=== PATIENT | male | born 1935 | race Hispanic/Latino ===

== ENCOUNTER 2017-11-05 01:53 | Inpatient (IN) | payer MEDICARE, OTHER ==
--- NOTE | 2017-11-05 02:25 | C.PDOC ---
History Of Present Illness 82 y/o male presents to the ED with complaints of not feeling well for the past 2-3 days. States he has had intermittent chest pain and palpitations as well, which come and go. Tonight symptoms returned and patient decided to come in for evaluation. On arrival to the ED, patient found to be in SVT in the 170s. Given 6mg and then 12 mg of adenosine, with no conversion from SVT. Patient then given 20 mg IV cardizem, with conversion to sinus rhythm, HR in the 90s. Patient reports he feels better. Time Seen by Provider: 11/05/17 02:24 Chief Complaint (Nursing): Chest Pain History Per: Patient History/Exam Limitations: no limitations Onset/Duration Of Symptoms: Days Current Symptoms Are (Timing): Still Present Severity: Moderate Pain Scale Rating Of: 6 Quality: "Pain" Alleviating Factors: None Recent travel outside of the [place]: No Additional History Per: Family Past Medical History Reviewed: Historical Data, Nursing Documentation, Vital Signs Vital Signs: Last Vital Signs Temp 98.5 F 11/05/17 02:55 Pulse 93 H 11/05/17 04:25 Resp 24 11/05/17 04:25 BP 114/69 11/05/17 04:25 Pulse Ox 97 11/05/17 04:25 - Medical History PMH: CAD, HTN Surgical History: Appendectomy, CABG Family History: States: No Known Family Hx - Social History Hx Tobacco Use: No Hx Alcohol Use: No Hx Substance Use: No - Immunization History Hx Tetanus Toxoid Vaccination: No Hx Influenza Vaccination: No Hx Pneumococcal Vaccination: No Review Of Systems Constitutional: Negative for: Fever Eyes: Negative for: Vision Change Cardiovascular: Positive for: Chest Pain, Palpitations Respiratory: Negative for: Shortness of Breath Gastrointestinal: Negative for: Nausea, Vomiting Neurological: Negative for: Weakness, Headache, Dizziness Physical Exam - Physical Exam Appears: Non-toxic, No Acute Distress Skin: Warm, Dry Head: Normacephalic Eye(s): bilateral: Normal Inspection Oral Mucosa: Moist Neck: Normal ROM Chest: Symmetrical, Other (CABG scar noted) Cardiovascular: Rhythm Regular (after medications given) Respiratory: No Rales, No Rhonchi, No Wheezing Gastrointestinal/Abdominal: Soft, No Tenderness, No Distention Extremity: Bilateral: Atraumatic, No Pedal Edema, Normal Color And Temperature, Normal ROM Pulses: Left Dorsalis Pedis: Normal, Right Dorsalis Pedis: Normal Neurological/Psych: Oriented x3, Normal Speech, Normal Cranial Nerves Gait: Steady ED Course And Treatment - Laboratory Results Result Diagrams: 11/05/17 02:53 11/05/17 02:53 ECG: Interpreted By Me, Viewed By Me ECG Rhythm: Sinus Tachycardia (170), Nonspecific Changes (svt vs afib) O2 Sat by Pulse Oximetry: 96 Pulse Ox Interpretation: Normal - Radiology CXR: Interpreted by Me, Viewed By Me CXR Interpretation: Yes: Cardiomegaly, Other (cabg). No: Infiltrates, Fracture Progress Note: after cardizem afib 92 bpm, nsstt changes. pt again in afib 140' s -= anothe r 15 mg iv cardizem given, then drip at [address] spoke with dr acuña(icu) will come and see the pt in the ed Critical Care Time - Critical Care Note Total Time (in mins): 30 Documented critical care: time excludes all time spent performing seperately billable procedures. Disposition Discussed With DrSenait: Latoya Orosco Comment: accetped the pt on his service and took over the care at Doctor Will See Patient In The: ED Counseled Patient/Family Regarding: Studies Performed, Diagnosis - Disposition Disposition: HOSPITALIZED Disposition Time: 02:25 Condition: GUARDED Forms: [facility] (Citizen [place]) - POA Present On Arrival: Poor Glycemic Control - Clinical Impression Clinical Impression: Chest pain, Congestive heart failure, Uncontrolled atrial fibrillation, NSTEMI (non-ST elevated myocardial infarction) - Scribe Statement The provider has reviewed the documentation as recorded by the Scribe (Brittany Mallory) Provider Attestation: All medical record entries made by the Scribe were at my direction and personally dictated by me. I have reviewed the chart and agree that the record accurately reflects my personal performance of the history, physical exam, medical decision making, and the department course for this patient. I have also personally directed, reviewed, and agree with the discharge instructions and disposition. Decision To Admit - Pt Status Changed To: Hospital Disposition Of: Inpatient - Admit Certification Admit to Inpatient:: After my assessment, the patient will require hospitalization for at least two midnights. This is because of the severity of symptoms shown, intensity of services needed, and/or the medical risk in this patient being treated as an outpatient. - InPatient: Physician Admission Certification: I certify that this patient requires 2 or more midnights of care for the following reason:: After my assessment, the patient will require hospitalization for at least two midnights. This is because of the severity of symptoms shown, intensity of services needed, and/or the medical risk in this patient being treated as an outpatient. - . Bed Request Type: ICU Admitting Physician: Latoya Orosco Patient Diagnosis: Chest pain, Congestive heart failure, Uncontrolled atrial fibrillation, NSTEMI (non-ST elevated myocardial infarction)
[2017-11-05] MEDS ORDERED: Aspirin 325 mg EC Tablets PO STA (02:31)
[2017-11-05] MEDS ORDERED: Aspirin 325 mg EC Tablets PO ONE (02:44)
[2017-11-05 03:00] LABS: INR 1.1; PROTHROMBIN TIME 11.6 SECONDS (9.7-12.2)
[2017-11-05 03:03] LABS: ALB/GLOB RATIO 1.3 (1.0-2.1); ALBUMIN 3.7 g/dL (3.5-5.0); ALT/SGPT 33 U/L (21-72); AST/SGOT 50 U/L (17-59); BLOOD UREA NITROGEN 30 mg/dL (9-20); CALCIUM 8.7 mg/dl (8.6-10.4); GFR AFRICAN-AMERICAN > 60; GFR NON-AFRICAN AMERICAN > 60; LIPASE 142 U/L (23-300)
[2017-11-05 03:05] LABS: BASO # 0.1 K/uL (0.0-0.2); BASO % 0.8 % (0.0-2.0); EOS # 0.2 K/uL (0.0-0.7); EOS % 2.2 % (0.0-4.0); HEMOGLOBIN 13.6 g/dL (12.0-18.0); LYMPH # 1.6 K/uL (1.0-4.3); LYMPH % 16.9 % (20.0-40.0); MEAN CORPUSCULAR HEMOGLOBIN 29.5 pg (27.0-31.0); MEAN CORPUSCULAR HGB CONC 33.5 g/dL (33.0-37.0); MEAN PLATELET VOLUME 10.6 fL (7.2-11.7); MONO # 0.9 K/uL (0.0-0.8); MONO % 8.9 % (0.0-10.0); NEUT # 6.8 K/uL (1.8-7.0); NEUT % 71.2 % (50.0-75.0); RBC 4.63 Mil/uL (4.40-5.90); RED CELL DISTRIBUTION WIDTH 13.9 % (11.5-14.5); WHITE BLOOD COUNT 9.6 K/uL (4.8-10.8)
[2017-11-05 03:37] LABS: B-TYPE NATRIURETIC PEPTIDE 4370 pg/mL (0-900)
[2017-11-05] MEDS ORDERED: Enoxaparin 80 mg Syringe SC STA (03:46)
[2017-11-05] MEDS ORDERED: Enoxaparin 80 mg Syringe ONE (03:56)
--- NOTE | 2017-11-05 05:16 | CP.PCM.CON ---
History of Present Illness - History of Present Illness History of Present Illness: 82 y/o male with h/o CAD/CABG 4 yrs ago,HTN,Hyperlipidemia presents to the ED with complaints of not feeling well for the past 2-3 days, intermittent chest pain . Tonight about 11:00pmcould not fall asleep.In ED, patient found to be in SVT in the 170s. Given 6mg and then 12 mg of adenosine, with no conversion from SVT. Patient then given 20 mg IV cardizem, with conversion to sinus rhythm , HR in the 90s. 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 absent: Claudication, Dyspnea, Palpitations, Radiating Pain - Respiratory Respiratory: absent: Cough, Dyspnea, Chest Congestion - Gastrointestinal Gastrointestinal: absent: Abdominal Pain, Heartburn, Nausea, Vomiting - Genitourinary Genitourinary: absent: Dysuria, Urinary Frequency - Musculoskeletal Musculoskeletal: absent: Joint Swelling, Stiffness - Integumentary Integumentary: absent: Rash - Neurological Neurological: absent: Dizziness, Weakness - Endocrine Endocrine: absent: Heat Intolorance, Palpitations - Hematologic/Lymphatic Hematologic: absent: Easy Bleeding Past Patient History - Past Medical History & Family History Past Medical History?: Yes - Past Social History Smoking Status: Never Smoked Chewing Tobacco Use: No Cigar Use: No Alcohol: Occasional Drugs: Denies Home Situation {Lives}: Alone - CARDIAC Hx Hypertension: Yes - PSYCHIATRIC Hx Substance Use: No - SURGICAL HISTORY Hx Appendectomy: Yes Hx Coronary Artery Bypass Graft: Yes - ANESTHESIA Hx Anesthesia: Yes Hx Anesthesia Reactions: No Meds Allergies/Adverse Reactions: Allergies Allergy/AdvReac Type Severity Reaction Status Date / Time No Known Allergies Allergy Verified 11/05/17 02:15 - Medications Medications: Current Medications Diltiazem HCl 125 mg/ Sodium (Chloride) 125 mls @ 5 mls/hr IV .Q24H MAY; 5 MG/ HR PRN Reason: Protocol Last Admin: 11/05/17 04:43 Dose: 5 mls/hr Physical Exam - Constitutional Appears: No Acute Distress - Head Exam Head Exam: ATRAUMATIC, NORMAL INSPECTION, NORMOCEPHALIC - Eye Exam Eye Exam: EOMI, PERRL Pupil Exam: NORMAL ACCOMODATION - ENT Exam ENT Exam: Mucous Membranes Moist, Normal Exam - Neck Exam Neck exam: Positive for: Normal Inspection - Respiratory Exam Respiratory Exam: Clear to Auscultation Bilateral. absent: Rhonchi, Wheezes - Cardiovascular Exam Cardiovascular Exam: Tachycardia, Irregular Rhythm. absent: JVD - GI/Abdominal Exam GI & Abdominal Exam: Normal Bowel Sounds, Soft. absent: Tenderness - Extremities Exam Extremities exam: Positive for: pedal edema, pedal pulses present. Negative for : calf tenderness, tenderness - Back Exam Back exam: NORMAL INSPECTION - Neurological Exam Neurological exam: Alert, Oriented x3 - Psychiatric Exam Psychiatric exam: Normal Affect - Skin Skin Exam: Intact, Normal Color, Warm Results - Vital Signs Recent Vital Signs: Last Vital Signs Temp 98.5 F 11/05/17 02:55 Pulse 110 H 11/05/17 05:02 Resp 18 11/05/17 05:02 BP 113/64 11/05/17 05:02 Pulse Ox 95 11/05/17 05:02 - Labs Result Diagrams: 11/05/17 02:53 11/05/17 02:53 Labs: Laboratory Results - last 24 hr 11/05/17 11/05/17 11/05/17 02:53 02:53 02:53 WBC 9.6 RBC 4.63 Hgb 13.6 Hct 40.7 MCV 88.0 MCH 29.5 MCHC 33.5 RDW 13.9 Plt Count 158 MPV 10.6 Neut % (Auto) 71.2 Lymph % (Auto) 16.9 L [place] % (Auto) 8.9 Eos % (Auto) 2.2 Baso % (Auto) 0.8 Neut # (Auto) 6.8 Lymph # (Auto) 1.6 [place] # (Auto) 0.9 H Eos # (Auto) 0.2 Baso # (Auto) 0.1 PT 11.6 INR 1.1 APTT 33 Sodium 142 Potassium 3.8 Chloride 106 Carbon Dioxide 23 Anion Gap 17 BUN 30 H Creatinine 1.1 Est GFR ( Amer) > 60 Est GFR (Non-Af Amer) > 60 Random Glucose 136 H Calcium 8.7 Total Bilirubin 0.9 AST 50 ALT 33 Alkaline Phosphatase 77 Troponin I 3.3800 H* NT-Pro-B Natriuret Pep 4370 H Total Protein 6.6 Albumin 3.7 Globulin 2.9 Albumin/Globulin Ratio 1.3 Lipase 142 TSH 3rd Generation 3.13 - EKG Data EKG Interpreted by: Myself - Imaging and Cardiology Chest x-ray Status: Image reviewed by me Assessment & Plan - Assessment and Plan (Free Text) Assessment: 1.NSTEMI/ Atrial fibrillation with Rapid Ventricular rate CHF On Cardizem drip Serial EKG and Troponin Aspirin,plavix 2.HTN -continue meds 3.Hyperlipidemia- fasting lipids crestor
[2017-11-05 06:19] LABS: HDL CHOLESTEROL 27 mg/dL (30-70)
[2017-11-05 06:30] LABS: LDL CHOLESTEROL 102 mg/dL (0-129)
--- NOTE | 2017-11-05 08:49 | RAD ---
Date of service: 11/05/2017 PROCEDURE: CHEST RADIOGRAPH, 1 VIEW HISTORY: Chest pain COMPARISON: None available. FINDINGS: LUNGS: The lungs are well inflated. There is mild pulmonary venous congestion. PLEURA: No pneumothorax or pleural fluid seen. CARDIOVASCULAR: There is severe cardiomegaly. Status post CABG. There is unfolding of the aorta. OSSEOUS STRUCTURES: No significant abnormalities. VISUALIZED UPPER ABDOMEN: Normal. OTHER FINDINGS: None. IMPRESSION: No active pulmonary disease. Severe cardiomegaly
[2017-11-05] MEDS: Enoxaparin 80 mg Syringe SC SCH ×2 (09:29→18:37)
--- NOTE | 2017-11-05 14:12 | CP.CCUPN ---
<Bibiana Polanco - Last Filed: 11/05/17 18:44> CCU Subjective - Physician Review Events Since Last Encounter (Free Text): 11/05/17 14:06 82 yo M w/ PMHx of CAD requiring CABG, HTN, HLD, presented to ED w/ complaints of chest pain. Admitted to ICU after pt found to be in A. Fib, rate controlled w/ cardizem. 11/05/17 18:44 s/p cardiac cath showing significant new disease; PCI needed CCU Objective - Vital Signs / Intake & Output Vital Signs (Last 4 hours): Vital Signs Pulse Resp BP Pulse Ox 11/05/17 13:10 85 24 98 11/05/17 13:00 93 H 20 99 11/05/17 12:58 97 H 15 105/67 99 11/05/17 12:50 85 22 91 L 11/05/17 12:40 82 31 H 99 11/05/17 12:30 95 H 23 92 L 11/05/17 12:28 86 19 110/75 99 11/05/17 12:20 81 25 H 98 11/05/17 12:10 87 31 H 98 11/05/17 12:00 86 26 H 98 11/05/17 11:58 75 27 H 111/69 97 11/05/17 11:50 98 H 34 H 98 11/05/17 11:40 87 31 H 98 11/05/17 11:30 98 H 19 99 11/05/17 11:28 103 H 17 112/73 98 11/05/17 11:20 94 H 15 99 11/05/17 11:10 92 H 29 H 87 L 11/05/17 11:00 131 H 20 96 11/05/17 10:58 115 H 25 H 120/76 99 11/05/17 10:50 89 25 H 97 11/05/17 10:40 100 H 21 97 11/05/17 10:30 91 H 24 98 11/05/17 10:28 119 H 23 116/52 L 98 11/05/17 10:20 99 H 31 H 98 11/05/17 10:10 115 H 15 98 Intake and Output (Last 8hrs): Intake & Output 11/04/17 11/05/17 11/05/17 22:59 06:59 14:59 Intake Total 7.5 790 Balance 7.5 790 Weight 180 lb Intake: Intake, IV Amount 7.5 70 Right Hand 7.5 70 Oral 720 - Physical Exam Head: Positive for: Atraumatic, Normocephalic Extroacular Muscles: Positive for: EOMI Mouth: Positive for: Moist Mucous Membranes Respiratory/Chest: Positive for: Clear to Auscultation, Good Air Exchange Cardiovascular: Positive for: Murmurs, Tachycardic Abdomen: Positive for: Normal Bowel Sounds. Negative for: Tenderness, Distention Neurological: Positive for: GCS=15 - Medications Active Medications: Active Medications Generic Name Dose Route Start Last Admin Trade Name Freq PRN Reason Stop Dose Admin Aspirin 81 mg 11/05/17 10:00 11/05/17 09:29 Ecotrin PO 81 mg DAILY [facility] Administration Carvedilol 3.125 mg 11/05/17 10:00 11/05/17 09:29 Coreg PO 3.125 mg BID MAY Administration Clopidogrel Bisulfate 75 mg 11/05/17 10:00 11/05/17 09:29 Plavix PO 75 mg DAILY MAY Administration Enoxaparin Sodium 80 mg 11/05/17 10:00 11/05/17 09:29 Lovenox SC 80 mg BID MAY Administration Famotidine 40 mg 11/05/17 10:00 11/05/17 09:29 Pepcid PO 40 mg DAILY MAY Administration Diltiazem HCl 125 mg/ Sodium 125 mls @ 5 mls/hr 11/05/17 04:26 11/05/17 06:33 Chloride IV 10 mg/hr .Q24H MAY 10 mls/hr Protocol Titration 5 MG/HR Lisinopril 2.5 mg 11/05/17 10:00 11/05/17 09:29 Zestril PO 2.5 mg DAILY MAY Administration Pneumococcal Polyvalent Vaccine 0.5 ml 11/07/17 10:00 Pneumovax 23 Vaccine IM 11/07/17 10:01 .ONCE ONE Rosuvastatin Calcium 5 mg 11/05/17 22:00 Crestor PO HS [facility] - Patient Studies Lab Studies: Lab Studies 11/05/17 11/05/17 11/05/17 Range/Units 11:18 06:11 02:53 WBC (4.8-10.8) K/uL RBC (4.40-5.90) Mil/uL Hgb (12.0-18.0) g/dL Hct (35.0-51.0) % MCV (80.0-94.0) fL MCH (27.0-31.0) pg MCHC (33.0-37.0) g/dL RDW (11.5-14.5) % Plt Count (130-400) K/uL MPV (7.2-11.7) fL Neut % (Auto) (50.0-75.0) % Lymph % (Auto) (20.0-40.0) % Cecil % (Auto) (0.0-10.0) % Eos % (Auto) (0.0-4.0) % Baso % (Auto) (0.0-2.0) % Neut # (Auto) (1.8-7.0) K/uL Lymph # (Auto) (1.0-4.3) K/uL Cecil # (Auto) (0.0-0.8) K/uL Eos # (Auto) (0.0-0.7) K/uL Baso # (Auto) (0.0-0.2) K/uL PT 11.6 (9.7-12.2) SECONDS INR 1.1 APTT 33 (21-34) SECONDS Sodium (132-148) mmol/L Potassium (3.6-5.2) mmol/L Chloride (98-107) mmol/L Carbon Dioxide (22-30) mmol/L Anion Gap (10-20) BUN (9-20) mg/dL Creatinine (0.8-1.5) mg/dL Est GFR ( Amer) Est GFR (Non-Af Amer) Random Glucose (75-110) mg/dL Calcium (8.6-10.4) mg/dl Total Bilirubin (0.2-1.3) mg/dL AST (17-59) U/L ALT (21-72) U/L Alkaline Phosphatase (38-126) U/L Troponin I 27.0000 H* (0.00-0.120) ng/mL NT-Pro-B Natriuret Pep (0-900) pg/mL Total Protein (6.3-8.3) g/dL Albumin (3.5-5.0) g/dL Globulin (2.2-3.9) gm/dL Albumin/Globulin Ratio (1.0-2.1) Triglycerides 123 (0-149) mg/dL Cholesterol 146 (0-199) mg/dL LDL Cholesterol Direct 102 (0-129) mg/dL HDL Cholesterol 27 L (30-70) mg/dL Lipase (23-300) U/L TSH 3rd Generation (0.46-4.68) mIU/L 11/05/17 11/05/17 Range/Units 02:53 02:53 WBC 9.6 (4.8-10.8) K/uL RBC 4.63 (4.40-5.90) Mil/uL Hgb 13.6 (12.0-18.0) g/dL Hct 40.7 (35.0-51.0) % MCV 88.0 (80.0-94.0) fL MCH 29.5 (27.0-31.0) pg MCHC 33.5 (33.0-37.0) g/dL RDW 13.9 (11.5-14.5) % Plt Count 158 (130-400) K/uL MPV 10.6 (7.2-11.7) fL Neut % (Auto) 71.2 (50.0-75.0) % Lymph % (Auto) 16.9 L (20.0-40.0) % Cecil % (Auto) 8.9 (0.0-10.0) % Eos % (Auto) 2.2 (0.0-4.0) % Baso % (Auto) 0.8 (0.0-2.0) % Neut # (Auto) 6.8 (1.8-7.0) K/uL Lymph # (Auto) 1.6 (1.0-4.3) K/uL Cecil # (Auto) 0.9 H (0.0-0.8) K/uL Eos # (Auto) 0.2 (0.0-0.7) K/uL Baso # (Auto) 0.1 (0.0-0.2) K/uL PT (9.7-12.2) SECONDS INR APTT (21-34) SECONDS Sodium 142 (132-148) mmol/L Potassium 3.8 (3.6-5.2) mmol/L Chloride 106 (98-107) mmol/L Carbon Dioxide 23 (22-30) mmol/L Anion Gap 17 (10-20) BUN 30 H (9-20) mg/dL Creatinine 1.1 (0.8-1.5) mg/dL Est GFR ( Amer) > 60 Est GFR (Non-Af Amer) > 60 Random Glucose 136 H (75-110) mg/dL Calcium 8.7 (8.6-10.4) mg/dl Total Bilirubin 0.9 (0.2-1.3) mg/dL AST 50 (17-59) U/L ALT 33 (21-72) U/L Alkaline Phosphatase 77 (38-126) U/L Troponin I 3.3800 H* (0.00-0.120) ng/mL NT-Pro-B Natriuret Pep 4370 H (0-900) pg/mL Total Protein 6.6 (6.3-8.3) g/dL Albumin 3.7 (3.5-5.0) g/dL Globulin 2.9 (2.2-3.9) gm/dL Albumin/Globulin Ratio 1.3 (1.0-2.1) Triglycerides (0-149) mg/dL Cholesterol (0-199) mg/dL LDL Cholesterol Direct (0-129) mg/dL HDL Cholesterol (30-70) mg/dL Lipase 142 (23-300) U/L TSH 3rd Generation 3.13 (0.46-4.68) mIU/L Laboratory Results - last 24 hr 11/05/17 11/05/17 11/05/17 02:53 02:53 02:53 WBC 9.6 RBC 4.63 Hgb 13.6 Hct 40.7 MCV 88.0 MCH 29.5 MCHC 33.5 RDW 13.9 Plt Count 158 MPV 10.6 Neut % (Auto) 71.2 Lymph % (Auto) 16.9 L Cecil % (Auto) 8.9 Eos % (Auto) 2.2 Baso % (Auto) 0.8 Neut # (Auto) 6.8 Lymph # (Auto) 1.6 Cecil # (Auto) 0.9 H Eos # (Auto) 0.2 Baso # (Auto) 0.1 PT 11.6 INR 1.1 APTT 33 Sodium 142 Potassium 3.8 Chloride 106 Carbon Dioxide 23 Anion Gap 17 BUN 30 H Creatinine 1.1 Est GFR ( Amer) > 60 Est GFR (Non-Af Amer) > 60 Random Glucose 136 H Calcium 8.7 Total Bilirubin 0.9 AST 50 ALT 33 Alkaline Phosphatase 77 Troponin I 3.3800 H* NT-Pro-B Natriuret Pep 4370 H Total Protein 6.6 Albumin 3.7 Globulin 2.9 Albumin/Globulin Ratio 1.3 Triglycerides Cholesterol LDL Cholesterol Direct HDL Cholesterol Lipase 142 TSH 3rd Generation 3.13 11/05/17 11/05/17 06:11 11:18 WBC RBC Hgb Hct MCV MCH MCHC RDW Plt Count MPV Neut % (Auto) Lymph % (Auto) Cecil % (Auto) Eos % (Auto) Baso % (Auto) Neut # (Auto) Lymph # (Auto) Cecil # (Auto) Eos # (Auto) Baso # (Auto) PT INR APTT Sodium Potassium Chloride Carbon Dioxide Anion Gap BUN Creatinine Est GFR ( Amer) Est GFR (Non-Af Amer) Random Glucose Calcium Total Bilirubin AST ALT Alkaline Phosphatase Troponin I 27.0000 H* NT-Pro-B Natriuret Pep Total Protein Albumin Globulin Albumin/Globulin Ratio Triglycerides 123 Cholesterol 146 LDL Cholesterol Direct 102 HDL Cholesterol 27 L Lipase TSH 3rd Generation EKG/Cardiology Studies: Cardiology / EKG Studies 11/05/17 02:11 EKG [ELECTROCARDIOGRAM] Stat Comment: Mode Of Transportation: BED Reason For Exam: 11/05/17 02:13 EKG [ELECTROCARDIOGRAM] Stat Comment: Mode Of Transportation: BED Reason For Exam: 11/05/17 02:14 EKG [ELECTROCARDIOGRAM] Stat Comment: Mode Of Transportation: BED Reason For Exam: 11/05/17 02:15 EKG [ELECTROCARDIOGRAM] Stat Comment: Mode Of Transportation: BED Reason For Exam: 11/05/17 02:20 EKG [ELECTROCARDIOGRAM] Stat Comment: Mode Of Transportation: BED Reason For Exam: 11/05/17 02:26 ELECTROCARDIOGRAM Stat Comment: Mode Of Transportation: BED Reason For Exam: chest pain 11/05/17 11:00 ELECTROCARDIOGRAM Routine Comment: Mode Of Transportation: PORTABLE Reason For Exam: NSTEMI,a fib Review of Systems - Constitutional Constitutional: absent: Chills, Sweats - Cardiovascular Cardiovascular: absent: Chest Pain, Diaphoresis, Edema, Palpitations - Respiratory Respiratory: absent: Cough, Dyspnea - Gastrointestinal Gastrointestinal: absent: Abdominal Pain, Nausea Critical Care Progress Note - Nutrition Nutrition: Nutrition Category Date Time Status NPO Diet [DIET] Diets 11/05/17 Lunch Active Assessment/Plan - Assessment and Plan (Free Text) Assessment: 82 yo M s/p NSTEMI, hx of A. Fib NSTEMI trops + x2 -cardiac cath w/ Dr. Esposito -aspirin 81mg -plavix A. Fib -cardizem drip HTN -lisinopril CHF -coreg HLD -crestor CAD s/p CABG -lovenox Ppx -pepcid -lovenox Case discussed w/ Dr. Seferino Polanco PGY1 <Clemente Gentile S - Last Filed: 11/05/17 18:48> CCU Objective - Vital Signs / Intake & Output Vital Signs (Last 4 hours): Vital Signs Pulse Resp BP Pulse Ox 11/05/17 17:30 117 H 35 H 11/05/17 17:25 128 H 27 H 121/91 H 11/05/17 17:21 106 H 11/05/17 15:30 99 H 28 H 99 11/05/17 15:28 100 H 32 H 116/65 98 11/05/17 15:20 102 H 17 87 L 11/05/17 15:10 110 H 20 94 L 11/05/17 15:00 94 H 30 H 94 L 11/05/17 14:58 96 H 19 112/79 94 L 11/05/17 14:50 90 22 99 Intake and Output (Last 8hrs): Intake & Output 11/05/17 11/05/17 11/05/17 06:59 14:59 22:59 Intake Total 7.5 800 115 Balance 7.5 800 115 Weight 180 lb Intake: IV 85 Intake, IV Amount 7.5 80 30 Right Hand 7.5 80 30 Oral 720 Other: # Voids Urine, Voided 1 - Medications Active Medications: Active Medications Generic Name Dose Route Start Last Admin Trade Name Freq PRN Reason Stop Dose Admin Aspirin 81 mg 11/05/17 10:00 11/05/17 09:29 Ecotrin PO 81 mg DAILY MAY Administration Carvedilol 3.125 mg 11/05/17 10:00 11/05/17 18:37 Coreg PO 3.125 mg BID MAY Administration Clopidogrel Bisulfate 75 mg 11/05/17 10:00 11/05/17 09:29 Plavix PO 75 mg DAILY MAY Administration Enoxaparin Sodium 80 mg 11/05/17 10:00 11/05/17 18:37 Lovenox SC 80 mg BID MAY Administration Famotidine 40 mg 11/05/17 10:00 11/05/17 09:29 Pepcid PO 40 mg DAILY MAY Administration Diltiazem HCl 125 mg/ Sodium 125 mls @ 5 mls/hr 11/05/17 04:26 11/05/17 18:20 Chloride IV 15 mg/hr .Q24H MAY 15 mls/hr Protocol Titration 5 MG/HR Sodium Chloride 1,000 mls @ 50 mls/hr 11/05/17 18:00 11/05/17 15:20 Sodium Chloride 0.45% IV 11/06/17 13:59 50 mls/hr .Q20H MAY Administration Lisinopril 2.5 mg 11/05/17 10:00 11/05/17 09:29 Zestril PO 2.5 mg DAILY MAY Administration Pneumococcal Polyvalent Vaccine 0.5 ml 11/07/17 10:00 Pneumovax 23 Vaccine IM 11/07/17 10:01 .ONCE ONE Rosuvastatin Calcium 40 mg 11/05/17 22:00 Crestor PO HS [facility] - Patient Studies Lab Studies: Lab Studies 11/05/17 11/05/17 11/05/17 Range/Units 11:18 06:11 02:53 WBC (4.8-10.8) K/uL RBC (4.40-5.90) Mil/uL Hgb (12.0-18.0) g/dL Hct (35.0-51.0) % MCV (80.0-94.0) fL MCH (27.0-31.0) pg MCHC (33.0-37.0) g/dL RDW (11.5-14.5) % Plt Count (130-400) K/uL MPV (7.2-11.7) fL Neut % (Auto) (50.0-75.0) % Lymph % (Auto) (20.0-40.0) % Cecil % (Auto) (0.0-10.0) % Eos % (Auto) (0.0-4.0) % Baso % (Auto) (0.0-2.0) % Neut # (Auto) (1.8-7.0) K/uL Lymph # (Auto) (1.0-4.3) K/uL Cecil # (Auto) (0.0-0.8) K/uL Eos # (Auto) (0.0-0.7) K/uL Baso # (Auto) (0.0-0.2) K/uL PT 11.6 (9.7-12.2) SECONDS INR 1.1 APTT 33 (21-34) SECONDS Sodium (132-148) mmol/L Potassium (3.6-5.2) mmol/L Chloride (98-107) mmol/L Carbon Dioxide (22-30) mmol/L Anion Gap (10-20) BUN (9-20) mg/dL Creatinine (0.8-1.5) mg/dL Est GFR ( Amer) Est GFR (Non-Af Amer) Random Glucose (75-110) mg/dL Calcium (8.6-10.4) mg/dl Total Bilirubin (0.2-1.3) mg/dL AST (17-59) U/L ALT (21-72) U/L Alkaline Phosphatase (38-126) U/L Troponin I 27.0000 H* (0.00-0.120) ng/mL NT-Pro-B Natriuret Pep (0-900) pg/mL Total Protein (6.3-8.3) g/dL Albumin (3.5-5.0) g/dL Globulin (2.2-3.9) gm/dL Albumin/Globulin Ratio (1.0-2.1) Triglycerides 123 (0-149) mg/dL Cholesterol 146 (0-199) mg/dL LDL Cholesterol Direct 102 (0-129) mg/dL HDL Cholesterol 27 L (30-70) mg/dL Lipase (23-300) U/L TSH 3rd Generation (0.46-4.68) mIU/L 11/05/17 11/05/17 Range/Units 02:53 02:53 WBC 9.6 (4.8-10.8) K/uL RBC 4.63 (4.40-5.90) Mil/uL Hgb 13.6 (12.0-18.0) g/dL Hct 40.7 (35.0-51.0) % MCV 88.0 (80.0-94.0) fL MCH 29.5 (27.0-31.0) pg MCHC 33.5 (33.0-37.0) g/dL RDW 13.9 (11.5-14.5) % Plt Count 158 (130-400) K/uL MPV 10.6 (7.2-11.7) fL Neut % (Auto) 71.2 (50.0-75.0) % Lymph % (Auto) 16.9 L (20.0-40.0) % Cecil % (Auto) 8.9 (0.0-10.0) % Eos % (Auto) 2.2 (0.0-4.0) % Baso % (Auto) 0.8 (0.0-2.0) % Neut # (Auto) 6.8 (1.8-7.0) K/uL Lymph # (Auto) 1.6 (1.0-4.3) K/uL Cecil # (Auto) 0.9 H (0.0-0.8) K/uL Eos # (Auto) 0.2 (0.0-0.7) K/uL Baso # (Auto) 0.1 (0.0-0.2) K/uL PT (9.7-12.2) SECONDS INR APTT (21-34) SECONDS Sodium 142 (132-148) mmol/L Potassium 3.8 (3.6-5.2) mmol/L Chloride 106 (98-107) mmol/L Carbon Dioxide 23 (22-30) mmol/L Anion Gap 17 (10-20) BUN 30 H (9-20) mg/dL Creatinine 1.1 (0.8-1.5) mg/dL Est GFR ( Amer) > 60 Est GFR (Non-Af Amer) > 60 Random Glucose 136 H (75-110) mg/dL Calcium 8.7 (8.6-10.4) mg/dl Total Bilirubin 0.9 (0.2-1.3) mg/dL AST 50 (17-59) U/L ALT 33 (21-72) U/L Alkaline Phosphatase 77 (38-126) U/L Troponin I 3.3800 H* (0.00-0.120) ng/mL NT-Pro-B Natriuret Pep 4370 H (0-900) pg/mL Total Protein 6.6 (6.3-8.3) g/dL Albumin 3.7 (3.5-5.0) g/dL Globulin 2.9 (2.2-3.9) gm/dL Albumin/Globulin Ratio 1.3 (1.0-2.1) Triglycerides (0-149) mg/dL Cholesterol (0-199) mg/dL LDL Cholesterol Direct (0-129) mg/dL HDL Cholesterol (30-70) mg/dL Lipase 142 (23-300) U/L TSH 3rd Generation 3.13 (0.46-4.68) mIU/L Laboratory Results - last 24 hr 11/05/17 11/05/17 11/05/17 02:53 02:53 02:53 WBC 9.6 RBC 4.63 Hgb 13.6 Hct 40.7 MCV 88.0 MCH 29.5 MCHC 33.5 RDW 13.9 Plt Count 158 MPV 10.6 Neut % (Auto) 71.2 Lymph % (Auto) 16.9 L Cecil % (Auto) 8.9 Eos % (Auto) 2.2 Baso % (Auto) 0.8 Neut # (Auto) 6.8 Lymph # (Auto) 1.6 Cecil # (Auto) 0.9 H Eos # (Auto) 0.2 Baso # (Auto) 0.1 PT 11.6 INR 1.1 APTT 33 Sodium 142 Potassium 3.8 Chloride 106 Carbon Dioxide 23 Anion Gap 17 BUN 30 H Creatinine 1.1 Est GFR ( Amer) > 60 Est GFR (Non-Af Amer) > 60 Random Glucose 136 H Calcium 8.7 Total Bilirubin 0.9 AST 50 ALT 33 Alkaline Phosphatase 77 Troponin I 3.3800 H* NT-Pro-B Natriuret Pep 4370 H Total Protein 6.6 Albumin 3.7 Globulin 2.9 Albumin/Globulin Ratio 1.3 Triglycerides Cholesterol LDL Cholesterol Direct HDL Cholesterol Lipase 142 TSH 3rd Generation 3.13 11/05/17 11/05/17 06:11 11:18 WBC RBC Hgb Hct MCV MCH MCHC RDW Plt Count MPV Neut % (Auto) Lymph % (Auto) Cecil % (Auto) Eos % (Auto) Baso % (Auto) Neut # (Auto) Lymph # (Auto) Cecil # (Auto) Eos # (Auto) Baso # (Auto) PT INR APTT Sodium Potassium Chloride Carbon Dioxide Anion Gap BUN Creatinine Est GFR ( Amer) Est GFR (Non-Af Amer) Random Glucose Calcium Total Bilirubin AST ALT Alkaline Phosphatase Troponin I 27.0000 H* NT-Pro-B Natriuret Pep Total Protein Albumin Globulin Albumin/Globulin Ratio Triglycerides 123 Cholesterol 146 LDL Cholesterol Direct 102 HDL Cholesterol 27 L Lipase TSH 3rd Generation EKG/Cardiology Studies: Cardiology / EKG Studies 11/05/17 02:11 EKG [ELECTROCARDIOGRAM] Stat Comment: Mode Of Transportation: BED Reason For Exam: 11/05/17 02:13 EKG [ELECTROCARDIOGRAM] Stat Comment: Mode Of Transportation: BED Reason For Exam: 11/05/17 02:14 EKG [ELECTROCARDIOGRAM] Stat Comment: Mode Of Transportation: BED Reason For Exam: 11/05/17 02:15 EKG [ELECTROCARDIOGRAM] Stat Comment: Mode Of Transportation: BED Reason For Exam: 11/05/17 02:20 EKG [ELECTROCARDIOGRAM] Stat Comment: Mode Of Transportation: BED Reason For Exam: 11/05/17 02:26 ELECTROCARDIOGRAM Stat Comment: Mode Of Transportation: BED Reason For Exam: chest pain 11/05/17 11:00 ELECTROCARDIOGRAM Routine Comment: Mode Of Transportation: PORTABLE Reason For Exam: NSTEMI,a fib Critical Care Progress Note - Nutrition Nutrition: Nutrition Category Date Time Status Heart Healthy Diet [DIET] Diets 11/05/17 Dinner Active Attending/Attestation - Attestation I have personally seen and examined this patient.: Yes I have fully participated in the care of the patient.: Yes I have reviewed all pertinent clinical information: Yes Notes (Text): 11/05/17 18:48 PATIENT SEEN AND EXAMINED
[2017-11-05] MEDS ORDERED: Midazolam 2 MG/2 ML VIAL ONE (16:15)
[2017-11-05] MEDS ORDERED: Iodixanol 320 MG/ML 100 ML BOTTLE IV ONE ×2 (16:15→16:43)
[2017-11-05] MEDS ORDERED: Lidocaine Hydrochloride 10 ML INJ ONE (16:15)
--- NOTE | 2017-11-05 16:39 | CARD ---
APPROVED REPORT Date of service: 11/05/2017 EXAM: Two-dimensional and M-mode echocardiogram with Doppler and color Doppler. Other Information Quality : AverageRhythm : NSR INDICATION Atrial Fibrillation Chest Pain Congestive Heart Failure 2D DIMENSIONS LVOT Diameter1.6 (1.8-2.4cm) M-Mode DIMENSIONS RVDd2.65 (2.1-3.2cm)IVSd1.48 (0.7-1.1cm) LVDd4.77 (4.0-5.6cm)PWd1.48 (0.7-1.1cm) FS (%) 23 %LVDs3.69 (2.0-3.8cm) LVEF (%)46 (>50%) Aortic Valve AoV Peak Wtjsxosc287.9cm/sAoV VTI45.8cmAO Peak GR.21mmHg LVOT Peak Gnnowfoq36.6cm/Mona Mean GR.11mmHg Mitral Valve MV E Lbzkbvrs544.6cm/sMV A Zjukungo41.8cm/sE/A ratio1.4 TDI E/Lateral E'0.0E/Medial E'0.0 Tricuspid Valve TR Peak [id number]/sTR Peak Gr.[id number] LEFT VENTRICLE The Left Ventricle is moderately dilated. There is mild to moderate concentric left ventricular hypertrophy. Left ventricle systolic function is moderately impaired. The Ejection Fraction is - 40 - 45% There is moderate hypokinesis in the inferior wall. Transmitral Doppler flow pattern is Grade III RIGHT VENTRICLE The right ventricle is moderately dilated. Systolic function is mildly reduced. ATRIA The left atrium is moderately dilated. The right atrium is moderately dilated. AORTIC VALVE The aortic valve is calcified and displays decreased opening. A bioprosthetic device cannot be excluded. There is trace aortic regurgitation. MITRAL VALVE The mitral valve is normal in structure. Mitral regurgitation is mild. TRICUSPID VALVE The tricuspid valve is normal in structure. There is trace to Right ventricular systolic pressure is estimated at less than 30 mmHg. mild tricuspid regurgitation. PULMONIC VALVE The pulmonic valve is not well visualized. GREAT VESSELS The aortic root displays mild to moderate sclerocalcific changes. The IVC is normal in size and collapses >50% with inspiration. PERICARDIAL EFFUSION There is no pericardial effusion. <Conclusion> The left ventricle is moderately dilated. There is mild to moderate concentric left ventricular hypertrophy. There is moderate hypokinesis in the inferior wall compatible with coronary heart disease. Left ventricle systolic function is moderately impaired. The Ejection Fraction is - 40 - 45% Severe diastolic dysfunction. Transmitral Doppler flow pattern is Grade III The right ventricle is moderately dilated. Systolic function is mildly to moderately reduced. Moderate bi-atrial enlargement. The aortic valve is calcified and displays decreased opening. Due to poor acoustic windows, a bioprosthetic device cannot be excluded. There is trace aortic regurgitation. Mild mitral regurgitation. There is no pericardial effusion.
[2017-11-05] MEDS ORDERED: Sodium Chloride 0.45% 1,000 ML IV SCH (18:00)
--- NOTE | 2017-11-05 20:09 | CP.PCM.HP ---
History of Present Illness - History of Present Illness History of Present Illness: Chief complaint: Sudden onset of chest discomfort, and palpitation. History of present illness: 82-year-old male with history of CAD, CABG 4 years ago hypertension hyperlipidemia came to the emergency room with a sudden onset of chest palpitations started yesterday. He was having intermittent pain for quite some time. Yesterday he went to [place], he had a big steak at the time, and he went to home after that. That night while he was sleeping suddenly he started having some sudden onset of chest discomfort, and palpitation and associated with the chest pain. He was not able to bleed, he was also feeling like choking sensation, he was immediately taken to the emergency room by the ambulance. In the emergency room patient was noted to have a SVT, given adenosine without any improvement, and given Cardizem, and needed hospitalization. At that time patient also had a positive cardiac enzymes so he was admitted to the intensive care unit at the time. Patient today he underwent angiogram, evidence of CAD with the blockages noted. Patient will be possibly needing more treatment Patient is currently in the intensive care unit. He denies any chest pain. He is able to eat. No nausea vomiting, no palpitation currently Past medical history as noted above Allergy no known drug allergy Personal history used to be a heavy smoker in the past, 5 pack per day in the past to be Quit many years ago. Surgical history included coronary artery bypass grafting. Family history significant for hypertension and heart disease Review of system: Currently patient is feeling okay, he denies any chest pain. He was having some palpitation, shortness of breath at that time. Leg swelling negative. Able to eat well. He was able to ambulate On examination: Tachycardia noted. Chest bilateral good entry Regular heart sound noted. But episodes of irregular, and also tachycardia noted. Mild shortness of breath noted. abdomen obese. Bilateral pedal edema negative DEHYDRATOR alert awake oriented 3 no functional neurological deficit Labs reviewed Elevated troponin III 0.3 noted. ProBNP also noted to be elevated. CMP CBC otherwise normal Patient underwent coronary angiogram. ANGEL is patent. Patient has a marginal obstruction noted. Assessment and recommendation: 82-year-old male with history of hypertension, atrial fibrillation, admitted with decompensated heart failure associated with acute IN. Elevated cardiac enzymes, possible non-ST elevation IN. Overall prognosis is poor. Patient is currently having atrial fibrillation with the flutter. Patient will be closely monitored in the intensive care unit, prognosis is poor. 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 DVT GI prophylaxis will follow the patient Present on Admission - Present on Admission Any Indicators Present on Admission: No History of DVT/PE: No History of Uncontrolled Diabetes: No Urinary Catheter: No Decubitus Ulcer Present: No Past Patient History - Past Medical History & Family History Past Medical History?: Yes - Past Social History Smoking Status: Never Smoked - CARDIAC Hx Cardiac Disorders: Yes Hx Hypertension: Yes - PULMONARY Hx Respiratory Disorders: No - NEUROLOGICAL Hx Neurological Disorder: No - HEENT Hx HEENT Problems: No - RENAL Hx Chronic Kidney Disease: No - ENDOCRINE/METABOLIC Hx Endocrine Disorders: No - HEMATOLOGICAL/ONCOLOGICAL Hx Blood Disorders: No - INTEGUMENTARY Hx Dermatological Problems: No - MUSCULOSKELETAL/RHEUMATOLOGICAL Hx Musculoskeletal Disorders: No Hx Falls: No - GASTROINTESTINAL Hx Gastrointestinal Disorders: No - GENITOURINARY/GYNECOLOGICAL Hx Genitourinary Disorders: No - PSYCHIATRIC Hx Substance Use: No - SURGICAL HISTORY Hx Surgeries: Yes Hx Appendectomy: Yes Hx Coronary Artery Bypass Graft: Yes - ANESTHESIA Hx Anesthesia: Yes Hx Anesthesia Reactions: No Hx Malignant Hyperthermia: No Has any member of the family had a problem w/ anesthesia?: No Meds Allergies/Adverse Reactions: Allergies Allergy/AdvReac Type Severity Reaction Status Date / Time No Known Allergies Allergy Verified 11/05/17 02:15 Results - Vital Signs Recent Vital Signs: Last Vital Signs Temp 97.8 F 11/05/17 17:25 Pulse 99 H 11/05/17 19:29 Resp 27 H 11/05/17 19:29 BP 134/77 11/05/17 19:29 Pulse Ox 99 11/05/17 15:30 - Labs Result Diagrams: 11/05/17 02:53 11/05/17 02:53 Labs: Laboratory Results - last 24 hr 11/05/17 11/05/17 11/05/17 02:53 02:53 02:53 WBC 9.6 RBC 4.63 Hgb 13.6 Hct 40.7 MCV 88.0 MCH 29.5 MCHC 33.5 RDW 13.9 Plt Count 158 MPV 10.6 Neut % (Auto) 71.2 Lymph % (Auto) 16.9 L Drew % (Auto) 8.9 Eos % (Auto) 2.2 Baso % (Auto) 0.8 Neut # (Auto) 6.8 Lymph # (Auto) 1.6 Drew # (Auto) 0.9 H Eos # (Auto) 0.2 Baso # (Auto) 0.1 PT 11.6 INR 1.1 APTT 33 Sodium 142 Potassium 3.8 Chloride 106 Carbon Dioxide 23 Anion Gap 17 BUN 30 H Creatinine 1.1 Est GFR ( Amer) > 60 Est GFR (Non-Af Amer) > 60 Random Glucose 136 H Calcium 8.7 Total Bilirubin 0.9 AST 50 ALT 33 Alkaline Phosphatase 77 Troponin I 3.3800 H* NT-Pro-B Natriuret Pep 4370 H Total Protein 6.6 Albumin 3.7 Globulin 2.9 Albumin/Globulin Ratio 1.3 Triglycerides Cholesterol LDL Cholesterol Direct HDL Cholesterol Lipase 142 TSH 3rd Generation 3.13 11/05/17 11/05/17 06:11 11:18 WBC RBC Hgb Hct MCV MCH MCHC RDW Plt Count MPV Neut % (Auto) Lymph % (Auto) Drew % (Auto) Eos % (Auto) Baso % (Auto) Neut # (Auto) Lymph # (Auto) Drew # (Auto) Eos # (Auto) Baso # (Auto) PT INR APTT Sodium Potassium Chloride Carbon Dioxide Anion Gap BUN Creatinine Est GFR ( Amer) Est GFR (Non-Af Amer) Random Glucose Calcium Total Bilirubin AST ALT Alkaline Phosphatase Troponin I 27.0000 H* NT-Pro-B Natriuret Pep Total Protein Albumin Globulin Albumin/Globulin Ratio Triglycerides 123 Cholesterol 146 LDL Cholesterol Direct 102 HDL Cholesterol 27 L Lipase TSH 3rd Generation
--- NOTE | 2017-11-05 20:39 | CARD ---
APPROVED REPORT Date of service: 11/05/2017 EKG Measurement Heart [id number] <Conclusion> Atrial fibrillation Left axis deviation Nonspecific intraventricular block Abnormal ECG
--- NOTE | 2017-11-05 20:40 | CARD ---
APPROVED REPORT Date of service: 11/05/2017 EKG Measurement Heart [id number] <Conclusion> Atrial fibrillation with rapid ventricular response Nonspecific intraventricular block Cannot rule out Septal infarct, age undetermined Possible Lateral infarct, age undetermined Abnormal ECG
--- NOTE | 2017-11-05 20:40 | CARD ---
APPROVED REPORT Date of service: 11/05/2017 EKG Measurement Heart [id number] <Conclusion> Atrial fibrillation with premature ventricular or aberrantly conducted complexes Left axis deviation Nonspecific intraventricular block Cannot rule out Septal infarct, age undetermined Abnormal ECG
--- NOTE | 2017-11-05 20:41 | CARD ---
APPROVED REPORT Date of service: 11/05/2017 EKG Measurement Heart [id number] <Conclusion> Undetermined rhythm Nonspecific intraventricular block Cannot rule out Septal infarct, age undetermined Possible Lateral infarct, age undetermined Abnormal ECG
--- NOTE | 2017-11-05 20:41 | CARD ---
APPROVED REPORT Date of service: 11/05/2017 EKG Measurement Heart [id number] <Conclusion> Atrial fibrilation Nonspecific intraventricular block Cannot rule out Septal infarct, age undetermined Possible Lateral infarct, age undetermined Abnormal ECG
--- NOTE | 2017-11-05 23:03 | CP.PCM.PN ---
Subjective - Date & Time of Evaluation Date of Evaluation: 11/05/17 Time of Evaluation: 17:25 - Subjective Subjective: Patient seen and evaluated S/P Cath Non STEMI VILLASENOR to LAD patent SVG to RCA patent SVG to Diag 80% stenosis SVG to OM 1 patent OM2 95% For PCI of OM2 and SVG to Diag in 1-2 days Continue anti ischemic therapy Objective - Vital Signs/Intake and Output Vital Signs (last 24 hours): Temp Pulse Resp BP Pulse Ox 98.9 F 107 H 18 118/77 97 11/05/17 20:00 11/05/17 20:00 11/05/17 20:00 11/05/17 20:00 11/05/17 20:00 Intake and Output: 11/05/17 11/06/17 18:59 06:59 Intake Total 920 215 Output Total 100 Balance 920 115 - Medications Medications: Current Medications Aspirin (Ecotrin) 81 mg PO DAILY [facility] Last Admin: 11/05/17 09:29 Dose: 81 mg Carvedilol (Coreg) 3.125 mg PO BID [facility] Last Admin: 11/05/17 18:37 Dose: 3.125 mg Clopidogrel Bisulfate (Plavix) 75 mg PO DAILY [facility] Last Admin: 11/05/17 09:29 Dose: 75 mg Enoxaparin Sodium (Lovenox) 80 mg SC BID [facility] Last Admin: 11/05/17 18:37 Dose: 80 mg Famotidine (Pepcid) 40 mg PO DAILY [facility] Last Admin: 11/05/17 09:29 Dose: 40 mg Sodium Chloride (Sodium Chloride 0.45%) 1,000 mls @ 50 mls/hr IV .Q20H [facility] Stop: 11/06/17 13:59 Last Admin: 11/05/17 15:20 Dose: 50 mls/hr Diltiazem HCl 125 mg/ Sodium (Chloride) 125 mls @ 5 mls/hr IV .Q24H PRN; 5 MG/ HR PRN Reason: Protocol Last Titration: 11/05/17 22:21 Dose: 10 mg/hr, 10 mls/hr Lisinopril (Zestril) 2.5 mg PO DAILY [facility] Last Admin: 11/05/17 09:29 Dose: 2.5 mg Pneumococcal Polyvalent Vaccine (Pneumovax 23 Vaccine) 0.5 ml IM .ONCE ONE Stop: 11/07/17 10:01 Rosuvastatin Calcium (Crestor) 40 mg PO HS [facility] Last Admin: 11/05/17 21:35 Dose: 40 mg - Labs Labs: 11/05/17 02:53 11/05/17 02:53 PT 11.6 SECONDS (9.7-12.2) 11/05/17 02:53 INR 1.1 11/05/17 02:53 APTT 33 SECONDS (21-34) 11/05/17 02:53
[2017-11-06 05:41] LABS: BASO # 0.1 K/uL (0.0-0.2); BASO % 0.7 % (0.0-2.0); EOS # 0.1 K/uL (0.0-0.7); EOS % 0.9 % (0.0-4.0); HEMOGLOBIN 13.2 g/dL (12.0-18.0); LYMPH # 0.8 K/uL (1.0-4.3); LYMPH % 6.3 % (20.0-40.0); MEAN CELL VOLUME 88.5 fL (80.0-94.0); MEAN CORPUSCULAR HGB CONC 33.9 g/dL (33.0-37.0); MEAN PLATELET VOLUME 10.4 fL (7.2-11.7); MONO # 0.9 K/uL (0.0-0.8); MONO % 7.5 % (0.0-10.0); NEUT # 10.5 K/uL (1.8-7.0); NEUT % 84.6 % (50.0-75.0); PLATELET COUNT 143 K/uL (130-400); RBC 4.39 Mil/uL (4.40-5.90); RED CELL DISTRIBUTION WIDTH 14.3 % (11.5-14.5); WHITE BLOOD COUNT 12.4 K/uL (4.8-10.8)
[2017-11-06 06:22] LABS: ALB/GLOB RATIO 1.2 (1.0-2.1); ALBUMIN 3.5 g/dL (3.5-5.0); ALT/SGPT 35 U/L (21-72); AST/SGOT 87 U/L (17-59); BLOOD UREA NITROGEN 20 mg/dL (9-20); CALCIUM 8.6 mg/dl (8.6-10.4); GFR AFRICAN-AMERICAN > 60; GFR NON-AFRICAN AMERICAN > 60
[2017-11-06 07:16] LABS: BANDS 1 % (0-2); LYMPHOCYTE 6 % (20-40); MONOCYTE 2 % (0-10); NEUTROPHIL 91 % (50-75); PLATELET ESTIMATE NORMAL (NORMAL); TOTAL CELLS COUNTED 100
[2017-11-06 07:33] LABS: CK-MB 31.3 ng/mL (0.0-3.38); TROPONIN I 14.6 ng/mL (0.00-0.120)
--- NOTE | 2017-11-06 10:53 | CP.CCUPN ---
<PolancoBibiana - Last Filed: 11/06/17 12:17> CCU Subjective - Physician Review Subjective (Free Text): 82 yo M w/ PMHx of CAD requiring CABG, HTN, HLD, admitted to ICU in A. Fib s/p NSTEMI, cardiac cath. Pt to go for PCI tomorrow. 11/06/17 11:24 CCU Objective - Vital Signs / Intake & Output Vital Signs (Last 4 hours): Vital Signs Temp Pulse Resp BP Pulse Ox 11/06/17 10:00 147 H 38 H 93 L 11/06/17 09:00 109 H 33 H 11/06/17 08:46 122 H 35 H 117/69 11/06/17 08:00 98.3 F 98 11/06/17 07:41 112 H 29 H 101/77 82 L Intake and Output (Last 8hrs): Intake & Output 11/05/17 11/06/17 11/06/17 22:59 06:59 14:59 Intake Total 465 520 540 Output Total 200 400 100 Balance 265 120 440 Weight 182 lb Intake: IV 175 40 Intake, IV Amount 290 480 240 Left Hand 100 Left Wrist 20 Right Hand 90 80 20 Rt Hand 200 400 100 Oral 300 Output: Urine 200 400 100 Urine, Voided 200 400 100 Emesis 0 Other: # Voids Urine, Voided 1 # Bowel Movements 0 0 - Physical Exam Head: Positive for: Atraumatic, Normocephalic Extroacular Muscles: Positive for: EOMI Mouth: Positive for: Moist Mucous Membranes Respiratory/Chest: Positive for: Clear to Auscultation, Good Air Exchange Cardiovascular: Positive for: Murmurs, Tachycardic Abdomen: Positive for: Normal Bowel Sounds. Negative for: Tenderness, Distention Neurological: Positive for: GCS=15 - Medications Active Medications: Active Medications Generic Name Dose Route Start Last Admin Trade Name Freq PRN Reason Stop Dose Admin Aspirin 81 mg 11/05/17 10:00 11/05/17 09:29 Ecotrin PO 81 mg DAILY MAY Administration Carvedilol 3.125 mg 11/05/17 10:00 11/05/17 18:37 Coreg PO 3.125 mg BID MAY Administration Clopidogrel Bisulfate 75 mg 11/05/17 10:00 11/05/17 09:29 Plavix PO 75 mg DAILY MAY Administration Enoxaparin Sodium 80 mg 11/05/17 10:00 11/05/17 18:37 Lovenox SC 80 mg BID MAY Administration Famotidine 40 mg 11/05/17 10:00 11/05/17 09:29 Pepcid PO 40 mg DAILY MAY Administration Sodium Chloride 1,000 mls @ 50 mls/hr 11/05/17 18:00 11/05/17 15:20 Sodium Chloride 0.45% IV 11/06/17 13:59 50 mls/hr .Q20H MAY Administration Diltiazem HCl 125 mg/ Sodium 125 mls @ 5 mls/hr 11/05/17 19:30 11/06/17 05:00 Chloride IV 10 mg/hr .Q24H PRN 10 mls/hr Protocol Administration 5 MG/HR Lisinopril 2.5 mg 11/05/17 10:00 11/05/17 09:29 Zestril PO 2.5 mg DAILY MAY Administration Pneumococcal Polyvalent Vaccine 0.5 ml 11/07/17 10:00 Pneumovax 23 Vaccine IM 11/07/17 10:01 .ONCE ONE Rosuvastatin Calcium 10 mg 11/06/17 22:00 Crestor PO HS MAY - Patient Studies Lab Studies: Lab Studies 11/06/17 11/06/17 11/06/17 Range/Units 08:00 06:47 05:37 WBC (4.8-10.8) K/uL RBC (4.40-5.90) Mil/uL Hgb (12.0-18.0) g/dL Hct (35.0-51.0) % MCV (80.0-94.0) fL MCH (27.0-31.0) pg MCHC (33.0-37.0) g/dL RDW (11.5-14.5) % Plt Count (130-400) K/uL MPV (7.2-11.7) fL Neut % (Auto) (50.0-75.0) % Lymph % (Auto) (20.0-40.0) % [place] % (Auto) (0.0-10.0) % Eos % (Auto) (0.0-4.0) % Baso % (Auto) (0.0-2.0) % Neut # (Auto) (1.8-7.0) K/uL Lymph # (Auto) (1.0-4.3) K/uL [place] # (Auto) (0.0-0.8) K/uL Eos # (Auto) (0.0-0.7) K/uL Baso # (Auto) (0.0-0.2) K/uL Neutrophils % (Manual) (50-75) % Band Neutrophils % (0-2) % Lymphocytes % (Manual) (20-40) % Monocytes % (Manual) (0-10) % Platelet Estimate (NORMAL) Sodium 141 (132-148) mmol/L Potassium 4.6 (3.6-5.2) mmol/L Chloride 108 H (98-107) mmol/L Carbon Dioxide 24 (22-30) mmol/L Anion Gap 14 (10-20) BUN 20 (9-20) mg/dL Creatinine 0.9 (0.8-1.5) mg/dL Est GFR ( Amer) > 60 Est GFR (Non-Af Amer) > 60 Random Glucose 126 H (75-110) mg/dL Hemoglobin A1c 6.0 (4.2-6.5) % Calcium 8.6 (8.6-10.4) mg/dl Phosphorus 3.1 (2.5-4.5) mg/dL Magnesium 2.0 (1.6-2.3) mg/dL Total Bilirubin 1.1 (0.2-1.3) mg/dL AST 87 H D (17-59) U/L ALT 35 (21-72) U/L Alkaline Phosphatase 67 (38-126) U/L Total Creatine Kinase 618 H (55-170) U/L CK-MB (Mass) 31.3 H (0.0-3.38) ng/mL Troponin I 14.6000 H* (0.00-0.120) ng/mL Total Protein 6.4 (6.3-8.3) g/dL Albumin 3.5 (3.5-5.0) g/dL Globulin 2.9 (2.2-3.9) gm/dL Albumin/Globulin Ratio 1.2 (1.0-2.1) 11/06/17 11/05/17 Range/Units 05:37 11:18 WBC 12.4 H (4.8-10.8) K/uL RBC 4.39 L (4.40-5.90) Mil/uL Hgb 13.2 (12.0-18.0) g/dL Hct 38.9 (35.0-51.0) % MCV 88.5 (80.0-94.0) fL MCH 30.0 (27.0-31.0) pg MCHC 33.9 (33.0-37.0) g/dL RDW 14.3 (11.5-14.5) % Plt Count 143 (130-400) K/uL MPV 10.4 (7.2-11.7) fL Neut % (Auto) 84.6 H (50.0-75.0) % Lymph % (Auto) 6.3 L (20.0-40.0) % [place] % (Auto) 7.5 (0.0-10.0) % Eos % (Auto) 0.9 (0.0-4.0) % Baso % (Auto) 0.7 (0.0-2.0) % Neut # (Auto) 10.5 H (1.8-7.0) K/uL Lymph # (Auto) 0.8 L (1.0-4.3) K/uL [place] # (Auto) 0.9 H (0.0-0.8) K/uL Eos # (Auto) 0.1 (0.0-0.7) K/uL Baso # (Auto) 0.1 (0.0-0.2) K/uL Neutrophils % (Manual) 91 H (50-75) % Band Neutrophils % 1 (0-2) % Lymphocytes % (Manual) 6 L (20-40) % Monocytes % (Manual) 2 (0-10) % Platelet Estimate Normal (NORMAL) Sodium (132-148) mmol/L Potassium (3.6-5.2) mmol/L Chloride (98-107) mmol/L Carbon Dioxide (22-30) mmol/L Anion Gap (10-20) BUN (9-20) mg/dL Creatinine (0.8-1.5) mg/dL Est GFR ( Amer) Est GFR (Non-Af Amer) Random Glucose (75-110) mg/dL Hemoglobin A1c (4.2-6.5) % Calcium (8.6-10.4) mg/dl Phosphorus (2.5-4.5) mg/dL Magnesium (1.6-2.3) mg/dL Total Bilirubin (0.2-1.3) mg/dL AST (17-59) U/L ALT (21-72) U/L Alkaline Phosphatase (38-126) U/L Total Creatine Kinase (55-170) U/L CK-MB (Mass) (0.0-3.38) ng/mL Troponin I 27.0000 H* (0.00-0.120) ng/mL Total Protein (6.3-8.3) g/dL Albumin (3.5-5.0) g/dL Globulin (2.2-3.9) gm/dL Albumin/Globulin Ratio (1.0-2.1) Laboratory Results - last 24 hr 11/05/17 11/06/17 11/06/17 11:18 05:37 05:37 WBC 12.4 H RBC 4.39 L Hgb 13.2 Hct 38.9 MCV 88.5 MCH 30.0 MCHC 33.9 RDW 14.3 Plt Count 143 MPV 10.4 Neut % (Auto) 84.6 H Lymph % (Auto) 6.3 L [place] % (Auto) 7.5 Eos % (Auto) 0.9 Baso % (Auto) 0.7 Neut # (Auto) 10.5 H Lymph # (Auto) 0.8 L [place] # (Auto) 0.9 H Eos # (Auto) 0.1 Baso # (Auto) 0.1 Neutrophils % (Manual) 91 H Band Neutrophils % 1 Lymphocytes % (Manual) 6 L Monocytes % (Manual) 2 Platelet Estimate Normal Sodium 141 Potassium 4.6 Chloride 108 H Carbon Dioxide 24 Anion Gap 14 BUN 20 Creatinine 0.9 Est GFR ( Amer) > 60 Est GFR (Non-Af Amer) > 60 Random Glucose 126 H Hemoglobin A1c Calcium 8.6 Phosphorus 3.1 Magnesium 2.0 Total Bilirubin 1.1 AST 87 H D ALT 35 Alkaline Phosphatase 67 Total Creatine Kinase CK-MB (Mass) Troponin I 27.0000 H* Total Protein 6.4 Albumin 3.5 Globulin 2.9 Albumin/Globulin Ratio 1.2 11/06/17 11/06/17 06:47 08:00 WBC RBC Hgb Hct MCV MCH MCHC RDW Plt Count MPV Neut % (Auto) Lymph % (Auto) [place] % (Auto) Eos % (Auto) Baso % (Auto) Neut # (Auto) Lymph # (Auto) [place] # (Auto) Eos # (Auto) Baso # (Auto) Neutrophils % (Manual) Band Neutrophils % Lymphocytes % (Manual) Monocytes % (Manual) Platelet Estimate Sodium Potassium Chloride Carbon Dioxide Anion Gap BUN Creatinine Est GFR ( Amer) Est GFR (Non-Af Amer) Random Glucose Hemoglobin A1c 6.0 Calcium Phosphorus Magnesium Total Bilirubin AST ALT Alkaline Phosphatase Total Creatine Kinase 618 H CK-MB (Mass) 31.3 H Troponin I 14.6000 H* Total Protein Albumin Globulin Albumin/Globulin Ratio EKG/Cardiology Studies: Cardiology / EKG Studies 11/05/17 11:00 ELECTROCARDIOGRAM Routine Comment: Mode Of Transportation: PORTABLE Reason For Exam: NSTEMI,a fib 11/06/17 07:30 ELECTROCARDIOGRAM DAILY Comment: Mode Of Transportation: PORTABLE Reason For Exam: A fib, Non STEMI 11/07/17 07:30 ELECTROCARDIOGRAM DAILY Comment: Mode Of Transportation: PORTABLE Reason For Exam: A fib, Non STEMI 11/08/17 07:30 ELECTROCARDIOGRAM DAILY Comment: Mode Of Transportation: PORTABLE Reason For Exam: A fib, Non STEMI Review of Systems - Constitutional Constitutional: absent: Weakness - Cardiovascular Cardiovascular: absent: Chest Pain, Diaphoresis, Dyspnea, Edema, Palpitations - Respiratory Respiratory: absent: Cough, Pain on Inspiration - Gastrointestinal Gastrointestinal: absent: Abdominal Pain, Nausea, Vomiting - Genitourinary Genitourinary: absent: Dysuria Critical Care Progress Note - Nutrition Nutrition: Nutrition Category Date Time Status Heart Healthy Diet [DIET] Diets 11/05/17 Dinner Active Assessment/Plan - Assessment and Plan (Free Text) Assessment: Neuro: AAOx3 CV: NSTEMI trops + x3 -cardiac cath showed dz -aspirin 81mg -plavix -PCI tmrw -cardio consult Dr. Vaibhav Foley Fib -cardizem drip HTN -lisinopril 2.5 CHF -coreg 3.125 HLD -crestor 10 CAD s/p CABG -lovenox GI: -HH diet Ppx -pepcid -lovenox Case discussed w/ Dr. Seferino Polanco PGY1 <Clemente Gentile S - Last Filed: 11/06/17 15:37> CCU Objective - Vital Signs / Intake & Output Vital Signs (Last 4 hours): Vital Signs Temp Pulse Resp BP Pulse Ox 11/06/17 15:00 86 26 H 99 11/06/17 14:46 103 H 29 H 105/63 99 11/06/17 14:00 102 H 32 H 97 11/06/17 13:00 96 H 39 H 99 11/06/17 12:00 97.9 F 98 H 26 H 98 11/06/17 11:41 100 H 32 H 112/72 99 Intake and Output (Last 8hrs): Intake & Output 11/06/17 11/06/17 11/06/17 06:59 14:59 22:59 Intake Total 520 660 Output Total 400 100 Balance 120 560 Weight 182 lb Intake: IV 40 Intake, IV Amount 480 360 Left Hand 200 Left Wrist 40 Right Hand 80 20 Rt Hand 400 100 Oral 300 Output: Urine 400 100 Urine, Voided 400 100 Emesis 0 Other: # Bowel Movements 0 0 - Medications Active Medications: Active Medications Generic Name Dose Route Start Last Admin Trade Name Freq PRN Reason Stop Dose Admin Aspirin 81 mg 11/05/17 10:00 11/06/17 11:16 Ecotrin PO 81 mg DAILY MAY Administration Carvedilol 3.125 mg 11/05/17 10:00 11/06/17 11:17 Coreg PO 3.125 mg BID MAY Administration Clopidogrel Bisulfate 75 mg 11/05/17 10:00 11/06/17 11:17 Plavix PO 75 mg DAILY MAY Administration Enoxaparin Sodium 80 mg 11/05/17 10:00 11/06/17 11:16 Lovenox SC 80 mg BID MAY Administration Famotidine 40 mg 11/05/17 10:00 11/06/17 11:16 Pepcid PO 40 mg DAILY MAY Administration Diltiazem HCl 125 mg/ Sodium 125 mls @ 5 mls/hr 11/05/17 19:30 11/06/17 05:00 Chloride IV 10 mg/hr .Q24H PRN 10 mls/hr Protocol Administration 5 MG/HR Lisinopril 2.5 mg 11/05/17 10:00 11/06/17 11:16 Zestril PO 2.5 mg DAILY MAY Administration Pneumococcal Polyvalent Vaccine 0.5 ml 07/26/18 10:00 Pneumovax 23 Vaccine IM 11/07/17 10:01 .ONCE ONE Rosuvastatin Calcium 10 mg 11/06/17 22:00 Crestor PO HS MAY - Patient Studies Lab Studies: Microbiology Studies 11/05/17 06:39 MRSA Culture (Admit) - Final Nose MRSA NOT DETECTED Lab Studies 11/06/17 11/06/17 11/06/17 Range/Units 13:08 08:00 06:47 WBC (4.8-10.8) K/uL RBC (4.40-5.90) Mil/uL Hgb (12.0-18.0) g/dL Hct (35.0-51.0) % MCV (80.0-94.0) fL MCH (27.0-31.0) pg MCHC (33.0-37.0) g/dL RDW (11.5-14.5) % Plt Count (130-400) K/uL MPV (7.2-11.7) fL Neut % (Auto) (50.0-75.0) % Lymph % (Auto) (20.0-40.0) % [place] % (Auto) (0.0-10.0) % Eos % (Auto) (0.0-4.0) % Baso % (Auto) (0.0-2.0) % Neut # (Auto) (1.8-7.0) K/uL Lymph # (Auto) (1.0-4.3) K/uL [place] # (Auto) (0.0-0.8) K/uL Eos # (Auto) (0.0-0.7) K/uL Baso # (Auto) (0.0-0.2) K/uL Neutrophils % (Manual) (50-75) % Band Neutrophils % (0-2) % Lymphocytes % (Manual) (20-40) % Monocytes % (Manual) (0-10) % Platelet Estimate (NORMAL) Sodium (132-148) mmol/L Potassium (3.6-5.2) mmol/L Chloride (98-107) mmol/L Carbon Dioxide (22-30) mmol/L Anion Gap (10-20) BUN (9-20) mg/dL Creatinine (0.8-1.5) mg/dL Est GFR ( Amer) Est GFR (Non-Af Amer) Random Glucose (75-110) mg/dL Hemoglobin A1c 6.0 (4.2-6.5) % Calcium (8.6-10.4) mg/dl Phosphorus (2.5-4.5) mg/dL Magnesium (1.6-2.3) mg/dL Total Bilirubin (0.2-1.3) mg/dL AST (17-59) U/L ALT (21-72) U/L Alkaline Phosphatase (38-126) U/L Total Creatine Kinase 618 H (55-170) U/L CK-MB (Mass) 31.3 H (0.0-3.38) ng/mL Troponin I 14.6000 H* (0.00-0.120) ng/mL Total Protein (6.3-8.3) g/dL Albumin (3.5-5.0) g/dL Globulin (2.2-3.9) gm/dL Albumin/Globulin Ratio (1.0-2.1) Urine Color Yellow (YELLOW) Urine Clarity Clear (Clear) Urine pH 5.0 (5.0-8.0) Ur Specific [place] 1.044 H (1.003-1.030) Urine Protein Negative (NEGATIVE) mg/dL Urine Glucose (UA) 1+ H (Normal) mg/dL Urine Ketones Negative (NEGATIVE) mg/dL Urine Blood 1+ H (NEGATIVE) Urine Nitrate Negative (NEGATIVE) Urine Bilirubin Negative (NEGATIVE) Urine Urobilinogen Normal (0.2-1.0) mg/dL Ur Leukocyte Esterase Neg (Negative) Marty/uL Urine WBC (Auto) 2 (0-5) /hpf Urine RBC (Auto) 15 H (0-3) /hpf 11/06/17 11/06/17 Range/Units 05:37 05:37 WBC 12.4 H (4.8-10.8) K/uL RBC 4.39 L (4.40-5.90) Mil/uL Hgb 13.2 (12.0-18.0) g/dL Hct 38.9 (35.0-51.0) % MCV 88.5 (80.0-94.0) fL MCH 30.0 (27.0-31.0) pg MCHC 33.9 (33.0-37.0) g/dL RDW 14.3 (11.5-14.5) % Plt Count 143 (130-400) K/uL MPV 10.4 (7.2-11.7) fL Neut % (Auto) 84.6 H (50.0-75.0) % Lymph % (Auto) 6.3 L (20.0-40.0) % [place] % (Auto) 7.5 (0.0-10.0) % Eos % (Auto) 0.9 (0.0-4.0) % Baso % (Auto) 0.7 (0.0-2.0) % Neut # (Auto) 10.5 H (1.8-7.0) K/uL Lymph # (Auto) 0.8 L (1.0-4.3) K/uL [place] # (Auto) 0.9 H (0.0-0.8) K/uL Eos # (Auto) 0.1 (0.0-0.7) K/uL Baso # (Auto) 0.1 (0.0-0.2) K/uL Neutrophils % (Manual) 91 H (50-75) % Band Neutrophils % 1 (0-2) % Lymphocytes % (Manual) 6 L (20-40) % Monocytes % (Manual) 2 (0-10) % Platelet Estimate Normal (NORMAL) Sodium 141 (132-148) mmol/L Potassium 4.6 (3.6-5.2) mmol/L Chloride 108 H (98-107) mmol/L Carbon Dioxide 24 (22-30) mmol/L Anion Gap 14 (10-20) BUN 20 (9-20) mg/dL Creatinine 0.9 (0.8-1.5) mg/dL Est GFR ( Amer) > 60 Est GFR (Non-Af Amer) > 60 Random Glucose 126 H (75-110) mg/dL Hemoglobin A1c (4.2-6.5) % Calcium 8.6 (8.6-10.4) mg/dl Phosphorus 3.1 (2.5-4.5) mg/dL Magnesium 2.0 (1.6-2.3) mg/dL Total Bilirubin 1.1 (0.2-1.3) mg/dL AST 87 H D (17-59) U/L ALT 35 (21-72) U/L Alkaline Phosphatase 67 (38-126) U/L Total Creatine Kinase (55-170) U/L CK-MB (Mass) (0.0-3.38) ng/mL Troponin I (0.00-0.120) ng/mL Total Protein 6.4 (6.3-8.3) g/dL Albumin 3.5 (3.5-5.0) g/dL Globulin 2.9 (2.2-3.9) gm/dL Albumin/Globulin Ratio 1.2 (1.0-2.1) Urine Color (YELLOW) Urine Clarity (Clear) Urine pH (5.0-8.0) Ur Specific [place] (1.003-1.030) Urine Protein (NEGATIVE) mg/dL Urine Glucose (UA) (Normal) mg/dL Urine Ketones (NEGATIVE) mg/dL Urine Blood (NEGATIVE) Urine Nitrate (NEGATIVE) Urine Bilirubin (NEGATIVE) Urine Urobilinogen (0.2-1.0) mg/dL Ur Leukocyte Esterase (Negative) Marty/uL Urine WBC (Auto) (0-5) /hpf Urine RBC (Auto) (0-3) /hpf Laboratory Results - last 24 hr 11/06/17 11/06/17 11/06/17 05:37 05:37 06:47 WBC 12.4 H RBC 4.39 L Hgb 13.2 Hct 38.9 MCV 88.5 MCH 30.0 MCHC 33.9 RDW 14.3 Plt Count 143 MPV 10.4 Neut % (Auto) 84.6 H Lymph % (Auto) 6.3 L [place] % (Auto) 7.5 Eos % (Auto) 0.9 Baso % (Auto) 0.7 Neut # (Auto) 10.5 H Lymph # (Auto) 0.8 L [place] # (Auto) 0.9 H Eos # (Auto) 0.1 Baso # (Auto) 0.1 Neutrophils % (Manual) 91 H Band Neutrophils % 1 Lymphocytes % (Manual) 6 L Monocytes % (Manual) 2 Platelet Estimate Normal Sodium 141 Potassium 4.6 Chloride 108 H Carbon Dioxide 24 Anion Gap 14 BUN 20 Creatinine 0.9 Est GFR ( Amer) > 60 Est GFR (Non-Af Amer) > 60 Random Glucose 126 H Hemoglobin A1c Calcium 8.6 Phosphorus 3.1 Magnesium 2.0 Total Bilirubin 1.1 AST 87 H D ALT 35 Alkaline Phosphatase 67 Total Creatine Kinase 618 H CK-MB (Mass) 31.3 H Troponin I 14.6000 H* Total Protein 6.4 Albumin 3.5 Globulin 2.9 Albumin/Globulin Ratio 1.2 Urine Color Urine Clarity Urine pH Ur Specific [place] Urine Protein Urine Glucose (UA) Urine Ketones Urine Blood Urine Nitrate Urine Bilirubin Urine Urobilinogen Ur Leukocyte Esterase Urine WBC (Auto) Urine RBC (Auto) 11/06/17 11/06/17 08:00 13:08 WBC RBC Hgb Hct MCV MCH MCHC RDW Plt Count MPV Neut % (Auto) Lymph % (Auto) [place] % (Auto) Eos % (Auto) Baso % (Auto) Neut # (Auto) Lymph # (Auto) [place] # (Auto) Eos # (Auto) Baso # (Auto) Neutrophils % (Manual) Band Neutrophils % Lymphocytes % (Manual) Monocytes % (Manual) Platelet Estimate Sodium Potassium Chloride Carbon Dioxide Anion Gap BUN Creatinine Est GFR ( Amer) Est GFR (Non-Af Amer) Random Glucose Hemoglobin A1c 6.0 Calcium Phosphorus Magnesium Total Bilirubin AST ALT Alkaline Phosphatase Total Creatine Kinase CK-MB (Mass) Troponin I Total Protein Albumin Globulin Albumin/Globulin Ratio Urine Color Yellow Urine Clarity Clear Urine pH 5.0 Ur Specific [place] 1.044 H Urine Protein Negative Urine Glucose (UA) 1+ H Urine Ketones Negative Urine Blood 1+ H Urine Nitrate Negative Urine Bilirubin Negative Urine Urobilinogen Normal Ur Leukocyte Esterase Neg Urine WBC (Auto) 2 Urine RBC (Auto) 15 H EKG/Cardiology Studies: Cardiology / EKG Studies 11/06/17 07:30 ELECTROCARDIOGRAM DAILY Comment: Mode Of Transportation: PORTABLE Reason For Exam: A fib, Non STEMI 11/07/17 07:30 ELECTROCARDIOGRAM DAILY Comment: Mode Of Transportation: PORTABLE Reason For Exam: A fib, Non STEMI 11/08/17 07:30 ELECTROCARDIOGRAM DAILY Comment: Mode Of Transportation: PORTABLE Reason For Exam: A fib, Non STEMI Critical Care Progress Note - Nutrition Nutrition: Nutrition Category Date Time Status Heart Healthy Diet [DIET] Diets 11/05/17 Dinner Active NPO Diet [DIET] Diets 11/07/17 Breakfast Active Attending/Attestation - Attestation I have personally seen and examined this patient.: Yes I have fully participated in the care of the patient.: Yes I have reviewed all pertinent clinical information: Yes Notes (Text): 11/06/17 15:35 Patient seen and examined in the intensive care unit. taper off Cardizem drip and start by mouth Cardizem Continue anticoagulation For transfer to [facility] tomorrow for PCI
[2017-11-06] MEDS: Enoxaparin 80 mg Syringe SC SCH ×2 (11:16→17:24)
--- NOTE | 2017-11-06 11:44 | CP.PCM.PN ---
Addendum entered and electronically signed by Mirlande Srinivasan 11/06/17 17:35 : patient will not be going for PCI tomorrow. Will need to get PCI as an outpatient. Original Note: <Mirlande Srinivasan - Last Filed: 11/06/17 13:10> Subjective - Date & Time of Evaluation Date of Evaluation: 11/06/17 Time of Evaluation: 11:00 - Subjective Subjective: PGY2- Progress Note for Dr. Esposito Patient seen and examined sitting up in chair and in no acute distress. Patient says he feels good and is eager to go home. Patient has no chest pain. Patient denies any shortness of breath and is breathing comfortably on nasal cannula. Patient denies abdominal pain, nausea, vomiting, constipation, or diarrhea. Patient to go for PCI at [facility] tomorrow. Objective - Vital Signs/Intake and Output Vital Signs (last 24 hours): Temp Pulse Resp BP Pulse Ox 98.3 F 147 H 38 H 117/69 93 L 11/06/17 08:00 11/06/17 10:00 11/06/17 10:00 11/06/17 08:46 11/06/17 10:00 Intake and Output: 11/06/17 11/06/17 06:59 18:59 Intake Total 865 540 Output Total 600 100 Balance 265 440 - Medications Medications: Current Medications Aspirin (Ecotrin) 81 mg PO DAILY [facility] Last Admin: 11/06/17 11:16 Dose: 81 mg Carvedilol (Coreg) 3.125 mg PO BID [facility] Last Admin: 11/06/17 11:17 Dose: 3.125 mg Clopidogrel Bisulfate (Plavix) 75 mg PO DAILY [facility] Last Admin: 11/06/17 11:17 Dose: 75 mg Enoxaparin Sodium (Lovenox) 80 mg SC BID [facility] Last Admin: 11/06/17 11:16 Dose: 80 mg Famotidine (Pepcid) 40 mg PO DAILY [facility] Last Admin: 11/06/17 11:16 Dose: 40 mg Sodium Chloride (Sodium Chloride 0.45%) 1,000 mls @ 50 mls/hr IV .Q20H [facility] Stop: 11/06/17 13:59 Last Admin: 11/05/17 15:20 Dose: 50 mls/hr Diltiazem HCl 125 mg/ Sodium (Chloride) 125 mls @ 5 mls/hr IV .Q24H PRN; 5 MG/ HR PRN Reason: Protocol Last Admin: 11/06/17 05:00 Dose: 10 mg/hr, 10 mls/hr Lisinopril (Zestril) 2.5 mg PO DAILY [facility] Last Admin: 11/06/17 11:16 Dose: 2.5 mg Pneumococcal Polyvalent Vaccine (Pneumovax 23 Vaccine) 0.5 ml IM .ONCE ONE Stop: 11/07/17 10:01 Rosuvastatin Calcium (Crestor) 10 mg PO HS [facility] - Labs Labs: 11/06/17 05:37 11/06/17 05:37 PT 11.6 SECONDS (9.7-12.2) 11/05/17 02:53 INR 1.1 11/05/17 02:53 APTT 33 SECONDS (21-34) 11/05/17 02:53 - Constitutional Appears: Non-toxic, No Acute Distress - Head Exam Head Exam: ATRAUMATIC, NORMAL INSPECTION, NORMOCEPHALIC - Eye Exam Eye Exam: EOMI, Normal appearance - ENT Exam ENT Exam: Mucous Membranes Moist - Respiratory Exam Respiratory Exam: Decreased Breath Sounds, Wheezes (right side expiratory wheezing) - Cardiovascular Exam Cardiovascular Exam: Irregular Rhythm, +S1, +S2 - GI/Abdominal Exam GI & Abdominal Exam: Soft, Normal Bowel Sounds. absent: Tenderness - Extremities Exam Extremities Exam: Normal Inspection. absent: Pedal Edema, Tenderness - Back Exam Back Exam: NORMAL INSPECTION - Neurological Exam Neurological Exam: Alert, Awake, Oriented x3 - Psychiatric Exam Psychiatric exam: Normal Affect, Normal Mood - Skin Skin Exam: Intact, Normal Color, Warm Assessment and Plan - Assessment and Plan (Free Text) Assessment: NSTEMI -trops + x 3: 3.38, 27, 14.6 -cardiac cath w/ Dr. Esposito showed: VILLASENOR to LAD patent, SVG to RCA patent, SVG to Diag 80% stenosis, SVG to OM 1 patent -Patient for PCI at [place] tomorrow -NPO after midnight -hold morning Lovenox OM2 95% -aspirin 81mg -plavix A. Fib -cardizem drip HTN -lisinopril CHF -coreg HLD -crestor CAD s/p CABG -lovenox <Darian Esposito - Last Filed: 11/06/17 23:49> Objective - Vital Signs/Intake and Output Vital Signs (last 24 hours): Temp Pulse Resp BP Pulse Ox 99.3 F 88 33 H 117/61 98 11/06/17 20:00 11/06/17 21:00 11/06/17 21:00 11/06/17 20:41 11/06/17 21:00 Intake and Output: 11/06/17 11/07/17 18:59 06:59 Intake Total 1285 230 Output Total 240 Balance 1045 230 - Medications Medications: Current Medications Aspirin (Ecotrin) 81 mg PO DAILY [facility] Last Admin: 11/06/17 11:16 Dose: 81 mg Carvedilol (Coreg) 3.125 mg PO BID [facility] Last Admin: 11/06/17 17:24 Dose: 3.125 mg Clopidogrel Bisulfate (Plavix) 75 mg PO DAILY [facility] Last Admin: 11/06/17 11:17 Dose: 75 mg Enoxaparin Sodium (Lovenox) 80 mg SC BID [facility] Last Admin: 11/06/17 17:24 Dose: 80 mg Famotidine (Pepcid) 40 mg PO DAILY [facility] Last Admin: 11/06/17 11:16 Dose: 40 mg Diltiazem HCl 125 mg/ Sodium (Chloride) 125 mls @ 5 mls/hr IV .Q24H PRN; 5 MG/ HR PRN Reason: Protocol Last Admin: 11/06/17 19:17 Dose: 10 mg/hr, 10 mls/hr Lisinopril (Zestril) 2.5 mg PO DAILY [facility] Last Admin: 11/06/17 11:16 Dose: 2.5 mg Pneumococcal Polyvalent Vaccine (Pneumovax 23 Vaccine) 0.5 ml IM .ONCE ONE Stop: 11/07/17 10:01 Rosuvastatin Calcium (Crestor) 10 mg PO [facility] Last Admin: 11/06/17 21:40 Dose: 10 mg - Labs Labs: 11/06/17 05:37 11/06/17 05:37 PT 11.6 SECONDS (9.7-12.2) 11/05/17 02:53 INR 1.1 11/05/17 02:53 APTT 33 SECONDS (21-34) 11/05/17 02:53 Assessment and Plan - Assessment and Plan (Free Text) Assessment: Patient seen and evaluated personally by me Plan of care d/w the resident and as documented
[2017-11-06 13:21] LABS: URINE BILIRUBIN NEGATIVE (NEGATIVE); URINE BLOOD 1+ (NEGATIVE); URINE CLARITY Clear (Clear); URINE COLOR Yellow (YELLOW); URINE GLUCOSE (UA) 1+ mg/dL (Normal); URINE LEUKOCYTE ESTERASE NEG Leu/uL (Negative); URINE PROTEIN NEGATIVE (NEGATIVE); URINE UROBILINOGEN NORMAL mg/dL (0.2-1.0)
--- NOTE | 2017-11-06 20:33 | CP.PCM.PN ---
Subjective - Date & Time of Evaluation Date of Evaluation: 11/06/17 Time of Evaluation: 20:33 Objective - Vital Signs/Intake and Output Vital Signs (last 24 hours): Temp Pulse Resp BP Pulse Ox 98.5 F 90 32 H 117/88 98 11/06/17 16:00 11/06/17 19:00 11/06/17 19:00 11/06/17 18:42 11/06/17 19:00 Intake and Output: 11/06/17 11/07/17 18:59 06:59 Intake Total 1285 10 Output Total 240 Balance 1045 10 - Medications Medications: Current Medications Aspirin (Ecotrin) 81 mg PO DAILY [facility] Last Admin: 11/06/17 11:16 Dose: 81 mg Carvedilol (Coreg) 3.125 mg PO BID [facility] Last Admin: 11/06/17 17:24 Dose: 3.125 mg Clopidogrel Bisulfate (Plavix) 75 mg PO DAILY [facility] Last Admin: 11/06/17 11:17 Dose: 75 mg Enoxaparin Sodium (Lovenox) 80 mg SC BID [facility] Last Admin: 11/06/17 17:24 Dose: 80 mg Famotidine (Pepcid) 40 mg PO DAILY [facility] Last Admin: 11/06/17 11:16 Dose: 40 mg Diltiazem HCl 125 mg/ Sodium (Chloride) 125 mls @ 5 mls/hr IV .Q24H PRN; 5 MG/ HR PRN Reason: Protocol Last Admin: 11/06/17 19:17 Dose: 10 mg/hr, 10 mls/hr Lisinopril (Zestril) 2.5 mg PO DAILY [facility] Last Admin: 11/06/17 11:16 Dose: 2.5 mg Pneumococcal Polyvalent Vaccine (Pneumovax 23 Vaccine) 0.5 ml IM .ONCE ONE Stop: 11/07/17 10:01 Rosuvastatin Calcium (Crestor) 10 mg PO HS [facility] - Labs Labs: 11/06/17 05:37 11/06/17 05:37 PT 11.6 SECONDS (9.7-12.2) 11/05/17 02:53 INR 1.1 11/05/17 02:53 APTT 33 SECONDS (21-34) 11/05/17 02:53
[2017-11-07] MEDS ORDERED: Pneumococcal 23-Valent Vaccine IM ONE (10:00)
--- NOTE | 2017-11-07 11:34 | CARD ---
APPROVED REPORT Date of service: 11/06/2017 EKG Measurement Heart [id number] <Conclusion> Atrial fibrillation Left axis deviation Nonspecific intraventricular block Abnormal ECG
--- NOTE | 2017-11-07 11:49 | CP.PCM.PN ---
<Mirlande Srinivasan - Last Filed: 11/07/17 11:47> Subjective - Date & Time of Evaluation Date of Evaluation: 11/07/17 Time of Evaluation: 11:45 - Subjective Subjective: PGY2- Progress Note for Dr. Esposito Patient seen and examined sitting up in chair and in no acute distress. Patient says he feels good and is eager to go home. Patient has no chest pain. Patient denies any shortness of breath and is breathing comfortably on nasal cannula. Patient denies abdominal pain, nausea, vomiting, constipation, or diarrhea. Objective - Vital Signs/Intake and Output Vital Signs (last 24 hours): Temp Pulse Resp BP Pulse Ox 97.6 F 121 H 29 H 114/57 L 98 11/07/17 08:00 11/07/17 10:00 11/07/17 10:00 11/07/17 09:41 11/07/17 08:00 Intake and Output: 11/07/17 11/07/17 06:59 18:59 Intake Total 520 340 Output Total 200 200 Balance 320 140 - Medications Medications: Current Medications Aspirin (Ecotrin) 81 mg PO DAILY [facility] Last Admin: 11/07/17 09:30 Dose: 81 mg Clopidogrel Bisulfate (Plavix) 75 mg PO DAILY [facility] Last Admin: 11/07/17 09:30 Dose: 75 mg Enoxaparin Sodium (Lovenox) 80 mg SC BID [facility] Last Admin: 11/06/17 17:24 Dose: 80 mg Famotidine (Pepcid) 40 mg PO DAILY [facility] Last Admin: 11/07/17 09:31 Dose: 40 mg Diltiazem HCl 125 mg/ Sodium (Chloride) 125 mls @ 5 mls/hr IV .Q24H PRN; 5 MG/ HR PRN Reason: Protocol Last Admin: 11/06/17 19:17 Dose: 10 mg/hr, 10 mls/hr Lisinopril (Zestril) 2.5 mg PO DAILY [facility] Last Admin: 11/07/17 09:30 Dose: 2.5 mg Rosuvastatin Calcium (Crestor) 10 mg PO HS [facility] Last Admin: 11/06/17 21:40 Dose: 10 mg Verapamil HCl (Calan Sr Tab) 120 mg PO DAILY [facility] - Labs Labs: 11/06/17 05:37 11/06/17 05:37 PT 11.6 SECONDS (9.7-12.2) 11/05/17 02:53 INR 1.1 11/05/17 02:53 APTT 33 SECONDS (21-34) 11/05/17 02:53 - Additional Findings Additional findings: - Constitutional Appears: Non-toxic, No Acute Distress - Head Exam Head Exam: ATRAUMATIC, NORMAL INSPECTION, NORMOCEPHALIC - Eye Exam Eye Exam: EOMI, Normal appearance - ENT Exam ENT Exam: Mucous Membranes Moist - Respiratory Exam Respiratory Exam: Decreased Breath Sounds, Wheezes (expiratory wheezing) - Cardiovascular Exam Cardiovascular Exam: Irregular Rhythm, +S1, +S2 - GI/Abdominal Exam GI & Abdominal Exam: Soft, Normal Bowel Sounds. absent: Tenderness - Extremities Exam Extremities Exam: Normal Inspection. absent: Pedal Edema, Tenderness - Back Exam Back Exam: NORMAL INSPECTION - Neurological Exam Neurological Exam: Alert, Awake, Oriented x3 - Psychiatric Exam Psychiatric exam: Normal Affect, Normal Mood - Skin Skin Exam: Intact, Normal Color, Warm Assessment and Plan - Assessment and Plan (Free Text) Assessment: NSTEMI -trops + x 3: 3.38, 27, 14.6 -cardiac cath w/ Dr. Esposito showed: VILLASENOR to LAD patent, SVG to RCA patent, SVG to Diag 80% stenosis, SVG to OM 1 patent, OM2 95% -aspirin 81mg -plavix -patient will need PCI as an outpatient Shortness of breath 2/2 reactive airway disease Carvedilol stopped A. Fib -cardizem drip being titrated down -Verapamil 120mg po daily started on 11/07 HTN -lisinopril -Verapamil 120mg po daily started on 11/07 CHF -coreg HLD -crestor CAD s/p CABG -lovenox Discussed with Dr. Esposito, patient to be re-evaluated for discharge planning <Darian Esposito - Last Filed: 11/07/17 22:45> Objective - Vital Signs/Intake and Output Vital Signs (last 24 hours): Temp Pulse Resp BP Pulse Ox 97.7 F 57 L 31 H 91/40 L 98 11/07/17 16:00 11/07/17 19:00 11/07/17 19:00 11/07/17 18:39 11/07/17 19:00 Intake and Output: 11/07/17 11/08/17 18:59 06:59 Intake Total 750 220 Output Total 740 0 Balance 10 220 - Medications Medications: Current Medications Aspirin (Ecotrin) 81 mg PO DAILY [facility] Last Admin: 11/07/17 09:30 Dose: 81 mg Clopidogrel Bisulfate (Plavix) 75 mg PO DAILY [facility] Last Admin: 11/07/17 09:30 Dose: 75 mg Enoxaparin Sodium (Lovenox) 80 mg SC BID [facility] Last Admin: 11/07/17 18:19 Dose: 80 mg Famotidine (Pepcid) 40 mg PO DAILY [facility] Last Admin: 11/07/17 09:31 Dose: 40 mg Lisinopril (Zestril) 2.5 mg PO DAILY [facility] Last Admin: 11/07/17 09:30 Dose: 2.5 mg Rosuvastatin Calcium (Crestor) 10 mg PO HS [facility] Last Admin: 11/07/17 22:22 Dose: 10 mg Verapamil HCl (Calan Sr Tab) 120 mg PO DAILY [facility] Last Admin: 11/07/17 12:30 Dose: 120 mg - Labs Labs: 11/06/17 05:37 11/06/17 05:37 PT 11.6 SECONDS (9.7-12.2) 11/05/17 02:53 INR 1.1 11/05/17 02:53 APTT 33 SECONDS (21-34) 11/05/17 02:53 Assessment and Plan - Assessment and Plan (Free Text) Assessment: Patient seen and evaluated personally by me. Plan of care d/w the medical recruiter and as documented
[2017-11-07] MEDS: Verapamil 120 mg ER Tab PO SCH (12:30)
--- NOTE | 2017-11-07 12:32 | CP.CCUPN ---
<Bibiana Polanco - Last Filed: 11/07/17 12:40> CCU Subjective - Physician Review Subjective (Free Text): 82 yo M w/ PMHx of CAD requiring CABG, HTN, HLD, admitted to ICU in A. Fib s/p NSTEMI, cardiac cath. Pt to go for PCI outpatient 11/07/17 12:40 CCU Objective - Vital Signs / Intake & Output Vital Signs (Last 4 hours): Vital Signs Pulse Resp BP 11/07/17 12:07 132/82 11/07/17 12:06 121 H 29 H 11/07/17 12:00 102 H 32 H 11/07/17 11:42 119 H 35 H 109/59 L 11/07/17 11:00 110 H 26 H 11/07/17 10:41 104 H 30 H 113/63 11/07/17 10:00 121 H 29 H 11/07/17 09:41 108 H 18 114/57 L 11/07/17 09:05 118 H 27 H 101/57 L 11/07/17 09:00 149 H 19 11/07/17 08:41 92 H 24 93/55 L Intake and Output (Last 8hrs): Intake & Output 11/06/17 11/07/17 11/07/17 22:59 06:59 14:59 Intake Total 565 180 320 Output Total 0 200 340 Balance 565 -20 -20 Weight 182 lb Intake: IV 125 Intake, IV Amount 80 80 40 Left Wrist 80 80 40 Oral 360 100 280 Output: Urine 200 340 Urine, Voided 200 340 Emesis 0 0 Other: # Bowel Movements 0 1 0 - Physical Exam Head: Positive for: Atraumatic, Normocephalic Extroacular Muscles: Positive for: EOMI Mouth: Positive for: Moist Mucous Membranes Respiratory/Chest: Positive for: Clear to Auscultation, Good Air Exchange Cardiovascular: Positive for: Murmurs, Tachycardic Abdomen: Positive for: Normal Bowel Sounds. Negative for: Tenderness, Distention Neurological: Positive for: GCS=15 Psychiatric: Positive for: Agitated - Medications Active Medications: Active Medications Generic Name Dose Route Start Last Admin Trade Name Freq PRN Reason Stop Dose Admin Aspirin 81 mg 11/05/17 10:00 11/07/17 09:30 Ecotrin PO 81 mg DAILY [facility] Administration Clopidogrel Bisulfate 75 mg 11/05/17 10:00 11/07/17 09:30 Plavix PO 75 mg DAILY [facility] Administration Enoxaparin Sodium 80 mg 11/05/17 10:00 11/06/17 17:24 Lovenox SC 80 mg BID MAY Administration Famotidine 40 mg 11/05/17 10:00 11/07/17 09:31 Pepcid PO 40 mg DAILY MAY Administration Diltiazem HCl 125 mg/ Sodium 125 mls @ 5 mls/hr 11/05/17 19:30 11/06/17 19:17 Chloride IV 10 mg/hr .Q24H PRN 10 mls/hr Protocol Administration 5 MG/HR Lisinopril 2.5 mg 11/05/17 10:00 11/07/17 09:30 Zestril PO 2.5 mg DAILY MAY Administration Rosuvastatin Calcium 10 mg 11/06/17 22:00 11/06/17 21:40 Crestor PO 10 mg HS MAY Administration Verapamil HCl 120 mg 11/07/17 12:15 Calan Sr Tab PO DAILY MAY - Patient Studies Lab Studies: Microbiology Studies 11/05/17 06:39 MRSA Culture (Admit) - Final Nose MRSA NOT DETECTED Lab Studies 11/06/17 Range/Units 13:08 Urine Color Yellow (YELLOW) Urine Clarity Clear (Clear) Urine pH 5.0 (5.0-8.0) Ur Specific [place] 1.044 H (1.003-1.030) Urine Protein Negative (NEGATIVE) mg/dL Urine Glucose (UA) 1+ H (Normal) mg/dL Urine Ketones Negative (NEGATIVE) mg/dL Urine Blood 1+ H (NEGATIVE) Urine Nitrate Negative (NEGATIVE) Urine Bilirubin Negative (NEGATIVE) Urine Urobilinogen Normal (0.2-1.0) mg/dL Ur Leukocyte Esterase Neg (Negative) Marty/uL Urine WBC (Auto) 2 (0-5) /hpf Urine RBC (Auto) 15 H (0-3) /hpf Laboratory Results - last 24 hr 11/06/17 13:08 Urine Color Yellow Urine Clarity Clear Urine pH 5.0 Ur Specific [place] 1.044 H Urine Protein Negative Urine Glucose (UA) 1+ H Urine Ketones Negative Urine Blood 1+ H Urine Nitrate Negative Urine Bilirubin Negative Urine Urobilinogen Normal Ur Leukocyte Esterase Neg Urine WBC (Auto) 2 Urine RBC (Auto) 15 H EKG/Cardiology Studies: Cardiology / EKG Studies 11/07/17 07:30 ELECTROCARDIOGRAM DAILY Comment: Mode Of Transportation: PORTABLE Reason For Exam: A fib, Non STEMI 11/08/17 07:30 ELECTROCARDIOGRAM DAILY Comment: Mode Of Transportation: PORTABLE Reason For Exam: A fib, Non STEMI Review of Systems - Constitutional Constitutional: absent: Fever, Chills - Cardiovascular Cardiovascular: absent: Chest Pain, Dyspnea, Edema, Palpitations - Respiratory Respiratory: absent: Cough, Dyspnea - Gastrointestinal Gastrointestinal: absent: Abdominal Pain, Nausea, Vomiting Critical Care Progress Note - Nutrition Nutrition: Nutrition Category Date Time Status Heart Healthy Diet [DIET] Diets 11/05/17 Dinner Active Assessment/Plan - Assessment and Plan (Free Text) Assessment: 82 yo M w/ CAD s/p NSTEMI Neuro: AAOx3 CV: NSTEMI trops + x3 -cardiac cath showed dz -aspirin 81mg -plavix -PCI outpatient -cardio consult Dr. Vaibhav Foley Fib -d/c cardizem drip -verapamil 120 SR-rate better controlled HTN/CHF -lisinopril 2.5 Pulm: -d/c coreg, pt dev wheeze likely 2/2 non-south BB HLD -crestor 10 GI: -HH diet Ppx -pepcid -lovenox Case discussed w/ Dr. Art Polanco PGY1 - Date & Time Date: 11/07/17 Time: 12:41 <Campbell Cordova - Last Filed: 11/08/17 18:13> CCU Objective - Vital Signs / Intake & Output Vital Signs (Last 4 hours): Vital Signs Temp Pulse Resp BP Pulse Ox 11/08/17 17:00 136 H 27 H 11/08/17 16:01 103 H 27 H 110/71 87 L 11/08/17 16:00 98 H 21 92 L 11/08/17 15:51 97.6 F 11/08/17 15:00 94 H 22 97 Intake and Output (Last 8hrs): Intake & Output 11/08/17 11/08/17 11/08/17 06:59 14:59 22:59 Intake Total 240 360 Output Total 0 300 100 Balance 240 60 -100 Intake: Oral 240 360 Output: Urine 0 300 100 Urine, Voided 0 300 100 Other: # Bowel Movements 1 - Medications Active Medications: Active Medications Generic Name Dose Route Start Last Admin Trade Name Yun PRN Reason Stop Dose Admin Apixaban 2.5 mg 11/08/17 18:00 11/08/17 17:24 Eliquis PO 2.5 mg BID MAY Administration Clopidogrel Bisulfate 75 mg 11/05/17 10:00 11/08/17 09:17 Plavix PO 75 mg DAILY MAY Administration Famotidine 40 mg 11/05/17 10:00 11/08/17 09:17 Pepcid PO 40 mg DAILY MAY Administration Finasteride 5 mg 11/08/17 12:15 11/08/17 12:27 Proscar PO 5 mg DAILY MAY Administration Lisinopril 2.5 mg 11/05/17 10:00 11/08/17 09:14 Zestril PO Not Given DAILY MAY Montelukast Sodium 10 mg 11/08/17 22:00 Singulair PO HS MAY Rosuvastatin Calcium 10 mg 11/06/17 22:00 11/07/17 22:22 Crestor PO 10 mg HS MAY Administration Tamsulosin HCl 0.4 mg 11/08/17 12:15 11/08/17 12:27 Flomax PO 0.4 mg DAILY MAY Administration Verapamil HCl 180 mg 11/09/17 10:00 Calan Sr Tab PO DAILY MAY - Patient Studies EKG/Cardiology Studies: Cardiology / EKG Studies 11/08/17 07:30 ELECTROCARDIOGRAM DAILY Comment: Mode Of Transportation: PORTABLE Reason For Exam: A fib, Non STEMI Critical Care Progress Note - Nutrition Nutrition: Nutrition Category Date Time Status Heart Healthy Diet [DIET] Diets 11/05/17 Dinner Active Assessment/Plan - Assessment and Plan (Free Text) Assessment: Above patient seen and examined at bedside. Above resident documents my clinical findings and mangement -switch from IV cardizem to oral varapamil -continue all other treatment as per cardiology
[2017-11-07] MEDS: Enoxaparin 80 mg Syringe SC SCH (18:19)
[2017-11-08] MEDS: Verapamil 120 mg ER Tab PO SCH (09:17)
[2017-11-08] MEDS: Enoxaparin 80 mg Syringe SC SCH (09:17)
[2017-11-08] MEDS ORDERED: Verapamil 120 mg ER Tab PO SCH (10:00)
--- NOTE | 2017-11-08 10:16 | CP.PCM.PN ---
Subjective - Date & Time of Evaluation Date of Evaluation: 11/08/17 Time of Evaluation: 10:14 - Subjective Subjective: Patient s/p Non STEMI New onset a fib Reactive airway disease Plan: D/C coreg, ASA, Lovenox Continue Plavix, Eliquis 2.5 po bid, Verapamil and statins If stable can go home after 5pm today(That is the time his can pick him up) Objective - Vital Signs/Intake and Output Vital Signs (last 24 hours): Temp Pulse Resp BP Pulse Ox 98.4 F 113 H 19 91/56 L 98 11/08/17 08:00 11/08/17 10:00 11/08/17 10:00 11/08/17 09:55 11/08/17 10:00 Intake and Output: 11/08/17 11/08/17 06:59 18:59 Intake Total 580 0 Output Total 0 0 Balance 580 0 - Medications Medications: Current Medications Apixaban (Eliquis) 2.5 mg PO BID [facility] Clopidogrel Bisulfate (Plavix) 75 mg PO DAILY [facility] Last Admin: 11/08/17 09:17 Dose: 75 mg Famotidine (Pepcid) 40 mg PO DAILY [facility] Last Admin: 11/08/17 09:17 Dose: 40 mg Lisinopril (Zestril) 2.5 mg PO DAILY [facility] Last Admin: 11/08/17 09:14 Dose: Not Given Montelukast Sodium (Singulair) 10 mg PO HS [facility] Rosuvastatin Calcium (Crestor) 10 mg PO HS [facility] Last Admin: 11/07/17 22:22 Dose: 10 mg Verapamil HCl (Calan Sr Tab) 180 mg PO DAILY [facility] Verapamil HCl (Calan Tab) 40 mg PO ONCE ONE Stop: 11/08/17 11:01 - Labs Labs: 11/06/17 05:37 11/06/17 05:37 PT 11.6 SECONDS (9.7-12.2) 11/05/17 02:53 INR 1.1 11/05/17 02:53 APTT 33 SECONDS (21-34) 11/05/17 02:53
--- NOTE | 2017-11-08 12:07 | CARD ---
APPROVED REPORT Date of service: 11/08/2017 EKG Measurement Heart [id number] <Conclusion> Atrial fibrillation Nonspecific intraventricular block Abnormal ECG
--- NOTE | 2017-11-08 12:31 | CARD ---
APPROVED REPORT Date of service: 11/07/2017 EKG Measurement Heart [id number] <Conclusion> baseline artifacts. probably a,fib with junctional rhythm. Nonspecific intraventricular block Abnormal ECG please repeat.
--- NOTE | 2017-11-08 12:32 | CARD ---
APPROVED REPORT Date of service: 11/07/2017 EKG Measurement Heart [id number] <Conclusion> a,fib withy rvr Left axis deviation Nonspecific intraventricular block Abnormal ECG
[2017-11-08 15:51] VITALS: TEMP 97.6
[2017-11-08 16:06] VITALS: RESP 27; O2SAT 87
[2017-11-08 17:22] VITALS: PULSE 136
[2017-11-08 18:52] VITALS: BP 116/60
[2017-11-09] MEDS ORDERED: Verapamil 180 mg ER Tab PO SCH (10:00)
--- NOTE | 2017-11-10 21:40 | CARDCATH ---
PROCEDURE DATE: 11/05/2017 PROCEDURES: 1. Coronary angiogram. 2. Left internal mammary artery graft angiogram. 3. Saphenous vein graft angiogram. CLINICAL INDICATIONS: 1. Chest pain. 2. Non-ST elevation myocardial infarction. 3. History of coronary artery disease, status post CABG x4. 4. History of aortic stenosis, status post bioprosthetic aortic valve replacement. 5. Hypertension. 6. Hyperlipidemia. 7. Obesity. REFERRING PHYSICIAN: Latoya Orosco M.D. PERFORMING PHYSICIAN: Darian Esposito MD. DESCRIPTION OF PROCEDURE: After informed consent, the patient was prepped and draped in the usual sterile fashion. Lidocaine 2% was given in the right groin for local anesthesia. Using micropuncture technique, a 6-Algerian sheath was introduced into right common femoral artery. A JL4 6-Algerian diagnostic catheter engaged into left main coronary artery. Contrast was injected and left coronary angiogram was done. Then, JR4 6-Algerian diagnostic catheter engaged into right coronary artery. Contrast injected and right coronary angiogram was done. AR1 diagnostic catheter engaged into saphenous vein graft angiogram. Contrast injected. Saphenous vein graft to obtuse marginal and to diagonal arteries was performed. Then, multipurpose catheter engaged into saphenous vein graft right coronary artery. Contrast injected. Graft angiogram was done. Left internal mammary catheter radiating to left subclavian artery. Contrast injected and ANGEL angiogram was done. The patient tolerated the procedure well. Postprocedure, Mynx closure device deployed in the groin with excellent hemostasis. Radiological supervision and interpretation of the coronary imaging was done. FINDINGS: 1. Left main coronary artery is soft and patent. 2. Proximal LAD has 99% stenosis. Mid LAD has 100% stenosis. Large D1 artery has 100% stenosis. 3. Proximal left circumflex is patent. Obtuse marginal 1 artery has 100% occlusion. Obtuse marginal 2 artery has 99% stenosis. 4. Right coronary artery is occluded 100% proximally. 5. ANGEL graft angiogram to LAD is patent. 6. Saphenous vein graft to PDA is patent. 7. Saphenous vein graft to obtuse marginal 1 is patent. 8. Saphenous vein graft to diagonal artery has 70% to 80% distal stenosis. IMPRESSION: 1. Coronary artery disease as described above. 2. Selective intervention of the [place] obtuse marginal 2 and saphenous vein graft to diagonal artery intervention as an outpatient. Darian Esposito MD
== END 2017-11-08 18:30 | disposition home or self-care (01) | DRG 281 ==
LOC: C.ER 01:53 → C.9I 04:56
PROVIDERS: ADMIT Internal Medicine; ATTEND Internal Medicine
PROC: 4A023N7 Measurement of Cardiac Sampling and Pressure, Left Heart, Percutaneous Approach (ICD-10-PCS; principal; 2017-11-07)
PROC: B2151ZZ Fluoroscopy of Left Heart using Low Osmolar Contrast (ICD-10-PCS; 2017-11-07)
PROC: B2111ZZ Fluoroscopy of Multiple Coronary Arteries using Low Osmolar Contrast (ICD-10-PCS; 2017-11-07)
DX: I21.4 Non-ST elevation (NSTEMI) myocardial infarction (principal); I47.1 Supraventricular tachycardia; I50.40 Unspecified combined systolic (congestive) and diastolic (congestive) heart failure; I25.10 Atherosclerotic heart disease of native coronary artery without angina pectoris; I11.0 Hypertensive heart disease with heart failure; E78.5 Hyperlipidemia, unspecified; E66.9 Obesity, unspecified; I35.0 Nonrheumatic aortic (valve) stenosis; I48.91 Unspecified atrial fibrillation; J45.909 Unspecified asthma, uncomplicated; Z95.3 Presence of xenogenic heart valve; Z95.1 Presence of aortocoronary bypass graft; Z79.01 Long term (current) use of anticoagulants; I25.82 Chronic total occlusion of coronary artery

== ENCOUNTER 2018-01-05 05:23 | Inpatient (IN) | payer MEDICARE ==
[2018-01-05 05:35] VITALS: BMI 30.4
[2018-01-05 05:47] LABS: BASO % 0.3 % (0.0-2.0); EOS # 0.1 K/uL (0.0-0.7); EOS % 0.5 % (0.0-4.0); HEMOGLOBIN 13.2 g/dL (12.0-18.0); LYMPH % 7.6 % (20.0-40.0); MEAN CORPUSCULAR HEMOGLOBIN 29.2 pg (27.0-31.0); MEAN CORPUSCULAR HGB CONC 33.6 g/dL (33.0-37.0); MEAN PLATELET VOLUME 10.4 fL (7.2-11.7); MONO # 0.9 K/uL (0.0-0.8); MONO % 7.2 % (0.0-10.0); NEUT % 84.4 % (50.0-75.0); NRBC % 0.1 % (0.0-2.0); PLATELET COUNT 243 K/uL (130-400); RBC 4.53 Mil/uL (4.40-5.90); RED CELL DISTRIBUTION WIDTH 15.3 % (11.5-14.5)
[2018-01-05 06:03] LABS: VENOUS BLOOD GAS BASE EXCESS -2.2 mmol/L (0.0-2.0); VENOUS BLOOD GAS PCO2 37 mmHg (40-60); VENOUS BLOOD GAS PO2 44 mm/Hg (30-55); VENOUS BLOOD PH 7.39 (7.32-7.43)
[2018-01-05 06:12] LABS: LYMPHOCYTE 8 % (20-40); MONOCYTE 7 % (0-10); NEUTROPHIL 85 % (50-75); PLATELET ESTIMATE NORMAL (NORMAL); TOTAL CELLS COUNTED 100
[2018-01-05 06:29] LABS: INR 2.2; PROTHROMBIN TIME 24.4 SECONDS (9.7-12.2)
--- NOTE | 2018-01-05 06:38 | C.PDOC ---
History Of Present Illness 82 year old male patient presents to the ER c/o shortness of breath with abdominal pain. Patient came from retirement and has multiple admissions to hospital for A-fib. Patient denies nausea, vomiting, diarrhea and chest pain. Time Seen by Provider: 01/05/18 05:28 Chief Complaint (Nursing): Shortness Of Breath History Per: Patient History/Exam Limitations: no limitations Onset/Duration Of Symptoms: Hrs Current Symptoms Are (Timing): Still Present Past Medical History Reviewed: Historical Data, Nursing Documentation, Vital Signs Vital Signs: Last Vital Signs Temp 97.5 F L 01/05/18 06:33 Pulse 115 H 01/05/18 06:33 Resp 26 H 01/05/18 06:33 BP 94/61 L 01/05/18 06:33 Pulse Ox 99 01/05/18 06:45 - Medical History PMH: CAD, Cardia Arrhythmia (afib), CHF (w/ 33% EF), HTN, Hypercholesterolemia, Peripheral Edema (ble +2 edema) Surgical History: Appendectomy, CABG (09/20/10), Coronary Stent - [facility] Procedures DILATION OF 1 COR ART WITH DRUG-ELUT INTRA, PERC APPROACH (11/13/17) FLUOROSCOPY OF LEFT HEART USING LOW OSMOLAR CONTRAST (11/05/17) FLUOROSCOPY OF MULT COR ART USING L OSM CONTRAST (11/05/17) FLUOROSCOPY OF MULTIPLE CORONARY ARTERIES USING OTH CONTRAST (11/13/17) INTRODUCE OF OTH THERAP SUBST INTO RESP TRACT, VIA OPENING (11/13/17) MEASURE OF CARDIAC SAMPL & PRESSURE, L HEART, PERC APPROACH (11/05/17) Family History: States: Unknown Family Hx - Social History Hx Tobacco Use: No Hx Alcohol Use: No Hx Substance Use: No - Immunization History Hx Tetanus Toxoid Vaccination: No Hx Influenza Vaccination: No Hx Pneumococcal Vaccination: No Review Of Systems Except As Marked, All Systems Reviewed And Found Negative. Cardiovascular: Positive for: Other (a-fib). Negative for: Chest Pain Gastrointestinal: Positive for: Abdominal Pain. Negative for: Nausea, Vomiting , Diarrhea Physical Exam - Physical Exam Appears: Non-toxic, No Acute Distress, Other (obese elderly; geriatric ) Skin: Normal Color, Warm, Dry Head: Atraumatic, Normacephalic Eye(s): bilateral: Normal Inspection, EOMI Neck: Other (+JVD) Chest: Symmetrical, No Deformity Cardiovascular: Murmur (holosystolic ) Respiratory: Rales Gastrointestinal/Abdominal: Soft, No Tenderness, Distention, Other (obese) Extremity: Pedal Edema (4/4 b/l), No Deformity Pulses: Left Dorsalis Pedis: Normal, Right Dorsalis Pedis: Normal Neurological/Psych: Oriented x3, Normal Speech ED Course And Treatment - Laboratory Results Result Diagrams: 01/05/18 05:45 01/05/18 05:45 Lab Interpretation: Abnormal ECG: Interpreted By Me ECG Rhythm: Atrial Fibrillation Rate From EC O2 Sat by Pulse Oximetry: 99 (RA) Pulse Ox Interpretation: Normal - Radiology CXR: Interpreted by Me CXR Interpretation: Yes: Heart Size, Other (+CHF, + small R effusion) Progress Note: cardizem bolus and drip. INR theraputic Reevaluation Time: 06:49 Reassessment Condition: Improved - Physician Consult Information Outcome Of Conversation: 0630: paged for Dr. Orosco- pending call back Medical Decision Making Medical Decision Making: Impression: abdominal pain and a-fib Plans: -- VBG -- EKG -- blood work -- CXR -- cardizem -- IV fluids -- blood cx -- UA recurrent CHRISTINE 0700 : signed over to Daytime MD pending labs and PMD Call back Disposition Doctor Will See Patient In The: Hospital - Disposition Disposition: HOSPITALIZED Disposition Time: 06:50 Condition: FAIR Forms: [facility] (Yakut) - Clinical Impression Clinical Impression: Chronic congestive heart failure, Rapid atrial fibrillation - Scribe Statement The provider has reviewed the documentation as recorded by the Daveibcan Brooks Do Provider Attestation: All medical record entries made by the Scribe were at my direction and personally dictated by me. I have reviewed the chart and agree that the record accurately reflects my personal performance of the history, physical exam, medical decision making, and the department course for this patient. I have also personally directed, reviewed, and agree with the discharge instructions and disposition. Physician Patient Turnover Patient Signed Over To: Jong Aguayo Handoff Comments: pending labs (re-draw) and call back from Dr. Orosco
[2018-01-05 07:06] LABS: ALB/GLOB RATIO 1.3 (1.0-2.1); ALBUMIN 3.4 g/dL (3.5-5.0); CALCIUM 8.5 mg/dl (8.6-10.4)
[2018-01-05 07:14] LABS: TROPONIN I 0.103 ng/mL (0.00-0.120)
[2018-01-05 08:01] LABS: SQUAMOUS EPITHIAL 11 /hpf (0-5); URINE BACTERIA RARE (<OCC); URINE BILIRUBIN NEGATIVE (NEGATIVE); URINE BLOOD NEGATIVE (NEGATIVE); URINE CLARITY Hazy (Clear); URINE COLOR Amber (YELLOW); URINE GLUCOSE (UA) NORMAL (Normal); URINE HYALINE CAST >20 /lpf (0-2); URINE LEUKOCYTE ESTERASE 2+ Leu/uL (Negative); URINE PROTEIN 1+ mg/dL (NEGATIVE); WBC CLUMPS OCC /hpf
--- NOTE | 2018-01-05 08:38 | RAD ---
Date of service: 01/05/2018 PROCEDURE: CHEST RADIOGRAPH, 1 VIEW HISTORY: SOB COMPARISON: 12/27/2017. FINDINGS: LUNGS: The lungs are well inflated. There is mild pulmonary venous congestion. PLEURA: No pneumothorax. Small right pleural fluid seen. CARDIOVASCULAR: Persistent severe cardiomegaly. Status post CAB There is unfolding of the aorta. OSSEOUS STRUCTURES: No significant abnormalities. VISUALIZED UPPER ABDOMEN: Normal. OTHER FINDINGS: None. IMPRESSION: Mild congestive heart failure with small right pleural effusion.
--- NOTE | 2018-01-05 10:26 | CP.PCM.CON ---
<Bartolome Zimmerman - Last Filed: 01/05/18 11:57> History of Present Illness - History of Present Illness History of Present Illness: Critical care consult note: 82 year old male with history of CAD s/p CABG, HTN, HLD, A fib on eliquis, CHF who presented with chest pain, palpitation, and abd pain x 1 day. Pt was just recently here in the hospital and treated for afib, and had cardiac cath with stent placement. In the ED the patient was found to be hypotensive and short of breath. Heart rate in the 140's on cardizem ggt. ICU was consulted for cont management. 12 Point ROS performed and neg other than stated above. PMH: CAD, HTN, HLD, A fib, CHF PSH: CABG (doesnt recall date) Allergies: NKDA FH: denies Social history: former smoker, denies smoking or drugs Review of Systems - Review of Systems All systems: reviewed and no additional remarkable complaints except Past Patient History - Infectious Disease Hx of Infectious Diseases: None - Past Medical History & Family History Past Medical History?: Yes - Past Social History Smoking Status: Former Smoker - CARDIAC Hx Cardia Arrhythmia: Yes (afib) Hx Congestive Heart Failure: Yes (w/ 33% EF) Hx Hypercholesterolemia: Yes Hx Hypertension: Yes Hx Peripheral Edema: Yes (ble +2 edema) - PULMONARY Hx Respiratory Disorders: No - NEUROLOGICAL Hx Neurological Disorder: No - HEENT Hx HEENT Problems: No - RENAL Hx Chronic Kidney Disease: No - ENDOCRINE/METABOLIC Hx Endocrine Disorders: No - HEMATOLOGICAL/ONCOLOGICAL Hx Blood Disorders: No - INTEGUMENTARY Hx Dermatological Problems: Yes Other/Comment: multiple moles removed by dr kerr as pr pt, pt does not know if any were malignant, pt stated "I don't know she gave me madie to put on,", mid chest healed scar, red raised rash and redness all over chest abd ad lower abd upper thighs redness goes around to back, slight redness to buttocks, age spots to forehead, large eccymotic area to right groin and r lower abd dressing dry and and intact had angiogram done 11/05/17 intact, multiple age spots to b/l forehead and templees - MUSCULOSKELETAL/RHEUMATOLOGICAL Hx Musculoskeletal Disorders: Yes Hx Falls: Yes Hx Unsteady Gait: Yes - GASTROINTESTINAL Hx Gastrointestinal Disorders: Yes (obese) - GENITOURINARY/GYNECOLOGICAL Hx Genitourinary Disorders: Yes Hx Prostate Problems: ("I don't know I never had an exam" stated pt) Other/Comment: c/o urinary retention and is on flomax - PSYCHIATRIC Hx Substance Use: No - SURGICAL HISTORY Hx Appendectomy: Yes Hx Coronary Artery Bypass Graft: Yes (09/20/10) Hx Coronary Stent: Yes - ANESTHESIA Hx Anesthesia: Yes Hx Anesthesia Reactions: No Hx Malignant Hyperthermia: No Meds Allergies/Adverse Reactions: Allergies Allergy/AdvReac Type Severity Reaction Status Date / Time No Known Allergies Allergy Verified 01/05/18 05:51 - Medications Medications: Current Medications Diltiazem HCl 125 mg/ Sodium (Chloride) 125 mls @ 5 mls/hr IV .Q24H MAY PRN Reason: 5 MG/HR Last Admin: 01/05/18 06:51 Dose: 5 mls/hr Physical Exam - Constitutional Appears: No Acute Distress - Head Exam Head Exam: ATRAUMATIC, NORMOCEPHALIC - Eye Exam Eye Exam: EOMI, PERRL Pupil Exam: NORMAL ACCOMODATION - ENT Exam ENT Exam: Mucous Membranes Moist - Respiratory Exam Respiratory Exam: Clear to Auscultation Bilateral. absent: Rales, Wheezes - Cardiovascular Exam Cardiovascular Exam: Tachycardia, RRR, +S1, +S2 - GI/Abdominal Exam GI & Abdominal Exam: Normal Bowel Sounds, Soft. absent: Tenderness - Extremities Exam Extremities exam: Negative for: calf tenderness, pedal edema - Neurological Exam Neurological exam: Alert, CN II-XII Intact, Oriented x3 - Psychiatric Exam Psychiatric exam: Normal Mood - Skin Skin Exam: Dry, Intact Results - Vital Signs Recent Vital Signs: Last Vital Signs Temp 97.5 F L 01/05/18 08:00 Pulse 122 H 01/05/18 09:38 Resp 19 01/05/18 09:38 BP 100/62 01/05/18 09:38 Pulse Ox 100 01/05/18 09:38 - Labs Result Diagrams: 01/05/18 05:45 01/05/18 05:45 Labs: Laboratory Results - last 24 hr 01/05/18 01/05/18 01/05/18 05:45 05:45 06:00 WBC 13.0 H RBC 4.53 Hgb 13.2 Hct 39.4 MCV 87.0 MCH 29.2 MCHC 33.6 RDW 15.3 H Plt Count 243 MPV 10.4 Neut % (Auto) 84.4 H Lymph % (Auto) 7.6 L [place] % (Auto) 7.2 Eos % (Auto) 0.5 Baso % (Auto) 0.3 Neut # (Auto) 11.0 H Lymph # (Auto) 1.0 [place] # (Auto) 0.9 H Eos # (Auto) 0.1 Baso # (Auto) 0.0 Neutrophils % (Manual) 85 H Lymphocytes % (Manual) 8 L Monocytes % (Manual) 7 Platelet Estimate Normal PT INR pO2 44 VBG pH 7.39 VBG pCO2 37 L VBG HCO3 22.7 VBG Total CO2 23.5 VBG O2 Sat (Calc) 78.0 H VBG Base Excess -2.2 L VBG Potassium 4.2 Glucose 101 Lactate 2.4 H Sodium 139 140.0 Potassium 4.6 Chloride 99 106.0 Carbon Dioxide 24 Anion Gap 20 BUN 70 H Creatinine 2.5 H Est GFR ( Amer) 30 Est GFR (Non-Af Amer) 25 Random Glucose 103 Calcium 8.5 L Total Bilirubin 0.8 AST 254 H D ALT 435 H D Alkaline Phosphatase 96 Troponin I 0.1030 NT-Pro-B Natriuret Pep 85802 H Total Protein 6.0 L Albumin 3.4 L Globulin 2.5 Albumin/Globulin Ratio 1.3 Venous Blood Potassium 4.2 Urine Color Urine Clarity Urine pH Ur Specific [place] Urine Protein Urine Glucose (UA) Urine Ketones Urine Blood Urine Nitrate Urine Bilirubin Urine Urobilinogen Ur Leukocyte Esterase Urine WBC (Auto) Urine RBC (Auto) Urine WBC Clumps (Auto) Ur Squamous Epith Cells Urine Bacteria Hyaline Casts 01/05/18 01/05/18 06:22 07:45 WBC RBC Hgb Hct MCV MCH MCHC RDW Plt Count MPV Neut % (Auto) Lymph % (Auto) [place] % (Auto) Eos % (Auto) Baso % (Auto) Neut # (Auto) Lymph # (Auto) [place] # (Auto) Eos # (Auto) Baso # (Auto) Neutrophils % (Manual) Lymphocytes % (Manual) Monocytes % (Manual) Platelet Estimate PT 24.4 H INR 2.2 pO2 VBG pH VBG pCO2 VBG HCO3 VBG Total CO2 VBG O2 Sat (Calc) VBG Base Excess VBG Potassium Glucose Lactate Sodium Potassium Chloride Carbon Dioxide Anion Gap BUN Creatinine Est GFR ( Amer) Est GFR (Non-Af Amer) Random Glucose Calcium Total Bilirubin AST ALT Alkaline Phosphatase Troponin I NT-Pro-B Natriuret Pep Total Protein Albumin Globulin Albumin/Globulin Ratio Venous Blood Potassium Urine Color [place] Urine Clarity Hazy Urine pH 5.0 Ur Specific [place] 1.021 Urine Protein 1+ H Urine Glucose (UA) Normal Urine Ketones Negative Urine Blood Negative Urine Nitrate Negative Urine Bilirubin Negative Urine Urobilinogen 2.0 Ur Leukocyte Esterase 2+ H Urine WBC (Auto) 75 H Urine RBC (Auto) 2 Urine WBC Clumps (Auto) Occ H Ur Squamous Epith Cells 11 H Urine Bacteria Rare Hyaline Casts >20 H Assessment & Plan - Assessment and Plan (Free Text) Assessment: 82 year old male with history of CAD s/p CABG, HTN, HLD, A fib on eliquis, CHF who presented with chest pain, palpitation, and abd pain x 1 day. Found to have afib with rvr on cardizem ggt, hypotensive now resolved, lactate of 2.4, and a UTI Neuro: - AAOx 3 Pulm: - Maintain SPO2> 92 % - Nasal cannula as tolerated CV: - Cont Cardizem ggt - Cardizem 25mg IVP x 1 in the ED - S/p 2 L bolus of NS in the ED - Cont Eliquis and Plavix - lactate 2.4 - Maintain MAP> 65, no need for pressor support at this time - Echo in 11/30 showed EF of 33% - F/u cardiology recs - Recent stent placement - BNP 24174, No rales or jvd on exam, no lasix required at this time as patient was just hypotensive GI: - HHD - GI ppx - Monitor LFTs - F/u abd/pelvis CT scan ordered Renal: - MICHAEL Cr of 2.5 - Avoid nephrotoxic medications - Monitor I and O - Replete electrolytes as needed ID: - afebrile and wbc 13 +UA - Started on Rocephin Endo: - maintain euglycemia - F/u TSH Heme: - Monitor H/H GI/DVT ppx Case and plan was reviewed and discussed in detail with Dr Gentile. <Clemente Gentile - Last Filed: 01/05/18 12:08> Meds - Medications Medications: Current Medications Apixaban (Eliquis) 2.5 mg PO BID [facility] Clopidogrel Bisulfate (Plavix) 75 mg PO DAILY [facility] Famotidine (Pepcid) 20 mg PO DAILY [facility] Finasteride (Proscar) 5 mg PO DAILY [facility] Diltiazem HCl 125 mg/ Sodium (Chloride) 125 mls @ 5 mls/hr IV .Q24H MAY PRN Reason: 5 MG/HR Last Admin: 01/05/18 06:51 Dose: 5 mls/hr Ceftriaxone Sodium 1 gm/ (Sodium Chloride) 100 mls @ 100 mls/hr IVPB DAILY MAY PRN Reason: Protocol Montelukast Sodium (Singulair) 10 mg PO HS MAY Rosuvastatin Calcium (Crestor) 5 mg PO DAILY [facility] Tamsulosin HCl (Flomax) 0.4 mg PO DAILY [facility] Results - Vital Signs Recent Vital Signs: Last Vital Signs Temp 97.5 F L 01/05/18 08:00 Pulse 116 H 01/05/18 11:10 Resp 25 H 01/05/18 11:10 BP 96/67 L 01/05/18 11:07 Pulse Ox 99 01/05/18 11:10 - Labs Result Diagrams: 01/05/18 05:45 01/05/18 05:45 Labs: Laboratory Results - last 24 hr 01/05/18 01/05/18 01/05/18 05:45 05:45 06:00 WBC 13.0 H RBC 4.53 Hgb 13.2 Hct 39.4 MCV 87.0 MCH 29.2 MCHC 33.6 RDW 15.3 H Plt Count 243 MPV 10.4 Neut % (Auto) 84.4 H Lymph % (Auto) 7.6 L [place] % (Auto) 7.2 Eos % (Auto) 0.5 Baso % (Auto) 0.3 Neut # (Auto) 11.0 H Lymph # (Auto) 1.0 [place] # (Auto) 0.9 H Eos # (Auto) 0.1 Baso # (Auto) 0.0 Neutrophils % (Manual) 85 H Lymphocytes % (Manual) 8 L Monocytes % (Manual) 7 Platelet Estimate Normal PT INR pO2 44 VBG pH 7.39 VBG pCO2 37 L VBG HCO3 22.7 VBG Total CO2 23.5 VBG O2 Sat (Calc) 78.0 H VBG Base Excess -2.2 L VBG Potassium 4.2 Glucose 101 Lactate 2.4 H Sodium 139 140.0 Potassium 4.6 Chloride 99 106.0 Carbon Dioxide 24 Anion Gap 20 BUN 70 H Creatinine 2.5 H Est GFR ( Amer) 30 Est GFR (Non-Af Amer) 25 Random Glucose 103 Lactic Acid Calcium 8.5 L Total Bilirubin 0.8 AST 254 H D ALT 435 H D Alkaline Phosphatase 96 Troponin I 0.1030 NT-Pro-B Natriuret Pep 87700 H Total Protein 6.0 L Albumin 3.4 L Globulin 2.5 Albumin/Globulin Ratio 1.3 Venous Blood Potassium 4.2 Urine Color Urine Clarity Urine pH Ur Specific [place] Urine Protein Urine Glucose (UA) Urine Ketones Urine Blood Urine Nitrate Urine Bilirubin Urine Urobilinogen Ur Leukocyte Esterase Urine WBC (Auto) Urine RBC (Auto) Urine WBC Clumps (Auto) Ur Squamous Epith Cells Urine Bacteria Hyaline Casts 01/05/18 01/05/18 01/05/18 06:22 07:45 10:19 WBC RBC Hgb Hct MCV MCH MCHC RDW Plt Count MPV Neut % (Auto) Lymph % (Auto) [place] % (Auto) Eos % (Auto) Baso % (Auto) Neut # (Auto) Lymph # (Auto) [place] # (Auto) Eos # (Auto) Baso # (Auto) Neutrophils % (Manual) Lymphocytes % (Manual) Monocytes % (Manual) Platelet Estimate PT 24.4 H INR 2.2 pO2 VBG pH VBG pCO2 VBG HCO3 VBG Total CO2 VBG O2 Sat (Calc) VBG Base Excess VBG Potassium Glucose Lactate Sodium Potassium Chloride Carbon Dioxide Anion Gap BUN Creatinine Est GFR ( Amer) Est GFR (Non-Af Amer) Random Glucose Lactic Acid 1.4 Calcium Total Bilirubin AST ALT Alkaline Phosphatase Troponin I NT-Pro-B Natriuret Pep Total Protein Albumin Globulin Albumin/Globulin Ratio Venous Blood Potassium Urine Color [place] Urine Clarity Hazy Urine pH 5.0 Ur Specific [place] 1.021 Urine Protein 1+ H Urine Glucose (UA) Normal Urine Ketones Negative Urine Blood Negative Urine Nitrate Negative Urine Bilirubin Negative Urine Urobilinogen 2.0 Ur Leukocyte Esterase 2+ H Urine WBC (Auto) 75 H Urine RBC (Auto) 2 Urine WBC Clumps (Auto) Occ H Ur Squamous Epith Cells 11 H Urine Bacteria Rare Hyaline Casts >20 H Attending/Attestation - Attestation I have personally seen and examined this patient.: Yes I have fully participated in the care of the patient.: Yes I have reviewed all pertinent clinical information: Yes Notes (Text): 01/05/18 12:05 Patient seen and examined 82-year-old male with history of coronary artery disease status post CABG and stent placement, presented with palpitation. Patient found to be in atrial fibril with rapid ventricular response started on Cardizem drip ICU observation Continue eliquis Scan of the abdomen and pelvis Monitor renal function
--- NOTE | 2018-01-05 15:31 | CT ---
Date of service: 01/05/2018 PROCEDURE: CT Chest, Abdomen and Pelvis without intravenous contrast HISTORY: abd distension and sob COMPARISON: CT abdomen and pelvis from 09/21/2011. TECHNIQUE: Radiation dose: Total exam DLP = 1682.54 mGy-cm. This CT exam was performed using one or more of the following dose reduction techniques: Automated exposure control, adjustment of the mA and/or kV according to patient size, and/or use of iterative reconstruction technique. FINDINGS: CT CHEST WITHOUT CONTRAST: LUNGS: There is subsegmental atelectasis in the lingula and lower lobes. No focal consolidation. No endobronchial lesions. MEDIASTINUM: There is an aneurysm of the ascending aorta measuring 4.0 x 4.4 cm. There is mild cardiomegaly and atherosclerotic coronary artery calcifications. No pericardial effusion. The pulmonary trunk is normal in caliber. Status post CAB LYMPH NODES: Subcentimeter mediastinal lymph nodes are likely reactive in etiology. PLEURA: Moderate right and small left pleural effusions. No pneumothorax. BONES: Unremarkable. OTHER FINDINGS: None. CT ABDOMEN AND PELVIS: LIVER: Normal in size. No gross lesion or ductal dilatation. GALLBLADDER AND BILE DUCTS: No calcified gallstones. PANCREAS: Normal in size. No gross lesion or ductal dilatation. SPLEEN: Normal in size. ADRENALS: The adrenal glands are thick without discrete nodule. KIDNEYS AND URETERS: Normal in size. No hydronephrosis or nephrolithiasis. Nonspecific perinephric fat stranding. VASCULATURE: No aortic aneurysm. BOWEL: The small bowel loops are normal in caliber. The colon is unremarkable. No bowel dilatation or obstruction. APPENDIX: Surgically absent. PERITONEUM: Small abdominal ascites. No free air. LYMPH NODES: No enlarged lymph nodes. BLADDER: Unremarkable. REPRODUCTIVE: Unremarkable. BONES: No acute fracture. Multilevel degenerative disc disease, worse at L4-5 with grade 1 anterior listhesis of L4 on L5. OTHER FINDINGS: Status post ventral hernia repair, there is a infraumbilical midline ventral hernia containing nonobstructed bowel loops. There are moderate size bilateral fat containing inguinal hernias. IMPRESSION: 1. Moderate right and small left pleural effusions. 2. Aneurysm of the ascending aorta measuring 4.0 x 4.3 cm. 3. Infraumbilical midline ventral hernia containing nonobstructed bowel. 4. Small abdominal ascites.
--- NOTE | 2018-01-05 16:40 | CP.PCM.CON ---
History of Present Illness - History of Present Illness History of Present Illness: 82-year-old male with a history of CAD, status post CABG, hypertension, hypercholesteremia, atrial fibrillation on anticoagulation. Patient was recently hospitalized with acute rapid ventricular rate with the atrial fibrillation, treated and he went to the alf. From the alf patient went home. He came to the emergency room again this time with shortness of breath, and also palpitation. In the emergency room patient was started on Cardizem drip to control the tachycardia, and also was found to have hypotension. At the time of examination still have mild respiratory distress an dAtrial fibrillation with RVR. Past Patient History - Infectious Disease Hx of Infectious Diseases: None - Past Medical History & Family History Past Medical History?: Yes - Past Social History Smoking Status: Former Smoker - CARDIAC Hx Cardia Arrhythmia: Yes (afib) Hx Congestive Heart Failure: Yes (w/ 33% EF) Hx Hypercholesterolemia: Yes Hx Hypertension: Yes Hx Peripheral Edema: Yes (ble +2 edema) - PULMONARY Hx Respiratory Disorders: No - NEUROLOGICAL Hx Neurological Disorder: No - HEENT Hx HEENT Problems: No - RENAL Hx Chronic Kidney Disease: No - ENDOCRINE/METABOLIC Hx Endocrine Disorders: No - HEMATOLOGICAL/ONCOLOGICAL Hx Blood Disorders: No - INTEGUMENTARY Hx Dermatological Problems: Yes Other/Comment: multiple moles removed by dr kerr as pr pt, pt does not know if any were malignant, pt stated "I don't know she gave me madie to put on,", mid chest healed scar, red raised rash and redness all over chest abd ad lower abd upper thighs redness goes around to back, slight redness to buttocks, age spots to forehead, large eccymotic area to right groin and r lower abd dressing dry and and intact had angiogram done 11/05/17 intact, multiple age spots to b/l forehead and templees - MUSCULOSKELETAL/RHEUMATOLOGICAL Hx Falls: No - GASTROINTESTINAL Hx Gastrointestinal Disorders: Yes (obese) - GENITOURINARY/GYNECOLOGICAL Hx Genitourinary Disorders: Yes Hx Prostate Problems: ("I don't know I never had an exam" stated pt) Other/Comment: c/o urinary retention and is on flomax - PSYCHIATRIC Hx Substance Use: No - SURGICAL HISTORY Hx Appendectomy: Yes Hx Coronary Artery Bypass Graft: Yes (09/20/10) Hx Coronary Stent: Yes - ANESTHESIA Hx Anesthesia: Yes Hx Anesthesia Reactions: No Hx Malignant Hyperthermia: No Meds Allergies/Adverse Reactions: Allergies Allergy/AdvReac Type Severity Reaction Status Date / Time No Known Allergies Allergy Verified 01/05/18 05:51 - Medications Medications: Current Medications Apixaban (Eliquis) 2.5 mg PO BID [facility] Clopidogrel Bisulfate (Plavix) 75 mg PO DAILY [facility] Last Admin: 01/05/18 15:13 Dose: 75 mg Famotidine (Pepcid) 20 mg PO DAILY [facility] Last Admin: 01/05/18 15:13 Dose: 20 mg Finasteride (Proscar) 5 mg PO DAILY [facility] Last Admin: 01/05/18 15:13 Dose: 5 mg Ceftriaxone Sodium 1 gm/ (Sodium Chloride) 100 mls @ 100 mls/hr IVPB DAILY [facility] PRN Reason: Protocol Last Admin: 01/05/18 13:25 Dose: 100 mls/hr Diltiazem HCl 125 mg/ Sodium (Chloride) 125 mls @ 5 mls/hr IV .Q24H MAY; 5 MG/ HR PRN Reason: Protocol Montelukast Sodium (Singulair) 10 mg PO HS [facility] Rosuvastatin Calcium (Crestor) 5 mg PO DAILY [facility] Tamsulosin HCl (Flomax) 0.4 mg PO DAILY [facility] Last Admin: 01/05/18 15:13 Dose: 0.4 mg Physical Exam - Head Exam Head Exam: NORMOCEPHALIC - Neck Exam Neck exam: Positive for: Normal Inspection - Respiratory Exam Respiratory Exam: Decreased Breath Sounds - Cardiovascular Exam Cardiovascular Exam: Irregular Rhythm - Extremities Exam Extremities exam: Positive for: pedal edema - Neurological Exam Neurological exam: Alert, Oriented x3 Results - Vital Signs Recent Vital Signs: Last Vital Signs Temp 97.5 F L 01/05/18 08:00 Pulse 136 H 01/05/18 13:00 Resp 30 H 01/05/18 13:00 BP 111/71 01/05/18 12:38 Pulse Ox 97 01/05/18 13:00 - Labs Result Diagrams: 01/06/18 05:29 01/06/18 05:29 Labs: Laboratory Results - last 24 hr 01/05/18 01/05/18 01/05/18 05:45 05:45 06:00 WBC 13.0 H RBC 4.53 Hgb 13.2 Hct 39.4 MCV 87.0 MCH 29.2 MCHC 33.6 RDW 15.3 H Plt Count 243 MPV 10.4 Neut % (Auto) 84.4 H Lymph % (Auto) 7.6 L [place] % (Auto) 7.2 Eos % (Auto) 0.5 Baso % (Auto) 0.3 Neut # (Auto) 11.0 H Lymph # (Auto) 1.0 [place] # (Auto) 0.9 H Eos # (Auto) 0.1 Baso # (Auto) 0.0 Neutrophils % (Manual) 85 H Lymphocytes % (Manual) 8 L Monocytes % (Manual) 7 Platelet Estimate Normal PT INR pO2 44 VBG pH 7.39 VBG pCO2 37 L VBG HCO3 22.7 VBG Total CO2 23.5 VBG O2 Sat (Calc) 78.0 H VBG Base Excess -2.2 L VBG Potassium 4.2 Glucose 101 Lactate 2.4 H Sodium 139 140.0 Potassium 4.6 Chloride 99 106.0 Carbon Dioxide 24 Anion Gap 20 BUN 70 H Creatinine 2.5 H Est GFR ( Amer) 30 Est GFR (Non-Af Amer) 25 Random Glucose 103 Lactic Acid Calcium 8.5 L Total Bilirubin 0.8 AST 254 H D ALT 435 H D Alkaline Phosphatase 96 Troponin I 0.1030 NT-Pro-B Natriuret Pep 98713 H Total Protein 6.0 L Albumin 3.4 L Globulin 2.5 Albumin/Globulin Ratio 1.3 Venous Blood Potassium 4.2 Urine Color Urine Clarity Urine pH Ur Specific [place] Urine Protein Urine Glucose (UA) Urine Ketones Urine Blood Urine Nitrate Urine Bilirubin Urine Urobilinogen Ur Leukocyte Esterase Urine WBC (Auto) Urine RBC (Auto) Urine WBC Clumps (Auto) Ur Squamous Epith Cells Urine Bacteria Hyaline Casts 01/05/18 01/05/18 01/05/18 06:22 07:45 10:19 WBC RBC Hgb Hct MCV MCH MCHC RDW Plt Count MPV Neut % (Auto) Lymph % (Auto) [place] % (Auto) Eos % (Auto) Baso % (Auto) Neut # (Auto) Lymph # (Auto) [place] # (Auto) Eos # (Auto) Baso # (Auto) Neutrophils % (Manual) Lymphocytes % (Manual) Monocytes % (Manual) Platelet Estimate PT 24.4 H INR 2.2 pO2 VBG pH VBG pCO2 VBG HCO3 VBG Total CO2 VBG O2 Sat (Calc) VBG Base Excess VBG Potassium Glucose Lactate Sodium Potassium Chloride Carbon Dioxide Anion Gap BUN Creatinine Est GFR ( Amer) Est GFR (Non-Af Amer) Random Glucose Lactic Acid 1.4 Calcium Total Bilirubin AST ALT Alkaline Phosphatase Troponin I NT-Pro-B Natriuret Pep Total Protein Albumin Globulin Albumin/Globulin Ratio Venous Blood Potassium Urine Color [place] Urine Clarity Hazy Urine pH 5.0 Ur Specific [place] 1.021 Urine Protein 1+ H Urine Glucose (UA) Normal Urine Ketones Negative Urine Blood Negative Urine Nitrate Negative Urine Bilirubin Negative Urine Urobilinogen 2.0 Ur Leukocyte Esterase 2+ H Urine WBC (Auto) 75 H Urine RBC (Auto) 2 Urine WBC Clumps (Auto) Occ H Ur Squamous Epith Cells 11 H Urine Bacteria Rare Hyaline Casts >20 H Assessment & Plan (1) Chronic congestive heart failure Assessment and Plan: Diuresis with fluid restriction to 1.5 L/day. Status: Acute (2) Rapid atrial fibrillation Assessment and Plan: Rate control with therapeutic anticoagulation. Start P O cardizem. Status: Acute
[2018-01-05] MEDS ORDERED: Sodium Bicarbonate (8.4%) 50 Meq Syringe ONE (16:49)
--- NOTE | 2018-01-05 20:02 | CP.PCM.HP ---
History of Present Illness - History of Present Illness History of Present Illness: Chief complaint: Shortness of breath HPI: 82-year-old male with a history of CAD, status post CABG, hypertension, hypercholesteremia, atrial fibrillation on anticoagulation. Patient was recently hospitalized with acute rapid ventricular rate with the atrial fibrillation, treated and he went to the detention. From the detention patient went home. He came to the emergency room again this time with shortness of breath, and also palpitation. In the emergency room patient was started on Cardizem drip to control the tachycardia, and also was found to have hypotension. Patient is currently admitted to the intensive care unit. In the intensive care unit patient still has tachycardia, in spite of the medication. He still having some shortness of breath. Using oxygen at this time. He denies any chest pain. No leg swelling Past medical history: CAD, status post CABG, 4 years ago, hypertension, hyperlipidemia history of smoking and COPD Allergies no known drug allergy Personal history: Patient is to be a heavy smoker 5 pack per day in the past recently quit smoking. Surgical history include CABG Family history significant for hypertension, heart disease Review of system: Patient is feeling slightly better. Combining of chest pain. Chest tightness. Cough. Occasional wheezing and shortness of breath. Leg swelling also. On examination: Patient is currently tachycardic. Mild exertional dyspnea noted. Bilateral decreased air entry noted Irregular heart beats noted Abdomen obese Next immitis 1+ pedal edema is STAGE [employer] DES[employer] alert awake oriented 3 Patient's labs reviewed Elevated liver enzymes noted, also elevated creatinine level noted. Elevated WBC of unclear no WBC 13,000 noted Patient had a CAT scan of the abdomen and pelvis and chest. Showing no evidence of any acute pathology Congestion noted, pleural effusion present mild ascites Assessment: Patient is 82-year-old male with a history of CAD, hypertension, status post CABG, atrial fibrillation antibiotic regulation. Now admitted with the acute decompensation. Mild systolic heart failure. Decompensation Also atrial fibrillation with a rapid ventricular rate. Elevated liver in some, hepatitis, unclear, underlying biliary disease cannot be ruled out we will get a sonogram in the morning. Drug-induced also possibility. Acute renal failure noted, with elevated creatinine level likely secondary to ATN, will get further information, nephrology evaluation. We will closely monitor the patient. Atrial fibrillation, being controlled with the Cardizem drip. Cardiology follow-up and evaluation and will follow-up the patient. Present on Admission - Present on Admission Any Indicators Present on Admission: No History of DVT/PE: No History of Uncontrolled Diabetes: No Urinary Catheter: No Decubitus Ulcer Present: No Past Patient History - Infectious Disease Hx of Infectious Diseases: None - Past Medical History & Family History Past Medical History?: Yes - Past Social History Smoking Status: Former Smoker - CARDIAC Hx Cardia Arrhythmia: Yes (afib) Hx Congestive Heart Failure: Yes (w/ 33% EF) Hx Hypercholesterolemia: Yes Hx Hypertension: Yes Hx Peripheral Edema: Yes (ble +2 edema) - PULMONARY Hx Respiratory Disorders: No - NEUROLOGICAL Hx Neurological Disorder: No - HEENT Hx HEENT Problems: No - RENAL Hx Chronic Kidney Disease: No - ENDOCRINE/METABOLIC Hx Endocrine Disorders: No - HEMATOLOGICAL/ONCOLOGICAL Hx Blood Disorders: No - INTEGUMENTARY Hx Dermatological Problems: Yes Other/Comment: multiple moles removed by dr kerr as pr pt, pt does not know if any were malignant, pt stated "I don't know she gave me madie to put on,", mid chest healed scar, red raised rash and redness all over chest abd ad lower abd upper thighs redness goes around to back, slight redness to buttocks, age spots to forehead, large eccymotic area to right groin and r lower abd dressing dry and and intact had angiogram done 11/05/17 intact, multiple age spots to b/l forehead and templees - MUSCULOSKELETAL/RHEUMATOLOGICAL Hx Falls: No - GASTROINTESTINAL Hx Gastrointestinal Disorders: Yes (obese) - GENITOURINARY/GYNECOLOGICAL Hx Genitourinary Disorders: Yes Hx Prostate Problems: ("I don't know I never had an exam" stated pt) Other/Comment: c/o urinary retention and is on flomax - PSYCHIATRIC Hx Substance Use: No - SURGICAL HISTORY Hx Appendectomy: Yes Hx Coronary Artery Bypass Graft: Yes (09/20/10) Hx Coronary Stent: Yes - ANESTHESIA Hx Anesthesia: Yes Hx Anesthesia Reactions: No Hx Malignant Hyperthermia: No Meds Allergies/Adverse Reactions: Allergies Allergy/AdvReac Type Severity Reaction Status Date / Time No Known Allergies Allergy Verified 01/05/18 05:51 Results - Vital Signs Recent Vital Signs: Last Vital Signs Temp 98.6 F 01/05/18 12:00 Pulse 124 H 01/05/18 19:37 Resp 20 01/05/18 19:37 BP 103/68 01/05/18 19:37 Pulse Ox 98 01/05/18 19:37 - Labs Result Diagrams: 01/05/18 05:45 01/05/18 05:45 Labs: Laboratory Results - last 24 hr 01/05/18 01/05/18 01/05/18 05:45 05:45 06:00 WBC 13.0 H RBC 4.53 Hgb 13.2 Hct 39.4 MCV 87.0 MCH 29.2 MCHC 33.6 RDW 15.3 H Plt Count 243 MPV 10.4 Neut % (Auto) 84.4 H Lymph % (Auto) 7.6 L Anderson % (Auto) 7.2 Eos % (Auto) 0.5 Baso % (Auto) 0.3 Neut # (Auto) 11.0 H Lymph # (Auto) 1.0 Anderson # (Auto) 0.9 H Eos # (Auto) 0.1 Baso # (Auto) 0.0 Neutrophils % (Manual) 85 H Lymphocytes % (Manual) 8 L Monocytes % (Manual) 7 Platelet Estimate Normal PT INR pO2 44 VBG pH 7.39 VBG pCO2 37 L VBG HCO3 22.7 VBG Total CO2 23.5 VBG O2 Sat (Calc) 78.0 H VBG Base Excess -2.2 L VBG Potassium 4.2 Glucose 101 Lactate 2.4 H Sodium 139 140.0 Potassium 4.6 Chloride 99 106.0 Carbon Dioxide 24 Anion Gap 20 BUN 70 H Creatinine 2.5 H Est GFR ( Amer) 30 Est GFR (Non-Af Amer) 25 Random Glucose 103 Lactic Acid Calcium 8.5 L Total Bilirubin 0.8 AST 254 H D ALT 435 H D Alkaline Phosphatase 96 Troponin I 0.1030 NT-Pro-B Natriuret Pep 25425 H Total Protein 6.0 L Albumin 3.4 L Globulin 2.5 Albumin/Globulin Ratio 1.3 Venous Blood Potassium 4.2 Urine Color Urine Clarity Urine pH Ur Specific [place] Urine Protein Urine Glucose (UA) Urine Ketones Urine Blood Urine Nitrate Urine Bilirubin Urine Urobilinogen Ur Leukocyte Esterase Urine WBC (Auto) Urine RBC (Auto) Urine WBC Clumps (Auto) Ur Squamous Epith Cells Urine Bacteria Hyaline Casts 01/05/18 01/05/18 01/05/18 06:22 07:45 10:19 WBC RBC Hgb Hct MCV MCH MCHC RDW Plt Count MPV Neut % (Auto) Lymph % (Auto) Anderson % (Auto) Eos % (Auto) Baso % (Auto) Neut # (Auto) Lymph # (Auto) Anderson # (Auto) Eos # (Auto) Baso # (Auto) Neutrophils % (Manual) Lymphocytes % (Manual) Monocytes % (Manual) Platelet Estimate PT 24.4 H INR 2.2 pO2 VBG pH VBG pCO2 VBG HCO3 VBG Total CO2 VBG O2 Sat (Calc) VBG Base Excess VBG Potassium Glucose Lactate Sodium Potassium Chloride Carbon Dioxide Anion Gap BUN Creatinine Est GFR ( Amer) Est GFR (Non-Af Amer) Random Glucose Lactic Acid 1.4 Calcium Total Bilirubin AST ALT Alkaline Phosphatase Troponin I NT-Pro-B Natriuret Pep Total Protein Albumin Globulin Albumin/Globulin Ratio Venous Blood Potassium Urine Color [place] Urine Clarity Hazy Urine pH 5.0 Ur Specific [place] 1.021 Urine Protein 1+ H Urine Glucose (UA) Normal Urine Ketones Negative Urine Blood Negative Urine Nitrate Negative Urine Bilirubin Negative Urine Urobilinogen 2.0 Ur Leukocyte Esterase 2+ H Urine WBC (Auto) 75 H Urine RBC (Auto) 2 Urine WBC Clumps (Auto) Occ H Ur Squamous Epith Cells 11 H Urine Bacteria Rare Hyaline Casts >20 H
[2018-01-06 05:35] LABS: BASO # 0.1 K/uL (0.0-0.2); BASO % 0.7 % (0.0-2.0); EOS # 0.1 K/uL (0.0-0.7); EOS % 1.4 % (0.0-4.0); HEMOGLOBIN 12.8 g/dL (12.0-18.0); LYMPH # 0.8 K/uL (1.0-4.3); LYMPH % 8.5 % (20.0-40.0); MEAN CELL VOLUME 86.8 fL (80.0-94.0); MEAN CORPUSCULAR HEMOGLOBIN 29.2 pg (27.0-31.0); MEAN CORPUSCULAR HGB CONC 33.6 g/dL (33.0-37.0); MEAN PLATELET VOLUME 10.1 fL (7.2-11.7); MONO # 1.1 K/uL (0.0-0.8); MONO % 10.7 % (0.0-10.0); NEUT # 7.8 K/uL (1.8-7.0); NEUT % 78.7 % (50.0-75.0); NRBC % 0.1 % (0.0-2.0); PLATELET COUNT 223 K/uL (130-400); RBC 4.37 Mil/uL (4.40-5.90); RED CELL DISTRIBUTION WIDTH 14.8 % (11.5-14.5)
[2018-01-06 05:56] LABS: ALB/GLOB RATIO 1.1 (1.0-2.1); ALBUMIN 3.5 g/dL (3.5-5.0); CALCIUM 8.7 mg/dl (8.6-10.4)
[2018-01-06 07:43] LABS: EOSINOPHIL 1 % (0-4); LYMPHOCYTE 11 % (20-40); MONOCYTE 9 % (0-10); NEUTROPHIL 79 % (50-75); PLATELET ESTIMATE NORMAL (NORMAL); TOTAL CELLS COUNTED 100
--- NOTE | 2018-01-06 11:40 | CP.PCM.CON ---
History of Present Illness - History of Present Illness History of Present Illness: 82 year old male with history of CAD s/p CABG, HTN, HLD, A fib on eliquis, CHF who presented with chest pain, palpitation, and abd pain x 1 day. Pt was just recently here in the hospital and treated for afib, and had cardiac cath with stent placement. In the ED the patient was found to be hypotensive and short of breath. Heart rate in the 140's on cardizem ggt. ICU was consulted for cont management. 12 Point ROS performed and neg other than stated above. PMH: CAD, HTN, HLD, A fib, CHF; denies h/o CKD PSH: CABG (doesnt recall date), cardiac stent last 1-2 mos, AP Allergies: NKDA FH: denies Social history: former smoker, denies ETOH or drugs Hospital course noted for initial hypotension, increased LFTs, Afib with RVR, MICHAEL- now improving Review of Systems - Constitutional Constitutional: Fatigue, Weight Gain - EENT Eyes: absent: As Per HPI, Blind Spots, Blurred Vision, Change in Vision, Decreased Night Vision, Diplopia, Discharge, Dry Eye, Exophthalmos, Floaters, Irritation, Itchy Eyes, Loss of Peripheral Vision, Pain, Photophobia, Requires Corrective Lenses, Sees Flashes, Spots in Vision, Tunnel Vision, Other Visual Disturbances, Loss of Vision, Other Ears: absent: As Per HPI, Decreased Hearing, Ear Discharge, Ear Pain, Tinnitus, Abnormal Hearing, Disequilibrium, Dizziness, Other Nose/Mouth/Throat: absent: As Per HPI, Epistaxis, Nasal Congestion, Nasal Discharge, Nasal Obstruction, Nasal Trauma, Nose Pain, Post Nasal Drip, Sinus Pain, Sinus Pressure, Bleeding Gums, Change in Voice, Dental Pain, Dry Mouth, Dysphagia, Halitosis, Hoarsness, Lip Swelling, Mouth Lesions, Mouth Pain, Odynophagia, Sore Throat, Throat Swelling, Tongue Swelling, Facial Pain, Neck Pain, Neck Mass, Other - Cardiovascular Cardiovascular: Dyspnea on Exertion, Leg Edema, Palpitations - Respiratory Respiratory: Cough, Dyspnea on Exertion, Wheezing - Gastrointestinal Gastrointestinal: Nausea - Genitourinary Genitourinary: absent: As Per HPI, Change in Urinary Stream, Difficulty Urinating, Dysuria, Flank Pain, Hematuria, Pyuria, Nocturia, Urinary Incontinence, Urinary Frequency, Urinary Hesitance, Urinary Urgency, Voiding Freq/Small Amts, Freq UTI, Hx Renal/Bladder Calculi, Hx /Renal Surgery, Bladder Distension, Other - Musculoskeletal Musculoskeletal: Muscle Cramps, Muscle Weakness, Myalgias - Neurological Neurological: Dizziness, Weakness Past Patient History - Infectious Disease Hx of Infectious Diseases: None - Past Medical History & Family History Past Medical History?: Yes Past Family History: Reviewed and not pertinent - Past Social History Smoking Status: Former Smoker Chewing Tobacco Use: No Cigar Use: No Alcohol: None Drugs: Denies Home Situation {Lives}: Halfway - CARDIAC Hx Cardia Arrhythmia: Yes (afib) Hx Congestive Heart Failure: Yes (w/ 33% EF) Hx Hypercholesterolemia: Yes Hx Hypertension: Yes Hx Peripheral Edema: Yes (ble +2 edema) - PULMONARY Hx Respiratory Disorders: No - NEUROLOGICAL Hx Neurological Disorder: No - HEENT Hx HEENT Problems: No - RENAL Hx Chronic Kidney Disease: No - ENDOCRINE/METABOLIC Hx Endocrine Disorders: No - HEMATOLOGICAL/ONCOLOGICAL Hx Blood Disorders: No - INTEGUMENTARY Hx Dermatological Problems: Yes Other/Comment: multiple moles removed by dr kerr as pr pt, pt does not know if any were malignant, pt stated "I don't know she gave me madie to put on,", mid chest healed scar, red raised rash and redness all over chest abd ad lower abd upper thighs redness goes around to back, slight redness to buttocks, age spots to forehead, large eccymotic area to right groin and r lower abd dressing dry and and intact had angiogram done 11/05/17 intact, multiple age spots to b/l forehead and templees - MUSCULOSKELETAL/RHEUMATOLOGICAL Hx Falls: No - GASTROINTESTINAL Hx Gastrointestinal Disorders: Yes (obese) - GENITOURINARY/GYNECOLOGICAL Hx Genitourinary Disorders: Yes Hx Prostate Problems: ("I don't know I never had an exam" stated pt) Other/Comment: c/o urinary retention and is on flomax - PSYCHIATRIC Hx Substance Use: No - SURGICAL HISTORY Hx Appendectomy: Yes Hx Coronary Artery Bypass Graft: Yes (09/20/10) Hx Coronary Stent: Yes - ANESTHESIA Hx Anesthesia: Yes Hx Anesthesia Reactions: No Hx Malignant Hyperthermia: No Meds Allergies/Adverse Reactions: Allergies Allergy/AdvReac Type Severity Reaction Status Date / Time No Known Allergies Allergy Verified 01/05/18 05:51 - Medications Medications: Current Medications Apixaban (Eliquis) 2.5 mg PO BID [facility] Last Admin: 01/05/18 17:52 Dose: 2.5 mg Carvedilol (Coreg) 3.125 mg PO BID [facility] Clopidogrel Bisulfate (Plavix) 75 mg PO DAILY [facility] Last Admin: 01/05/18 15:13 Dose: 75 mg Diltiazem HCl (Cardizem) 30 mg PO Q8 [facility] Famotidine (Pepcid) 20 mg PO DAILY [facility] Last Admin: 01/05/18 15:13 Dose: 20 mg Finasteride (Proscar) 5 mg PO DAILY [facility] Last Admin: 01/05/18 15:13 Dose: 5 mg Ceftriaxone Sodium 1 gm/ (Sodium Chloride) 100 mls @ 100 mls/hr IVPB DAILY [facility] PRN Reason: Protocol Last Admin: 01/05/18 13:25 Dose: 100 mls/hr Diltiazem HCl 125 mg/ Sodium (Chloride) 125 mls @ 5 mls/hr IV .Q24H MAY; 5 MG/ HR PRN Reason: Protocol Last Admin: 01/05/18 20:40 Dose: 10 mg/hr, 10 mls/hr Montelukast Sodium (Singulair) 10 mg PO HS [facility] Last Admin: 01/05/18 21:39 Dose: 10 mg Rosuvastatin Calcium (Crestor) 5 mg PO DAILY [facility] Tamsulosin HCl (Flomax) 0.4 mg PO DAILY [facility] Last Admin: 01/05/18 15:13 Dose: 0.4 mg Physical Exam - Constitutional Appears: Confused, Chronically Ill - Head Exam Head Exam: ATRAUMATIC, NORMAL INSPECTION - Eye Exam Eye Exam: EOMI, Normal appearance - Neck Exam Neck exam: Positive for: Normal Inspection. Negative for: Tenderness - Respiratory Exam Respiratory Exam: Rhonchi, Wheezes - Cardiovascular Exam Cardiovascular Exam: REGULAR RHYTHM, +S1 - GI/Abdominal Exam GI & Abdominal Exam: Soft. absent: Tenderness - Extremities Exam Extremities exam: Positive for: pedal edema. Negative for: tenderness - Neurological Exam Neurological exam: Altered, CN II-XII Intact - Skin Skin Exam: Dry, Warm Results - Vital Signs Recent Vital Signs: Last Vital Signs Temp 97.5 F L 01/06/18 08:51 Pulse 123 H 01/06/18 08:37 Resp 22 01/06/18 08:37 BP 109/66 01/06/18 08:37 Pulse Ox 100 01/06/18 08:51 - Labs Result Diagrams: 01/06/18 05:29 01/06/18 05:29 Labs: Laboratory Results - last 24 hr 01/06/18 01/06/18 05:29 05:29 WBC 10.0 RBC 4.37 L Hgb 12.8 Hct 37.9 MCV 86.8 MCH 29.2 MCHC 33.6 RDW 14.8 H Plt Count 223 MPV 10.1 Neut % (Auto) 78.7 H Lymph % (Auto) 8.5 L Stephens % (Auto) 10.7 H Eos % (Auto) 1.4 Baso % (Auto) 0.7 Neut # (Auto) 7.8 H Lymph # (Auto) 0.8 L Stephens # (Auto) 1.1 H Eos # (Auto) 0.1 Baso # (Auto) 0.1 Neutrophils % (Manual) 79 H Lymphocytes % (Manual) 11 L Monocytes % (Manual) 9 Eosinophils % (Manual) 1 Platelet Estimate Normal Sodium 142 Potassium 5.0 Chloride 101 Carbon Dioxide 26 Anion Gap 20 BUN 67 H Creatinine 2.0 H Est GFR ( Amer) 39 Est GFR (Non-Af Amer) 32 Random Glucose 100 Calcium 8.7 Total Bilirubin 0.9 AST 126 H D ALT 349 H Alkaline Phosphatase 90 Total Protein 6.7 Albumin 3.5 Globulin 3.1 Albumin/Globulin Ratio 1.1 Assessment & Plan (1) MICHAEL (acute kidney injury) Status: Acute (2) Atrial fibrillation with RVR Status: Acute (3) CAD (coronary artery disease) Status: Acute (4) CHF (congestive heart failure) Status: Acute - Assessment and Plan (Free Text) Plan: MICHAEL improving; will follow trend. Likely ATN from hypotension, LFTs decreasing. possibly transient shock liver Has proteinuria, will quantify excretion rate Might lasix if UO decreases
--- NOTE | 2018-01-06 12:42 | CP.CCUPN ---
CCU Subjective - Physician Review Subjective (Free Text): 01/06/18 12:40 Pt seen and examined at bedside. sitting comfortably. Pt denies any acute events overnight. Pt able to communicate and understands plan of care. Pt denies any symptoms of palpitations overnight. Pt denies CP, SOb, N/V F/C. 01/06/18 13:34 CCU Objective - Vital Signs / Intake & Output Vital Signs (Last 4 hours): Vital Signs Temp Pulse Ox 01/06/18 08:51 97.5 F L 100 Intake and Output (Last 8hrs): Intake & Output 01/05/18 01/06/18 01/06/18 22:59 06:59 14:59 Intake Total 209 300 20 Output Total 400 100 120 Balance -191 200 -100 Weight 198 lb 3.129 oz Intake: IV 125 Intake, IV Amount 84 80 20 Left External Jugular 7 Right External Jugular 77 80 20 Oral 220 Output: Urine 400 100 120 Urine, Voided 400 100 120 Stool 0 Emesis 0 Other: # Voids Urine, Voided 1 # Bowel Movements 0 - Physical Exam Head: Positive for: Atraumatic, Normocephalic Pupils: Positive for: PERRL Extroacular Muscles: Positive for: EOMI Conjunctiva: Positive for: Normal Mouth: Positive for: Moist Mucous Membranes Pharnyx: Positive for: Muffled/Hoarse Voice Neck: Positive for: JVD Respiratory/Chest: Positive for: Decreased Breath Sounds (lower avalos\) Cardiovascular: Positive for: Normal S1, S2, Tachycardic Abdomen: Positive for: Distention. Negative for: Tenderness Neurological: Positive for: CN II-XII Intact, Speech Normal Psychiatric: Positive for: Alert, Oriented x 3, Normal Insight, Normal Concentration - Medications Active Medications: Active Medications Generic Name Dose Route Start Last Admin Trade Name Freq PRN Reason Stop Dose Admin Apixaban 2.5 mg 01/05/18 18:00 01/06/18 12:05 Eliquis PO 2.5 mg BID MAY Administration Carvedilol 3.125 mg 01/06/18 11:00 01/06/18 12:05 Coreg PO 3.125 mg BID MAY Administration Clopidogrel Bisulfate 75 mg 01/05/18 11:45 01/06/18 12:05 Plavix PO 75 mg DAILY MAY Administration Diltiazem HCl 30 mg 01/06/18 14:00 Cardizem PO Q8 MAY Famotidine 20 mg 01/05/18 12:00 01/06/18 12:05 Pepcid PO 20 mg DAILY MAY Administration Finasteride 5 mg 01/05/18 11:45 01/06/18 12:05 Proscar PO 5 mg DAILY MAY Administration Ceftriaxone Sodium 1 gm/ 100 mls @ 100 mls/hr 01/05/18 12:00 01/06/18 11:00 Sodium Chloride IVPB 100 mls/hr DAILY MAY Administration Protocol Diltiazem HCl 125 mg/ Sodium 125 mls @ 5 mls/hr 01/05/18 16:00 01/05/18 20:40 Chloride IV 10 mg/hr .Q24H MAY 10 mls/hr Protocol Administration 5 MG/HR Montelukast Sodium 10 mg 01/05/18 22:00 01/05/18 21:39 Singulair PO 10 mg HS MAY Administration Rosuvastatin Calcium 5 mg 01/06/18 10:00 Crestor PO DAILY MAY Tamsulosin HCl 0.4 mg 01/05/18 11:45 01/06/18 12:05 Flomax PO 0.4 mg DAILY MAY Administration - Patient Studies Lab Studies: Microbiology Studies 01/05/18 06:00 Blood Culture - Preliminary Blood-Venous NO GROWTH AFTER 24 HOURS 01/05/18 06:50 Blood Culture - Preliminary Blood-Venous NO GROWTH AFTER 24 HOURS Lab Studies 01/06/18 01/06/18 Range/Units 05:29 05:29 WBC 10.0 (4.8-10.8) K/uL RBC 4.37 L (4.40-5.90) Mil/uL Hgb 12.8 (12.0-18.0) g/dL Hct 37.9 (35.0-51.0) % MCV 86.8 (80.0-94.0) fL MCH 29.2 (27.0-31.0) pg MCHC 33.6 (33.0-37.0) g/dL RDW 14.8 H (11.5-14.5) % Plt Count 223 (130-400) K/uL MPV 10.1 (7.2-11.7) fL Neut % (Auto) 78.7 H (50.0-75.0) % Lymph % (Auto) 8.5 L (20.0-40.0) % [place] % (Auto) 10.7 H (0.0-10.0) % Eos % (Auto) 1.4 (0.0-4.0) % Baso % (Auto) 0.7 (0.0-2.0) % Neut # (Auto) 7.8 H (1.8-7.0) K/uL Lymph # (Auto) 0.8 L (1.0-4.3) K/uL [place] # (Auto) 1.1 H (0.0-0.8) K/uL Eos # (Auto) 0.1 (0.0-0.7) K/uL Baso # (Auto) 0.1 (0.0-0.2) K/uL Neutrophils % (Manual) 79 H (50-75) % Lymphocytes % (Manual) 11 L (20-40) % Monocytes % (Manual) 9 (0-10) % Eosinophils % (Manual) 1 (0-4) % Platelet Estimate Normal (NORMAL) Sodium 142 (132-148) mmol/L Potassium 5.0 (3.6-5.2) mmol/L Chloride 101 (98-107) mmol/L Carbon Dioxide 26 (22-30) mmol/L Anion Gap 20 (10-20) BUN 67 H (9-20) mg/dL Creatinine 2.0 H (0.8-1.5) mg/dL Est GFR ( Amer) 39 Est GFR (Non-Af Amer) 32 Random Glucose 100 (75-110) mg/dL Calcium 8.7 (8.6-10.4) mg/dl Total Bilirubin 0.9 (0.2-1.3) mg/dL AST 126 H D (17-59) U/L ALT 349 H (21-72) U/L Alkaline Phosphatase 90 (38-126) U/L Total Protein 6.7 (6.3-8.3) g/dL Albumin 3.5 (3.5-5.0) g/dL Globulin 3.1 (2.2-3.9) gm/dL Albumin/Globulin Ratio 1.1 (1.0-2.1) Laboratory Results - last 24 hr 01/06/18 01/06/18 05:29 05:29 WBC 10.0 RBC 4.37 L Hgb 12.8 Hct 37.9 MCV 86.8 MCH 29.2 MCHC 33.6 RDW 14.8 H Plt Count 223 MPV 10.1 Neut % (Auto) 78.7 H Lymph % (Auto) 8.5 L [place] % (Auto) 10.7 H Eos % (Auto) 1.4 Baso % (Auto) 0.7 Neut # (Auto) 7.8 H Lymph # (Auto) 0.8 L [place] # (Auto) 1.1 H Eos # (Auto) 0.1 Baso # (Auto) 0.1 Neutrophils % (Manual) 79 H Lymphocytes % (Manual) 11 L Monocytes % (Manual) 9 Eosinophils % (Manual) 1 Platelet Estimate Normal Sodium 142 Potassium 5.0 Chloride 101 Carbon Dioxide 26 Anion Gap 20 BUN 67 H Creatinine 2.0 H Est GFR ( Amer) 39 Est GFR (Non-Af Amer) 32 Random Glucose 100 Calcium 8.7 Total Bilirubin 0.9 AST 126 H D ALT 349 H Alkaline Phosphatase 90 Total Protein 6.7 Albumin 3.5 Globulin 3.1 Albumin/Globulin Ratio 1.1 Review of Systems - Constitutional Constitutional: absent: Chills, Sweats, Weakness, Malaise - EENT Eyes: UNREMARKABLE Ears: UNREMARKABLE Nose/Mouth/Throat: UNREMARKABLE - Cardiovascular Cardiovascular: Pedal Edema, Rapid Heart Rate. absent: Chest Pain, Pain Radiating to Arm/Neck/Jaw - Respiratory Respiratory: UNREMARKABLE - Gastrointestinal Gastrointestinal: UNREMARKABLE - Musculoskeletal Musculoskeletal: UNREMARKABLE - Integumentary Integumentary: UNREMARKABLE - Neurological Neurological: UNREMARKABLE - Psychiatric Psychiatric: UNREMARKABLE - Endocrine Endocrine: UNREMARKABLE - Hematologic/Lymphatic Hematologic: UNREMARKABLE Critical Care Progress Note - Nutrition Nutrition: Nutrition Category Date Time Status Cardiac [Heart Healthy Diet] [DIET] Diets 01/05/18 Breakfast Active Assessment/Plan - Assessment and Plan (Free Text) Assessment: 82-year-old male with a history of CAD, hypertension, status post CABG, atrial fibrillation antibiotic regulation admitted with the acute decompensation. Plan: Neuro: - AAOx 3 Pulm: - Maintain SPO2> 92 % - Nasal cannula as tolerated - Monteleukast CV: - Coreg 3.125mg BID PO - Cardizem 30mg PO q8 - Cardizem 125mg IV Drip - S/p 2 L bolus of NS in the ED - Cont Eliquis and Plavix - lactate 2.4 - Maintain MAP> 65, no need for pressor support at this time - Echo in 11/30 showed EF of 33% - F/u cardiology recs - Recent stent placement - BNP [id number], No rales or jvd on exam, no lasix required at this time as patient was just hypotensive GI: - HHD - GI ppx - Monitor LFTs - F/u abd/pelvis CT scan ordered Renal: - MICHAEL Cr of 2.5 - Flomax - Avoid nephrotoxic medications - Monitor I and O - Replete electrolytes as needed -Dr Abad Nephro consulted recs: MICHAEL improving; will follow trend. Likely ATN from hypotension, LFTs decreasing. possibly transient shock liver Has proteinuria, will quantify excretion rate Might lasix if UO decreases ID: - afebrile and wbc 10 +UA - Started on Rocephin Endo: - maintain euglycemia - F/u TSH Heme: - Monitor H/H GI/DVT ppx
[2018-01-06] MEDS ORDERED: Digoxin 500 mcg/2ml (0.5 mg/2ml) Inj IVP ONE ×2 (15:45→18:00)
--- NOTE | 2018-01-06 15:50 | US ---
Date of service: 01/06/2018 HISTORY: hepatitis/MICHAEL COMPARISON: None. TECHNIQUE: Sonographic evaluation of the abdomen. FINDINGS: LIVER: Measures 20.96 in length. Hepatopedal blood flow. Fatty infiltration manifest ultrasonographically as increased echogenicity of the liver parenchyma. No mass. No intrahepatic bile duct dilatation. GALLBLADDER: Unremarkable. No gallstones. COMMON BILE DUCT: Measures 4.0 in transverse dimension. No stones. No dilatation. PANCREAS: Obscured by overlying bowel gas. Non diagnostic assessment of the pancreas RIGHT KIDNEY: Measures 4.7 x 10.9cm. Normal echogenicity. No calculus, mass, or hydronephrosis. LEFT KIDNEY: Measures 5.4 x 10.0cm. Normal echogenicity. No calculus, mass, or hydronephrosis. SPLEEN: Normal in size and contour. No mass. AORTA: No aneurysmal dilatation. IVC: Unremarkable. OTHER FINDINGS: None . IMPRESSION: Hepatomegaly, hepatic steatosis. No acute findings. Nondiagnostic assessment of pancreas.
--- NOTE | 2018-01-06 16:10 | CP.PCM.PN ---
Subjective - Date & Time of Evaluation Date of Evaluation: 01/06/18 Time of Evaluation: 16:07 - Subjective Subjective: Still have some SOB and complains of palpitations. Objective - Vital Signs/Intake and Output Vital Signs (last 24 hours): Temp Pulse Resp BP Pulse Ox 97.5 F L 124 H 26 H 130/77 97 01/06/18 08:51 01/06/18 15:37 01/06/18 15:37 01/06/18 15:37 01/06/18 15:37 Intake and Output: 01/06/18 01/06/18 06:59 18:59 Intake Total 440 70 Output Total 500 260 Balance -60 -190 - Medications Medications: Current Medications Apixaban (Eliquis) 2.5 mg PO BID [facility] Last Admin: 01/06/18 12:05 Dose: 2.5 mg Carvedilol (Coreg) 3.125 mg PO BID [facility] Last Admin: 01/06/18 12:05 Dose: 3.125 mg Clopidogrel Bisulfate (Plavix) 75 mg PO DAILY [facility] Last Admin: 01/06/18 12:05 Dose: 75 mg Diltiazem HCl (Cardizem) 30 mg PO Q8 [facility] Last Admin: 01/06/18 15:05 Dose: 30 mg Famotidine (Pepcid) 20 mg PO DAILY [facility] Last Admin: 01/06/18 12:05 Dose: 20 mg Finasteride (Proscar) 5 mg PO DAILY [facility] Last Admin: 01/06/18 12:05 Dose: 5 mg Ceftriaxone Sodium 1 gm/ (Sodium Chloride) 100 mls @ 100 mls/hr IVPB DAILY [facility] PRN Reason: Protocol Last Admin: 01/06/18 11:00 Dose: 100 mls/hr Diltiazem HCl 125 mg/ Sodium (Chloride) 125 mls @ 5 mls/hr IV .Q24H [facility]; 5 MG/ HR PRN Reason: Protocol Last Admin: 01/05/18 20:40 Dose: 10 mg/hr, 10 mls/hr Montelukast Sodium (Singulair) 10 mg PO HS [facility] Last Admin: 01/05/18 21:39 Dose: 10 mg Rosuvastatin Calcium (Crestor) 5 mg PO DAILY [facility] Tamsulosin HCl (Flomax) 0.4 mg PO DAILY [facility] Last Admin: 01/06/18 12:05 Dose: 0.4 mg - Labs Labs: 01/06/18 05:29 01/06/18 05:29 PT 24.4 SECONDS (9.7-12.2) H 01/05/18 06:22 INR 2.2 01/05/18 06:22 - Head Exam Head Exam: NORMOCEPHALIC - Neck Exam Neck Exam: Normal Inspection - Respiratory Exam Respiratory Exam: Decreased Breath Sounds - Cardiovascular Exam Cardiovascular Exam: Irregular Rhythm - Extremities Exam Extremities Exam: Pedal Edema - Neurological Exam Neurological Exam: Alert, Oriented x3 Assessment and Plan (1) Chronic congestive heart failure Assessment & Plan: Fluid restriction. Diuresis. Status: Acute (2) Rapid atrial fibrillation Assessment & Plan: Add and load digoxin according to renal dose. Status: Acute
[2018-01-06] MEDS ORDERED: Digoxin 500 mcg/2ml (0.5 mg/2ml) Inj ONE (18:36)
--- NOTE | 2018-01-06 19:22 | CARD ---
APPROVED REPORT Date of service: 01/05/2018 EKG Measurement Heart [id number] <Conclusion> Atrial fibrillation with rapid ventricular response Left axis deviation IVCD LBBB type Anterolateral infarct, age undetermined cannot be excluded Abnormal ECG
[2018-01-07 06:26] LABS: BASO % 0.5 % (0.0-2.0); EOS # 0.2 K/uL (0.0-0.7); EOS % 2.2 % (0.0-4.0); HEMOGLOBIN 11.8 g/dL (12.0-18.0); LYMPH # 0.7 K/uL (1.0-4.3); LYMPH % 8.4 % (20.0-40.0); MEAN CELL VOLUME 87.6 fL (80.0-94.0); MEAN CORPUSCULAR HEMOGLOBIN 28.6 pg (27.0-31.0); MEAN CORPUSCULAR HGB CONC 32.6 g/dL (33.0-37.0); MEAN PLATELET VOLUME 9.6 fL (7.2-11.7); MONO # 0.9 K/uL (0.0-0.8); MONO % 11.1 % (0.0-10.0); NEUT # 6.5 K/uL (1.8-7.0); NEUT % 77.8 % (50.0-75.0); PLATELET COUNT 208 K/uL (130-400); RBC 4.14 Mil/uL (4.40-5.90); RED CELL DISTRIBUTION WIDTH 15.2 % (11.5-14.5); WHITE BLOOD COUNT 8.4 K/uL (4.8-10.8)
[2018-01-07 06:44] LABS: ALB/GLOB RATIO 1.2 (1.0-2.1); ALBUMIN 3.1 g/dL (3.5-5.0); ALT/SGPT 251 U/L (21-72); AST/SGOT 50 U/L (17-59); BLOOD UREA NITROGEN 46 mg/dL (9-20); CALCIUM 8.6 mg/dl (8.6-10.4); GFR NON-AFRICAN AMERICAN 53
[2018-01-07 09:06] LABS: EOSINOPHIL 1 % (0-4); LYMPHOCYTE 9 % (20-40); MONOCYTE 2 % (0-10); NEUTROPHIL 88 % (50-75); TOTAL CELLS COUNTED 100
[2018-01-07 09:07] LABS: ANISOCYTOSIS SLIGHT; HYPOCHROMIC SLIGHT; PLATELET ESTIMATE NORMAL (NORMAL); POLYCHROMIC SLIGHT
--- NOTE | 2018-01-07 11:54 | CP.CCUPN ---
CCU Subjective - Physician Review Subjective (Free Text): 01/07/18 11:46 Pt seen and examined at bedside. Pt denies any complaints overnight. Pt reported a normal bm and tolerating food. Pt denies cp, sob, palpitations, n/v, f/c. CCU Objective - Vital Signs / Intake & Output Intake and Output (Last 8hrs): Intake & Output 01/06/18 01/07/18 01/07/18 22:59 06:59 14:59 Intake Total 450 30 0 Output Total 310 400 0 Balance 140 -370 0 Weight 197 lb 12.074 oz Intake: Intake, IV Amount 50 0 0 Right External Jugular 50 0 0 Oral 400 30 0 Output: Urine 310 400 0 Urine, Voided 310 400 0 Stool 0 0 Emesis 0 Other: # Voids Urine, Voided 1 # Bowel Movements 0 0 - Physical Exam Head: Positive for: Atraumatic, Normocephalic Pupils: Positive for: PERRL Extroacular Muscles: Positive for: EOMI Conjunctiva: Positive for: Normal Mouth: Positive for: Moist Mucous Membranes Pharnyx: Positive for: Muffled/Hoarse Voice Neck: Positive for: JVD Respiratory/Chest: Positive for: Decreased Breath Sounds (lower avalos\) Cardiovascular: Positive for: Normal S1, S2, Tachycardic Abdomen: Positive for: Distention. Negative for: Tenderness Neurological: Positive for: CN II-XII Intact, Speech Normal Psychiatric: Positive for: Alert, Oriented x 3, Normal Insight, Normal Concentration - Medications Active Medications: Active Medications Generic Name Dose Route Start Last Admin Trade Name Freq PRN Reason Stop Dose Admin Apixaban 2.5 mg 01/05/18 18:00 01/06/18 18:34 Eliquis PO 2.5 mg BID [facility] Administration Carvedilol 3.125 mg 01/06/18 11:00 01/06/18 18:34 Coreg PO 3.125 mg BID [facility] Administration Clopidogrel Bisulfate 75 mg 01/05/18 11:45 01/06/18 12:05 Plavix PO 75 mg DAILY [facility] Administration Famotidine 20 mg 01/05/18 12:00 01/06/18 12:05 Pepcid PO 20 mg DAILY [facility] Administration Finasteride 5 mg 01/05/18 11:45 01/06/18 12:05 Proscar PO 5 mg DAILY [facility] Administration Ceftriaxone Sodium 1 gm/ 100 mls @ 100 mls/hr 01/05/18 12:00 01/06/18 11:00 Sodium Chloride IVPB 100 mls/hr DAILY [facility] Administration Protocol Diltiazem HCl 125 mg/ Sodium 125 mls @ 5 mls/hr 01/05/18 16:00 01/06/18 18:49 Chloride IV 10 mg/hr .Q24H [facility] 10 mls/hr Administration Protocol 5 MG/HR Montelukast Sodium 10 mg 01/05/18 22:00 01/06/18 21:52 Singulair PO 10 mg HS [facility] Administration Rosuvastatin Calcium 5 mg 01/06/18 10:00 Crestor PO DAILY [facility] Tamsulosin HCl 0.4 mg 01/05/18 11:45 01/06/18 12:05 Flomax PO 0.4 mg DAILY [facility] Administration - Patient Studies Lab Studies: Microbiology Studies 01/05/18 06:00 Blood Culture - Preliminary Blood-Venous NO GROWTH AFTER 48 HOURS 01/05/18 06:50 Blood Culture - Preliminary Blood-Venous NO GROWTH AFTER 48 HOURS 01/05/18 13:16 MRSA Culture (Admit) - Final Naris MRSA NOT DETECTED Lab Studies 01/07/18 01/07/18 Range/Units 06:10 06:10 WBC 8.4 (4.8-10.8) K/uL RBC 4.14 L (4.40-5.90) Mil/uL Hgb 11.8 L (12.0-18.0) g/dL Hct 36.3 (35.0-51.0) % MCV 87.6 (80.0-94.0) fL MCH 28.6 (27.0-31.0) pg MCHC 32.6 L (33.0-37.0) g/dL RDW 15.2 H (11.5-14.5) % Plt Count 208 (130-400) K/uL MPV 9.6 (7.2-11.7) fL Neut % (Auto) 77.8 H (50.0-75.0) % Lymph % (Auto) 8.4 L (20.0-40.0) % Door % (Auto) 11.1 H (0.0-10.0) % Eos % (Auto) 2.2 (0.0-4.0) % Baso % (Auto) 0.5 (0.0-2.0) % Neut # (Auto) 6.5 (1.8-7.0) K/uL Lymph # (Auto) 0.7 L (1.0-4.3) K/uL Door # (Auto) 0.9 H (0.0-0.8) K/uL Eos # (Auto) 0.2 (0.0-0.7) K/uL Baso # (Auto) 0.0 (0.0-0.2) K/uL Neutrophils % (Manual) 88 H (50-75) % Lymphocytes % (Manual) 9 L (20-40) % Monocytes % (Manual) 2 (0-10) % Eosinophils % (Manual) 1 (0-4) % Platelet Estimate Normal (NORMAL) Polychromasia Slight Hypochromasia (manual) Slight Anisocytosis (manual) Slight Sodium 141 (132-148) mmol/L Potassium 3.9 (3.6-5.2) mmol/L Chloride 104 (98-107) mmol/L Carbon Dioxide 30 (22-30) mmol/L Anion Gap 11 (10-20) BUN 46 H (9-20) mg/dL Creatinine 1.3 (0.8-1.5) mg/dL Est GFR ( Amer) > 60 Est GFR (Non-Af Amer) 53 Random Glucose 98 (75-110) mg/dL Calcium 8.6 (8.6-10.4) mg/dl Phosphorus 3.4 (2.5-4.5) mg/dL Magnesium 2.5 H (1.6-2.3) mg/dL Total Bilirubin 0.5 (0.2-1.3) mg/dL AST 50 (17-59) U/L ALT 251 H D (21-72) U/L Alkaline Phosphatase 92 (38-126) U/L Total Protein 5.8 L (6.3-8.3) g/dL Albumin 3.1 L (3.5-5.0) g/dL Globulin 2.7 (2.2-3.9) gm/dL Albumin/Globulin Ratio 1.2 (1.0-2.1) Laboratory Results - last 24 hr 01/07/18 01/07/18 06:10 06:10 WBC 8.4 RBC 4.14 L Hgb 11.8 L Hct 36.3 MCV 87.6 MCH 28.6 MCHC 32.6 L RDW 15.2 H Plt Count 208 MPV 9.6 Neut % (Auto) 77.8 H Lymph % (Auto) 8.4 L Door % (Auto) 11.1 H Eos % (Auto) 2.2 Baso % (Auto) 0.5 Neut # (Auto) 6.5 Lymph # (Auto) 0.7 L Door # (Auto) 0.9 H Eos # (Auto) 0.2 Baso # (Auto) 0.0 Neutrophils % (Manual) 88 H Lymphocytes % (Manual) 9 L Monocytes % (Manual) 2 Eosinophils % (Manual) 1 Platelet Estimate Normal Polychromasia Slight Hypochromasia (manual) Slight Anisocytosis (manual) Slight Sodium 141 Potassium 3.9 Chloride 104 Carbon Dioxide 30 Anion Gap 11 BUN 46 H Creatinine 1.3 Est GFR ( Amer) > 60 Est GFR (Non-Af Amer) 53 Random Glucose 98 Calcium 8.6 Phosphorus 3.4 Magnesium 2.5 H Total Bilirubin 0.5 AST 50 ALT 251 H D Alkaline Phosphatase 92 Total Protein 5.8 L Albumin 3.1 L Globulin 2.7 Albumin/Globulin Ratio 1.2 Review of Systems - Hematologic/Lymphatic Additional comments: - Constitutional Constitutional: absent: Chills, Sweats, Weakness, Malaise - EENT Eyes: UNREMARKABLE Ears: UNREMARKABLE Nose/Mouth/Throat: UNREMARKABLE - Cardiovascular Cardiovascular: Pedal Edema, Rapid Heart Rate. absent: Chest Pain, Pain Radiating to Arm/Neck/Jaw - Respiratory Respiratory: UNREMARKABLE - Gastrointestinal Gastrointestinal: UNREMARKABLE - Musculoskeletal Musculoskeletal: UNREMARKABLE - Integumentary Integumentary: UNREMARKABLE - Neurological Neurological: UNREMARKABLE - Psychiatric Psychiatric: UNREMARKABLE - Endocrine Endocrine: UNREMARKABLE - Hematologic/Lymphatic Hematologic: UNREMARKABLE Critical Care Progress Note - Nutrition Nutrition: Nutrition Category Date Time Status Cardiac [Heart Healthy Diet] [DIET] Diets 01/05/18 Breakfast Active Assessment/Plan - Assessment and Plan (Free Text) Assessment: 82-year-old male with a history of CAD, hypertension, status post CABG, atrial fibrillation antibiotic regulation admitted with the acute decompensation. 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 Likely ATN from hypotension, LFTs decreasing. possibly transient shock liver Has proteinuria, will quantify excretion rate Might lasix if UO decreases - Hypophosphatemia: neutraphos 1 pk given w lunch ID: - afebrile and wbc 6.3 +UA - Started on Rocephin Endo: - maintain euglycemia - F/u TSH Heme: - Monitor H/H -f/u fibrinogen GI/DVT ppx
--- NOTE | 2018-01-07 13:50 | CP.PCM.PN ---
Subjective - Date & Time of Evaluation Date of Evaluation: 01/07/18 Time of Evaluation: 13:48 - Subjective Subjective: up in chair denies any n/v/d/f/c/sob/dizziness labs noted Objective - Vital Signs/Intake and Output Vital Signs (last 24 hours): Temp Pulse Resp BP Pulse Ox 97.4 F L 118 H 28 H 111/62 97 01/07/18 12:00 01/07/18 13:19 01/07/18 13:19 01/07/18 13:19 01/07/18 13:19 Intake and Output: 01/07/18 01/07/18 06:59 18:59 Intake Total 140 620 Output Total 500 250 Balance -360 370 - Medications Medications: Current Medications Apixaban (Eliquis) 2.5 mg PO BID [facility] Last Admin: 01/07/18 10:50 Dose: 2.5 mg Carvedilol (Coreg) 3.125 mg PO BID [facility] Last Admin: 01/07/18 10:50 Dose: 3.125 mg Clopidogrel Bisulfate (Plavix) 75 mg PO DAILY [facility] Last Admin: 01/07/18 10:50 Dose: 75 mg Diltiazem HCl (Cardizem) 60 mg PO Q8 [facility] Famotidine (Pepcid) 20 mg PO DAILY [facility] Last Admin: 01/07/18 10:50 Dose: 20 mg Finasteride (Proscar) 5 mg PO DAILY [facility] Last Admin: 01/07/18 10:50 Dose: 5 mg Ceftriaxone Sodium 1 gm/ (Sodium Chloride) 100 mls @ 100 mls/hr IVPB DAILY [facility]; Protocol Last Admin: 01/07/18 10:50 Dose: 100 mls/hr Montelukast Sodium (Singulair) 10 mg PO HS [facility] Last Admin: 01/06/18 21:52 Dose: 10 mg Rosuvastatin Calcium (Crestor) 5 mg PO HS [facility] Tamsulosin HCl (Flomax) 0.4 mg PO DAILY [facility] Last Admin: 01/07/18 10:50 Dose: 0.4 mg - Labs Labs: 01/07/18 06:10 01/07/18 06:10 PT 24.4 SECONDS (9.7-12.2) H 01/05/18 06:22 INR 2.2 01/05/18 06:22 - Constitutional Appears: No Acute Distress, Unkempt, Chronically Ill - Head Exam Head Exam: NORMAL INSPECTION, NORMOCEPHALIC - Eye Exam Eye Exam: Normal appearance Pupil Exam: PERRL - ENT Exam ENT Exam: Mucous Membranes Moist, Normal Exam - Neck Exam Neck Exam: Normal Inspection - Respiratory Exam Respiratory Exam: Clear to Ausculation Bilateral, NORMAL BREATHING PATTERN - Cardiovascular Exam Cardiovascular Exam: Irregular Rhythm - GI/Abdominal Exam GI & Abdominal Exam: Distended, Soft - Extremities Exam Extremities Exam: Full ROM, Normal Inspection - Neurological Exam Neurological Exam: Alert, Awake, Oriented x3 - Psychiatric Exam Psychiatric exam: Normal Affect - Skin Skin Exam: Dry, Intact Assessment and Plan (1) MICHAEL (acute kidney injury) Status: Acute (2) CAD (coronary artery disease) Status: Acute (3) Rapid atrial fibrillation Status: Acute (4) CHF (congestive heart failure) Status: Acute - Assessment and Plan (Free Text) Assessment: resolving michael monitor chems check urine culture
[2018-01-07 16:42] LABS: URINE 24 HOUR TOTAL PROTEIN 49.5 mg/24hr (42-225)
--- NOTE | 2018-01-07 16:57 | CP.PCM.PN ---
Subjective - Date & Time of Evaluation Date of Evaluation: 01/07/18 Time of Evaluation: 16:54 - Subjective Subjective: SOB have improved, sitting in chair. Objective - Vital Signs/Intake and Output Vital Signs (last 24 hours): Temp Pulse Resp BP Pulse Ox 97.4 F L 89 16 118/61 98 01/07/18 12:00 01/07/18 15:00 01/07/18 15:00 01/07/18 14:02 01/07/18 15:00 Intake and Output: 01/07/18 01/07/18 06:59 18:59 Intake Total 140 720 Output Total 500 250 Balance -360 470 - Medications Medications: Current Medications Apixaban (Eliquis) 2.5 mg PO BID [facility] Last Admin: 01/07/18 10:50 Dose: 2.5 mg Carvedilol (Coreg) 3.125 mg PO BID [facility] Last Admin: 01/07/18 10:50 Dose: 3.125 mg Clopidogrel Bisulfate (Plavix) 75 mg PO DAILY [facility] Last Admin: 01/07/18 10:50 Dose: 75 mg Diltiazem HCl (Cardizem) 60 mg PO Q8 [facility] Last Admin: 01/07/18 14:21 Dose: 60 mg Famotidine (Pepcid) 20 mg PO DAILY [facility] Last Admin: 01/07/18 10:50 Dose: 20 mg Finasteride (Proscar) 5 mg PO DAILY [facility] Last Admin: 01/07/18 10:50 Dose: 5 mg Ceftriaxone Sodium 1 gm/ (Sodium Chloride) 100 mls @ 100 mls/hr IVPB DAILY [facility]; Protocol Last Admin: 01/07/18 10:50 Dose: 100 mls/hr Montelukast Sodium (Singulair) 10 mg PO HS [facility] Last Admin: 01/06/18 21:52 Dose: 10 mg Rosuvastatin Calcium (Crestor) 5 mg PO HS [facility] Tamsulosin HCl (Flomax) 0.4 mg PO DAILY [facility] Last Admin: 01/07/18 10:50 Dose: 0.4 mg - Labs Labs: 01/07/18 06:10 01/07/18 06:10 PT 24.4 SECONDS (9.7-12.2) H 01/05/18 06:22 INR 2.2 01/05/18 06:22 - Head Exam Head Exam: NORMOCEPHALIC - Neck Exam Neck Exam: Normal Inspection - Cardiovascular Exam Cardiovascular Exam: Irregular Rhythm, REGULAR RHYTHM - Extremities Exam Extremities Exam: Pedal Edema - Neurological Exam Neurological Exam: Alert, Oriented x3 Assessment and Plan (1) Chronic congestive heart failure Assessment & Plan: Improving, Continue diuretics. Fluid restriction. Status: Acute (2) Rapid atrial fibrillation Assessment & Plan: Rate is better controlled. Continue Digoxin and adjust dose according to renal insufficiency. Status: Acute
--- NOTE | 2018-01-07 21:10 | CP.PCM.PN ---
Subjective - Date & Time of Evaluation Date of Evaluation: 01/07/18 Time of Evaluation: 21:10 - Subjective Subjective: Patient today is sitting up comfortably. The heart rate is better today. Patient seen by burr picker today. On examination: Vital signs stable. Chest good air entry, irregular heart sound noted. Abdomen soft, nontender. Sonogram of the abdomen done yesterday showing no evidence of any acute pathology, steatosis hepatoptosis. Assessment: 82-year-old male with a history of CAD, hypertension, status post CABG, atrial fibrillation, currently on anticoagulation. Patient admitted to the acute atrial flutter fibrillation with rapid ventricular rate. Mild congestive changes. Acute renal failure. Currently improving. Improving liver enzymes also. We'll continue to control the heart rate. Currently patient is taking anticoagulation as well as Plavix. He is currently on Cardizem, Coreg. He will need cardiology follow-up in about the anticoagulation and Plavix management. Patient will be followed up a hospitalist from tomorrow. Objective - Vital Signs/Intake and Output Vital Signs (last 24 hours): Temp Pulse Resp BP Pulse Ox 98.3 F 108 H 23 105/66 98 01/07/18 20:00 01/07/18 20:02 01/07/18 20:02 01/07/18 20:02 01/07/18 20:02 Intake and Output: 01/07/18 01/08/18 18:59 06:59 Intake Total 870 0 Output Total 350 50 Balance 520 -50 - Medications Medications: Current Medications Apixaban (Eliquis) 2.5 mg PO BID [facility] Last Admin: 01/07/18 17:30 Dose: 2.5 mg Carvedilol (Coreg) 3.125 mg PO BID [facility] Last Admin: 01/07/18 17:30 Dose: 3.125 mg Clopidogrel Bisulfate (Plavix) 75 mg PO DAILY [facility] Last Admin: 01/07/18 10:50 Dose: 75 mg Diltiazem HCl (Cardizem) 60 mg PO Q8 [facility] Last Admin: 01/07/18 21:05 Dose: 60 mg Famotidine (Pepcid) 20 mg PO DAILY [facility] Last Admin: 01/07/18 10:50 Dose: 20 mg Finasteride (Proscar) 5 mg PO DAILY [facility] Last Admin: 01/07/18 10:50 Dose: 5 mg Ceftriaxone Sodium 1 gm/ (Sodium Chloride) 100 mls @ 100 mls/hr IVPB DAILY [facility]; Protocol Last Admin: 01/07/18 10:50 Dose: 100 mls/hr Montelukast Sodium (Singulair) 10 mg PO HS [facility] Last Admin: 01/07/18 21:05 Dose: 10 mg Rosuvastatin Calcium (Crestor) 5 mg PO HS [facility] Last Admin: 01/07/18 21:05 Dose: 5 mg Tamsulosin HCl (Flomax) 0.4 mg PO DAILY [facility] Last Admin: 01/07/18 10:50 Dose: 0.4 mg - Labs Labs: 01/07/18 06:10 01/07/18 06:10 PT 24.4 SECONDS (9.7-12.2) H 01/05/18 06:22 INR 2.2 01/05/18 06:22
[2018-01-08 06:27] LABS: BASO % 0.5 % (0.0-2.0); EOS # 0.3 K/uL (0.0-0.7); HEMOGLOBIN 12.2 g/dL (12.0-18.0); LYMPH # 0.6 K/uL (1.0-4.3); LYMPH % 6.8 % (20.0-40.0); MEAN CELL VOLUME 88.8 fL (80.0-94.0); MEAN CORPUSCULAR HEMOGLOBIN 28.9 pg (27.0-31.0); MEAN CORPUSCULAR HGB CONC 32.6 g/dL (33.0-37.0); MEAN PLATELET VOLUME 9.8 fL (7.2-11.7); MONO # 0.9 K/uL (0.0-0.8); MONO % 9.4 % (0.0-10.0); NEUT # 7.5 K/uL (1.8-7.0); NEUT % 80.3 % (50.0-75.0); PLATELET COUNT 195 K/uL (130-400); RBC 4.23 Mil/uL (4.40-5.90); RED CELL DISTRIBUTION WIDTH 15.4 % (11.5-14.5); WHITE BLOOD COUNT 9.3 K/uL (4.8-10.8)
[2018-01-08 06:40] LABS: ALT/SGPT 189 U/L (21-72); AST/SGOT 40 U/L (17-59); BLOOD UREA NITROGEN 34 mg/dL (9-20); CALCIUM 8.5 mg/dl (8.6-10.4); GFR NON-AFRICAN AMERICAN > 60
[2018-01-08] MEDS ORDERED: Digoxin 500 mcg/2ml (0.5 mg/2ml) Inj IVP ONE (07:47)
[2018-01-08 08:20] LABS: EOSINOPHIL 3 % (0-4); LYMPHOCYTE 11 % (20-40); MONOCYTE 8 % (0-10); NEUTROPHIL 78 % (50-75); TOTAL CELLS COUNTED 100
[2018-01-08 08:21] LABS: ANISOCYTOSIS SLIGHT; PLATELET ESTIMATE NORMAL (NORMAL)
[2018-01-08 08:24] LABS: HYPOCHROMIC SLIGHT; POLYCHROMIC SLIGHT
[2018-01-08 08:29] VITALS: PULSE 100
--- NOTE | 2018-01-08 13:48 | CP.PCM.PN ---
Subjective - Date & Time of Evaluation Date of Evaluation: 01/08/18 Time of Evaluation: 13:45 - Subjective Subjective: Alert ; feels much better HP=[id number] Creat decreased to 1.0; MICHAEL resolved BP stable no n, v, f, chills, SOB, CPs Objective - Vital Signs/Intake and Output Vital Signs (last 24 hours): Temp Pulse Resp BP Pulse Ox 98.0 F 92 H 23 111/78 99 01/08/18 04:00 01/08/18 13:02 01/08/18 13:02 01/08/18 13:02 01/08/18 13:02 Intake and Output: 01/08/18 01/08/18 06:59 18:59 Intake Total 200 300 Output Total 550 Balance -350 300 - Medications Medications: Current Medications Apixaban (Eliquis) 2.5 mg PO BID [facility] Last Admin: 01/08/18 10:04 Dose: 2.5 mg Carvedilol (Coreg) 3.125 mg PO BID [facility] Last Admin: 01/08/18 10:04 Dose: 3.125 mg Clopidogrel Bisulfate (Plavix) 75 mg PO DAILY [facility] Last Admin: 01/08/18 10:04 Dose: 75 mg Diltiazem HCl (Cardizem) 60 mg PO Q8 [facility] Last Admin: 01/08/18 13:43 Dose: 60 mg Famotidine (Pepcid) 20 mg PO DAILY [facility] Last Admin: 01/08/18 10:04 Dose: 20 mg Finasteride (Proscar) 5 mg PO DAILY [facility] Last Admin: 01/08/18 10:04 Dose: 5 mg Ceftriaxone Sodium 1 gm/ (Sodium Chloride) 100 mls @ 100 mls/hr IVPB DAILY [facility]; Protocol Last Admin: 01/08/18 10:04 Dose: 100 mls/hr Montelukast Sodium (Singulair) 10 mg PO HS [facility] Last Admin: 01/07/18 21:05 Dose: 10 mg Rosuvastatin Calcium (Crestor) 5 mg PO HS [facility] Last Admin: 01/07/18 21:05 Dose: 5 mg Tamsulosin HCl (Flomax) 0.4 mg PO DAILY [facility] Last Admin: 01/08/18 10:04 Dose: 0.4 mg - Labs Labs: 01/08/18 06:21 01/08/18 06:14 PT 24.4 SECONDS (9.7-12.2) H 01/05/18 06:22 INR 2.2 01/05/18 06:22 - Constitutional Appears: No Acute Distress, Confused, Chronically Ill - Head Exam Head Exam: ATRAUMATIC, NORMAL INSPECTION - Eye Exam Eye Exam: EOMI, Normal appearance - Neck Exam Neck Exam: Normal Inspection. absent: Tenderness - Respiratory Exam Respiratory Exam: Clear to Ausculation Bilateral, NORMAL BREATHING PATTERN - Cardiovascular Exam Cardiovascular Exam: REGULAR RHYTHM, +S1 - GI/Abdominal Exam GI & Abdominal Exam: Tenderness. absent: Soft - Extremities Exam Extremities Exam: Normal Inspection. absent: Tenderness - Neurological Exam Neurological Exam: Awake, CN II-XII Intact - Skin Skin Exam: Warm. absent: Dry Assessment and Plan (1) MICHAEL (acute kidney injury) Status: Acute (2) Atrial fibrillation with RVR Status: Acute (3) CAD (coronary artery disease) Status: Acute (4) CHF (congestive heart failure) Status: Acute - Assessment and Plan (Free Text) Plan: Resolved MICHAEL Resolving shock liver HTN stable No significant proteinuria Afib continue same meds
--- NOTE | 2018-01-08 17:17 | CP.PCM.PN ---
Subjective - Date & Time of Evaluation Date of Evaluation: 01/08/18 Time of Evaluation: 11:00 - Subjective Subjective: Seen and examined this morning,patient was sitting on the chair,not feeling well ,tired and having mild sob Had Afib with RVR last night and this morning. Digoxin was given this morning.HR is improving His creatinine is better,his LFT is improving Objective - Vital Signs/Intake and Output Vital Signs (last 24 hours): Temp Pulse Resp BP Pulse Ox 98.0 F 90 27 H 136/79 97 01/08/18 04:00 01/08/18 17:02 01/08/18 17:02 01/08/18 17:02 01/08/18 17:02 Intake and Output: 01/08/18 01/08/18 06:59 18:59 Intake Total 200 300 Output Total 550 Balance -350 300 - Medications Medications: Current Medications Apixaban (Eliquis) 2.5 mg PO BID [facility] Last Admin: 01/08/18 10:04 Dose: 2.5 mg Carvedilol (Coreg) 3.125 mg PO BID [facility] Last Admin: 01/08/18 10:04 Dose: 3.125 mg Clopidogrel Bisulfate (Plavix) 75 mg PO DAILY [facility] Last Admin: 01/08/18 10:04 Dose: 75 mg Diltiazem HCl (Cardizem) 60 mg PO Q8 [facility] Last Admin: 01/08/18 13:43 Dose: 60 mg Famotidine (Pepcid) 20 mg PO DAILY [facility] Last Admin: 01/08/18 10:04 Dose: 20 mg Finasteride (Proscar) 5 mg PO DAILY [facility] Last Admin: 01/08/18 10:04 Dose: 5 mg Ceftriaxone Sodium 1 gm/ (Sodium Chloride) 100 mls @ 100 mls/hr IVPB DAILY [facility]; Protocol Last Admin: 01/08/18 10:04 Dose: 100 mls/hr Montelukast Sodium (Singulair) 10 mg PO HS [facility] Last Admin: 01/07/18 21:05 Dose: 10 mg Rosuvastatin Calcium (Crestor) 5 mg PO HS [facility] Last Admin: 01/07/18 21:05 Dose: 5 mg Tamsulosin HCl (Flomax) 0.4 mg PO DAILY [facility] Last Admin: 01/08/18 10:04 Dose: 0.4 mg - Labs Labs: 01/08/18 06:21 01/08/18 06:14 PT 24.4 SECONDS (9.7-12.2) H 01/05/18 06:22 INR 2.2 01/05/18 06:22 - Constitutional Appears: No Acute Distress, Chronically Ill - Eye Exam Eye Exam: Normal appearance Pupil Exam: NORMAL ACCOMODATION - ENT Exam ENT Exam: Mucous Membranes Moist - Neck Exam Neck Exam: Full ROM - Respiratory Exam Respiratory Exam: Clear to Ausculation Bilateral, NORMAL BREATHING PATTERN - Cardiovascular Exam Cardiovascular Exam: Irregular Rhythm - GI/Abdominal Exam GI & Abdominal Exam: Soft, Normal Bowel Sounds - Extremities Exam Extremities Exam: Full ROM, Normal Inspection - Back Exam Back Exam: NORMAL INSPECTION - Neurological Exam Neurological Exam: Awake, Oriented x3 - Psychiatric Exam Psychiatric exam: Normal Mood - Skin Skin Exam: Dry Assessment and Plan - Assessment and Plan (Free Text) Plan: 1. 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 GI pPx pepcid DVT ppx on Eliquis
--- NOTE | 2018-01-08 22:21 | CP.PCM.PN ---
Subjective - Date & Time of Evaluation Date of Evaluation: 01/08/18 Time of Evaluation: 16:15 - Subjective Subjective: Patient seen and evaluated denies chest pain and dyspnea Admitted for Rapid A Fib HR under control now Objective - Vital Signs/Intake and Output Vital Signs (last 24 hours): Temp Pulse Resp BP Pulse Ox 98.0 F 88 29 H 130/68 99 01/08/18 04:00 01/08/18 20:15 01/08/18 20:03 01/08/18 20:03 01/08/18 20:03 Intake and Output: 01/08/18 01/09/18 18:59 06:59 Intake Total 300 50 Output Total 100 Balance 200 50 - Medications Medications: Current Medications Apixaban (Eliquis) 2.5 mg PO BID [facility] Last Admin: 01/08/18 17:29 Dose: 2.5 mg Carvedilol (Coreg) 3.125 mg PO BID [facility] Last Admin: 01/08/18 17:29 Dose: 3.125 mg Clopidogrel Bisulfate (Plavix) 75 mg PO DAILY [facility] Last Admin: 01/08/18 10:04 Dose: 75 mg Diltiazem HCl (Cardizem) 60 mg PO Q8 [facility] Last Admin: 01/08/18 21:16 Dose: 60 mg Famotidine (Pepcid) 20 mg PO DAILY [facility] Last Admin: 01/08/18 10:04 Dose: 20 mg Finasteride (Proscar) 5 mg PO DAILY [facility] Last Admin: 01/08/18 10:04 Dose: 5 mg Ceftriaxone Sodium 1 gm/ (Sodium Chloride) 100 mls @ 100 mls/hr IVPB DAILY [facility]; Protocol Last Admin: 01/08/18 10:04 Dose: 100 mls/hr Montelukast Sodium (Singulair) 10 mg PO HS [facility] Last Admin: 01/08/18 21:16 Dose: 10 mg Rosuvastatin Calcium (Crestor) 5 mg PO HS [facility] Last Admin: 01/08/18 21:16 Dose: 5 mg Tamsulosin HCl (Flomax) 0.4 mg PO DAILY [facility] Last Admin: 01/08/18 10:04 Dose: 0.4 mg - Labs Labs: 01/08/18 06:21 01/08/18 06:14 PT 24.4 SECONDS (9.7-12.2) H 01/05/18 06:22 INR 2.2 01/05/18 06:22
[2018-01-09 06:01] LABS: BASO % 0.5 % (0.0-2.0); EOS # 0.3 K/uL (0.0-0.7); EOS % 4.1 % (0.0-4.0); HEMOGLOBIN 12.1 g/dL (12.0-18.0); LYMPH # 0.7 K/uL (1.0-4.3); LYMPH % 8.3 % (20.0-40.0); MEAN CELL VOLUME 87.4 fL (80.0-94.0); MEAN CORPUSCULAR HEMOGLOBIN 29.3 pg (27.0-31.0); MEAN CORPUSCULAR HGB CONC 33.5 g/dL (33.0-37.0); MEAN PLATELET VOLUME 9.4 fL (7.2-11.7); MONO # 0.9 K/uL (0.0-0.8); MONO % 10.4 % (0.0-10.0); NEUT # 6.6 K/uL (1.8-7.0); NEUT % 76.7 % (50.0-75.0); PLATELET COUNT 203 K/uL (130-400); RBC 4.13 Mil/uL (4.40-5.90); RED CELL DISTRIBUTION WIDTH 15.1 % (11.5-14.5); WHITE BLOOD COUNT 8.6 K/uL (4.8-10.8)
[2018-01-09 06:26] LABS: ALB/GLOB RATIO 1.1 (1.0-2.1); ALBUMIN 3.1 g/dL (3.5-5.0); ALT/SGPT 139 U/L (21-72); AST/SGOT 50 U/L (17-59); BLOOD UREA NITROGEN 26 mg/dL (9-20); CALCIUM 8.5 mg/dl (8.6-10.4); GFR NON-AFRICAN AMERICAN > 60
[2018-01-09 08:35] LABS: EOSINOPHIL 6 % (0-4); LYMPHOCYTE 8 % (20-40); MONOCYTE 8 % (0-10); NEUTROPHIL 78 % (50-75); PLATELET ESTIMATE NORMAL (NORMAL); TOTAL CELLS COUNTED 100
--- NOTE | 2018-01-09 09:21 | CP.PCM.PN ---
Subjective - Date & Time of Evaluation Date of Evaluation: 01/09/18 Time of Evaluation: 09:18 - Subjective Subjective: Alert NAD VR still elevated, on meds for rate control Renal function normalized K remains sl elevated no new complaint Objective - Vital Signs/Intake and Output Vital Signs (last 24 hours): Temp Pulse Resp BP Pulse Ox 98.0 F 110 H 24 120/86 99 01/09/18 04:00 01/09/18 08:00 01/09/18 04:25 01/09/18 04:25 01/09/18 04:25 Intake and Output: 01/09/18 01/09/18 06:59 18:59 Intake Total 150 Output Total 700 Balance -550 - Medications Medications: Current Medications Apixaban (Eliquis) 2.5 mg PO BID [facility] Last Admin: 01/08/18 17:29 Dose: 2.5 mg Carvedilol (Coreg) 3.125 mg PO BID [facility] Last Admin: 01/08/18 17:29 Dose: 3.125 mg Clopidogrel Bisulfate (Plavix) 75 mg PO DAILY [facility] Last Admin: 01/08/18 10:04 Dose: 75 mg Diltiazem HCl (Cardizem) 60 mg PO Q8 [facility] Last Admin: 01/09/18 05:36 Dose: 60 mg Famotidine (Pepcid) 20 mg PO DAILY [facility] Last Admin: 01/08/18 10:04 Dose: 20 mg Finasteride (Proscar) 5 mg PO DAILY [facility] Last Admin: 01/08/18 10:04 Dose: 5 mg Ceftriaxone Sodium 1 gm/ (Sodium Chloride) 100 mls @ 100 mls/hr IVPB DAILY [facility]; Protocol Last Admin: 01/08/18 10:04 Dose: 100 mls/hr Montelukast Sodium (Singulair) 10 mg PO HS [facility] Last Admin: 01/08/18 21:16 Dose: 10 mg Rosuvastatin Calcium (Crestor) 5 mg PO HS [facility] Last Admin: 01/08/18 21:16 Dose: 5 mg Tamsulosin HCl (Flomax) 0.4 mg PO DAILY [facility] Last Admin: 01/08/18 10:04 Dose: 0.4 mg - Labs Labs: 01/09/18 05:45 01/09/18 05:45 PT 24.4 SECONDS (9.7-12.2) H 01/05/18 06:22 INR 2.2 01/05/18 06:22 - Constitutional Appears: No Acute Distress, Chronically Ill - Head Exam Head Exam: ATRAUMATIC, NORMAL INSPECTION - Eye Exam Eye Exam: EOMI, Normal appearance - Neck Exam Neck Exam: Normal Inspection. absent: Tenderness - Cardiovascular Exam Cardiovascular Exam: Tachycardia, Irregular Rhythm, +S1 - GI/Abdominal Exam GI & Abdominal Exam: Soft. absent: Tenderness - Extremities Exam Extremities Exam: Normal Inspection. absent: Tenderness - Neurological Exam Neurological Exam: Alert, CN II-XII Intact - Skin Skin Exam: Dry, Warm Assessment and Plan (1) MICHAEL (acute kidney injury) Status: Acute (2) Atrial fibrillation with RVR Status: Acute (3) CAD (coronary artery disease) Status: Acute (4) CHF (congestive heart failure) Status: Acute - Assessment and Plan (Free Text) Plan: kayexalate follow up chemistries cardiac plans
[2018-01-09] MEDS ORDERED: Sod Polystyrene Sulf 15 gm/60 ml Susp PO ONE (09:30)
[2018-01-09] MEDS: diltiaZEM 180 mg/24 Hours CD Cap PO SCH (10:10)
--- NOTE | 2018-01-09 13:59 | CP.PCM.PN ---
<Bibiana Polanco - Last Filed: 01/09/18 15:24> Subjective - Date & Time of Evaluation Date of Evaluation: 01/09/18 Time of Evaluation: 07:10 - Subjective Subjective: Patient examined at chair in room. Patient reports he initially had some shortness of breath which has since improved. Nursing reports patient's heart rate has stabilized in the 90s, however still irregular. Patient denies chest pain, abdominal pain, n/v/d. Pt reports he is hungry and eager to eat. Objective - Vital Signs/Intake and Output Vital Signs (last 24 hours): Temp Pulse Resp BP Pulse Ox 98.0 F 98 H 25 H 104/70 97 01/09/18 04:00 01/09/18 10:10 01/09/18 10:10 01/09/18 10:10 01/09/18 10:10 Intake and Output: 01/09/18 01/09/18 06:59 18:59 Intake Total 150 400 Output Total 700 Balance -550 400 - Medications Medications: Current Medications Apixaban (Eliquis) 2.5 mg PO BID [facility] Last Admin: 01/09/18 10:12 Dose: 2.5 mg Carvedilol (Coreg) 3.125 mg PO BID [facility] Last Admin: 01/09/18 10:12 Dose: 3.125 mg Clopidogrel Bisulfate (Plavix) 75 mg PO DAILY [facility] Last Admin: 01/09/18 10:12 Dose: 75 mg Diltiazem HCl (Cardizem Cd) 180 mg PO DAILY [facility] Last Admin: 01/09/18 10:10 Dose: 180 mg Famotidine (Pepcid) 20 mg PO DAILY [facility] Last Admin: 01/09/18 10:12 Dose: 20 mg Finasteride (Proscar) 5 mg PO DAILY [facility] Last Admin: 01/09/18 10:11 Dose: 5 mg Ceftriaxone Sodium 1 gm/ (Sodium Chloride) 100 mls @ 100 mls/hr IVPB DAILY [facility]; Protocol Last Admin: 01/09/18 10:06 Dose: 100 mls/hr Montelukast Sodium (Singulair) 10 mg PO [facility] Last Admin: 01/08/18 21:16 Dose: 10 mg Rosuvastatin Calcium (Crestor) 5 mg PO HS [facility] Last Admin: 01/08/18 21:16 Dose: 5 mg Tamsulosin HCl (Flomax) 0.4 mg PO DAILY [facility] Last Admin: 01/09/18 10:12 Dose: 0.4 mg - Labs Labs: 01/09/18 05:45 01/09/18 05:45 PT 24.4 SECONDS (9.7-12.2) H 01/05/18 06:22 INR 2.2 01/05/18 06:22 - Constitutional Appears: No Acute Distress - Head Exam Head Exam: ATRAUMATIC, NORMAL INSPECTION, NORMOCEPHALIC - Eye Exam Eye Exam: EOMI, Normal appearance - ENT Exam ENT Exam: Mucous Membranes Moist, Normal Exam - Neck Exam Neck Exam: Normal Inspection - Respiratory Exam Respiratory Exam: Decreased Breath Sounds, NORMAL BREATHING PATTERN - Cardiovascular Exam Cardiovascular Exam: Irregular Rhythm. absent: Tachycardia - GI/Abdominal Exam GI & Abdominal Exam: Distended, Normal Bowel Sounds. absent: Tenderness - Extremities Exam Extremities Exam: Normal Inspection, Pedal Edema (2+ pitting edema b/l). absent: Calf Tenderness - Neurological Exam Neurological Exam: Alert, Awake - Psychiatric Exam Psychiatric exam: Normal Affect, Normal Mood - Skin Skin Exam: Dry, Intact, Normal Color, Warm Assessment and Plan - Assessment and Plan (Free Text) Assessment: 82 yo m w/ PMHx of CAD(s/p CABG), HTN, HLD, A Fib on AC A Fib w/ RVR -stable off cardizem drip -diltiazem CD 180mg po qd -Eliquis 2.5mg PO BID COPD -rocephin 1g IV qd -montelukast 10mg po hs CAD s/p CABG -plavix 75mg po qd -crestor 5mg po hs HTN -Coreg 3.125mg BPH -finasteride 5mg po qd -flomax .4mg po qd Ppx -pepcid 20mg po qd <Jatin Dean - Last Filed: 01/09/18 18:10> Objective - Vital Signs/Intake and Output Vital Signs (last 24 hours): Temp Pulse Resp BP Pulse Ox 98.0 F 114 H 27 H 137/81 97 01/09/18 04:00 01/09/18 17:18 01/09/18 17:18 01/09/18 17:18 01/09/18 17:18 Intake and Output: 01/09/18 01/09/18 06:59 18:59 Intake Total 150 400 Output Total 700 Balance -550 400 - Medications Medications: Current Medications Apixaban (Eliquis) 2.5 mg PO BID [facility] Last Admin: 01/09/18 17:17 Dose: 2.5 mg Carvedilol (Coreg) 3.125 mg PO BID [facility] Last Admin: 01/09/18 17:16 Dose: 3.125 mg Clopidogrel Bisulfate (Plavix) 75 mg PO DAILY [facility] Last Admin: 01/09/18 10:12 Dose: 75 mg Diltiazem HCl (Cardizem Cd) 180 mg PO DAILY [facility] Last Admin: 01/09/18 10:10 Dose: 180 mg Famotidine (Pepcid) 20 mg PO DAILY [facility] Last Admin: 01/09/18 10:12 Dose: 20 mg Finasteride (Proscar) 5 mg PO DAILY [facility] Last Admin: 01/09/18 10:11 Dose: 5 mg Ceftriaxone Sodium 1 gm/ (Sodium Chloride) 100 mls @ 100 mls/hr IVPB DAILY [facility]; Protocol Last Admin: 01/09/18 10:06 Dose: 100 mls/hr Losartan Potassium (Cozaar) 25 mg PO DAILY [facility] Montelukast Sodium (Singulair) 10 mg PO HS [facility] Last Admin: 01/08/18 21:16 Dose: 10 mg Rosuvastatin Calcium (Crestor) 5 mg PO HS [facility] Last Admin: 01/08/18 21:16 Dose: 5 mg Tamsulosin HCl (Flomax) 0.4 mg PO DAILY [facility] Last Admin: 01/09/18 10:12 Dose: 0.4 mg - Labs Labs: 01/09/18 05:45 01/09/18 05:45 PT 24.4 SECONDS (9.7-12.2) H 01/05/18 06:22 INR 2.2 01/05/18 06:22 Attending/Attestation - Attestation I have personally seen and examined this patient.: Yes I have fully participated in the care of the patient.: Yes I have reviewed all pertinent clinical information, including history, physical exam and plan: Yes Notes (Text): Covering Dr Rosario Seen and examined by me this afternoon. Patient is feeling better. His HR is in 90ies to low 100ts. His SBP is low 100. we will continue Cardizem CD 180mg po qd,Eliquis 2.5mg PO BID,plavix 75mg po qd,crestor 5mg po hs and coreg 3.125mg Patient was evaluated by PT.recommending Rehab. Patient refusing rehab we will monitor his HR. d/w Dr Esposito this morning spoke to patient's friend Chris Byrd who takes care of him wants him to go to rehab. Patient doesn' t have help at home We will encourage him to go to rehab Possible discharge tomorrow if his Hr stable I agree with the resident's documentation
--- NOTE | 2018-01-09 22:46 | CP.PCM.PN ---
Subjective - Date & Time of Evaluation Date of Evaluation: 01/09/18 Time of Evaluation: 14:05 - Subjective Subjective: Patient seen and evaluated Denies chest pain and dyspnea Chronic systolic CHF A Fib rate controlled CAD s/p CABG and stent s/p AVR Continue Eliquis 2.5 mg po bid and Plavix 75 daily Objective - Vital Signs/Intake and Output Vital Signs (last 24 hours): Temp Pulse Resp BP Pulse Ox 98.0 F 114 H 27 H 137/81 97 01/09/18 04:00 01/09/18 17:18 01/09/18 17:18 01/09/18 17:18 01/09/18 17:18 Intake and Output: 01/09/18 01/10/18 18:59 06:59 Intake Total 1100 Output Total 700 Balance 400 - Medications Medications: Current Medications Apixaban (Eliquis) 2.5 mg PO BID [facility] Last Admin: 01/09/18 17:17 Dose: 2.5 mg Carvedilol (Coreg) 3.125 mg PO BID [facility] Last Admin: 01/09/18 17:16 Dose: 3.125 mg Clopidogrel Bisulfate (Plavix) 75 mg PO DAILY [facility] Last Admin: 01/09/18 10:12 Dose: 75 mg Diltiazem HCl (Cardizem Cd) 180 mg PO DAILY [facility] Last Admin: 01/09/18 10:10 Dose: 180 mg Famotidine (Pepcid) 20 mg PO DAILY [facility] Last Admin: 01/09/18 10:12 Dose: 20 mg Finasteride (Proscar) 5 mg PO DAILY [facility] Last Admin: 01/09/18 10:11 Dose: 5 mg Ceftriaxone Sodium 1 gm/ (Sodium Chloride) 100 mls @ 100 mls/hr IVPB DAILY [facility]; Protocol Last Admin: 01/09/18 10:06 Dose: 100 mls/hr Losartan Potassium (Cozaar) 25 mg PO DAILY [facility] Montelukast Sodium (Singulair) 10 mg PO HS [facility] Last Admin: 01/09/18 21:27 Dose: 10 mg Rosuvastatin Calcium (Crestor) 5 mg PO HS [facility] Last Admin: 01/09/18 21:27 Dose: 5 mg Tamsulosin HCl (Flomax) 0.4 mg PO DAILY [facility] Last Admin: 01/09/18 10:12 Dose: 0.4 mg - Labs Labs: 01/09/18 05:45 01/09/18 05:45 PT 24.4 SECONDS (9.7-12.2) H 01/05/18 06:22 INR 2.2 01/05/18 06:22
[2018-01-09] MEDS ORDERED: Lidocaine 5% Patch TD ONE (23:30)
[2018-01-10 06:27] LABS: BASO % 0.4 % (0.0-2.0); EOS # 0.3 K/uL (0.0-0.7); EOS % 3.6 % (0.0-4.0); HEMOGLOBIN 12.5 g/dL (12.0-18.0); LYMPH # 0.7 K/uL (1.0-4.3); LYMPH % 6.8 % (20.0-40.0); MEAN CELL VOLUME 88.1 fL (80.0-94.0); MEAN CORPUSCULAR HEMOGLOBIN 29.1 pg (27.0-31.0); MEAN CORPUSCULAR HGB CONC 33.1 g/dL (33.0-37.0); MONO % 10.3 % (0.0-10.0); NEUT # 7.6 K/uL (1.8-7.0); NEUT % 78.9 % (50.0-75.0); PLATELET COUNT 163 K/uL (130-400); RED CELL DISTRIBUTION WIDTH 15.3 % (11.5-14.5); WHITE BLOOD COUNT 9.6 K/uL (4.8-10.8)
[2018-01-10 06:48] LABS: ALB/GLOB RATIO 1.1 (1.0-2.1); ALBUMIN 2.9 g/dL (3.5-5.0); ALT/SGPT 118 U/L (21-72); AST/SGOT 28 U/L (17-59); BLOOD UREA NITROGEN 19 mg/dL (9-20); CALCIUM 8.6 mg/dl (8.6-10.4); GFR NON-AFRICAN AMERICAN > 60
[2018-01-10 08:20] LABS: EOSINOPHIL 2 % (0-4); LYMPHOCYTE 7 % (20-40); MONOCYTE 11 % (0-10); NEUTROPHIL 80 % (50-75); PLATELET ESTIMATE NORMAL (NORMAL); TOTAL CELLS COUNTED 100
[2018-01-10 08:23] VITALS: TEMP 97.6
[2018-01-10] MEDS: diltiaZEM 180 mg/24 Hours CD Cap PO SCH (09:25)
[2018-01-10 12:13] VITALS: BP 106/71; PULSE 123; RESP 25; O2SAT 97
--- NOTE | 2018-01-10 12:44 | CP.PCM.DIS ---
Provider - Provider Date of Admission: 01/05/18 06:41 Attending physician: Jatin Dean MD Time Spent in preparation of Discharge (in minutes): 120 Diagnosis - Discharge Diagnosis (1) Atrial fibrillation with RVR Status: Acute (2) MICHAEL (acute kidney injury) Status: Acute Hospital Course - Lab Results Lab Results: Micro Results 01/05/18 06:00 Blood-Venous Blood Culture - Final NO GROWTH AFTER 5 DAYS 01/05/18 06:00 Blood-Venous Gram Stain - Final TEST NOT PERFORMED 01/05/18 06:50 Blood-Venous Blood Culture - Final NO GROWTH AFTER 5 DAYS 01/05/18 06:50 Blood-Venous Gram Stain - Final TEST NOT PERFORMED 01/08/18 04:35 Urine Urine Culture - Final No Growth (<1,000 CFU/ML) 01/05/18 13:16 Naris MRSA Culture (Admit) - Final MRSA NOT DETECTED Most Recent Lab Values WBC 9.6 K/uL (4.8-10.8) 01/10/18 06:20 RBC 4.30 Mil/uL (4.40-5.90) L 01/10/18 06:20 Hgb 12.5 g/dL (12.0-18.0) 01/10/18 06:20 Hct 37.9 % (35.0-51.0) 01/10/18 06:20 MCV 88.1 fL (80.0-94.0) 01/10/18 06:20 MCH 29.1 pg (27.0-31.0) 01/10/18 06:20 MCHC 33.1 g/dL (33.0-37.0) 01/10/18 06:20 RDW 15.3 % (11.5-14.5) H 01/10/18 06:20 Plt Count 163 K/uL (130-400) 01/10/18 06:20 MPV 9.0 fL (7.2-11.7) 01/10/18 06:20 Neut % (Auto) 78.9 % (50.0-75.0) H 01/10/18 06:20 Lymph % (Auto) 6.8 % (20.0-40.0) L 01/10/18 06:20 [place] % (Auto) 10.3 % (0.0-10.0) H 01/10/18 06:20 Eos % (Auto) 3.6 % (0.0-4.0) 01/10/18 06:20 Baso % (Auto) 0.4 % (0.0-2.0) 01/10/18 06:20 Neut # (Auto) 7.6 K/uL (1.8-7.0) H 01/10/18 06:20 Lymph # (Auto) 0.7 K/uL (1.0-4.3) L 01/10/18 06:20 [place] # (Auto) 1.0 K/uL (0.0-0.8) H 01/10/18 06:20 Eos # (Auto) 0.3 K/uL (0.0-0.7) 01/10/18 06:20 Baso # (Auto) 0.0 K/uL (0.0-0.2) 01/10/18 06:20 Neutrophils % (Manual) 80 % (50-75) H 01/10/18 06:20 Lymphocytes % (Manual) 7 % (20-40) L 01/10/18 06:20 Monocytes % (Manual) 11 % (0-10) H 01/10/18 06:20 Eosinophils % (Manual) 2 % (0-4) 01/10/18 06:20 Platelet Estimate Normal (NORMAL) 01/10/18 06:20 RBC Morphology Normal 01/09/18 05:45 Polychromasia Slight 01/08/18 06:21 Hypochromasia (manual) Slight 01/08/18 06:21 Anisocytosis (manual) Slight 01/08/18 06:21 PT 24.4 SECONDS (9.7-12.2) H 01/05/18 06:22 INR 2.2 01/05/18 06:22 pO2 44 mm/Hg (30-55) 01/05/18 06:00 VBG pH 7.39 (7.32-7.43) 01/05/18 06:00 VBG pCO2 37 mmHg (40-60) L 01/05/18 06:00 VBG HCO3 22.7 mmol/L 01/05/18 06:00 VBG Total CO2 23.5 mmol/L (22-28) 01/05/18 06:00 VBG O2 Sat (Calc) 78.0 % (40-65) H 01/05/18 06:00 VBG Base Excess -2.2 mmol/L (0.0-2.0) L 01/05/18 06:00 VBG Potassium 4.2 mmol/L (3.6-5.2) 01/05/18 06:00 Sodium 140.0 mmol/l (132-148) 01/05/18 06:00 Chloride 106.0 mmol/L (98-107) 01/05/18 06:00 Glucose 101 mg/dl (75-110) 01/05/18 06:00 Lactate 2.4 mmol/L (0.7-2.1) H 01/05/18 06:00 Sodium 142 mmol/L (132-148) 01/10/18 06:20 Potassium 4.2 mmol/L (3.6-5.2) 01/10/18 06:20 Chloride 103 mmol/L (98-107) 01/10/18 06:20 Carbon Dioxide 33 mmol/L (22-30) H 01/10/18 06:20 Anion Gap 10 (10-20) 01/10/18 06:20 BUN 19 mg/dL (9-20) 01/10/18 06:20 Creatinine 0.9 mg/dL (0.8-1.5) 01/10/18 06:20 Est GFR ( Amer) > 60 01/10/18 06:20 Est GFR (Non-Af Amer) > 60 01/10/18 06:20 Random Glucose 96 mg/dL (75-110) 01/10/18 06:20 Lactic Acid 1.4 mmol/L (0.7-2.1) 01/05/18 10:19 Calcium 8.6 mg/dl (8.6-10.4) 01/10/18 06:20 Phosphorus 3.0 mg/dL (2.5-4.5) 01/10/18 06:20 Magnesium 2.1 mg/dL (1.6-2.3) 01/10/18 06:20 Total Bilirubin 0.6 mg/dL (0.2-1.3) 01/10/18 06:20 AST 28 U/L (17-59) 01/10/18 06:20 ALT 118 U/L (21-72) H 01/10/18 06:20 Alkaline Phosphatase 90 U/L (38-126) 01/10/18 06:20 Troponin I 0.1030 ng/mL (0.00-0.120) 01/05/18 05:45 NT-Pro-B Natriuret Pep 77520 pg/mL (0-900) H 01/05/18 05:45 Total Protein 5.5 g/dL (6.3-8.3) L 01/10/18 06:20 Albumin 2.9 g/dL (3.5-5.0) L 01/10/18 06:20 Globulin 2.6 gm/dL (2.2-3.9) 01/10/18 06:20 Albumin/Globulin Ratio 1.1 (1.0-2.1) 01/10/18 06:20 PTH Intact Whole [place] 93 pg/mL (14-64) H 01/07/18 06:10 Venous Blood Potassium 4.2 mmol/L (3.6-5.2) 01/05/18 06:00 Urine Color [place] (YELLOW) 01/05/18 07:45 Urine Clarity Hazy (Clear) 01/05/18 07:45 Urine pH 5.0 (5.0-8.0) 01/05/18 07:45 Ur Specific [place] 1.021 (1.003-1.030) 01/05/18 07:45 Urine Protein 1+ mg/dL (NEGATIVE) H 01/05/18 07:45 Urine Glucose (UA) Normal mg/dL (Normal) 01/05/18 07:45 Urine Ketones Negative mg/dL (NEGATIVE) 01/05/18 07:45 Urine Blood Negative (NEGATIVE) 01/05/18 07:45 Urine Nitrate Negative (NEGATIVE) 01/05/18 07:45 Urine Bilirubin Negative (NEGATIVE) 01/05/18 07:45 Urine Urobilinogen 2.0 mg/dL (0.2-1.0) 01/05/18 07:45 Ur Leukocyte Esterase 2+ Marty/uL (Negative) H 01/05/18 07:45 Urine WBC (Auto) 75 /hpf (0-5) H 01/05/18 07:45 Urine RBC (Auto) 2 /hpf (0-3) 01/05/18 07:45 Urine WBC Clumps (Auto) Occ /hpf (NONE) H 01/05/18 07:45 Ur Squamous Epith Cells 11 /hpf (0-5) H 01/05/18 07:45 Urine Bacteria Rare (<OCC) 01/05/18 07:45 Hyaline Casts >20 /lpf (0-2) H 01/05/18 07:45 Urine Collection Time 24 HRS 01/07/18 16:27 Urine Total Volume 550 mL 01/07/18 16:27 Ur Protein 24 Hr Calc 49.5 mg/24hr (42-225) 01/07/18 16:27 - Hospital Course Hospital Course: 82-year-old male with a history of CAD, status post CABG, hypertension, hypercholesteremia, atrial fibrillation on anticoagulation. Patient was recently hospitalized with acute rapid ventricular rate with the atrial fibrillation, treated and he went to the senior care. From the senior care patient went home. He came to the emergency room again this time with shortness of breath, and also palpitation. In the emergency room patient was started on Cardizem drip to control the tachycardia, and also was found to have hypotension. Patient is currently admitted to the intensive care unit. In the intensive care unit patient still has tachycardia, in spite of the medication. He still having some shortness of breath. Using oxygen at this time. He denies any chest pain. No leg swelling Patient was admitted for acute decompensation of mild systolic heart failure, atrial fibrillation with a rapid ventricular rate. Echo in 11/30 showed EF of 33%. BNP was 10747. Patient was placed on cardizem drip. cardiology was consulted . Patient was taken off cardizem drip and continued coreg 3.125 mf BID, cardizem po , crestor, eliquis and plavix. Patient had positive UA, WBC 13 000, was given rocephin. Patient was found to have elavted liver enzymes. U/S was ordered which show hepatomegaly and hepatic statosis. LFTs trending down, possibly transient shock liver. Acute renal failure noted, with elevated creatinine level likely secondary to ATN. Nephrology consulted. MICHAEL improved, likely ATN from hypotension. hx of BPH controlled with continuing flomax and finasteride. Hx of COPD was controlled with montelukast 10 mg po hs. Heart rate and blood pressured improved. Patient continued with cardizem CD 180mg po, Eliquis 2.5mg PO BID,plavix 75mg po qd, crestor 5mg po hs and coreg 3.125mg. GI prophylaxis with pepcid. Patient encouraged to go to rehab as per PT evaluation. Patient initially refused but agreed to go to rehab. [facility] [place] [facility]Follow up withprimary care Dr Orosco within one week Follow up with Dr Esposito pulmonary fellow within one week. Continue home meds and meds given at hospital as instructed This is a brief summary of Patient's course of hospitalization. For more information, please refer to Patient's EMR. - Date & Time of H&P Date of H&P: 01/05/18 Time of H&P: 20:00 Discharge Exam - Head Exam Head Exam: ATRAUMATIC, NORMAL INSPECTION, NORMOCEPHALIC - Eye Exam Eye Exam: Normal appearance - ENT Exam ENT Exam: Mucous Membranes Moist, Normal Exam - Neck Exam Neck exam: Normal Inspection - Respiratory Exam Respiratory Exam: Decreased Breath Sounds, NORMAL BREATHING PATTERN - Cardiovascular Exam Cardiovascular Exam: Irregular Rhythm - GI/Abdominal Exam GI & Abdominal Exam: Normal Bowel Sounds. absent: Tenderness - Extremities Exam Extremities exam: normal inspection, pedal edema - Back Exam Back exam: FULL ROM, NORMAL INSPECTION - Neurological Exam Neurological exam: Alert, Oriented x3 - Psychiatric Exam Psychiatric exam: Normal Affect, Normal Mood - Skin Skin Exam: Dry, Intact, Normal Color, Warm Discharge Plan - Follow Up Plan Condition: FAIR Disposition: REHAB FACILITY/REHAB UNIT Instructions: Atrial Fibrillation (DC) Additional Instructions: Patient stable to be transferred to [facility] follow up withprimary care Dr Orosco within one week Follow up with Dr Esposito pulmonary fellow within one week Continue home meds and meds given at hospital as instructed
--- NOTE | 2018-01-10 12:54 | CP.PCM.PN ---
Subjective - Date & Time of Evaluation Date of Evaluation: 01/10/18 Time of Evaluation: 12:52 - Subjective Subjective: Feels better MICHAEL resolved; lytes stable HTN controlled HR better controlled; same med on board Objective - Vital Signs/Intake and Output Vital Signs (last 24 hours): Temp Pulse Resp BP Pulse Ox 97.6 F 123 H 25 H 106/71 97 01/10/18 08:00 01/10/18 12:00 01/10/18 12:00 01/10/18 11:39 01/10/18 12:00 Intake and Output: 01/10/18 01/10/18 06:59 18:59 Intake Total 300 250 Output Total 250 Balance 50 250 - Medications Medications: Current Medications Apixaban (Eliquis) 2.5 mg PO BID [facility] Last Admin: 01/10/18 09:28 Dose: 2.5 mg Carvedilol (Coreg) 3.125 mg PO BID [facility] Last Admin: 01/10/18 09:24 Dose: 3.125 mg Clopidogrel Bisulfate (Plavix) 75 mg PO DAILY [facility] Last Admin: 01/10/18 09:24 Dose: 75 mg Diltiazem HCl (Cardizem Cd) 180 mg PO DAILY [facility] Last Admin: 01/10/18 09:25 Dose: 180 mg Famotidine (Pepcid) 20 mg PO DAILY [facility] Last Admin: 01/10/18 09:25 Dose: 20 mg Finasteride (Proscar) 5 mg PO DAILY [facility] Last Admin: 01/10/18 09:25 Dose: 5 mg Losartan Potassium (Cozaar) 25 mg PO DAILY [facility] Last Admin: 01/10/18 09:25 Dose: 25 mg Montelukast Sodium (Singulair) 10 mg PO [facility] Last Admin: 01/09/18 21:27 Dose: 10 mg Rosuvastatin Calcium (Crestor) 5 mg PO HS [facility] Last Admin: 01/09/18 21:27 Dose: 5 mg Tamsulosin HCl (Flomax) 0.4 mg PO DAILY [facility] Last Admin: 01/10/18 09:24 Dose: 0.4 mg - Labs Labs: 01/10/18 06:20 01/10/18 06:20 PT 24.4 SECONDS (9.7-12.2) H 01/05/18 06:22 INR 2.2 01/05/18 06:22 - Constitutional Appears: No Acute Distress, Chronically Ill - Head Exam Head Exam: ATRAUMATIC, NORMAL INSPECTION - Eye Exam Eye Exam: EOMI, Normal appearance - Neck Exam Neck Exam: Normal Inspection. absent: Tenderness - Respiratory Exam Respiratory Exam: Clear to Ausculation Bilateral, NORMAL BREATHING PATTERN - Cardiovascular Exam Cardiovascular Exam: Tachycardia, Irregular Rhythm - GI/Abdominal Exam GI & Abdominal Exam: Soft. absent: Tenderness - Extremities Exam Extremities Exam: Normal Inspection. absent: Tenderness - Neurological Exam Neurological Exam: Awake, CN II-XII Intact - Skin Skin Exam: Dry, Warm Assessment and Plan (1) MICHAEL (acute kidney injury) Status: Acute (2) Atrial fibrillation with RVR Status: Acute (3) CAD (coronary artery disease) Status: Acute (4) CHF (congestive heart failure) Status: Acute - Assessment and Plan (Free Text) Plan: Meds as per cardio Possible discharge Renal status stable
== END 2018-01-10 14:00 | DRG 291 ==
LOC: C.ER 05:23 → C.5S 06:41 → C.9E 08:39 → C.9I 09:43
PROVIDERS: ADMIT Internal Medicine; ATTEND Internal Medicine
DX: I11.0 Hypertensive heart disease with heart failure (principal); N17.0 Acute kidney failure with tubular necrosis; I48.92 Unspecified atrial flutter; E78.5 Hyperlipidemia, unspecified; I50.23 Acute on chronic systolic (congestive) heart failure; I25.10 Atherosclerotic heart disease of native coronary artery without angina pectoris; I48.91 Unspecified atrial fibrillation; J44.9 Chronic obstructive pulmonary disease, unspecified; R33.8 Other retention of urine; N40.1 Benign prostatic hyperplasia with lower urinary tract symptoms; K75.9 Inflammatory liver disease, unspecified; Z87.891 Personal history of nicotine dependence; Z95.1 Presence of aortocoronary bypass graft

== ENCOUNTER 2018-03-14 22:34 | Emergency (ER) | payer MEDICARE, MEDICAID, OTHER ==
[2018-03-14 22:34] VITALS: PULSE 100; BMI 30.4
[2018-03-14 23:04] VITALS: BP 110/61; PULSE 77; TEMP 98.1; O2SAT 96
[2018-03-14] MEDS ORDERED: Lidocaine Hydrochloride 5 ML INJ ONE (23:46)
--- NOTE | 2018-03-15 00:05 | C.PDOC ---
History Of Present Illness 82 year old male presents to the ED c/o redness and swelling to right index finger. Patient was his PMD and was prescribed Augmentin PO that he has been taking 2 days. Patient noticed whitish discoloration to the area which prompted the visit. Patient denies fever, chills, injury, fall, trauma, weakness, numbness. Time Seen by Provider: 03/14/18 23:15 Chief Complaint (Nursing): Finger,Hand,&Wrist History Per: Patient History/Exam Limitations: no limitations Onset/Duration Of Symptoms: Days Current Symptoms Are (Timing): Still Present Quality: "Pain" Recent travel outside of the [place]: No Additional History Per: Patient Past Medical History Reviewed: Historical Data, Nursing Documentation, Vital Signs Vital Signs: Last Vital Signs Temp 98.1 F 03/14/18 22:47 Pulse 77 03/14/18 22:47 Resp 18 03/14/18 22:47 BP 110/61 03/14/18 22:47 Pulse Ox 96 03/14/18 22:47 - Medical History PMH: CAD, Cardia Arrhythmia (afib), CHF (w/ 33% EF), HTN, Hypercholesterolemia, Peripheral Edema (ble +2 edema) Denies: Chronic Kidney Disease Surgical History: Appendectomy, CABG (09/20/10), Coronary Stent - [facility] Procedures DILATION OF 1 COR ART WITH DRUG-ELUT INTRA, PERC APPROACH (11/13/17) FLUOROSCOPY OF LEFT HEART USING LOW OSMOLAR CONTRAST (11/05/17) FLUOROSCOPY OF MULT COR ART USING L OSM CONTRAST (11/05/17) FLUOROSCOPY OF MULTIPLE CORONARY ARTERIES USING OTH CONTRAST (11/13/17) INTRODUCE OF OTH THERAP SUBST INTO RESP TRACT, VIA OPENING (11/13/17) MEASURE OF CARDIAC SAMPL & PRESSURE, L HEART, PERC APPROACH (11/05/17) Family History: States: Unknown Family Hx - Social History Hx Tobacco Use: No Hx Alcohol Use: No Hx Substance Use: No - Immunization History Hx Tetanus Toxoid Vaccination: No Hx Influenza Vaccination: No Hx Pneumococcal Vaccination: No Review Of Systems Constitutional: Negative for: Fever, Chills Musculoskeletal: Positive for: Hand Pain Skin: Positive for: Rash Neurological: Negative for: Weakness, Numbness Physical Exam - Physical Exam Appears: Non-toxic, No Acute Distress Skin: Warm, Dry, Other (right index finger whitish discoloration medial aspect right second DIP, possible fluctuance.no streaking, no paronychia , no swelling to finertip ) Head: Atraumatic, Normacephalic Eye(s): bilateral: Normal Inspection Neck: Normal ROM, Supple Extremity: Normal ROM, No Tenderness, Capillary Refill (< 2 seconds), No Swelling, Other (bulky bony deformity, chronic appearing with erythema to base of nailbed of right index finger) Pulses: Left Radial: Normal, Right Radial: Normal Neurological/Psych: Oriented x3, Normal Speech, Normal Cognition Gait: Steady ED Course And Treatment O2 Sat by Pulse Oximetry: 96 (ON RA) Pulse Ox Interpretation: Normal Progress Note: Plan: - Tylenol 650 mg PO. - Bacitracin. Patient requesting drainage, currently on eliquis. Patient was instructed that due to his eliquis needle aspiration needed to be done first, if purulent drainage then an incision may be done. Bacitracin and pressure dressing applied and patient was advised to follow up with PMD and educated on proper wound care. Patient should continue taking prescribed antibiotics. - Incision & Drainage Of Abscess Anesthesia: Lidocaine 1% (1 cc injected) Prep Used: Betadine Procedure: Incised W/Scalpel Blade#: (small incision made, thick whitish substance expressed), Drained Pus (using 18 gauge needle, aspirated whitish substance), Irrigated Cavity W/Saline, Probed To Break Up Loculations Disposition Counseled Patient/Family Regarding: Diagnosis - Disposition Referrals: Latoya Orosco MD [Staff Provider] - Disposition: HOME/ ROUTINE Disposition Time: 00:03 Condition: STABLE Additional Instructions: Please follow up with PMD on saturday for wound check Continue augmentin Take tylenol if pain Return to ER if increase pain, swelling, fever or worse Instructions: Cellulitis (Skin Infection), Adult (DC) Forms: [employer] (Thai) - Clinical Impression Clinical Impression: Abscess of finger of right hand, Cellulitis of right index finger - PA / [employer]ARE[employer]OR / Resident Statement MD/DO has reviewed & agrees with the documentation as recorded. - Scribe Statement The provider has reviewed the documentation as recorded by the Scribe Colby Torrez All medical record entries made by the Scribe were at my direction and personally dictated by me. I have reviewed the chart and agree that the record accurately reflects my personal performance of the history, physical exam, medical decision making, and the department course for this patient. I have also personally directed, reviewed, and agree with the discharge instructions and disposition.
[2018-03-15] MEDS ORDERED: Bacitracin 500 Units/gm Oint Foilpak UD ONE (00:09)
[2018-03-15 00:20] VITALS: RESP 20
[2018-03-15] MEDS ORDERED: Bacitracin Ointment 30 GM TUBE TOP ONE (00:30)
== END 2018-03-15 00:19 | disposition home or self-care (01) ==
LOC: C.ER 22:34
DX: L02.511 Cutaneous abscess of right hand (principal); L03.011 Cellulitis of right finger

== ENCOUNTER 2018-03-16 18:10 | Emergency (ER) | payer MEDICARE, MEDICAID ==
[2018-03-16 18:10] VITALS: PULSE 100
[2018-03-16 18:15] VITALS: BMI 31.4
[2018-03-16 18:19] VITALS: RESP 18; O2SAT 97
--- NOTE | 2018-03-16 19:12 | C.PDOC ---
History Of Present Illness 82 y/o male, with history of degenerative arthritis, presents to ED complaining of right second finger pain and swelling since 4 days ago. Patient states he was working in his yard 4 days ago when he developed swelling of 2nd finger. He was seen by PMD and had I&D done with purulent discharge, and was prescribed Augmentin but showed no improvement. Time Seen by Provider: 03/16/18 18:39 Chief Complaint (Nursing): Finger,Hand,&Wrist History Per: Patient History/Exam Limitations: no limitations Onset/Duration Of Symptoms: Days Current Symptoms Are (Timing): Still Present Past Medical History Reviewed: Historical Data, Nursing Documentation, Vital Signs Vital Signs: Last Vital Signs Temp 98.2 F 03/16/18 18:15 Pulse 116 H 03/16/18 18:15 Resp 18 03/16/18 18:15 BP 111/76 03/16/18 18:15 Pulse Ox 97 03/16/18 18:15 - Medical History PMH: CAD, Cardia Arrhythmia (afib), CHF (w/ 33% EF), HTN, Hypercholesterolemia, Peripheral Edema Denies: Chronic Kidney Disease Surgical History: Appendectomy, CABG (09/20/10), Coronary Stent - [facility] Procedures DILATION OF 1 COR ART WITH DRUG-ELUT INTRA, PERC APPROACH (11/13/17) FLUOROSCOPY OF LEFT HEART USING LOW OSMOLAR CONTRAST (11/05/17) FLUOROSCOPY OF MULT COR ART USING L OSM CONTRAST (11/05/17) FLUOROSCOPY OF MULTIPLE CORONARY ARTERIES USING OTH CONTRAST (11/13/17) INTRODUCE OF OTH THERAP SUBST INTO RESP TRACT, VIA OPENING (11/13/17) MEASURE OF CARDIAC SAMPL & PRESSURE, L HEART, PERC APPROACH (11/05/17) Family History: States: No Known Family Hx - Social History Hx Tobacco Use: No Hx Alcohol Use: No Hx Substance Use: No - Immunization History Hx Tetanus Toxoid Vaccination: No Hx Influenza Vaccination: No Hx Pneumococcal Vaccination: No Review Of Systems Except As Marked, All Systems Reviewed And Found Negative. Musculoskeletal: Positive for: Other (Right 2nd digit pain and swelling) Physical Exam - Physical Exam Appears: Non-toxic, No Acute Distress Skin: Warm, Dry Head: Atraumatic, Normacephalic Eye(s): bilateral: Normal Inspection Oral Mucosa: Moist Neck: Supple Chest: Symmetrical Cardiovascular: Rhythm Regular, No Murmur Respiratory: Normal Breath Sounds, No Rales, No Rhonchi, No Wheezing Extremity: Capillary Refill (less than 2 seconds), No Deformity, Swelling (of R distal phalanx, erythematous) Extremity: Bilateral: Normal Color And Temperature, Normal ROM Neurological/Psych: Oriented x3, Normal Speech, Normal Motor, Normal Sensation, Normal Reflexes ED Course And Treatment O2 Sat by Pulse Oximetry: 97 (RA) Pulse Ox Interpretation: Normal - Other Rad Right hand x-ray X-Ray: Interpreted by Me, Viewed By Me Interpretation: XR showed degenartive arthritis in DIP. Medical Decision Making Medical Decision Making: Plan: --Right hand x-ray Disposition Counseled Patient/Family Regarding: Diagnosis, Need For Followup - Disposition Referrals: Riddhi Granado MD [Staff Provider] - Disposition: HOME/ ROUTINE Disposition Time: 20:08 Condition: STABLE Prescriptions: Mupirocin 2% Ointment [Bactroban Ointment] 15 gm EXT BID #1 tube Instructions: Cellulitis (Skin Infection), Adult (DC) Forms: General Discharge Instructions, [employer] [facility] (Ukrainian), School Excuse - POA Present On Arrival: None - Clinical Impression Clinical Impression: Cellulitis, finger, Degenerative arthritis of finger - Scribe Statement The provider has reviewed the documentation as recorded by the Pauly Christian Provider Attestation: All medical record entries made by the Pauly were at my direction and personally dictated by me. I have reviewed the chart and agree that the record accurately reflects my personal performance of the history, physical exam, medical decision making, and the department course for this patient. I have also personally directed, reviewed, and agree with the discharge instructions and disposition.
[2018-03-16] MEDS ORDERED: Bacitracin 500 Units/gm Oint Foilpak UD ONE (20:25)
[2018-03-16 20:54] VITALS: BP 116/88; PULSE 84; TEMP 97.9
--- NOTE | 2018-03-17 12:14 | RAD ---
Date of service: 03/16/2018 PROCEDURE: Right Index finger radiographs. HISTORY: swelling COMPARISON: None available. TECHNIQUE: AP radiograph of the right hand, as well as spot oblique and lateral images of index finger were obtained. FINDINGS: Marked soft tissue swelling of the 2nd digit. Subluxation of the distal phalanx slightly medially. Apparent osseous abnormality/possibly osteomyelitis involving the distal aspect of the 2nd middle phalanx versus nondisplaced fracture. Remainder of the right hand (as seen on the AP view) grossly intact. No evidence of radiopaque foreign body. IMPRESSION: Marked soft tissue swelling of the 2nd digit. Subluxation of the distal phalanx slightly medially. Apparent osseous abnormality/possibly osteomyelitis involving the distal aspect of the 2nd middle phalanx versus nondisplaced fracture. Correlate clinically. Please note that MRI without and with IV contrast is most sensitive in detection of acute osteomyelitis. Study has been marked for PA review.
== END 2018-03-16 20:53 | disposition home or self-care (01) ==
LOC: C.ER 18:10
DX: L03.011 Cellulitis of right finger (principal); M19.041 Primary osteoarthritis, right hand

== ENCOUNTER 2018-03-26 14:27 | Inpatient (IN) | payer MEDICARE, MEDICAID ==
[2018-03-26 14:27] VITALS: BMI 31.4
[2018-03-26 15:27] LABS: INR 1.4; PROTHROMBIN TIME 15.7 SECONDS (9.7-12.2)
--- NOTE | 2018-03-26 15:28 | C.PDOC ---
History Of Present Illness 82 year old male is sent to the ED by Dr. Orosco for evaluation of swelling to right 2nd finger and possible admission. Patient has been evaluated in this ED for same complaint twice in the past. As per family, patient did not undergo any imaging on his first visit. Patient underwent XR imaging on his second visit, which showed osteomyelitis and he was discharged with antibiotics. Patient states he took Amoxicillin for ten days. Patient was referred to the ED for a CT scan and MRI. He denies fever, chills, or recent trauma to the area. Time Seen by Provider: 03/26/18 14:51 Chief Complaint (Nursing): Finger,Hand,&Wrist Past Medical History Vital Signs: Last Vital Signs Temp 97.9 F 03/26/18 14:42 Pulse 80 03/26/18 14:42 Resp 18 03/26/18 14:42 BP 108/71 03/26/18 14:42 Pulse Ox 97 03/26/18 14:42 - Medical History PMH: CAD, Cardia Arrhythmia (afib), CHF (w/ 33% EF), HTN, Hypercholesterolemia, Peripheral Edema Denies: Chronic Kidney Disease Surgical History: Appendectomy, CABG (09/20/10), Coronary Stent - [facility] Procedures DILATION OF 1 COR ART WITH DRUG-ELUT INTRA, PERC APPROACH (11/13/17) FLUOROSCOPY OF LEFT HEART USING LOW OSMOLAR CONTRAST (11/05/17) FLUOROSCOPY OF MULT COR ART USING L OSM CONTRAST (11/05/17) FLUOROSCOPY OF MULTIPLE CORONARY ARTERIES USING OTH CONTRAST (11/13/17) INTRODUCE OF OTH THERAP SUBST INTO RESP TRACT, VIA OPENING (11/13/17) MEASURE OF CARDIAC SAMPL & PRESSURE, L HEART, PERC APPROACH (11/05/17) - Social History Hx Tobacco Use: No Hx Alcohol Use: No Hx Substance Use: No - Immunization History Hx Tetanus Toxoid Vaccination: No Hx Influenza Vaccination: No Hx Pneumococcal Vaccination: No ED Course And Treatment O2 Sat by Pulse Oximetry: 97 (on RA ) Pulse Ox Interpretation: Normal Disposition - Disposition - Scribe Statement The provider has reviewed the documentation as recorded by the Scribe (Iva Cordova) All medical record entries made by the Scribe were at my direction and personally dictated by me. I have reviewed the chart and agree that the record accurately reflects my personal performance of the history, physical exam, medical decision making, and the department course for this patient. I have also personally directed, reviewed, and agree with the discharge instructions and disposition.
[2018-03-26 15:30] LABS: BASO # 0.1 K/uL (0.0-0.2); BASO % 1.1 % (0.0-2.0); EOS # 0.2 K/uL (0.0-0.7); EOS % 2.6 % (0.0-4.0); LYMPH # 0.9 K/uL (1.0-4.3); LYMPH % 14.3 % (20.0-40.0); MEAN CELL VOLUME 81.7 fL (80.0-94.0); MEAN CORPUSCULAR HEMOGLOBIN 26.8 pg (27.0-31.0); MEAN CORPUSCULAR HGB CONC 32.8 g/dL (33.0-37.0); MEAN PLATELET VOLUME 9.2 fL (7.2-11.7); MONO # 0.7 K/uL (0.0-0.8); MONO % 10.9 % (0.0-10.0); NEUT # 4.4 K/uL (1.8-7.0); NEUT % 71.1 % (50.0-75.0); RBC 4.46 Mil/uL (4.40-5.90); RED CELL DISTRIBUTION WIDTH 18.3 % (11.5-14.5); WHITE BLOOD COUNT 6.2 K/uL (4.8-10.8)
--- NOTE | 2018-03-26 15:32 | C.PDOC ---
History Of Present Illness 82 year old male is sent to the ED by Dr. Orosco for evaluation of swelling to right 2nd finger and possible admission. Patient has been evaluated in this ED for same complaint twice in the past. As per family, patient did not undergo any imaging on his first visit. Patient underwent XR imaging on his second visit, which showed osteomyelitis and he was discharged with antibiotics. Patient states he took Amoxicillin for ten days. Patient was referred to the ED for a CT scan and MRI. He denies fever, chills, or recent trauma to the area. Time Seen by Provider: 03/26/18 14:51 Chief Complaint (Nursing): Finger,Hand,&Wrist History Per: Patient, Family History/Exam Limitations: no limitations Onset/Duration Of Symptoms: Days Current Symptoms Are (Timing): Still Present Quality: "Pain" Additional History Per: Patient Past Medical History Reviewed: Historical Data, Nursing Documentation, Vital Signs Vital Signs: Last Vital Signs Temp 97.9 F 03/26/18 14:42 Pulse 80 03/26/18 14:42 Resp 18 03/26/18 14:42 BP 108/71 03/26/18 14:42 Pulse Ox 97 03/26/18 14:42 - Medical History PMH: CAD, Cardia Arrhythmia (afib), CHF (w/ 33% EF), HTN, Hypercholesterolemia, Peripheral Edema Denies: Chronic Kidney Disease Surgical History: Appendectomy, CABG (09/20/10), Coronary Stent - [facility] Procedures DILATION OF 1 COR ART WITH DRUG-ELUT INTRA, PERC APPROACH (11/13/17) FLUOROSCOPY OF LEFT HEART USING LOW OSMOLAR CONTRAST (11/05/17) FLUOROSCOPY OF MULT COR ART USING L OSM CONTRAST (11/05/17) FLUOROSCOPY OF MULTIPLE CORONARY ARTERIES USING OTH CONTRAST (11/13/17) INTRODUCE OF OTH THERAP SUBST INTO RESP TRACT, VIA OPENING (11/13/17) MEASURE OF CARDIAC SAMPL & PRESSURE, L HEART, PERC APPROACH (11/05/17) Family History: States: Unknown Family Hx - Social History Hx Tobacco Use: No Hx Alcohol Use: No Hx Substance Use: No - Immunization History Hx Tetanus Toxoid Vaccination: No Hx Influenza Vaccination: No Hx Pneumococcal Vaccination: No Review Of Systems Skin: Positive for: Other (right second finger erythema and swelling ) Physical Exam - Physical Exam Appears: Non-toxic, No Acute Distress Skin: Normal Color, Warm, Dry Head: Atraumatic, Normacephalic Eye(s): bilateral: Normal Inspection Oral Mucosa: Moist Neck: Supple Chest: Symmetrical, No Deformity, No Tenderness Cardiovascular: Rhythm Regular, No Murmur Respiratory: Normal Breath Sounds, No Rales, No Rhonchi, No Wheezing Extremity: No Normal ROM (limited in right second finger secondary to pain ), Tenderness (right second finger ), Capillary Refill (less than 2 seconds ), Other (erythema and swelling to right second finger) Pulses: Left Radial: Normal, Right Radial: Normal Neurological/Psych: Oriented x3, Normal Speech, Normal Cognition, Normal Sensation ED Course And Treatment - Laboratory Results Result Diagrams: 03/26/18 15:14 03/26/18 15:14 Lab Interpretation: Normal O2 Sat by Pulse Oximetry: 97 (on RA ) Pulse Ox Interpretation: Normal - CT Scan/US No standard instances Other Rad Studies (CT/US): Read By Radiologist, Radiology Report Reviewed CT/US Interpretation: PROCEDURE: RIGHT HAND CT WITHOUT CONTRAST 03/26/2018. HISTORY: right 2nd finger swelling. COMPARISON: Right 2nd digit/index finger radiographs 03/16/2018. TECHNIQUE: A volumetric CT acquisition through the right hand has been performed, including the index finger for evaluation of edema at the distal index finger. Reformatted dataset provided. Contrast Dose: None. Radiation dose:Total exam DLP = 183.59 mGy-cm. This CT exam was performed using one or more of the following dose reduction techniques: Automated exposure control, adjustment of the mA and/or kV according to patient size, and/or use of iterative reconstruction technique. FINDINGS: Evaluation of the index finger fails demonstrate definite fracture, subluxation or dislocation. Limited degenerative changes seen affecting the 1st 2nd metacarpophalangeal as well as proximal interphalangeal joints. However, erosive changes are identified affecting the volar greater than dorsal portion of the distal interphalangeal joint with definite loss of cortex identified with only limited matter cortex identified at the proximal metaphysis of the distal phalanx laterally. Erosive changes also affect the articular cortex of the middle phalanx at the level of the DIP joint and local soft tissue edema is moderately prominent related to this segment of the index finger as well. Limit ed edema is seen more proximally at the index finger and at the lateral hand subcutaneous fat. This is suspicious for osteomyelitis or aggressive inflammatory process. The pattern does not appear to reflect erosive osteoarthritis. Further clinical correlation is advised. No definitive abscess appreciable at this time. Otherwise diffuse degenerative changes seen throughout the interphalangeal joints of the remainder of the right hand as well as the metacarpophalangeal joints compatible with diffuse osteoarthritis. No additional destructive bony lesion appreciated. IMPRESSION: Findings s uggestive of osteomyelitis at the distal interphalangeal joint right index finger including the distal segment middle phalanx at and proximal segment distal phalanx versus aggressive inflammatory process. This does not appear to represent an erosive osteoarthritis. Further clinical correlation advised. Progress Note: Bloodwork, urinalysis, CT Upper extremity and Right hand XR ordered and reviewed. 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 - Scribe Statement The provider has reviewed the documentation as recorded by the Scribe (Iva Cordova) All medical record entries made by the Scribe were at my direction and personally dictated by me. I have reviewed the chart and agree that the record accurately reflects my personal performance of the history, physical exam, medical decision making, and the department course for this patient. I have also personally directed, reviewed, and agree with the discharge instructions and disposition. Decision To Admit - Pt Status Changed To: Hospital Disposition Of: Inpatient - Admit Certification Admit to Inpatient:: After my assessment, the patient will require hospitalization for at least two midnights. This is because of the severity of symptoms shown, intensity of services needed, and/or the medical risk in this patient being treated as an outpatient. - InPatient: Physician Admission Certification: I certify that this patient requires 2 or more midnights of care for the following reason:: Osteomylitis righ 2 nd finger - . Bed Request Type: Regular Admitting Physician: Latoya Orosco Patient Diagnosis: Acute osteomyelitis of hand including fingers
[2018-03-26 15:38] LABS: ALB/GLOB RATIO 1.2 (1.0-2.1); ALBUMIN 3.6 g/dL (3.5-5.0); BLOOD UREA NITROGEN 20 mg/dL (9-20); CALCIUM 8.6 mg/dl (8.6-10.4); GFR NON-AFRICAN AMERICAN > 60
[2018-03-26 15:40] LABS: ALT/SGPT 27 U/L (21-72); AST/SGOT 35 U/L (17-59)
[2018-03-26 15:41] LABS: SQUAMOUS EPITHIAL < 1 /hpf (0-5); URINE BILIRUBIN NEGATIVE (NEGATIVE); URINE BLOOD NEGATIVE (NEGATIVE); URINE CLARITY Clear (Clear); URINE COLOR Yellow (YELLOW); URINE GLUCOSE (UA) NORMAL (Normal); URINE LEUKOCYTE ESTERASE NEG Leu/uL (Negative); URINE PROTEIN NEGATIVE (NEGATIVE)
[2018-03-26] MEDS ORDERED: Vancomycin 1 GM 1 GM/250 ML BAG IV SCH (15:45)
[2018-03-26] MEDS ORDERED: Vancomycin 1 GM 1 GM/250 ML BAG IV ONE (18:15)
--- NOTE | 2018-03-26 22:49 | CP.PCM.CON ---
History of Present Illness - History of Present Illness History of Present Illness: INFECTIOUS DISEASE CONSULTATION ROD JONES MD, FACP CHART REVIEWED WITH PMD CASE DISCUSSED WITH DR CRAMER AT [facility] EXAMINE DESCRIBED EMPIRIC TREATMENT ARRANGED THERAPEUTIC MANAGEMENT HISTORY OF PRESENT ILLNESS: 82 year old male is sent to the ED by Dr. Orosco for evaluation of swelling to right 2nd finger and possible admission. Patient has been evaluated in this ED for same complaint twice in the past, RECENTLY As per family, patient did not undergo any imaging on his first visit. Patient underwent XR imaging on his second visit, which showed osteomyelitis and he was discharged with antibiotics. Patient states he took Amoxicillin for ten days. Patient was referred to the ED for a CT scan and MRI. He denies fever, chills, or recent trauma to the area. Time Seen by Provider: 03/26/18 Chief Complaint (Nursing): Finger,Hand,&Wrist History Per: Patient, Family, PMD History/Exam Limitations: no limitations Onset/Duration Of Symptoms: Days-WEEKS Current Symptoms Are (Timing): Still Present Quality: "Pain" Additional History Per: Patient Past Medical History Reviewed: Historical Data, Nursing Documentation, Vital Signs Vital Signs: Last Vital Signs Temp 97.9 F 03/26/18 14:42 Pulse 80 03/26/18 14:42 Resp 18 03/26/18 14:42 BP 108/71 03/26/18 14:42 Pulse Ox 97 03/26/18 14:42 - Medical History PMH: CAD, Cardia Arrhythmia (afib), CHF (w/ 33% EF), HTN, Hypercholesterolemia, Peripheral Edema Denies: Chronic Kidney Disease Surgical History: Appendectomy, CABG (09/20/10), Coronary Stent - [facility] Procedures DILATION OF 1 COR ART WITH DRUG-ELUT INTRA, PERC APPROACH (11/13/17) FLUOROSCOPY OF LEFT HEART USING LOW OSMOLAR CONTRAST (11/05/17) FLUOROSCOPY OF MULT COR ART USING L OSM CONTRAST (11/05/17) FLUOROSCOPY OF MULTIPLE CORONARY ARTERIES USING OTH CONTRAST (11/13/17) INTRODUCE OF OTH THERAP SUBST INTO RESP TRACT, VIA OPENING (11/13/17) MEASURE OF CARDIAC SAMPL & PRESSURE, L HEART, PERC APPROACH (11/05/17) Family History: States: Unknown Family Hx - Social History Hx Tobacco Use: No Hx Alcohol Use: No Hx Substance Use: No - Immunization History Hx Tetanus Toxoid Vaccination: No Hx Influenza Vaccination: No Hx Pneumococcal Vaccination: No Review Of Systems Skin: Positive for: Other (right second finger erythema and swelling ) Physical Exam - Physical Exam Appears: Non-toxic, No Acute Distress Skin: Normal Color, Warm, Dry Head: Atraumatic, Normacephalic Eye(s): bilateral: Normal Inspection Oral Mucosa: Moist Neck: Supple Chest: Symmetrical, No Deformity, No Tenderness Cardiovascular: Rhythm Regular, No Murmur Respiratory: Normal Breath Sounds, No Rales, No Rhonchi, No Wheezing Extremity: No Normal ROM (limited in right second finger secondary to pain ), Tenderness (right second finger ), Capillary Refill (less than 2 seconds ), Other (erythema and swelling to right second finger) Pulses: Left Radial: Normal, Right Radial: Normal Neurological/Psych: Oriented x3, Normal Speech, Normal Cognition, Normal Sensation ED Course And Treatment - Laboratory Results Result Diagrams: 03/26/18 15:14 03/26/18 15:14 Lab Interpretation: Normal O2 Sat by Pulse Oximetry: 97 (on RA ) Pulse Ox Interpretation: Normal - CT Scan/US No standard instances Other Rad Studies (CT/US): Read By Radiologist, Radiology Report Reviewed CT/US Interpretation: PROCEDURE: RIGHT HAND CT WITHOUT CONTRAST 03/26/2018. HISTORY: right 2nd finger swelling. COMPARISON: Right 2nd digit/index finger radiographs 03/16/2018. TECHNIQUE: A volumetric CT acquisition through the right hand has been performed, including the index finger for evaluation of edema at the distal index finger. Reformatted dataset provided. Contrast Dose: None. Radiation dose:Total exam DLP = 183.59 mGy-cm. This CT exam was performed using one or more of the following dose reduction techniques: Automated exposure control, adjustment of the mA and/or kV according to patient size, and/or use of iterative reconstruction technique. FINDINGS: Evaluation of the index finger fails demonstrate definite fracture, subluxation or dislocation. Limited degenerative changes seen affecting the 1st 2nd metacarpophalangeal as well as proximal interphalangeal joints. However, erosive changes are identified affecting the volar greater than dorsal portion of the distal interphalangeal joint with definite loss of cortex identified with only limited matter cortex identified at the proximal metaphysis of the distal phalanx laterally. Erosive changes also affect the articular cortex of the middle phalanx at the level of the DIP joint and local soft tissue edema is moderately prominent related to this segment of the index finger as well. Limited edema is seen more proximally at the index finger and at the lateral hand subcutaneous fat. This is suspicious for osteomyelitis or aggressive inflammatory process. The pattern does not appear to reflect erosive osteoarthritis. Further clinical correlation is advised. No definitive abscess appreciable at this time. Otherwise diffuse degenerative changes seen throughout the interphalangeal joints of the remainder of the right hand as well as the metacarpophalangeal joints compatible with diffuse osteoarthritis. No additional destructive bony lesion appreciated. IMPRESSION: Findings suggestive of osteomyelitis at the distal interphalangeal joint right index finger including the distal segment middle phalanx at and proximal segment distal phalanx versus aggressive inflammatory process. This does not appear to represent an erosive osteoarthritis. Further clinical correlation advised. Progress Note: Bloodwork, urinalysis, CT Upper extremity and Right hand XR ordered and reviewed. Treated with Vancomycin 1 GM IV Reassessment Condition: Unchanged - Physician Consult Information Physician Contacted: Latoya Orosco Outcome Of Conversation: admiIT FOR ACUTE OSTEOMYLITIS - NOT RESPONDING TO OUTPATIENT MEDICATIONS Past Patient History - Infectious Disease Hx of Infectious Diseases: None - Past Medical History & Family History Past Medical History?: Yes - Past Social History Smoking Status: Former Smoker - CARDIAC Hx Cardiac Disorders: Yes Hx Cardia Arrhythmia: Yes (afib) Hx Congestive Heart Failure: Yes (w/ 33% EF) Hx Hypercholesterolemia: Yes Hx Hypertension: Yes Hx Peripheral Edema: Yes - PULMONARY Hx Respiratory Disorders: No - NEUROLOGICAL Hx Neurological Disorder: No - HEENT Hx HEENT Problems: No - RENAL Hx Chronic Kidney Disease: No - ENDOCRINE/METABOLIC Hx Endocrine Disorders: No - HEMATOLOGICAL/ONCOLOGICAL Hx Blood Disorders: No - INTEGUMENTARY Hx Dermatological Problems: Yes Other/Comment: multiple moles removed by dr kerr as pr pt, pt does not know if any were malignant, pt stated "I don't know she gave me madie to put on,", mid chest healed scar, red raised rash and redness all over chest abd ad lower abd upper thighs redness goes around to back, slight redness to buttocks, age spots to forehead, large eccymotic area to right groin and r lower abd dressing dry and and intact had angiogram done 11/05/17 intact, multiple age spots to b/l for ehead and templees - MUSCULOSKELETAL/RHEUMATOLOGICAL Hx Musculoskeletal Disorders: No Hx Falls: No - GASTROINTESTINAL Hx Gastrointestinal Disorders: No - GENITOURINARY/GYNECOLOGICAL Hx Genitourinary Disorders: Yes Other/Comment: c/o urinary retention and is on flomax - PSYCHIATRIC Hx Psychophysiologic Disorder: No Hx Substance Use: No - SURGICAL HISTORY Hx Surgeries: Yes Hx Appendectomy: Yes Hx Coronary Artery Bypass Graft: Yes (09/20/10) Hx Coronary Stent: Yes - ANESTHESIA Hx Anesthesia: Yes Hx Anesthesia Reactions: No Hx Malignant Hyperthermia: No Has any member of the family had a problem w/ anesthesia?: No Meds Allergies/Adverse Reactions: Allergies Allergy/AdvReac Type Severity Reaction Status Date / Time No Known Allergies Allergy Verified 03/16/18 18:14 - Medications Medications: Current Medications Apixaban (Eliquis) 2.5 mg PO BID [facility] Carvedilol (Coreg) 3.125 mg PO BID [facility] Clopidogrel Bisulfate (Plavix) 75 mg PO DAILY [facility] Diltiazem HCl (Cardizem Cd) 180 mg PO DAILY [facility] Famotidine (Pepcid) 20 mg PO DAILY [facility] Finasteride (Proscar) 5 mg PO DAILY [facility] Furosemide (Lasix) 40 mg PO DAILY [facility] Ceftaroline Fosamil 600 mg/ (Sodium Chloride) 100 mls @ 100 mls/hr IVPB Q12H [facility]; Protocol Metronidazole (Flagyl) 500 mg in 100 mls @ 100 mls/hr IVPB Q8H MAY; Protocol Losartan Potassium (Cozaar) 25 mg PO DAILY [facility] Montelukast Sodium (Singulair) 10 mg PO HS [facility] Last Admin: 03/26/18 21:43 Dose: 10 mg Rosuvastatin Calcium (Crestor) 5 mg PO HS [facility] Last Admin: 03/26/18 21:43 Dose: 5 mg Tamsulosin HCl (Flomax) 0.4 mg PO DAILY [facility] Results - Vital Signs Recent Vital Signs: Last Vital Signs Temp 97.9 F 03/26/18 18:30 Pulse 93 H 03/26/18 18:30 Resp 20 03/26/18 18:30 BP 109/68 03/26/18 18:30 Pulse Ox 95 03/26/18 18:30 - Labs Result Diagrams: 03/26/18 15:14 03/26/18 15:14 Labs: Laboratory Results - last 24 hr 03/26/18 03/26/18 03/26/18 15:14 15:14 15:14 WBC 6.2 RBC 4.46 Hgb 12.0 Hct 36.4 MCV 81.7 D MCH 26.8 L MCHC 32.8 L RDW 18.3 H Plt Count 186 MPV 9.2 Neut % (Auto) 71.1 Lymph % (Auto) 14.3 L [place] % (Auto) 10.9 H Eos % (Auto) 2.6 Baso % (Auto) 1.1 Neut # (Auto) 4.4 Lymph # (Auto) 0.9 L [place] # (Auto) 0.7 Eos # (Auto) 0.2 Baso # (Auto) 0.1 ESR 10 PT INR Sodium 138 Potassium 3.9 Chloride 101 Carbon Dioxide 24 Anion Gap 17 BUN 20 Creatinine 1.1 Est GFR ( Amer) > 60 Est GFR (Non-Af Amer) > 60 Random Glucose 110 Lactic Acid Calcium 8.6 Total Bilirubin 1.0 AST 35 ALT 27 Alkaline Phosphatase 109 C-React Prot High Sens > 15.00 H Total Protein 6.6 Albumin 3.6 Globulin 3.0 Albumin/Globulin Ratio 1.2 Urine Color Urine Clarity Urine pH Ur Specific [place] Urine Protein Urine Glucose (UA) Urine Ketones Urine Blood Urine Nitrate Urine Bilirubin Urine Urobilinogen Ur Leukocyte Esterase Urine WBC (Auto) Urine RBC (Auto) Ur Squamous Epith Cells Hyaline Casts 03/26/18 03/26/18 03/26/18 15:14 15:18 15:33 WBC RBC Hgb Hct MCV MCH MCHC RDW Plt Count MPV Neut % (Auto) Lymph % (Auto) [place] % (Auto) Eos % (Auto) Baso % (Auto) Neut # (Auto) Lymph # (Auto) [place] # (Auto) Eos # (Auto) Baso # (Auto) ESR PT 15.7 H INR 1.4 Sodium Potassium Chloride Carbon Dioxide Anion Gap BUN Creatinine Est GFR ( Amer) Est GFR (Non-Af Amer) Random Glucose Lactic Acid 1.8 Calcium Total Bilirubin AST ALT Alkaline Phosphatase C-React Prot High Sens Total Protein Albumin Globulin Albumin/Globulin Ratio Urine Color Yellow Urine Clarity Clear Urine pH 6.0 Ur Specific [place] 1.009 Urine Protein Negative Urine Glucose (UA) Normal Urine Ketones Negative Urine Blood Negative Urine Nitrate Negative Urine Bilirubin Negative Urine Urobilinogen 2.0 Ur Leukocyte Esterase Neg Urine WBC (Auto) < 1 Urine RBC (Auto) < 1 Ur Squamous Epith Cells < 1 Hyaline Casts 11-20 H
[2018-03-26] MEDS: Ceftaroline 600 MG in Sodium Chloride 0.9% 100 ML IVPB SCH (22:52)
[2018-03-27] MEDS: metroNIDAZOLE IV 500 mg/100 ml 500 MG/100 ML BAG IVPB SCH ×4 (00:33→22:41)
--- NOTE | 2018-03-27 09:03 | CT ---
Date of service: 03/26/2018 PROCEDURE: RIGHT HAND CT WITHOUT CONTRAST 03/26/2018. HISTORY: right 2nd finger swelling COMPARISON: Right 2nd digit/index finger radiographs 03/16/2018. TECHNIQUE: A volumetric CT acquisition through the right hand has been performed, including the index finger for evaluation of edema at the distal index finger. Reformatted dataset provided. Contrast Dose: None Radiation dose:Total exam DLP = 183.59 mGy-cm. This CT exam was performed using one or more of the following dose reduction techniques: Automated exposure control, adjustment of the mA and/or kV according to patient size, and/or use of iterative reconstruction technique. FINDINGS: Evaluation of the index finger fails demonstrate definite fracture, subluxation or dislocation. Limited degenerative changes seen affecting the 1st 2nd metacarpophalangeal as well as proximal interphalangeal joints. However, erosive changes are identified affecting the volar greater than dorsal portion of the distal interphalangeal joint with definite loss of cortex identified with only limited matter cortex identified at the proximal metaphysis of the distal phalanx laterally. Erosive changes also affect the articular cortex of the middle phalanx at the level of the DIP joint and local soft tissue edema is moderately prominent related to this segment of the index finger as well. Limited edema is seen more proximally at the index finger and at the lateral hand subcutaneous fat. This is suspicious for osteomyelitis or aggressive inflammatory process. The pattern does not appear to reflect erosive osteoarthritis. Further clinical correlation is advised. No definitive abscess appreciable at this time. Otherwise diffuse degenerative changes seen throughout the interphalangeal joints of the remainder of the right hand as well as the metacarpophalangeal joints compatible with diffuse osteoarthritis. No additional destructive bony lesion appreciated. IMPRESSION: Findings suggestive of osteomyelitis at the distal interphalangeal joint right index finger including the distal segment middle phalanx at and proximal segment distal phalanx versus aggressive inflammatory process. This does not appear to represent an erosive osteoarthritis. Further clinical correlation advised.
--- NOTE | 2018-03-27 09:23 | RAD ---
PROCEDURE: Right Hand Radiographs. HISTORY: swelling COMPARISON: 03/16/2008 FINDINGS: BONES: There is further osteolysis and interval osseous fragmentation at the 2nd DIP joint level-ulnar side since prior radiograph. The valgus orientation here and the diffuse soft tissue swelling is re-noted no gas-forming cellulitis seen. Old healed fracture deformity 5th metacarpal similar. Flexion deformity 5th proximal interphalangeal joint-similar. Diffuse interphalangeal and metacarpal joint space narrowing. Osteophytosis most pronounced at 2nd and 3rd and 5th DIP joints. No erosion of the ulnar styloid seen. JOINTS: Multifocal osteoarthrosis SOFT TISSUES: Normal. OTHER FINDINGS: None. IMPRESSION: Interval progressive cortical and subcortical osteolysis with ossific fragmentation centered to the 2nd digit/index fingers DIP joint. An osteomyelitis/septic arthrosis here needs to be considered.-a concomitant erosive inflammatory arthrosis component is not entirely excluded. Infection is the diagnosis of exclusion needed here. Osteomyelitis is suspect. No gross radiopaque foreign body seen. Comments: Study marked for PA review .
[2018-03-27] MEDS: diltiaZEM 180 mg/24 Hours CD Cap PO SCH (09:32)
[2018-03-27] MEDS: Ceftaroline 600 MG in Sodium Chloride 0.9% 100 ML IVPB SCH ×2 (10:45→21:38)
--- NOTE | 2018-03-27 11:43 | CP.PCM.CON ---
History of Present Illness - History of Present Illness History of Present Illness: Orthopedic hand consultation Dr. Weber 82M complains of right index finger pain and swelling x 3 weeks. He says he had a piece of metal in his hand for many years from work, and he says it was sticking out of finger so he took pliers and pulled it out. He says that after that, his finger started getting more painful and swollen. He was seen in ER 03/14 and had I&D done at that time. Xrays of right hand showed OM and displacement of distal phalanx at that time. He was treated with PO antibiotics at that time. He followed up with Dr. sherman this time and he was instructed to come to the ER for further imaging. PMH: CAD s/p stents, valve replacement, CHF Review of Systems - Review of Systems All systems: reviewed and no additional remarkable complaints except - Musculoskeletal Musculoskeletal: As Per HPI - Integumentary Integumentary: As Per HPI - Neurological Neurological: As Per HPI Past Patient History - Infectious Disease Hx of Infectious Diseases: None - Past Medical History & Family History Past Medical History?: Yes Past Family History: Reviewed and not pertinent - Past Social History Smoking Status: Former Smoker - CARDIAC Hx Cardiac Disorders: Yes Hx Cardia Arrhythmia: Yes (afib) Hx Congestive Heart Failure: Yes (w/ 33% EF) Hx Hypercholesterolemia: Yes Hx Hypertension: Yes Hx Peripheral Edema: Yes - PULMONARY Hx Respiratory Disorders: No - NEUROLOGICAL Hx Neurological Disorder: No - HEENT Hx HEENT Problems: No - RENAL Hx Chronic Kidney Disease: No - ENDOCRINE/METABOLIC Hx Endocrine Disorders: No - HEMATOLOGICAL/ONCOLOGICAL Hx Blood Disorders: No - INTEGUMENTARY Hx Dermatological Problems: Yes Other/Comment: multiple moles removed by dr kerr as pr pt, pt does not know if any were malignant, pt stated "I don't know she gave me madie to put on,", mid chest healed scar, red raised rash and redness all over chest abd ad lower abd upper thighs redness goes around to back, slight redness to buttocks, age spots to forehead, large eccymotic area to right groin and r lower abd dressing dry and and intact had angiogram done 11/05/17 intact, multiple age spots to b/l forehead and templees - MUSCULOSKELETAL/RHEUMATOLOGICAL Hx Musculoskeletal Disorders: No Hx Falls: No - GASTROINTESTINAL Hx Gastrointestinal Disorders: No - GENITOURINARY/GYNECOLOGICAL Hx Genitourinary Disorders: Yes Other/Comment: c/o urinary retention and is on flomax - PSYCHIATRIC Hx Psychophysiologic Disorder: No Hx Substance Use: No - SURGICAL HISTORY Hx Surgeries: Yes Hx Appendectomy: Yes Hx Coronary Artery Bypass Graft: Yes (09/20/10) Hx Coronary Stent: Yes - ANESTHESIA Hx Anesthesia: Yes Hx Anesthesia Reactions: No Hx Malignant Hyperthermia: No Has any member of the family had a problem w/ anesthesia?: No Meds Allergies/Adverse Reactions: Allergies Allergy/AdvReac Type Severity Reaction Status Date / Time No Known Allergies Allergy Verified 03/16/18 18:14 - Medications Medications: Current Medications Apixaban (Eliquis) 2.5 mg PO BID [facility] Carvedilol (Coreg) 3.125 mg PO BID [facility] Last Admin: 03/27/18 09:32 Dose: 3.125 mg Clopidogrel Bisulfate (Plavix) 75 mg PO DAILY [facility] Last Admin: 03/27/18 09:32 Dose: 75 mg Diltiazem HCl (Cardizem Cd) 180 mg PO DAILY [facility] Last Admin: 03/27/18 09:32 Dose: 180 mg Famotidine (Pepcid) 20 mg PO DAILY [facility] Last Admin: 03/27/18 09:32 Dose: 20 mg Finasteride (Proscar) 5 mg PO DAILY [facility] Last Admin: 03/27/18 10:58 Dose: 5 mg Furosemide (Lasix) 40 mg PO DAILY [facility] Last Admin: 03/27/18 09:31 Dose: 40 mg Ceftaroline Fosamil 600 mg/ (Sodium Chloride) 100 mls @ 100 mls/hr IVPB Q12H [facility]; Protocol Last Admin: 03/26/18 22:52 Dose: 100 mls/hr Metronidazole (Flagyl) 500 mg in 100 mls @ 100 mls/hr IVPB Q8H [facility]; Protocol Last Admin: 03/27/18 07:51 Dose: 100 mls/hr Losartan Potassium (Cozaar) 25 mg PO DAILY [facility] Last Admin: 03/27/18 09:32 Dose: 25 mg Montelukast Sodium (Singulair) 10 mg PO HS [facility] Last Admin: 03/26/18 21:43 Dose: 10 mg Rosuvastatin Calcium (Crestor) 5 mg PO HS [facility] Last Admin: 03/26/18 21:43 Dose: 5 mg Tamsulosin HCl (Flomax) 0.4 mg PO DAILY [facility] Last Admin: 03/27/18 09:32 Dose: 0.4 mg Physical Exam - Constitutional Appears: Well, No Acute Distress - Head Exam Head Exam: ATRAUMATIC - Neck Exam Neck exam: Positive for: Full Rom, Normal Inspection - Extremities Exam Additional comments: finger swollen, able to flex but stiff. No pain with active flex/ext, complains of mild pain with PROM DIP joint. TTP to distal phalanx and DIP joint - Expanded Upper Extremities Exam Right Neuro motor exam: finger 2-5 abduction intact, thumb abduction, thumb IP flexion intact, thumb opposition intact, wrist extension intact Neurosensory exam: median nerve intact, radial nerve intact, ulnar nerve intact Vascular exam: radial pulse - Neurological Exam Neurological exam: Alert, Oriented x3 - Psychiatric Exam Psychiatric exam: Normal Affect, Normal Mood - Skin Additional comments: erythema and swelling around right index DIP joint. Dry. noted site of I&D from ED Results - Vital Signs Recent Vital Signs: Last Vital Signs Temp 97.6 F 03/27/18 07:57 Pulse 97 H 03/27/18 09:30 Resp 20 03/27/18 07:57 BP 121/77 03/27/18 09:31 Pulse Ox 96 03/27/18 07:57 - Labs Result Diagrams: 03/26/18 15:14 03/26/18 15:14 Labs: Laboratory Results - last 24 hr 03/26/18 03/26/18 03/26/18 15:14 15:14 15:14 WBC 6.2 RBC 4.46 Hgb 12.0 Hct 36.4 MCV 81.7 D MCH 26.8 L MCHC 32.8 L RDW 18.3 H Plt Count 186 MPV 9.2 Neut % (Auto) 71.1 Lymph % (Auto) 14.3 L Levy % (Auto) 10.9 H Eos % (Auto) 2.6 Baso % (Auto) 1.1 Neut # (Auto) 4.4 Lymph # (Auto) 0.9 L Levy # (Auto) 0.7 Eos # (Auto) 0.2 Baso # (Auto) 0.1 ESR 10 PT INR Sodium 138 Potassium 3.9 Chloride 101 Carbon Dioxide 24 Anion Gap 17 BUN 20 Creatinine 1.1 Est GFR ( Amer) > 60 Est GFR (Non-Af Amer) > 60 Random Glucose 110 Lactic Acid Calcium 8.6 Total Bilirubin 1.0 AST 35 ALT 27 Alkaline Phosphatase 109 C-React Prot High Sens > 15.00 H Total Protein 6.6 Albumin 3.6 Globulin 3.0 Albumin/Globulin Ratio 1.2 Urine Color Urine Clarity Urine pH Ur Specific [place] Urine Protein Urine Glucose (UA) Urine Ketones Urine Blood Urine Nitrate Urine Bilirubin Urine Urobilinogen Ur Leukocyte Esterase Urine WBC (Auto) Urine RBC (Auto) Ur Squamous Epith Cells Hyaline Casts 03/26/18 03/26/18 03/26/18 15:14 15:18 15:33 WBC RBC Hgb Hct MCV MCH MCHC RDW Plt Count MPV Neut % (Auto) Lymph % (Auto) Levy % (Auto) Eos % (Auto) Baso % (Auto) Neut # (Auto) Lymph # (Auto) Levy # (Auto) Eos # (Auto) Baso # (Auto) ESR PT 15.7 H INR 1.4 Sodium Potassium Chloride Carbon Dioxide Anion Gap BUN Creatinine Est GFR ( Amer) Est GFR (Non-Af Amer) Random Glucose Lactic Acid 1.8 Calcium Total Bilirubin AST ALT Alkaline Phosphatase C-React Prot High Sens Total Protein Albumin Globulin Albumin/Globulin Ratio Urine Color Yellow Urine Clarity Clear Urine pH 6.0 Ur Specific [place] 1.009 Urine Protein Negative Urine Glucose (UA) Normal Urine Ketones Negative Urine Blood Negative Urine Nitrate Negative Urine Bilirubin Negative Urine Urobilinogen 2.0 Ur Leukocyte Esterase Neg Urine WBC (Auto) < 1 Urine RBC (Auto) < 1 Ur Squamous Epith Cells < 1 Hyaline Casts 11-20 H - Impressions Impression: Patient Name / ID : ALTON Oropeza / [id number] Exam Date : 03/26/2018 15:37:38 ( Approved ) Study Comment : Sex / Age : M / [id number] Creator : Darian Kiran MD Dictator : Darian Kiran MD English As A Second Language Instructor : Online Marketer : Darian Kiran MD Approver2 : Report Date : 03/26/2018 16:26:10 My Comment : Date of service: 03/26/2018 PROCEDURE: RIGHT HAND CT WITHOUT CONTRAST 03/26/2018. HISTORY: right 2nd finger swelling COMPARISON: Right 2nd digit/index finger radiographs 03/16/2018. TECHNIQUE: A volumetric CT acquisition through the right hand has been performed, including the index finger for evaluation of edema at the distal index finger. Reformatted dataset provided. Contrast Dose: None Radiation dose:Total exam DLP = 183.59 mGy-cm. This CT exam was performed using one or more of the following dose reduction techniques: Automated exposure control, adjustment of the mA and/or kV according to patient size, and/or use of iterative reconstruction technique. FINDINGS: Evaluation of the index finger fails demonstrate definite fracture, subluxation or dislocation. Limited degenerative changes seen affecting the 1st 2nd metacarpophalangeal as well as proximal interphalangeal joints. However, ero sive changes are identified affecting the volar greater than dorsal portion of the distal interphalangeal joint with definite loss of cortex identified with only limited matter cortex identified at the proximal metaphysis of the distal phalanx laterally. Erosive changes also affect the articular cortex of the middle phalanx at the level of the DIP joint and local soft tissue edema is moderately prominent related to this segment of the index finger as well. Limited edema is seen more proximally at the index finger and at the lateral hand subcutaneous fat. This is suspicious for osteomyelitis or aggressive inflammatory process. The pattern does not appear to reflect erosive osteoarthritis. Further clinical correlation is advised. No definitive abscess appreciable at this time. Otherwise diffuse degenerative changes seen throughout the interphalangeal joints of the remainder of the right hand as well as the metacarpophalangeal joints compatible with diffuse osteoarthritis. No additional destructive bony lesion appreciated. IMPRESSION: Findings suggestive of osteomyelitis at the distal interphalangeal joint right index finger including the distal segment middle phalanx at and proximal segment distal phalanx versus aggressive inflammatory process. This does not appear to represent an erosive osteoarthritis. Further clinical correlation advised. Assessment & Plan (1) Acute osteomyelitis of hand including fingers Assessment and Plan: will d/w Dr. Weber ID consultation appreciated addendum: imaging reviewed, xrays from ER 03/14/18 already show OM, displacement of distal phalanx, and erosion of DIP joint to indicate this is long standing bony infection since prior to that date. After discussion with Dr. Weber, will offer patient partial finger amputation will follow up response to IV antibiotics and discuss further with patient in am Status: Acute
--- NOTE | 2018-03-27 20:38 | CP.PCM.PN ---
Subjective - Date & Time of Evaluation Date of Evaluation: 03/27/18 Time of Evaluation: 20:34 - Subjective Subjective: INFECTIOUS DISEASE PROGRESS NOTE ROD JONES MD, FACP 03/27/2018 CHART REVIEWED PT EXAMINED CASE DISCUSSED WITH DR CRAMER RESPONDING TO IV ANTIBIOTICS, TEFLARO PRESENTLY LUNGS STABLE COR NOTED 'INDEX FINGER RIGHT HAND MARKEDLY SWOLLEN AND DISTORTED, WITH LOCAL PAIN. CONTINUE TEFLARO - EGFR OVER 60 -APPROPIATE DOSE FOR TREATMENT. OBSERVE OVER THE NEXT FEW DAYS - CONSIDER 2 WEEKS OF IV AND THEN WILL DECIDE ON ANY ORAL TREATMENT IF POSSIBLE. Objective - Vital Signs/Intake and Output Vital Signs (last 24 hours): Temp Pulse Resp BP Pulse Ox 97.6 F 85 20 106/73 95 03/27/18 16:39 03/27/18 16:39 03/27/18 16:39 03/27/18 16:39 03/27/18 16:39 - Medications Medications: Current Medications Apixaban (Eliquis) 2.5 mg PO BID [facility] Last Admin: 03/27/18 18:55 Dose: 2.5 mg Carvedilol (Coreg) 3.125 mg PO BID [facility] Last Admin: 03/27/18 17:39 Dose: 3.125 mg Clopidogrel Bisulfate (Plavix) 75 mg PO DAILY [facility] Last Admin: 03/27/18 09:32 Dose: 75 mg Diltiazem HCl (Cardizem Cd) 180 mg PO DAILY [facility] Last Admin: 03/27/18 09:32 Dose: 180 mg Famotidine (Pepcid) 20 mg PO DAILY [facility] Last Admin: 03/27/18 09:32 Dose: 20 mg Finasteride (Proscar) 5 mg PO DAILY [facility] Last Admin: 03/27/18 10:58 Dose: 5 mg Furosemide (Lasix) 40 mg PO DAILY [facility] Last Admin: 03/27/18 09:31 Dose: 40 mg Ceftaroline Fosamil 600 mg/ (Sodium Chloride) 100 mls @ 100 mls/hr IVPB Q12H [facility]; Protocol Last Admin: 03/27/18 10:45 Dose: 100 mls/hr Metronidazole (Flagyl) 500 mg in 100 mls @ 100 mls/hr IVPB Q8H [facility]; Protocol Last Admin: 03/27/18 13:56 Dose: 100 mls/hr Losartan Potassium (Cozaar) 25 mg PO DAILY [facility] Last Admin: 03/27/18 09:32 Dose: 25 mg Montelukast Sodium (Singulair) 10 mg PO HS [facility] Last Admin: 03/26/18 21:43 Dose: 10 mg Rosuvastatin Calcium (Crestor) 5 mg PO HS [facility] Last Admin: 03/26/18 21:43 Dose: 5 mg Tamsulosin HCl (Flomax) 0.4 mg PO DAILY [facility] Last Admin: 03/27/18 09:32 Dose: 0.4 mg - Labs Labs: 03/26/18 15:14 03/26/18 15:14 PT 15.7 SECONDS (9.7-12.2) H 03/26/18 15:18 INR 1.4 03/26/18 15:18
[2018-03-28] MEDS: metroNIDAZOLE IV 500 mg/100 ml 500 MG/100 ML BAG IVPB SCH ×3 (06:01→21:30)
--- NOTE | 2018-03-28 07:39 | CP.PCM.PN ---
Subjective - Date & Time of Evaluation Date of Evaluation: 03/28/18 Time of Evaluation: 10:24 - Subjective Subjective: Patient still complaining of finger pain, no change. 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 Will plan for OR on 04/[address] Weber Objective - Vital Signs/Intake and Output Vital Signs (last 24 hours): Temp Pulse Resp BP Pulse Ox 97.3 F L 90 20 108/75 97 03/28/18 00:00 03/28/18 00:00 03/28/18 00:00 03/28/18 00:00 03/28/18 00:00 - Medications Medications: Current Medications Apixaban (Eliquis) 2.5 mg PO BID [facility] Last Admin: 03/27/18 18:55 Dose: 2.5 mg Carvedilol (Coreg) 3.125 mg PO BID [facility] Last Admin: 03/27/18 17:39 Dose: 3.125 mg Clopidogrel Bisulfate (Plavix) 75 mg PO DAILY [facility] Last Admin: 03/27/18 09:32 Dose: 75 mg Diltiazem HCl (Cardizem Cd) 180 mg PO DAILY [facility] Last Admin: 03/27/18 09:32 Dose: 180 mg Famotidine (Pepcid) 20 mg PO DAILY [facility] Last Admin: 03/27/18 09:32 Dose: 20 mg Finasteride (Proscar) 5 mg PO DAILY [facility] Last Admin: 03/27/18 10:58 Dose: 5 mg Furosemide (Lasix) 40 mg PO DAILY [facility] Last Admin: 03/27/18 09:31 Dose: 40 mg Ceftaroline Fosamil 600 mg/ (Sodium Chloride) 100 mls @ 100 mls/hr IVPB Q12H [facility]; Protocol Last Admin: 03/27/18 21:38 Dose: 100 mls/hr Metronidazole (Flagyl) 500 mg in 100 mls @ 100 mls/hr IVPB Q8H [facility]; Protocol Last Admin: 03/28/18 06:01 Dose: 100 mls/hr Losartan Potassium (Cozaar) 25 mg PO DAILY [facility] Last Admin: 03/27/18 09:32 Dose: 25 mg Montelukast Sodium (Singulair) 10 mg PO HS [facility] Last Admin: 03/27/18 21:42 Dose: 10 mg Rosuvastatin Calcium (Crestor) 5 mg PO HS [facility] Last Admin: 03/27/18 21:43 Dose: 5 mg Tamsulosin HCl (Flomax) 0.4 mg PO DAILY [facility] Last Admin: 03/27/18 09:32 Dose: 0.4 mg - Labs Labs: 03/26/18 15:14 03/26/18 15:14 PT 15.7 SECONDS (9.7-12.2) H 03/26/18 15:18 INR 1.4 03/26/18 15:18 - Extremities Exam Additional comments: finger swollen, able to flex but stiff. No pain with active flex/ext, complains of mild pain with PROM DIP joint. TTP to distal phalanx and DIP joint no change +erythema dry Assessment and Plan (1) Acute osteomyelitis of hand including fingers Assessment & Plan: plan OR Tues 04/[address] Weber antibiotics per ID pain medication prn d/w Dr. Weber, agrees with above Status: Acute
[2018-03-28 07:45] LABS: BASO % 0.8 % (0.0-2.0); EOS # 0.3 K/uL (0.0-0.7); EOS % 5.1 % (0.0-4.0); HEMOGLOBIN 11.2 g/dL (12.0-18.0); LYMPH # 0.7 K/uL (1.0-4.3); LYMPH % 11.5 % (20.0-40.0); MEAN CELL VOLUME 83.2 fL (80.0-94.0); MEAN CORPUSCULAR HEMOGLOBIN 27.7 pg (27.0-31.0); MEAN CORPUSCULAR HGB CONC 33.3 g/dL (33.0-37.0); MEAN PLATELET VOLUME 9.3 fL (7.2-11.7); MONO # 0.6 K/uL (0.0-0.8); MONO % 9.8 % (0.0-10.0); NEUT # 4.2 K/uL (1.8-7.0); NEUT % 72.8 % (50.0-75.0); RBC 4.06 Mil/uL (4.40-5.90); RED CELL DISTRIBUTION WIDTH 18.3 % (11.5-14.5); WHITE BLOOD COUNT 5.7 K/uL (4.8-10.8)
[2018-03-28 08:26] LABS: ALB/GLOB RATIO 1.1 (1.0-2.1); ALT/SGPT 34 U/L (21-72); AST/SGOT 21 U/L (17-59); BLOOD UREA NITROGEN 16 mg/dL (9-20); CALCIUM 8.5 mg/dl (8.6-10.4); GFR NON-AFRICAN AMERICAN > 60
[2018-03-28] MEDS: diltiaZEM 180 mg/24 Hours CD Cap PO SCH (09:11)
[2018-03-28] MEDS: Ceftaroline 600 MG in Sodium Chloride 0.9% 100 ML IVPB SCH ×2 (11:23→21:59)
--- NOTE | 2018-03-28 20:03 | CP.PCM.PN ---
Subjective - Date & Time of Evaluation Date of Evaluation: 03/28/18 Time of Evaluation: 19:59 - Subjective Subjective: INFECTIOUS DISEASE PROGRESS NOTES ROD JONES MD, FACP 03/28/2018 CHART REVIEWED PT EXAMINED CASE DISCUSSED RESPONDING TO IV ANTIBIOTICS DISCUSSED HIS FINDINGS WITH THE PATIENT AND HIS LADY FRIEND, NEITHER ONE WISHES TO HAVE ANY AMPUTATIONS- SURGERY, DONE. RESPONDING TO IV ANTIBIOTICS, TEFLARO PRESENTLY LUNGS STABLE COR NOTED INDEX FINGER RIGHT HAND MARKEDLY SWOLLEN AND DISTORTED, WITH SOME LOCAL PAIN ONLY, NO LYMPHANGITIS OR CELLULITIS APPRECIATED. TREAT LOCALLY, FINAL OUTCOME TO BE EVALUATED. RECHECK ESR AND CRP ON SATURDAY Objective - Vital Signs/Intake and Output Vital Signs (last 24 hours): Temp Pulse Resp BP Pulse Ox 97.8 F 90 20 115/74 95 03/28/18 15:00 03/28/18 15:00 03/28/18 15:00 03/28/18 15:00 03/28/18 15:00 - Medications Medications: Current Medications Apixaban (Eliquis) 2.5 mg PO BID [facility] Last Admin: 03/28/18 17:39 Dose: 2.5 mg Carvedilol (Coreg) 3.125 mg PO BID [facility] Last Admin: 03/28/18 17:39 Dose: 3.125 mg Clopidogrel Bisulfate (Plavix) 75 mg PO DAILY [facility] Last Admin: 03/28/18 09:11 Dose: 75 mg Diltiazem HCl (Cardizem Cd) 180 mg PO DAILY [facility] Last Admin: 03/28/18 09:11 Dose: 180 mg Famotidine (Pepcid) 20 mg PO DAILY [facility] Last Admin: 03/28/18 09:11 Dose: 20 mg Finasteride (Proscar) 5 mg PO DAILY [facility] Last Admin: 03/28/18 09:11 Dose: 5 mg Furosemide (Lasix) 40 mg PO DAILY [facility] Last Admin: 03/28/18 09:11 Dose: 40 mg Ceftaroline Fosamil 600 mg/ (Sodium Chloride) 100 mls @ 100 mls/hr IVPB Q12H [facility]; Protocol Last Admin: 03/28/18 11:23 Dose: 100 mls/hr Metronidazole (Flagyl) 500 mg in 100 mls @ 100 mls/hr IVPB Q8H [facility]; Protocol Last Admin: 03/28/18 14:00 Dose: 100 mls/hr Losartan Potassium (Cozaar) 25 mg PO DAILY [facility] Last Admin: 03/28/18 09:11 Dose: 25 mg Montelukast Sodium (Singulair) 10 mg PO HS [facility] Last Admin: 03/27/18 21:42 Dose: 10 mg Rosuvastatin Calcium (Crestor) 5 mg PO HS [facility] Last Admin: 03/27/18 21:43 Dose: 5 mg Tamsulosin HCl (Flomax) 0.4 mg PO DAILY [facility] Last Admin: 03/28/18 09:11 Dose: 0.4 mg - Labs Labs: 03/28/18 07:38 03/28/18 07:38 PT 15.7 SECONDS (9.7-12.2) H 03/26/18 15:18 INR 1.4 03/26/18 15:18
--- NOTE | 2018-03-29 02:03 | PN ---
DATE: 03/27/2018 SUBJECTIVE: The patient was seen by me at 08:30 a.m. The patient is very comfortable. He is not in any distress. He is tolerating the antibiotic right now. The patient's right hand swelling has some improvement noted. Redness also improving. PHYSICAL EXAMINATION: VITAL SIGNS: Stable. CHEST: Good air entry. HEART: Regular heart sound. ABDOMEN: Nontender. I discussed with Infectious Disease also and also appreciated the orthopedic evaluation. The patient now will need antibiotic for the possible acute osteomyelitis intravenously. We will continue to monitor, and we will follow up with the patient. Latoya Orosco MD
--- NOTE | 2018-03-29 02:08 | PN ---
DATE: 03/28/2018 SUBJECTIVE: The patient is now comfortably sleeping. He is not in any distress at this time. The right index finger swelling is somewhat improving and pain is also less noted. The patient was seen by Infectious Disease. Currently, he is receiving intravenous Teflaro injection. PHYSICAL EXAMINATION: VITAL SIGNS: Temperature 97.8, pulse 90, blood pressure is 115/74, saturation is 95%. Currently, the patient is on Eliquis 2.5 mg twice a day; Coreg 3.125 b.i.d.; Plavix 75 mg daily; diltiazem 180 mg daily; Pepcid 20 daily; Proscar 5 mg daily; Lasix 40 mg daily; Teflaro 600 mg IV two times a day; Flagyl 500 mg IV three times a day; Cozaar 25 mg; Singulair 10 mg; Crestor 5 mg; and also receiving Flomax 0.4 mg. LABORATORY DATA: Reviewed. ASSESSMENT AND RECOMMENDED: The patient now admitted with acute osteomyelitis involving the right middle phalanx and associated with severe arthritic changes with subluxation of the distal interphalangeal joint area. Blood pressure is on the low side. We will reduce the Lasix, and also we will reduce the antihypertensives, and we will continue to monitor, and we will follow up with the patient. Latoya Orosco MD
--- NOTE | 2018-03-29 04:13 | HP ---
CHIEF COMPLAINT: Right index finger severe pain. HISTORY OF PRESENT ILLNESS: This is an 82-year-old male with a history of CAD, status post coronary artery bypass grafting; hypertension; hypercholesterolemia; history of atrial fibrillation, on anticoagulation. Also had admitted with recently multiple times with decompensated heart failure and also rapid ventricular rate, came to the office initially with right index finger swelling and pain. A week ago, the patient went to the emergency room with sudden onset of swelling in the right index finger. The patient was not clear whether he had any injuries or not, but following some work he was doing in the backyard, he had some splinter injury in the right index finger, and he was trying to remove that, and he started having more pain, and he came into the emergency room five days ago. At that time, the patient was seen in the emergency room, and he was sent home with a topical antibiotic and also given pain medications, but two days later again he came into the emergency room with worsening pain, swelling, and redness and also having some chills. At that time, he had x-rays of the finger and was given Augmentin, and he was sent home. The patient finished taking the Augmentin, and he came into the office at that time on the day of admission, and I recommended him to go to the hospital because of the suspected underlying osteomyelitis. The patient was having severe pain, swelling, and unable to move the finger. He has no nausea or vomiting. No other systemic symptoms. No diarrhea noted. PAST MEDICAL HISTORY: Coronary artery bypass grafting, CAD, hypertension, hyperlipidemia, history of smoking, and COPD. ALLERGIES: NO KNOWN DRUG ALLERGIES. PERSONAL HISTORY: The patient used to be a heavy smoker, almost five packs per day for many years and quit recently. PAST SURGICAL HISTORY: Include coronary artery bypass grafting. FAMILY HISTORY: Significant for hypertension and heart disease. REVIEW OF SYSTEMS: As noted. The patient is currently having no chest pain. No shortness of breath. Denies any headache, but significant problem in the right index finger with the swelling, redness, and edema. PHYSICAL EXAMINATION: VITAL SIGNS: Upon admission, temperature 97.9, pulse 80, blood pressure 108/71, respiration is 18, and saturation is 97%. HEENT: PERRLA. NECK: Supple. CHEST: Bilateral good air entry. No wheezing or rales noted. HEART: Regular heart sounds. ABDOMEN: Nontender abdomen. EXTREMITIES: No pedal edema. CENTRAL NERVOUS SYSTEM: Alert, awake, and oriented x3. No functional neurological deficit. On the right hand, the patient has fusiform swelling involving the right index finger of the distal phalanx, redness, swelling, and severe significant pain noted. There is no proximal adenitis noted. LABORATORY DATA: WBC 6.2, hemoglobin 12, hematocrit 36.4, platelets 186. Chemistry is otherwise nonspecific. CAT scan of the hand showing evidence of possible acute osteomyelitic changes with erosive arthritis, and also there is an evidence of severe osteoarthritis and subluxation. ESR elevation mildly noted. CRP is highly elevated. ASSESSMENT AND RECOMMENDATIONS: An 82-year-old male with a history of multiple medical histories including coronary artery disease, coronary artery bypass grafting, chronic obstructive pulmonary disease, diabetes, hypertension, and atrial fibrillation. Admitted to the hospital now with possible acute osteomyelitis of the right index finger. The patient will need intravenous antibiotic, infectious disease evaluation and orthopedic evaluation. Continue the current treatment. We will follow the patient. Latoya Orosco MD
[2018-03-29] MEDS: metroNIDAZOLE IV 500 mg/100 ml 500 MG/100 ML BAG IVPB SCH ×3 (06:30→23:18)
[2018-03-29 07:32] LABS: BASO # 0.1 K/uL (0.0-0.2); EOS # 0.2 K/uL (0.0-0.7); EOS % 2.9 % (0.0-4.0); HEMOGLOBIN 11.3 g/dL (12.0-18.0); MEAN CELL VOLUME 83.4 fL (80.0-94.0); MEAN CORPUSCULAR HEMOGLOBIN 27.4 pg (27.0-31.0); MEAN CORPUSCULAR HGB CONC 32.8 g/dL (33.0-37.0); MEAN PLATELET VOLUME 9.3 fL (7.2-11.7); MONO # 0.5 K/uL (0.0-0.8); MONO % 8.5 % (0.0-10.0); NEUT # 4.1 K/uL (1.8-7.0); NEUT % 70.6 % (50.0-75.0); RBC 4.11 Mil/uL (4.40-5.90); RED CELL DISTRIBUTION WIDTH 18.2 % (11.5-14.5); WHITE BLOOD COUNT 5.9 K/uL (4.8-10.8)
[2018-03-29 08:28] LABS: ALB/GLOB RATIO 1.2 (1.0-2.1); ALT/SGPT 29 U/L (21-72); AST/SGOT 16 U/L (17-59); BLOOD UREA NITROGEN 15 mg/dL (9-20); CALCIUM 8.5 mg/dl (8.6-10.4); GFR NON-AFRICAN AMERICAN > 60
[2018-03-29] MEDS: Potassium Chloride 20 mEq ER Tab PO SCH (09:45)
[2018-03-29] MEDS: diltiaZEM 180 mg/24 Hours CD Cap PO SCH (10:35)
[2018-03-29] MEDS: Ceftaroline 600 MG in Sodium Chloride 0.9% 100 ML IVPB SCH ×2 (10:35→22:03)
[2018-03-30] MEDS: metroNIDAZOLE IV 500 mg/100 ml 500 MG/100 ML BAG IVPB SCH ×3 (05:33→22:22)
[2018-03-30] MEDS: Potassium Chloride 20 mEq ER Tab PO SCH (12:56)
[2018-03-30] MEDS: diltiaZEM 180 mg/24 Hours CD Cap PO SCH (13:17)
[2018-03-30] MEDS: Ceftaroline 600 MG in Sodium Chloride 0.9% 100 ML IVPB SCH ×2 (13:37→23:43)
[2018-03-30 16:52] LABS: HEMOGLOBIN 12.8 g/dL (12.0-18.0); MEAN CELL VOLUME 83.5 fL (80.0-94.0); MEAN CORPUSCULAR HEMOGLOBIN 26.8 pg (27.0-31.0); MEAN CORPUSCULAR HGB CONC 32.1 g/dL (33.0-37.0); MEAN PLATELET VOLUME 9.2 fL (7.2-11.7); RBC 4.78 Mil/uL (4.40-5.90); RED CELL DISTRIBUTION WIDTH 18.7 % (11.5-14.5); WHITE BLOOD COUNT 9.9 K/uL (4.8-10.8)
[2018-03-30 17:11] LABS: ALB/GLOB RATIO 1.3 (1.0-2.1); ALBUMIN 3.6 g/dL (3.5-5.0)
--- NOTE | 2018-03-30 17:32 | RAD ---
Date of service: 03/30/2018 HISTORY: vomiting COMPARISON: None available. FINDINGS: BOWEL: Normal. No obstruction. No free air. BONES: Diffuse degenerative changes in the spine. OTHER FINDINGS: None. IMPRESSION: Nonobstructive bowel gas pattern.
[2018-03-31] MEDS: metroNIDAZOLE IV 500 mg/100 ml 500 MG/100 ML BAG IVPB SCH ×3 (05:38→22:35)
[2018-03-31] MEDS ORDERED: Metoprolol 1 mg/ml Inj IVP ONE (07:00)
[2018-03-31] MEDS ORDERED: Metoprolol 1 mg/ml Inj ONE (07:05)
[2018-03-31] MEDS ORDERED: Sodium Chloride 0.9% 250 ML IV ONE (07:08)
--- NOTE | 2018-03-31 07:25 | PCM.RRT ---
CHOPPING MACHINE OPERATOR Nurses Assessment - Situation Date: 03/31/18 New IV Insertion Tolerance: Good I.Reason for CHOPPING MACHINE OPERATOR - A) Acute Change in Patient: (Select all that apply): Acute change in heart rate less than 50 or greater than 120 (max HR 180s) - Neurological Status (Select all that apply): Alert, Responsive, Oriented, Verbal, Follows Commands, Weakness - Respiratory Oxygen Delivery Method: Room Air - Constitutional Appears: Non-toxic, No Acute Distress - Head Head Exam: ATRAUMATIC, NORMOCEPHALIC - Eyes Eye Exam: Normal appearance - Respiratory Exam Respiratory Exam: NORMAL BREATHING PATTERN. absent: Accessory Muscle Use, Rales, Rhonchi, Wheezes, Respiratory Distress - Cardiovascular Exam Cardiovascular Exam: Tachycardia - GI/Abdominal Exam GI & Abdominal Exam: Soft. absent: Distended, Firm, Guarding, Rigid, Tenderness - Neurological Exam Neurological Exam: Alert, Awake, Oriented x3 - Extremities Exam Extremities Exam: Normal Inspection Plan - Assessment of Findings&Treatment Plan Patient is a 82 year old male with a past medical history of afib and CAD s/p stenting was admitted to the hospital with osteomyolitis of his finger woke up feeling weak. Upon checking his vitals, patient's HR was found to be in excess of 150bpm and a CHOPPING MACHINE OPERATOR was called. Upon arrival, patient was sitting up on the side of the bed with his feet on the floor. He stated that he felt generalized weakness but denied any pain. His HR was fluctuating between 140-180s. BP had a systolic of 80 mmHg. EKG showed afib RVR at a rate of 153bpm. Patient was given a 250mL bolus of NS, Metoprolol 2.5mg IVP and Cardizem 10mg IVP. HR slowly improved to 103 --> 80 --> 60. As patient's HR improve, his blood pressure improved to 99/57. Patient re-evaluated and stated he felt much better and was no longer weak. Patient was transferred to telemetry. Dr. Orosco contacted and discussed case. Case discussed with Dr. Hugo Mcadams Saige PGY2
[2018-03-31 08:25] LABS: BASO # 0.2 K/uL (0.0-0.2); BASO % 1.4 % (0.0-2.0); EOS % 0.2 % (0.0-4.0); HEMOGLOBIN 12.9 g/dL (12.0-18.0); LYMPH # 1.3 K/uL (1.0-4.3); LYMPH % 12.3 % (20.0-40.0); MEAN CELL VOLUME 85.2 fL (80.0-94.0); MEAN CORPUSCULAR HEMOGLOBIN 27.3 pg (27.0-31.0); MEAN PLATELET VOLUME 9.6 fL (7.2-11.7); MONO # 0.7 K/uL (0.0-0.8); MONO % 6.6 % (0.0-10.0); NEUT # 8.5 K/uL (1.8-7.0); NEUT % 79.5 % (50.0-75.0); NRBC % 0.1 % (0.0-2.0); RBC 4.72 Mil/uL (4.40-5.90); RED CELL DISTRIBUTION WIDTH 18.8 % (11.5-14.5); WHITE BLOOD COUNT 10.8 K/uL (4.8-10.8)
[2018-03-31 08:37] LABS: ALB/GLOB RATIO 1.2 (1.0-2.1); ALBUMIN 3.3 g/dL (3.5-5.0)
[2018-03-31 08:45] LABS: TROPONIN I 0.038 ng/mL (0.00-0.120)
[2018-03-31] MEDS: Ceftaroline 600 MG in Sodium Chloride 0.9% 100 ML IVPB SCH (09:59)
[2018-03-31] MEDS: Potassium Chloride 20 mEq ER Tab PO SCH (10:00)
[2018-03-31] MEDS: diltiaZEM 180 mg/24 Hours CD Cap PO SCH (10:02)
--- NOTE | 2018-03-31 10:10 | CP.PCM.PN ---
Subjective - Date & Time of Evaluation Date of Evaluation: 03/31/18 Time of Evaluation: 10:08 - Subjective Subjective: Patient says he is feeling better. He is refusing surgery. Spoke with girlfriend at his request, she also reiterates that he is refusing surgery. Advised patient and significant other that patient has bone and joint infection, and that half-way antibiotics are recommended, and may not eradicate infection of joint, and that he has noted degenerative changes and displacement of distal phalanx at this joint, and may have chronic pain from this even when infection is cleared. They verbalized understanding and refuse surgery. Review of Systems - Review of Systems All systems: reviewed and no additional remarkable complaints except - Musculoskeletal Musculoskeletal: As Par HPI Objective - Vital Signs/Intake and Output Vital Signs (last 24 hours): Temp Pulse Resp BP Pulse Ox 97.3 F L 105 H 20 89/60 L 93 L 03/31/18 07:00 03/31/18 08:36 03/31/18 07:00 03/31/18 07:00 03/31/18 07:00 Intake and Output: 03/31/18 03/31/18 06:59 18:59 Intake Total 300 Output Total 100 Balance 200 - Medications Medications: Current Medications Apixaban (Eliquis) 2.5 mg PO BID [facility] Last Admin: 03/31/18 10:00 Dose: 2.5 mg Carvedilol (Coreg) 3.125 mg PO BID [facility] Last Admin: 03/31/18 10:02 Dose: Not Given Clopidogrel Bisulfate (Plavix) 75 mg PO DAILY [facility] Last Admin: 03/31/18 10:00 Dose: 75 mg Diltiazem HCl (Cardizem Cd) 180 mg PO DAILY [facility] Last Admin: 03/31/18 10:02 Dose: Not Given Famotidine (Pepcid) 20 mg PO DAILY [facility] Last Admin: 03/31/18 10:00 Dose: 20 mg Finasteride (Proscar) 5 mg PO DAILY [facility] Last Admin: 03/31/18 10:00 Dose: 5 mg Furosemide (Lasix) 20 mg PO DAILY [facility] Last Admin: 03/30/18 13:17 Dose: 20 mg Ceftaroline Fosamil 600 mg/ (Sodium Chloride) 100 mls @ 100 mls/hr IVPB Q12H [facility]; Protocol Last Admin: 03/31/18 09:59 Dose: 100 mls/hr Metronidazole (Flagyl) 500 mg in 100 mls @ 100 mls/hr IVPB Q8H [facility]; Protocol Last Admin: 03/31/18 05:38 Dose: 100 mls/hr Losartan Potassium (Cozaar) 25 mg PO DAILY [facility] Last Admin: 03/31/18 10:02 Dose: Not Given Montelukast Sodium (Singulair) 10 mg PO HS [facility] Last Admin: 03/30/18 21:44 Dose: 10 mg Ondansetron HCl (Zofran Inj) 4 mg IVP Q8 PRN PRN Reason: Nausea/Vomiting Last Admin: 03/31/18 06:25 Dose: 4 mg Potassium Chloride (K-Dur 20 Meq Er Tab) 20 meq PO DAILY [facility] Last Admin: 03/31/18 10:00 Dose: 20 meq Rosuvastatin Calcium (Crestor) 5 mg PO HS [facility] Last Admin: 03/30/18 21:44 Dose: 5 mg Tamsulosin HCl (Flomax) 0.4 mg PO DAILY [facility] Last Admin: 03/31/18 10:00 Dose: 0.4 mg - Labs Labs: 03/31/18 08:10 03/31/18 08:10 PT 15.7 SECONDS (9.7-12.2) H 03/26/18 15:18 INR 1.4 03/26/18 15:18 - Constitutional Appears: Well, No Acute Distress - Head Exam Head Exam: ATRAUMATIC - Respiratory Exam Respiratory Exam: NORMAL BREATHING PATTERN - Cardiovascular Exam Additional comments: +cap refill to finger - Extremities Exam Additional comments: right index finger, still significant tenderness at and around DIP joint. mild pain with rom of finger, stiff. decreased swelling from last exam - Neurological Exam Neurological Exam: Alert, Awake, Oriented x3 - Skin Skin Exam: Warm Additional comments: decreased erythema dry Assessment and Plan (1) Acute osteomyelitis of hand including fingers Assessment & Plan: osteomyelitis of right index distal and middle phalanges, with involvement septic arthritis of DIP joint recommend prolonged course of IV antibiotics to treat as septic arthritis patient refusing surgery, improving on antibiotics d/w Dr. Weber, agrees wtih above, surgery cancelled. Reconsult as needed, follow up as outpatient within [address] Weber Status: Acute
--- NOTE | 2018-03-31 10:27 | CP.PCM.PN ---
Subjective - Date & Time of Evaluation Date of Evaluation: 03/31/18 Time of Evaluation: 10:24 - Subjective Subjective: INFECTIOUS DISEASE PROGRESS NOTES ROD JONES MD, FACP 03/31/2018 CHART REVIEWED CASE DISCUSSED EXAM NOTED CLINICALLY NO DETRIMENTAL INDEX FINGER DISEASE PROGRESSION, ABSOLUTELY NO AMPUTATION PER THE PATIENTS WISHES AND CLINICAL FINDINGS. ADJUSTMENT MADE TO AB - FOR NOW SWITCH TO PO ZYVOX, UNTIL FURTHER DISCUSSION FOR [facility] SUPPRESSION APPROPAITE. WILL RE CHECK LATER TODAY. SEE LABS ON FURTHER EVALUATION, THE PATIENT WAS FOUND TO BE UPSET, AND PATIENT WAS FOUND TO BE IN RAPID ATRIAL FIBRILATION, HYPOTENSION AND DIZZYNESS, REQUIRING TELEMETRY/CCU MANAGEMENT. Patient is an 82 yo male with PMH CAD s/p CABG (4 years ago), HTN, hypercholesteremia, COPD, and Afib on AC admitted to hospital for evaluation of right 2nd finger osteomyelitis. Xray findings suggestive of ostemyelitis. ID and Orthopedic surgery were treating patient with IV antibiotics and possible amputation surgery of second digit. Patient refused surgery after speaking with ID and ortho. Rapid response was called earlier today for patient feeling dizzy. Blood pressure recorded was 64/38 with elevated HR. Patient was given metoprolol and cardizem with a 250ml bolus. Patient transferred to ICU with Afib w/ RVR, heart rate in 140s. Patient admits to lightheadedness and palpitations. Patient denies fevers, chills, chest pain, sob, n/v, constipation or diarrhea, and dysuria. Consulted for rising creatinine. Denies CKD. Claims fair UO, but no recorded UO. PMH- CAD s/p CABG (4 years ago),previous stents, HTN, hypercholesteremia, COPD, and Afib on AC PSH- CABG, cardiac stents, AP FH- HTN and heart disease, no CKD Allergies- NKDA Social- 5 pack per day smoking history Meds- see MAR Code: Full code Review of Systems - Review of Systems Review of Systems: 12 point ros obtained and noted as in HPI Past Patient History - Infectious Disease Hx of Infectious Diseases: None - Past Medical History & Family History Past Medical History?: Yes Past Family History: Reviewed and not pertinent - Past Social History Smoking Status: Former Smoker - CARDIAC Hx Cardiac Disorders: Yes Hx Congestive Heart Failure: Yes (w/ 33% EF) Hx Hypercholesterolemia: Yes Hx Hypertension: Yes - PULMONARY Hx Respiratory Disorders: No - NEUROLOGICAL Hx Neurological Disorder: No - HEENT Hx HEENT Problems: No - RENAL Hx Chronic Kidney Disease: No - ENDOCRINE/METABOLIC Hx Endocrine Disorders: No - HEMATOLOGICAL/ONCOLOGICAL Hx Blood Disorders: No - INTEGUMENTARY Hx Dermatological Problems: Yes Other/Comment: multiple moles removed by dr kerr as pr pt, pt does not know if any were malignant, pt stated "I don't know she gave me madie to put on,", mid chest healed scar, red raised rash and redness all over chest abd ad lower abd upper thighs redness goes around to back, slight redness to buttocks, age spots to forehead, large eccymotic area to right groin and r lower abd dressing dry and and intact had angiogram done 11/05/17 intact, multiple age spots to b/l forehead and templees - MUSCULOSKELETAL/RHEUMATOLOGICAL Hx Musculoskeletal Disorders: No Hx Falls: No - GASTROINTESTINAL Hx Gastrointestinal Disorders: No - GENITOURINARY/GYNECOLOGICAL Hx Genitourinary Disorders: Yes Other/Comment: c/o urinary retention and is on flomax - PSYCHIATRIC Hx Psychophysiologic Disorder: No Hx Substance Use: No - SURGICAL HISTORY Hx Surgeries: Yes Hx Appendectomy: Yes Hx Coronary Artery Bypass Graft: Yes (09/20/10) Hx Coronary Stent: Yes - ANESTHESIA Hx Anesthesia: Yes Hx Anesthesia Reactions: No Hx Malignant Hyperthermia: No Has any member of the family had a problem w/ anesthesia?: No Review of Systems - Constitutional Constitutional: Fatigue, Weakness - EENT Ears: absent: As Per HPI, Decreased Hearing, Ear Discharge, Ear Pain, Tinnitus, Abnormal Hearing, Disequilibrium, Dizziness, Other Nose/Mouth/Throat: absent: As Per HPI, Epistaxis, Nasal Congestion, Nasal Discharge, Nasal Obstruction, Nasal Trauma, Nose Pain, Post Nasal Drip, Sinus Pain, Sinus Pressure, Bleeding Gums, Change in Voice, Dental Pain, Dry Mouth, Dysphagia, Halitosis, Hoarsness, Lip Swelling, Mouth Lesions, Mouth Pain, Odynophagia, Sore Throat, Throat Swelling, Tongue Swelling, Facial Pain, Neck Pain, Neck Mass, Other - Cardiovascular Cardiovascular: Dyspnea on Exertion, Irregular Heart Rhythm, Lightheadedness, Palpitations - Respiratory Respiratory: Dyspnea on Exertion - Gastrointestinal Gastrointestinal: absent: As Per HPI, Abdominal Pain, Belching, Bloating, Change in Bowel Habits, Change in Stool Character, Coffee Ground Emesis, Constipation, Cramping, Diarrhea, Dyspepsia, Dysphagia, Early Satiety, Excessive Flatus, Fecal Incontinence, Heartburn, Hematemesis, Hematochezia, Loose Stools, Melena, Nausea, Odynophagia, Temesmus, Vomiting, Other - Genitourinary Genitourinary: As Per HPI - Musculoskeletal Musculoskeletal: Muscle Weakness, Myalgias - Neurological Neurological: Dizziness, Weakness Past Patient History - Infectious Disease Hx of Infectious Diseases: None - Past Medical History & Family History Past Medical History?: Yes Past Family History: Reviewed and not pertinent - Past Social History Smoking Status: Former Smoker Chewing Tobacco Use: No Cigar Use: No Alcohol: None Drugs: Denies Home Situation {Lives}: With Family - CARDIAC Hx Cardiac Disorders: Yes Hx Congestive Heart Failure: Yes (w/ 33% EF) Hx Hypercholesterolemia: Yes Hx Hypertension: Yes - PULMONARY Hx Respiratory Disorders: No - NEUROLOGICAL Hx Neurological Disorder: No - HEENT Hx HEENT Problems: No - RENAL Hx Chronic Kidney Disease: No - ENDOCRINE/METABOLIC Hx Endocrine Disorders: No - HEMATOLOGICAL/ONCOLOGICAL Hx Blood Disorders: No - INTEGUMENTARY Hx Dermatological Problems: Yes Other/Comment: multiple moles removed by dr kerr as pr pt, pt does not know if any were malignant, pt stated "I don't know she gave me madie to put on,", mid chest healed scar, red raised rash and redness all over chest abd ad lower abd upper thighs redness goes around to back, slight redness to buttocks, age spots to forehead, large eccymotic area to right groin and r lower abd dressing dry and and intact had angiogram done 11/05/17 intact, multiple age spots to b/l forehead and templees - MUSCULOSKELETAL/RHEUMATOLOGICAL Hx Musculoskeletal Disorders: No Hx Falls: No - GASTROINTESTINAL Hx Gastrointestinal Disorders: No - GENITOURINARY/GYNECOLOGICAL Hx Genitourinary Disorders: Yes Other/Comment: c/o urinary retention and is on flomax - PSYCHIATRIC Hx Psychophysiologic Disorder: No Hx Substance Use: No - SURGICAL HISTORY Hx Surgeries: Yes Hx Appendectomy: Yes Hx Coronary Artery Bypass Graft: Yes (09/20/10) Hx Coronary Stent: Yes - ANESTHESIA Hx Anesthesia: Yes Hx Anesthesia Reactions: No Hx Malignant Hyperthermia: No Has any member of the family had a problem w/ anesthesia?: No Meds Allergies/Adverse Reactions: Allergies Allergy/AdvReac Type Severity Reaction Status Date / Time No Known Allergies Allergy Verified 03/16/18 18:14 - Medications Medications: Current Medications Apixaban (Eliquis) 2.5 mg PO BID [facility] Last Admin: 03/31/18 10:00 Dose: 2.5 mg Carvedilol (Coreg) 3.125 mg PO BID [facility] Last Admin: 03/31/18 10:02 Dose: Not Given Clopidogrel Bisulfate (Plavix) 75 mg PO DAILY [facility] Last Admin: 03/31/18 10:00 Dose: 75 mg Digoxin (Lanoxin) 0.25 mg IVP ONCE ONE Stop: 03/31/18 14:31 Diltiazem HCl (Cardizem Cd) 180 mg PO DAILY [facility] Last Admin: 03/31/18 10:02 Dose: Not Given Famotidine (Pepcid) 20 mg PO DAILY [facility] Last Admin: 03/31/18 10:00 Dose: 20 mg Finasteride (Proscar) 5 mg PO DAILY [facility] Last Admin: 03/31/18 10:00 Dose: 5 mg Furosemide (Lasix) 20 mg PO DAILY [facility] Last Admin: 03/31/18 10:09 Dose: Not Given Metronidazole (Flagyl) 500 mg in 100 mls @ 100 mls/hr IVPB Q8H [facility]; Protocol Last Admin: 03/31/18 05:38 Dose: 100 mls/hr Diltiazem HCl 125 mg/ Dextrose 125 mls @ 5 mls/hr IV .Q24H [facility]; Protocol Linezolid (Zyvox) 600 mg PO BID [facility]; Protocol Last Admin: 03/31/18 12:49 Dose: Not Given Losartan Potassium (Cozaar) 25 mg PO DAILY [facility] Last Admin: 03/31/18 10:02 Dose: Not Given Montelukast Sodium (Singulair) 10 mg PO [facility] Last Admin: 03/30/18 21:44 Dose: 10 mg Ondansetron HCl (Zofran Inj) 4 mg IVP Q8 PRN PRN Reason: Nausea/Vomiting Last Admin: 03/31/18 06:25 Dose: 4 mg Potassium Chloride (K-Dur 20 Meq Er Tab) 20 meq PO DAILY [facility] Last Admin: 03/31/18 10:00 Dose: 20 meq Rosuvastatin Calcium (Crestor) 5 mg PO HS [facility] Last Admin: 03/30/18 21:44 Dose: 5 mg Tamsulosin HCl (Flomax) 0.4 mg PO DAILY [facility] Last Admin: 03/31/18 10:00 Dose: 0.4 mg Physical Exam - Constitutional Appears: No Acute Distress, Chronically Ill - Head Exam Head Exam: ATRAUMATIC, NORMAL INSPECTION - Eye Exam Eye Exam: EOMI, Normal appearance - Neck Exam Neck exam: Positive for: Normal Inspection. Negative for: Tenderness - Respiratory Exam Respiratory Exam: Clear to Auscultation Bilateral, NORMAL BREATHING PATTERN - Cardiovascular Exam Cardiovascular Exam: Tachycardia, Irregular Rhythm - GI/Abdominal Exam GI & Abdominal Exam: Distended, Soft. absent: Tenderness - Extremities Exam Extremities exam: Positive for: normal inspection. Negative for: tenderness - Neurological Exam Neurological exam: CN II-XII Intact, Oriented x3 - Skin Skin Exam: Dry, Warm Results - Vital Signs Recent Vital Signs: Last Vital Signs Temp 97.3 F L 03/31/18 07:00 Pulse 154 H 03/31/18 11:56 Resp 20 03/31/18 07:00 BP 87/60 L 03/31/18 12:02 Pulse Ox 93 L 03/31/18 07:00 - Labs Result Diagrams: 03/31/18 08:10 03/31/18 08:10 Labs: Laboratory Results - last 24 hr 03/30/18 03/30/18 03/30/18 16:49 16:49 16:49 WBC 9.9 D RBC 4.78 Hgb 12.8 Hct 39.9 MCV 83.5 MCH 26.8 L MCHC 32.1 L RDW 18.7 H Plt Count 208 MPV 9.2 Neut % (Auto) Lymph % (Auto) [place] % (Auto) Eos % (Auto) Baso % (Auto) Neut # (Auto) Lymph # (Auto) [place] # (Auto) Eos # (Auto) Baso # (Auto) Sodium 138 Potassium 4.3 Chloride 107 Carbon Dioxide 18 L Anion Gap 17 BUN 22 H Creatinine 1.9 H Est GFR ( Amer) 41 Est GFR (Non-Af Amer) 34 POC Glucose (mg/dL) Random Glucose 139 H Calcium 9.0 Phosphorus 5.3 H Magnesium 2.0 Total Bilirubin 0.8 AST 30 ALT 38 Alkaline Phosphatase 98 Troponin I Total Protein 6.4 Albumin 3.6 Globulin 2.8 Albumin/Globulin Ratio 1.3 Amylase 44 Lipase 129 03/31/18 03/31/18 03/31/18 07:02 08:10 08:10 WBC 10.8 RBC 4.72 Hgb 12.9 Hct 40.2 MCV 85.2 MCH 27.3 MCHC 32.0 L RDW 18.8 H Plt Count 212 MPV 9.6 Neut % (Auto) 79.5 H Lymph % (Auto) 12.3 L [place] % (Auto) 6.6 Eos % (Auto) 0.2 Baso % (Auto) 1.4 Neut # (Auto) 8.5 H Lymph # (Auto) 1.3 [place] # (Auto) 0.7 Eos # (Auto) 0.0 Baso # (Auto) 0.2 Sodium 139 Potassium 5.0 Chloride 107 Carbon Dioxide 18 L Anion Gap 20 BUN 28 H Creatinine 2.7 H Est GFR ( Amer) 27 Est GFR (Non-Af Amer) 23 POC Glucose (mg/dL) 115 H Random Glucose 113 H Calcium 9.0 Phosphorus 6.2 H Magnesium 2.0 Total Bilirubin 0.8 AST 35 ALT 32 Alkaline Phosphatase 81 Troponin I 0.0380 Total Protein 6.0 L Albumin 3.3 L Globulin 2.7 Albumin/Globulin Ratio 1.2 Amylase Lipase Assessment & Plan (1) Hypotensive episode Status: Acute (2) ATN (acute tubular necrosis) Status: Acute (3) Acute osteomyelitis of hand including fingers Status: Acute, PO ZYVOX PRESENTLY (4) MICHAEL (acute kidney injury) Status: Acute (5) Atrial fibrillation with RVR Status: Acute - Assessment and Plan (Free Text) Assessment: MICHAEL likely related to hypotensive episode compounded by AFib, lasix, PRINCE I use r/o obstructive uropathy osteo finger Plan: bernardo placement if allowed renal US IV fluids stop lasix, PRINCE I serial chemistries Objective - Vital Signs/Intake and Output Vital Signs (last 24 hours): Temp Pulse Resp BP Pulse Ox 97.3 F L 105 H 20 89/57 L 93 L 03/31/18 07:00 03/31/18 08:36 03/31/18 07:00 03/31/18 10:09 03/31/18 07:00 Intake and Output: 12/17/18 12/17/18 06:59 18:59 Intake Total 300 Output Total 100 Balance 200 - Medications Medications: Current Medications Apixaban (Eliquis) 2.5 mg PO BID [facility] Last Admin: 03/31/18 10:00 Dose: 2.5 mg Carvedilol (Coreg) 3.125 mg PO BID [facility] Last Admin: 03/31/18 10:02 Dose: Not Given Clopidogrel Bisulfate (Plavix) 75 mg PO DAILY [facility] Last Admin: 03/31/18 10:00 Dose: 75 mg Diltiazem HCl (Cardizem Cd) 180 mg PO DAILY [facility] Last Admin: 03/31/18 10:02 Dose: Not Given Famotidine (Pepcid) 20 mg PO DAILY [facility] Last Admin: 03/31/18 10:00 Dose: 20 mg Finasteride (Proscar) 5 mg PO DAILY [facility] Last Admin: 03/31/18 10:00 Dose: 5 mg Furosemide (Lasix) 20 mg PO DAILY [facility] Last Admin: 03/31/18 10:09 Dose: Not Given Metronidazole (Flagyl) 500 mg in 100 mls @ 100 mls/hr IVPB Q8H [facility]; Protocol Last Admin: 03/31/18 05:38 Dose: 100 mls/hr Linezolid (Zyvox) 600 mg PO BID [facility]; Protocol Losartan Potassium (Cozaar) 25 mg PO DAILY [facility] Last Admin: 03/31/18 10:02 Dose: Not Given Montelukast Sodium (Singulair) 10 mg PO HS [facility] Last Admin: 03/30/18 21:44 Dose: 10 mg Ondansetron HCl (Zofran Inj) 4 mg IVP Q8 PRN PRN Reason: Nausea/Vomiting Last Admin: 03/31/18 06:25 Dose: 4 mg Potassium Chloride (K-Dur 20 Meq Er Tab) 20 meq PO DAILY [facility] Last Admin: 03/31/18 10:00 Dose: 20 meq Rosuvastatin Calcium (Crestor) 5 mg PO HS [facility] Last Admin: 03/30/18 21:44 Dose: 5 mg Tamsulosin HCl (Flomax) 0.4 mg PO DAILY [facility] Last Admin: 03/31/18 10:00 Dose: 0.4 mg - Labs Labs: 03/31/18 08:10 03/31/18 08:10 PT 15.7 SECONDS (9.7-12.2) H 03/26/18 15:18 INR 1.4 03/26/18 15:18
--- NOTE | 2018-03-31 11:08 | CP.PCM.PN ---
Subjective - Date & Time of Evaluation Date of Evaluation: 03/31/18 Time of Evaluation: 11:04 - Subjective Subjective: INFECTIOUS DISEASE PROGRESS SUMAN JONES FACP 03/31/2018 CHART REVIEWED EXAM NOTED CASE DISCUSSED NO SURGERY FOR THIS PATIENT, AT PRESENT RX FOR ~IV X 2 WEEKS THEN PO SUPPRESSIVE TREATMENT ADJUSTMENT MADE WITH LABS, AVAILBLE TO ME, SWITCH TO PO ZYVOX PRESENTLY RENAL CONSULT CALLED FULL NOTE TO FOLLOW Objective - Vital Signs/Intake and Output Vital Signs (last 24 hours): Temp Pulse Resp BP Pulse Ox 97.3 F L 105 H 20 89/57 L 93 L 03/31/18 07:00 03/31/18 08:36 03/31/18 07:00 03/31/18 10:09 03/31/18 07:00 Intake and Output: 03/31/18 03/31/18 06:59 18:59 Intake Total 300 Output Total 100 Balance 200 - Medications Medications: Current Medications Apixaban (Eliquis) 2.5 mg PO BID [facility] Last Admin: 03/31/18 10:00 Dose: 2.5 mg Carvedilol (Coreg) 3.125 mg PO BID [facility] Last Admin: 03/31/18 10:02 Dose: Not Given Clopidogrel Bisulfate (Plavix) 75 mg PO DAILY [facility] Last Admin: 03/31/18 10:00 Dose: 75 mg Diltiazem HCl (Cardizem Cd) 180 mg PO DAILY [facility] Last Admin: 03/31/18 10:02 Dose: Not Given Famotidine (Pepcid) 20 mg PO DAILY [facility] Last Admin: 03/31/18 10:00 Dose: 20 mg Finasteride (Proscar) 5 mg PO DAILY [facility] Last Admin: 03/31/18 10:00 Dose: 5 mg Furosemide (Lasix) 20 mg PO DAILY [facility] Last Admin: 03/31/18 10:09 Dose: Not Given Metronidazole (Flagyl) 500 mg in 100 mls @ 100 mls/hr IVPB Q8H [facility]; Protocol Last Admin: 03/31/18 05:38 Dose: 100 mls/hr Linezolid (Zyvox) 600 mg PO BID [facility]; Protocol Losartan Potassium (Cozaar) 25 mg PO DAILY [facility] Last Admin: 03/31/18 10:02 Dose: Not Given Montelukast Sodium (Singulair) 10 mg PO HS [facility] Last Admin: 12/16/18 21:44 Dose: 10 mg Ondansetron HCl (Zofran Inj) 4 mg IVP Q8 PRN PRN Reason: Nausea/Vomiting Last Admin: 03/31/18 06:25 Dose: 4 mg Potassium Chloride (K-Dur 20 Meq Er Tab) 20 meq PO DAILY [facility] Last Admin: 03/31/18 10:00 Dose: 20 meq Rosuvastatin Calcium (Crestor) 5 mg PO HS [facility] Last Admin: 03/30/18 21:44 Dose: 5 mg Tamsulosin HCl (Flomax) 0.4 mg PO DAILY [facility] Last Admin: 03/31/18 10:00 Dose: 0.4 mg - Labs Labs: 03/31/18 08:10 03/31/18 08:10 PT 15.7 SECONDS (9.7-12.2) H 03/26/18 15:18 INR 1.4 03/26/18 15:18
[2018-03-31] MEDS ORDERED: Digoxin 500 mcg/2ml (0.5 mg/2ml) Inj IVP ONE ×2 (12:45→14:30)
--- NOTE | 2018-03-31 12:46 | CARD ---
APPROVED REPORT Date of service: 03/31/2018 EKG Measurement Heart [id number] <Conclusion> Atrial fibrillation Left axis deviation Nonspecific intraventricular block Inferior infarct, age undetermined Cannot rule out Anteroseptal infarct, age undetermined Abnormal ECG
--- NOTE | 2018-03-31 12:46 | CARD ---
APPROVED REPORT Date of service: 03/31/2018 EKG Measurement Heart [id number] <Conclusion> Undetermined rhythm Nonspecific intraventricular block Inferior infarct, age undetermined Anterolateral infarct, possibly acute ACUTE LA / STEMI Abnormal ECG
--- NOTE | 2018-03-31 13:29 | CP.PCM.CON ---
History of Present Illness - History of Present Illness History of Present Illness: PGY-[address] Orosco's service Patient is an 82 yo male with PMH CAD s/p CABG (4 years ago), HTN, hypercholesteremia, COPD, and Afib on AC admitted to hospital for evaluation of right 2nd finger osteomyelitis. Xray findings suggestive of ostemyelitis. ID and Orthopedic surgery were treating patient with IV antibiotics and possible amputation surgery of second digit. Patient refused surgery after speaking with ID and ortho. Rapid response was called earlier in AM for patient feeling dizzy. Blood pressure recorded was 64/38 with elevated HR. Patient was given metoprolol and cardizem with a 250ml bolus. Patient transferred to ICU with Afib w/ RVR, heart rate in 140s. Patient admits to lightheadedness and palpitations. Patient denies fevers, chills, chest pain, sob, n/v, constipation or diarrhea, and dysuria. PMH- CAD s/p CABG (4 years ago), HTN, hypercholesteremia, COPD, and Afib on AC PSH- CABG FH- HTN and heart disease Allergies- NKDA Social- 5 pack per day smoking history Meds- see MAR Code: Full code Review of Systems - Review of Systems Review of Systems: 12 point ros obtained and noted as in HPI Past Patient History - Infectious Disease Hx of Infectious Diseases: None - Past Medical History & Family History Past Medical History?: Yes Past Family History: Reviewed and not pertinent - Past Social History Smoking Status: Former Smoker - CARDIAC Hx Cardiac Disorders: Yes Hx Congestive Heart Failure: Yes (w/ 33% EF) Hx Hypercholesterolemia: Yes Hx Hypertension: Yes - PULMONARY Hx Respiratory Disorders: No - NEUROLOGICAL Hx Neurological Disorder: No - HEENT Hx HEENT Problems: No - RENAL Hx Chronic Kidney Disease: No - ENDOCRINE/METABOLIC Hx Endocrine Disorders: No - HEMATOLOGICAL/ONCOLOGICAL Hx Blood Disorders: No - INTEGUMENTARY Hx Dermatological Problems: Yes Other/Comment: multiple moles removed by dr kerr as pr pt, pt does not know if any were malignant, pt stated "I don't know she gave me madie to put on,", mid chest healed scar, red raised rash and redness all over chest abd ad lower abd upper thighs redness goes around to back, slight redness to buttocks, age spots to forehead, large eccymotic area to right groin and r lower abd dressing dry and and intact had angiogram done 11/05/17 intact, multiple age spots to b/l forehead and templees - MUSCULOSKELETAL/RHEUMATOLOGICAL Hx Musculoskeletal Disorders: No Hx Falls: No - GASTROINTESTINAL Hx Gastrointestinal Disorders: No - GENITOURINARY/GYNECOLOGICAL Hx Genitourinary Disorders: Yes Other/Comment: c/o urinary retention and is on flomax - PSYCHIATRIC Hx Psychophysiologic Disorder: No Hx Substance Use: No - SURGICAL HISTORY Hx Surgeries: Yes Hx Appendectomy: Yes Hx Coronary Artery Bypass Graft: Yes (09/20/10) Hx Coronary Stent: Yes - ANESTHESIA Hx Anesthesia: Yes Hx Anesthesia Reactions: No Hx Malignant Hyperthermia: No Has any member of the family had a problem w/ anesthesia?: No Meds Allergies/Adverse Reactions: Allergies Allergy/AdvReac Type Severity Reaction Status Date / Time No Known Allergies Allergy Verified 03/16/18 18:14 - Medications Medications: Current Medications Apixaban (Eliquis) 2.5 mg PO BID [facility] Last Admin: 03/31/18 10:00 Dose: 2.5 mg Carvedilol (Coreg) 3.125 mg PO BID [facility] Last Admin: 03/31/18 10:02 Dose: Not Given Clopidogrel Bisulfate (Plavix) 75 mg PO DAILY [facility] Last Admin: 03/31/18 10:00 Dose: 75 mg Diltiazem HCl (Cardizem Cd) 180 mg PO DAILY [facility] Last Admin: 03/31/18 10:02 Dose: Not Given Famotidine (Pepcid) 20 mg PO DAILY [facility] Last Admin: 03/31/18 10:00 Dose: 20 mg Finasteride (Proscar) 5 mg PO DAILY [facility] Last Admin: 03/31/18 10:00 Dose: 5 mg Furosemide (Lasix) 20 mg PO DAILY [facility] Last Admin: 03/31/18 10:09 Dose: Not Given Metronidazole (Flagyl) 500 mg in 100 mls @ 100 mls/hr IVPB Q8H [facility]; Protocol Last Admin: 03/31/18 05:38 Dose: 100 mls/hr Diltiazem HCl 125 mg/ Dextrose 125 mls @ 5 mls/hr IV .Q24H [facility]; Protocol Linezolid (Zyvox) 600 mg PO BID [facility]; Protocol Last Admin: 03/31/18 12:49 Dose: Not Given Losartan Potassium (Cozaar) 25 mg PO DAILY [facility] Last Admin: 03/31/18 10:02 Dose: Not Given Montelukast Sodium (Singulair) 10 mg PO HS [facility] Last Admin: 03/30/18 21:44 Dose: 10 mg Ondansetron HCl (Zofran Inj) 4 mg IVP Q8 PRN PRN Reason: Nausea/Vomiting Last Admin: 03/31/18 06:25 Dose: 4 mg Potassium Chloride (K-Dur 20 Meq Er Tab) 20 meq PO DAILY [facility] Last Admin: 03/31/18 10:00 Dose: 20 meq Rosuvastatin Calcium (Crestor) 5 mg PO HS [facility] Last Admin: 03/30/18 21:44 Dose: 5 mg Tamsulosin HCl (Flomax) 0.4 mg PO DAILY [facility] Last Admin: 03/31/18 10:00 Dose: 0.4 mg Physical Exam - Constitutional Appears: Non-toxic, No Acute Distress - Head Exam Head Exam: NORMAL INSPECTION, NORMOCEPHALIC - Eye Exam Eye Exam: EOMI, Normal appearance. absent: Nystagmus, Scleral icterus - ENT Exam ENT Exam: Mucous Membranes Moist - Respiratory Exam Respiratory Exam: Clear to Auscultation Bilateral, NORMAL BREATHING PATTERN. absent: Rales, Rhonchi, Wheezes - Cardiovascular Exam Cardiovascular Exam: Tachycardia, +S1, +S2. absent: REGULAR RHYTHM - GI/Abdominal Exam GI & Abdominal Exam: Normal Bowel Sounds, Soft. absent: Diminished Bowel Sounds, Distended, Firm, Guarding, Tenderness - Extremities Exam Extremities exam: Positive for: normal inspection. Negative for: calf tende rness, pedal edema Additional comments: right hand 2nd digit visibly swollen and erythematous - Neurological Exam Neurological exam: Alert, CN II-XII Intact, Oriented x3 - Psychiatric Exam Psychiatric exam: Normal Affect, Normal Mood - Skin Skin Exam: Intact, Normal Color Results - Vital Signs Recent Vital Signs: Last Vital Signs Temp 97.3 F L 03/31/18 07:00 Pulse 154 H 03/31/18 11:56 Resp 20 03/31/18 07:00 BP 87/60 L 03/31/18 12:02 Pulse Ox 93 L 03/31/18 07:00 - Labs Result Diagrams: 03/31/18 08:10 03/31/18 08:10 Labs: Laboratory Results - last 24 hr 03/30/18 03/30/18 03/30/18 16:49 16:49 16:49 WBC 9.9 D RBC 4.78 Hgb 12.8 Hct 39.9 MCV 83.5 MCH 26.8 L MCHC 32.1 L RDW 18.7 H Plt Count 208 MPV 9.2 Neut % (Auto) Lymph % (Auto) [place] % (Auto) Eos % (Auto) Baso % (Auto) Neut # (Auto) Lymph # (Auto) [place] # (Auto) Eos # (Auto) Baso # (Auto) Sodium 138 Potassium 4.3 Chloride 107 Carbon Dioxide 18 L Anion Gap 17 BUN 22 H Creatinine 1.9 H Est GFR ( Amer) 41 Est GFR (Non-Af Amer) 34 POC Glucose (mg/dL) Random Glucose 139 H Calcium 9.0 Phosphorus 5.3 H Magnesium 2.0 Total Bilirubin 0.8 AST 30 ALT 38 Alkaline Phosphatase 98 Troponin I Total Protein 6.4 Albumin 3.6 Globulin 2.8 Albumin/Globulin Ratio 1.3 Amylase 44 Lipase 129 03/31/18 03/31/18 03/31/18 07:02 08:10 08:10 WBC 10.8 RBC 4.72 Hgb 12.9 Hct 40.2 MCV 85.2 MCH 27.3 MCHC 32.0 L RDW 18.8 H Plt Count 212 MPV 9.6 Neut % (Auto) 79.5 H Lymph % (Auto) 12.3 L [place] % (Auto) 6.6 Eos % (Auto) 0.2 Baso % (Auto) 1.4 Neut # (Auto) 8.5 H Lymph # (Auto) 1.3 [place] # (Auto) 0.7 Eos # (Auto) 0.0 Baso # (Auto) 0.2 Sodium 139 Potassium 5.0 Chloride 107 Carbon Dioxide 18 L Anion Gap 20 BUN 28 H Creatinine 2.7 H Est GFR ( Amer) 27 Est GFR (Non-Af Amer) 23 POC Glucose (mg/dL) 115 H Random Glucose 113 H Calcium 9.0 Phosphorus 6.2 H Magnesium 2.0 Total Bilirubin 0.8 AST 35 ALT 32 Alkaline Phosphatase 81 Troponin I 0.0380 Total Protein 6.0 L Albumin 3.3 L Globulin 2.7 Albumin/Globulin Ratio 1.2 Amylase Lipase Assessment & Plan - Assessment and Plan (Free Text) Assessment: Patient is a 82 yo male w/ PMH CAD s/p CABG (4 years ago), HTN, hypercholesteremia, COPD, and Afib on AC admitted for evaluation of osteomyelitis in 2nd digit. ICU consulted for low blood pressure and elevated heart rate. On EKG found to be in AFib w/ RVR. EF of 33%. Neuro: Alert and conversational CV Afib w/ RVR- Coreg 3.12, eliquis 2.5mg po bid, Cardizem drip 5mg/hr, Digoxin 0.25 x 1 CABG- Plavix 75mg CHF- Lasix 20mg po daily HTN- Cozaar 25mg po daily Repeat Troponin pending Pulm: No acute issues; Nasal cannula; Hx of COPD- Montelukast 10mg po HS; Cxray pending GI: No acute issues; Pepcid 20mg daily; Zofran Endo: No acute issues Renal: MICHAEL- Nephrology consulted- likely 2/2 to hypotension; Flomax, Finasteride, KCl 20 meq po daily ID: Zyvox for osteo; Afebrile, WBC trending upward GI ppx: Pepcid DVT ppx: Eliquis 2.5mg HHD
--- NOTE | 2018-03-31 13:45 | CP.PCM.CON ---
History of Present Illness - History of Present Illness History of Present Illness: Patient is an 82 yo male with PMH CAD s/p CABG (4 years ago), HTN, hypercholesteremia, COPD, and Afib on AC admitted to hospital for evaluation of right 2nd finger osteomyelitis. Xray findings suggestive of ostemyelitis. ID and Orthopedic surgery were treating patient with IV antibiotics and possible amputation surgery of second digit. Patient refused surgery after speaking with ID and ortho. Rapid response was called earlier today for patient feeling dizzy. Blood pressure recorded was 64/38 with elevated HR. Patient was given metoprolol and cardizem with a 250ml bolus. Patient transferred to ICU with Afib w/ RVR, heart rate in 140s. Patient admits to lightheadedness and palpitations. Patient denies fevers, chills, chest pain, sob, n/v, constipation or diarrhea, and dysuria. Consulted for rising creatinine. Denies CKD. Claims fair UO, but no recorded UO. PMH- CAD s/p CABG (4 years ago),previous stents, HTN, hypercholesteremia, COPD, and Afib on AC PSH- CABG, cardiac stents, AP FH- HTN and heart disease, no CKD Allergies- NKDA Social- 5 pack per day smoking history Meds- see MAR Code: Full code Review of Systems - Review of Systems Review of Systems: 12 point ros obtained and noted as in HPI Past Patient History - Infectious Disease Hx of Infectious Diseases: None - Past Medical History & Family History Past Medical History?: Yes Past Family History: Reviewed and not pertinent - Past Social History Smoking Status: Former Smoker - CARDIAC Hx Cardiac Disorders: Yes Hx Congestive Heart Failure: Yes (w/ 33% EF) Hx Hypercholesterolemia: Yes Hx Hypertension: Yes - PULMONARY Hx Respiratory Disorders: No - NEUROLOGICAL Hx Neurological Disorder: No - HEENT Hx HEENT Problems: No - RENAL Hx Chronic Kidney Disease: No - ENDOCRINE/METABOLIC Hx Endocrine Disorders: No - HEMATOLOGICAL/ONCOLOGICAL Hx Blood Disorders: No - INTEGUMENTARY Hx Dermatological Problems: Yes Other/Comment: multiple moles removed by dr kerr as pr pt, pt does not know if any were malignant, pt stated "I don't know she gave me madie to put on,", mid chest healed scar, red raised rash and redness all over chest abd ad lower abd upper thighs redness goes around to back, slight redness to buttocks, age spots to forehead, large eccymotic area to right groin and r lower abd dressing dry and and intact had angiogram done 11/05/17 intact, multiple age spots to b/l forehead and templees - MUSCULOSKELETAL/RHEUMATOLOGICAL Hx Musculoskeletal Disorders: No Hx Falls: No - GASTROINTESTINAL Hx Gastrointestinal Disorders: No - GENITOURINARY/GYNECOLOGICAL Hx Genitourinary Disorders: Yes Other/Comment: c/o urinary retention and is on flomax - PSYCHIATRIC Hx Psychophysiologic Disorder: No Hx Substance Use: No - SURGICAL HISTORY Hx Surgeries: Yes Hx Appendectomy: Yes Hx Coronary Artery Bypass Graft: Yes (09/20/10) Hx Coronary Stent: Yes - ANESTHESIA Hx Anesthesia: Yes Hx Anesthesia Reactions: No Hx Malignant Hyperthermia: No Has any member of the family had a problem w/ anesthesia?: No Review of Systems - Constitutional Constitutional: Fatigue, Weakness - EENT Ears: absent: As Per HPI, Decreased Hearing, Ear Discharge, Ear Pain, Tinnitus, Abnormal Hearing, Disequilibrium, Dizziness, Other Nose/Mouth/Throat: absent: As Per HPI, Epistaxis, Nasal Congestion, Nasal Discharge, Nasal Obstruction, Nasal Trauma, Nose Pain, Post Nasal Drip, Sinus Pain, Sinus Pressure, Bleeding Gums, Change in Voice, Dental Pain, Dry Mouth, Dysphagia, Halitosis, Hoarsness, Lip Swelling, Mouth Lesions, Mouth Pain, Melida nophagia, Sore Throat, Throat Swelling, Tongue Swelling, Facial Pain, Neck Pain, Neck Mass, Other - Cardiovascular Cardiovascular: Dyspnea on Exertion, Irregular Heart Rhythm, Lightheadedness, Palpitations - Respiratory Respiratory: Dyspnea on Exertion - Gastrointestinal Gastrointestinal: absent: As Per HPI, Abdominal Pain, Belching, Bloating, Change in Bowel Habits, Change in Stool Character, Coffee Ground Emesis, Constipation, Cramping, Diarrhea, Dyspepsia, Dysphagia, Early Satiety, Excessive Flatus, Fecal Incontinence, Heartburn, Hematemesis, Hematochezia, Loose Stools, Melena, Nausea, Odynophagia, Temesmus, Vomiting, Other - Genitourinary Genitourinary: As Per HPI - Musculoskeletal Musculoskeletal: Muscle Weakness, Myalgias - Neurological Neurological: Dizziness, Weakness Past Patient History - Infectious Disease Hx of Infectious Diseases: None - Past Medical History & Family History Past Medical History?: Yes Past Family History: Reviewed and not pertinent - Past Social History Smoking Status: Former Smoker Chewing Tobacco Use: No Cigar Use: No Alcohol: None Drugs: Denies Home Situation {Lives}: With Family - CARDIAC Hx Cardiac Disorders: Yes Hx Congestive Heart Failure: Yes (w/ 33% EF) Hx Hypercholesterolemia: Yes Hx Hypertension: Yes - PULMONARY Hx Respiratory Disorders: No - NEUROLOGICAL Hx Neurological Disorder: No - HEENT Hx HEENT Problems: No - RENAL Hx Chronic Kidney Disease: No - ENDOCRINE/METABOLIC Hx Endocrine Disorders: No - HEMATOLOGICAL/ONCOLOGICAL Hx Blood Disorders: No - INTEGUMENTARY Hx Dermatological Problems: Yes Other/Comment: multiple moles removed by dr kerr as pr pt, pt does not know if any were malignant, pt stated "I don't know she gave me madie to put on,", mid chest healed scar, red raised rash and redness all over chest abd ad lower abd upper thighs redness goes around to back, slight redness to buttocks, age spots to forehead, large eccymotic area to right groin and r lower abd dressing dry a nd and intact had angiogram done 11/05/17 intact, multiple age spots to b/l forehead and templees - MUSCULOSKELETAL/RHEUMATOLOGICAL Hx Musculoskeletal Disorders: No Hx Falls: No - GASTROINTESTINAL Hx Gastrointestinal Disorders: No - GENITOURINARY/GYNECOLOGICAL Hx Genitourinary Disorders: Yes Other/Comment: c/o urinary retention and is on flomax - PSYCHIATRIC Hx Psychophysiologic Disorder: No Hx Substance Use: No - SURGICAL HISTORY Hx Surgeries: Yes Hx Appendectomy: Yes Hx Coronary Artery Bypass Graft: Yes (09/20/10) Hx Coronary Stent: Yes - ANESTHESIA Hx Anesthesia: Yes Hx Anesthesia Reactions: No Hx Malignant Hyperthermia: No Has any member of the family had a problem w/ anesthesia?: No Meds Allergies/Adverse Reactions: Allergies Allergy/AdvReac Type Severity Reaction Status Date / Time No Known Allergies Allergy Verified 03/16/18 18:14 - Medications Medications: Current Medications Apixaban (Eliquis) 2.5 mg PO BID [facility] Last Admin: 03/31/18 10:00 Dose: 2.5 mg Carvedilol (Coreg) 3.125 mg PO BID [facility] Last Admin: 03/31/18 10:02 Dose: Not Given Clopidogrel Bisulfate (Plavix) 75 mg PO DAILY [facility] Last Admin: 03/31/18 10:00 Dose: 75 mg Digoxin (Lanoxin) 0.25 mg IVP ONCE ONE Stop: 03/31/18 14:31 Diltiazem HCl (Cardizem Cd) 180 mg PO DAILY [facility] Last Admin: 03/31/18 10:02 Dose: Not Given Famotidine (Pepcid) 20 mg PO DAILY [facility] Last Admin: 03/31/18 10:00 Dose: 20 mg Finasteride (Proscar) 5 mg PO DAILY [facility] Last Admin: 03/31/18 10:00 Dose: 5 mg Furosemide (Lasix) 20 mg PO DAILY [facility] Last Admin: 03/31/18 10:09 Dose: Not Given Metronidazole (Flagyl) 500 mg in 100 mls @ 100 mls/hr IVPB Q8H [facility]; Protocol Last Admin: 03/31/18 05:38 Dose: 100 mls/hr Diltiazem HCl 125 mg/ Dextrose 125 mls @ 5 mls/hr IV .Q24H [facility]; Protocol Linezolid (Zyvox) 600 mg PO BID [facility]; Protocol Last Admin: 03/31/18 12:49 Dose: Not Given Losartan Potassium (Cozaar) 25 mg PO DAILY [facility] Last Admin: 03/31/18 10:02 Dose: Not Given Montelukast Sodium (Singulair) 10 mg PO [facility] Last Admin: 03/30/18 21:44 Dose: 10 mg Ondansetron HCl (Zofran Inj) 4 mg IVP Q8 PRN PRN Reason: Nausea/Vomiting Last Admin: 03/31/18 06:25 Dose: 4 mg Potassium Chloride (K-Dur 20 Meq Er Tab) 20 meq PO DAILY [facility] Last Admin: 03/31/18 10:00 Dose: 20 meq Rosuvastatin Calcium (Crestor) 5 mg PO HS [facility] Last Admin: 03/30/18 21:44 Dose: 5 mg Tamsulosin HCl (Flomax) 0.4 mg PO DAILY [facility] Last Admin: 03/31/18 10:00 Dose: 0.4 mg Physical Exam - Constitutional Appears: No Acute Distress, Chronically Ill - Head Exam Head Exam: ATRAUMATIC, NORMAL INSPECTION - Eye Exam Eye Exam: EOMI, Normal appearance - Neck Exam Neck exam: Positive for: Normal Inspection. Negative for: Tenderness - Respiratory Exam Respiratory Exam: Clear to Auscultation Bilateral, NORMAL BREATHING PATTERN - Cardiovascular Exam Cardiovascular Exam: Tachycardia, Irregular Rhythm - GI/Abdominal Exam GI & Abdominal Exam: Distended, Soft. absent: Tenderness - Extremities Exam Extremities exam: Positive for: normal inspection. Negative for: tenderness - Neurological Exam Neurological exam: CN II-XII Intact, Oriented x3 - Skin Skin Exam: Dry, Warm Results - Vital Signs Recent Vital Signs: Last Vital Signs Temp 97.3 F L 03/31/18 07:00 Pulse 154 H 03/31/18 11:56 Resp 20 03/31/18 07:00 BP 87/60 L 03/31/18 12:02 Pulse Ox 93 L 03/31/18 07:00 - Labs Result Diagrams: 03/31/18 08:10 03/31/18 08:10 Labs: Laboratory Results - last 24 hr 03/30/18 03/30/18 03/30/18 16:49 16:49 16:49 WBC 9.9 D RBC 4.78 Hgb 12.8 Hct 39.9 MCV 83.5 MCH 26.8 L MCHC 32.1 L RDW 18.7 H Plt Count 208 MPV 9.2 Neut % (Auto) Lymph % (Auto) [place] % (Auto) Eos % (Auto) Baso % (Auto) Neut # (Auto) Lymph # (Auto) [place] # (Auto) Eos # (Auto) Baso # (Auto) Sodium 138 Potassium 4.3 Chloride 107 Carbon Dioxide 18 L Anion Gap 17 BUN 22 H Creatinine 1.9 H Est GFR ( Amer) 41 Est GFR (Non-Af Amer) 34 POC Glucose (mg/dL) Random Glucose 139 H Calcium 9.0 Phosphorus 5.3 H Magnesium 2.0 Total Bilirubin 0.8 AST 30 ALT 38 Alkaline Phosphatase 98 Troponin I Total Protein 6.4 Albumin 3.6 Globulin 2.8 Albumin/Globulin Ratio 1.3 Amylase 44 Lipase 129 03/31/18 03/31/18 03/31/18 07:02 08:10 08:10 WBC 10.8 RBC 4.72 Hgb 12.9 Hct 40.2 MCV 85.2 MCH 27.3 MCHC 32.0 L RDW 18.8 H Plt Count 212 MPV 9.6 Neut % (Auto) 79.5 H Lymph % (Auto) 12.3 L [place] % (Auto) 6.6 Eos % (Auto) 0.2 Baso % (Auto) 1.4 Neut # (Auto) 8.5 H Lymph # (Auto) 1.3 [place] # (Auto) 0.7 Eos # (Auto) 0.0 Baso # (Auto) 0.2 Sodium 139 Potassium 5.0 Chloride 107 Carbon Dioxide 18 L Anion Gap 20 BUN 28 H Creatinine 2.7 H Est GFR ( Amer) 27 Est GFR (Non-Af Amer) 23 POC Glucose (mg/dL) 115 H Random Glucose 113 H Calcium 9.0 Phosphorus 6.2 H Magnesium 2.0 Total Bilirubin 0.8 AST 35 ALT 32 Alkaline Phosphatase 81 Troponin I 0.0380 Total Protein 6.0 L Albumin 3.3 L Globulin 2.7 Albumin/Globulin Ratio 1.2 Amylase Lipase Assessment & Plan (1) Hypotensive episode Status: Acute (2) ATN (acute tubular necrosis) Status: Acute (3) Acute osteomyelitis of hand including fingers Status: Acute (4) MICHAEL (acute kidney injury) Status: Acute (5) Atrial fibrillation with RVR Status: Acute - Assessment and Plan (Free Text) Assessment: MICHAEL likely related to hypotensive episode compounded by AFib, lasix, PRINCE I use r/o obstructive uropathy osteo finger Plan: bernardo placement if allowed renal US IV fluids stop lasix, PRINCE I serial chemistries
[2018-03-31] MEDS ORDERED: Sodium Chloride 0.9% 1,000 ML IV SCH (14:00)
--- NOTE | 2018-03-31 15:04 | RAD ---
Date of service: 03/31/2018 HISTORY: fluid overload COMPARISON: 01/05/2018 FINDINGS: LUNGS: No active pulmonary disease. PLEURA: Minimal blunting of right costophrenic angle. Small pleural effusion versus chronic pleural thickening. No evidence of left pleural effusion. No pneumothorax. CARDIOVASCULAR: There is atherosclerotic calcification of the aortic arch. Normal heart size. Sternotomy wires are noted. No congestive change. There is no pulmonary vascular congestive change. OSSEOUS STRUCTURES: No significant abnormalities. VISUALIZED UPPER ABDOMEN: Normal. OTHER FINDINGS: None. IMPRESSION: Possible small right pleural effusion. No acute infiltrate.
--- NOTE | 2018-03-31 19:00 | PN ---
DATE: 03/29/2018 SUBJECTIVE: On the day I saw the patient around 8 a.m. in the morning. He was sitting up on the chair at that time. He was in room #553, bed B. He was comfortable, not in any distress. He has very mild pain in the right index finger. He was doing extremely well. His vital signs were stable at that time. Denied any chest pain, no shortness of breath. Denied any leg swelling. No nausea, no vomiting. Clinical examination is unremarkable except 1+ pedal edema bilaterally. On the index finger right side, there was some swelling noted. ASSESSMENT: The patient is an 82-year-old male with multiple medical history including congestive heart failure, also had a history of atrial flutter and fibrillation, on anticoagulation, admitted with osteomyelitis of the right index finger, on antibiotics. I spoke to the Infectious Disease. The patient will need to have antibiotics. The patient is refusing to have any surgical intervention. We will closely monitor. Latoya Orosco MD
--- NOTE | 2018-03-31 19:01 | PN ---
DATE: 03/30/2018 TIME OF EVALUATION: I examined the patient around 6:30 p.m. SUBJECTIVE: The patient is comfortably sitting up. He is in room #565, bed A. He was moved to this room. He was having no pain. Earlier, he had an episode of rapid ventricular rate with atrial flutter and fibrillation, but he is comfortable. is at bedside. I spoke to the patient's in detail. He was having some nausea in the morning. Zofran was given. I repeated an x-ray of the abdomen nonspecific. Labs reviewed. Lipase and amylase level is normal. PHYSICAL EXAMINATION: VITAL SIGNS: The patient's vitals signs stable at this time. ABDOMEN: Nontender abdomen. EXTREMITIES: A 1+ pedal edema. ASSESSMENT AND PLAN: The patient is an 82-year-old male with a history of congestive heart failure admitted with osteomyelitis of the right index finger on IV antibiotics, currently receiving Zyvox as per ID. We will continue to monitor nonspecific abdominal symptoms secondary to possible CHF. We will continue to monitor. Latoya Orosco MD
--- NOTE | 2018-03-31 19:07 | PN ---
DATE: 03/31/2018 SUBJECTIVE: I spoke to the nighttime hospitalist. The patient earlier around 6:30 a.m. had an episode of rapid ventricular rate with hypotension. The patient was seen by them at that time and given low IV fluid bolus and also received Cardizem, and there was some improvement and he concerned about dehydration. Later, the patient was doing well, but he started again high rapid ventricular rate, the rate was not controlled, currently the heart rate is like 150. I spoke to the regulatory submissions associate. Given the low ejection fraction, we decided to bring the patient to the intensive care unit. The patient is alert, awake. He is comfortable and mild respiratory distress noted. He denies any chest pain, but bilateral leg swelling noted. PHYSICAL EXAMINATION: GENERAL: Currently, the patient is in the intensive care unit, bed 18. VITAL SIGNS: The heart rate is 130 per minute, but variable rate noted, blood pressure 117/83, saturation is 96% on nasal cannula 2 L. CHEST: Bilateral good air entry. Minimal expiratory wheezing noted. Irregular heart sound noted. ABDOMEN: Soft. Labs reviewed. Nonspecific, elevated proBNP, also elevated creatinine level noted, most likely related to worsening heart failure at this time. The patient has chronic congestive heart failure with ejection fraction of 15% or 20%, and also now on antibiotic. We will closely monitor IV Cardizem drip at this time, digoxin to control the heart rate. We will hold up the other antihypertensives. We will continue to monitor and he will be followed by regulatory submissions associate. May need a renal evaluation, and we will follow up the patient. Latoya Orosco MD
--- NOTE | 2018-03-31 19:40 | CP.PCM.CON ---
History of Present Illness - History of Present Illness History of Present Illness: CC: S/P Rapid A Fib Patient is an 82 yo male with PMH CAD s/p CABG (4 years ago), HTN, hypercholesteremia, COPD, and Afib on AC admitted to hospital for evaluation of right 2nd finger osteomyelitis. Xray findings suggestive of ostemyelitis. ID and Orthopedic surgery were treating patient with IV antibiotics and possible amputation surgery of second digit. Patient refused surgery after speaking with ID and ortho. Rapid response was called earlier today for patient feeling dizzy. Blood pressure recorded was 64/38 with elevated HR. Patient was given metoprolol and cardizem with a 250ml bolus. Patient transferred to ICU with Afib w/ RVR, heart rate in 140s. Patient admits to lightheadedness and palpitations. Patient denies fevers, chills, chest pain, sob, n/v, constipation or diarrhea, and dysuria. Consulted for rising creatinine. Denies CKD. Claims fair UO, but no recorded UO. PMH- CAD s/p CABG (4 years ago),previous stents, HTN, hypercholesteremia, COPD, and Afib on AC PSH- CABG, cardiac stents, AP FH- HTN and heart disease, no CKD Allergies- NKDA Social- 5 pack per day smoking history Meds- see MAR Code: Full code Review of Systems - Constitutional Constitutional: Fatigue, Weakness - EENT Ears: absent: As Per HPI, Decreased Hearing, Ear Discharge, Ear Pain, Tinnitus, Abnormal Hearing, Disequilibrium, Dizziness, Other Nose/Mouth/Throat: absent: As Per HPI, Epistaxis, Nasal Congestion, Nasal Discharge, Nasal Obstruction, Nasal Trauma, Nose Pain, Post Nasal Drip, Sinus Pain, Sinus Pressure, Bleeding Gums, Change in Voice, Dental Pain, Dry Mouth, Dysphagia, Halitosis, Hoarsness, Lip Swelling, Mouth Lesions, Mouth Pain, Odynophagia, Sore Throat, Throat Swelling, Tongue Swelling, Facial Pain, Neck Pain, Neck Mass, Other - Cardiovascular Cardiovascular: Dyspnea on Exertion, Irregular Heart Rhythm, Lightheadedness, Palpitations - Respiratory Respiratory: Dyspnea on Exertion - Gastrointestinal Gastrointestinal: absent: As Per HPI, Abdominal Pain, Belching, Bloating, Change in Bowel Habits, Change in Stool Character, Coffee Ground Emesis, Constipation, Cramping, Diarrhea, Dyspepsia, Dysphagia, Early Satiety, Excessive Flatus, Fecal Incontinence, Heartburn, Hematemesis, Hematochezia, Loose Stools, Melena, Nausea, Odynophagia, Temesmus, Vomiting, Other - Genitourinary Genitourinary: As Per HPI - Musculoskeletal Musculoskeletal: Muscle Weakness, Myalgias - Neurological Neurological: Dizziness, Weakness Physical Exam - Constitutional Appears: No Acute Distress, Chronically Ill - Head Exam Head Exam: ATRAUMATIC, NORMAL INSPECTION - Eye Exam Eye Exam: EOMI, Normal appearance - Neck Exam Neck exam: Positive for: Normal Inspection. Negative for: Tenderness - Respiratory Exam Respiratory Exam: Clear to Auscultation Bilateral, NORMAL BREATHING PATTERN - Cardiovascular Exam Cardiovascular Exam: Tachycardia, Irregular Rhythm - GI/Abdominal Exam GI & Abdominal Exam: Distended, Soft. absent: Tenderness - Extremities Exam Extremities exam: Positive for: normal inspection. Negative for: tenderness - Neurological Exam Neurological exam: CN II-XII Intact, Oriented x3 - Skin Skin Exam: Dry, Warm Assessment & Plan (1) Hypotensive episode Status: Acute (2) ATN (acute tubular necrosis) Status: Acute (3) Acute osteomyelitis of hand including fingers Status: Acute (4) MICHAEL (acute kidney injury) Status: Acute (5) Atrial fibrillation with RVR Status: Acute - Assessment and Plan (Free Text) Assessment: Patent s/p Rapid A Fib now rate controlled with Cardizem drip Ischemic Cardiomyopathy Acute on Chronic renal failure Continue Plavix and Eliquis 2.5 po bid Statins Check ECHO to re assess EF Past Patient History - Infectious Disease Hx of Infectious Diseases: None - Past Medical History & Family History Past Medical History?: Yes Past Family History: Reviewed and not pertinent - Past Social History Smoking Status: Former Smoker - CARDIAC Hx Cardiac Disorders: Yes Hx Congestive Heart Failure: Yes (w/ 33% EF) Hx Hypercholesterolemia: Yes Hx Hypertension: Yes - PULMONARY Hx Respiratory Disorders: No - NEUROLOGICAL Hx Neurological Disorder: No - HEENT Hx HEENT Problems: No - RENAL Hx Chronic Kidney Disease: No - ENDOCRINE/METABOLIC Hx Endocrine Disorders: No - HEMATOLOGICAL/ONCOLOGICAL Hx Blood Disorders: No - INTEGUMENTARY Hx Dermatological Problems: Yes Other/Comment: multiple moles removed by dr kerr as pr pt, pt does not know if any were malignant, pt stated "I don't know she gave me madie to put on,", mid chest healed scar, red raised rash and redness all over chest abd ad lower abd upper thighs redness goes around to back, slight redness to buttocks, age spots to forehead, large eccymotic area to right groin and r lower abd dressing dry and and intact had angiogram done 11/05/17 intact, multiple age spots to b/l forehead and templees - MUSCULOSKELETAL/RHEUMATOLOGICAL Hx Musculoskeletal Disorders: No Hx Falls: No - GASTROINTESTINAL Hx Gastrointestinal Disorders: No - GENITOURINARY/GYNECOLOGICAL Hx Genitourinary Disorders: Yes Other/Comment: c/o urinary retention and is on flomax - PSYCHIATRIC Hx Psychophysiologic Disorder: No Hx Substance Use: No - SURGICAL HISTORY Hx Surgeries: Yes Hx Appendectomy: Yes Hx Coronary Artery Bypass Graft: Yes (09/20/10) Hx Coronary Stent: Yes - ANESTHESIA Hx Anesthesia: Yes Hx Anesthesia Reactions: No Hx Malignant Hyperthermia: No Has any member of the family had a problem w/ anesthesia?: No Meds Allergies/Adverse Reactions: Allergies Allergy/AdvReac Type Severity Reaction Status Date / Time No Known Allergies Allergy Verified 03/16/18 18:14 - Medications Medications: Current Medications Apixaban (Eliquis) 2.5 mg PO BID [facility] Last Admin: 03/31/18 17:50 Dose: 2.5 mg Calcium Acetate (Phoslo) 667 mg PO TIDCC [facility] Last Admin: 03/31/18 17:50 Dose: 667 mg Clopidogrel Bisulfate (Plavix) 75 mg PO DAILY [facility] Last Admin: 03/31/18 10:00 Dose: 75 mg Diltiazem HCl (Cardizem Cd) 180 mg PO DAILY [facility] Last Admin: 03/31/18 10:02 Dose: Not Given Famotidine (Pepcid) 20 mg PO DAILY [facility] Last Admin: 03/31/18 10:00 Dose: 20 mg Finasteride (Proscar) 5 mg PO DAILY [facility] Last Admin: 03/31/18 10:00 Dose: 5 mg Metronidazole (Flagyl) 500 mg in 100 mls @ 100 mls/hr IVPB Q8H [facility]; Protocol Last Admin: 03/31/18 15:18 Dose: 100 mls/hr Diltiazem HCl 125 mg/ Dextrose 125 mls @ 2.5 mls/hr IV .Q24H [facility]; Protocol Linezolid (Zyvox) 600 mg PO BID [facility]; Protocol Last Admin: 03/31/18 17:50 Dose: 600 mg Montelukast Sodium (Singulair) 10 mg PO HS [facility] Last Admin: 03/30/18 21:44 Dose: 10 mg Ondansetron HCl (Zofran Inj) 4 mg IVP Q8 PRN PRN Reason: Nausea/Vomiting Last Admin: 03/31/18 06:25 Dose: 4 mg Potassium Chloride (K-Dur 20 Meq Er Tab) 20 meq PO DAILY [facility] Last Admin: 03/31/18 10:00 Dose: 20 meq Rosuvastatin Calcium (Crestor) 5 mg PO HS [facility] Last Admin: 03/30/18 21:44 Dose: 5 mg Tamsulosin HCl (Flomax) 0.4 mg PO DAILY [facility] Last Admin: 03/31/18 10:00 Dose: 0.4 mg Results - Vital Signs Recent Vital Signs: Last Vital Signs Temp 97.3 F L 03/31/18 07:00 Pulse 94 H 03/31/18 18:01 Resp 19 03/31/18 18:01 BP 118/72 03/31/18 18:01 Pulse Ox 97 03/31/18 18:01 - Labs Result Diagrams: 03/31/18 08:10 03/31/18 08:10 Labs: Laboratory Results - last 24 hr 03/31/18 03/31/18 03/31/18 07:02 08:10 08:10 WBC 10.8 RBC 4.72 Hgb 12.9 Hct 40.2 MCV 85.2 MCH 27.3 MCHC 32.0 L RDW 18.8 H Plt Count 212 MPV 9.6 Neut % (Auto) 79.5 H Lymph % (Auto) 12.3 L [place] % (Auto) 6.6 Eos % (Auto) 0.2 Baso % (Auto) 1.4 Neut # (Auto) 8.5 H Lymph # (Auto) 1.3 Will # (Auto) 0.7 Eos # (Auto) 0.0 Baso # (Auto) 0.2 Sodium 139 Potassium 5.0 Chloride 107 Carbon Dioxide 18 L Anion Gap 20 BUN 28 H Creatinine 2.7 H Est GFR ( Amer) 27 Est GFR (Non-Af Amer) 23 POC Glucose (mg/dL) 115 H Random Glucose 113 H Calcium 9.0 Phosphorus 6.2 H Magnesium 2.0 Total Bilirubin 0.8 AST 35 ALT 32 Alkaline Phosphatase 81 Troponin I 0.0380 Total Protein 6.0 L Albumin 3.3 L Globulin 2.7 Albumin/Globulin Ratio 1.2
--- NOTE | 2018-03-31 19:51 | US ---
Date of service: 03/31/2018 PROCEDURE: Ultrasound of the Kidneys HISTORY: bernardino COMPARISON: None available. TECHNIQUE: Sonogram of the kidneys. FINDINGS: RIGHT KIDNEY: Measures: 9.8 x 4.0 x 4.7 cm. Normal in size, contour and echogenicity. No stone, solid mass lesion or hydronephrosis visualized. LEFT KIDNEY: Measures: 10.0 x 4.9 x 5.3 cm. Normal in size, contour and echogenicity. No stone, solid mass lesion or hydronephrosis visualized. OTHER FINDINGS: Aorta was not adequately noted. Minor amount of ascites is seen in the right side of the abdomen. Wynn catheter is noted in the bladder. IMPRESSION: No hydronephrosis. Unremarkable renal ultrasound.
[2018-04-01 06:24] LABS: BASO # 0.1 K/uL (0.0-0.2); BASO % 0.9 % (0.0-2.0); EOS # 0.1 K/uL (0.0-0.7); EOS % 1.1 % (0.0-4.0); HEMOGLOBIN 11.9 g/dL (12.0-18.0); LYMPH # 1.2 K/uL (1.0-4.3); LYMPH % 10.3 % (20.0-40.0); MEAN CELL VOLUME 84.6 fL (80.0-94.0); MEAN CORPUSCULAR HEMOGLOBIN 27.3 pg (27.0-31.0); MEAN CORPUSCULAR HGB CONC 32.3 g/dL (33.0-37.0); MEAN PLATELET VOLUME 9.5 fL (7.2-11.7); MONO % 8.5 % (0.0-10.0); NEUT % 79.2 % (50.0-75.0); RBC 4.37 Mil/uL (4.40-5.90); RED CELL DISTRIBUTION WIDTH 18.8 % (11.5-14.5); WHITE BLOOD COUNT 11.4 K/uL (4.8-10.8)
[2018-04-01 06:40] LABS: ALB/GLOB RATIO 1.1 (1.0-2.1); ALBUMIN 2.9 g/dL (3.5-5.0); CALCIUM 8.4 mg/dl (8.6-10.4)
[2018-04-01 06:47] LABS: CK-MB 1.65 ng/mL (0.0-3.38); TROPONIN I 0.027 ng/mL (0.00-0.120)
--- NOTE | 2018-04-01 08:03 | CP.PCM.HP ---
History of Present Illness - History of Present Illness History of Present Illness: CHIEF COMPLAINT: Right index finger severe pain. HISTORY OF PRESENT ILLNESS: This is an 82-year-old male with a history of CAD, status post coronary artery bypass grafting; hypertension; hypercholesterolemia; history of atrial fibrillation, on anticoagulation. Also had admitted with recently multiple times with decompensated heart failure and also rapid ventricular rate, came to the office initially with right index finger swelling and pain. A week ago, the patient went to the emergency room with sudden onset of swelling in the right index finger. The patient was not clear whether he had any injuries or not, but following some work he was doing in the backyard, he had some splinter injury in the right index finger, and he was trying to remove that, and he started having more pain, and he came into the emergency room five days ago. At that time, the patient was seen in the emergency room, and he was sent home with a topical antibiotic and also given pain medications, but two days later again he came into the emergency room with worsening pain, swelling, and redness and also having some chills. At that time, he had x-rays of the finger and was given Augmentin, and he was sent home. The patient finished taking the Augmentin, and he came into the office at that time on the day of admission, and I recommended him to go to the hospital because of the suspected underlying osteomyelitis. The patient was having severe pain, swelling, and unable to move the finger. He has no nausea or vomiting. No other systemic symptoms. No diarrhea noted. PAST MEDICAL HISTORY: Coronary artery bypass grafting, CAD, hypertension, hyperlipidemia, history of smoking, and COPD. ALLERGIES: NO KNOWN DRUG ALLERGIES. PERSONAL HISTORY: The patient used to be a heavy smoker, almost five packs per day for many years and quit recently. PAST SURGICAL HISTORY: Include coronary artery bypass grafting. FAMILY HISTORY: Significant for hypertension and heart disease. REVIEW OF SYSTEMS: As noted. The patient is currently having no chest pain. No shortness of breath. Denies any headache, but significant problem in the right index finger with the swelling, redness, and edema. PHYSICAL EXAMINATION: VITAL SIGNS: Upon admission, temperature 97.9, pulse 80, blood pressure 108/71, respiration is 18, and saturation is 97%. HEENT: PERRLA. NECK: Supple. CHEST: Bilateral good air entry. No wheezing or rales noted. HEART: Regular heart sounds. ABDOMEN: Nontender abdomen. EXTREMITIES: No pedal edema. CENTRAL NERVOUS SYSTEM: Alert, awake, and oriented x3. No functional neurological deficit. On the right hand, the patient has fusiform swelling involving the right index finger of the distal phalanx, redness, swelling, and severe significant pain noted. There is no proximal adenitis noted. LABORATORY DATA: WBC 6.2, hemoglobin 12, hematocrit 36.4, platelets 186. Chemistry is otherwise nonspecific. CAT scan of the hand showing evidence of possible acute osteomyelitic changes with erosive arthritis, and also there is an evidence of severe osteoarthritis and subluxation. ESR elevation mildly noted. CRP is highly elevated. ASSESSMENT AND RECOMMENDATIONS: An 82-year-old male with a history of multiple medical histories including coronary artery disease, coronary artery bypass grafting, chronic obstructive pulmonary disease, diabetes, hypertension, and atrial fibrillation. Admitted to the hospital now with possible acute osteomyelitis of the right index finger. The patient will need intravenous antibiotic, infectious disease evaluation and orthopedic evaluation. Continue the current treatment. We will follow the patient. Present on Admission - Present on Admission Any Indicators Present on Admission: No History of DVT/PE: No History of Uncontrolled Diabetes: No Urinary Catheter: No Decubitus Ulcer Present: No Past Patient History - Infectious Disease Hx of Infectious Diseases: None - Past Medical History & Family History Past Medical History?: Yes Past Family History: Reviewed and not pertinent - Past Social History Smoking Status: Former Smoker - CARDIAC Hx Cardiac Disorders: Yes Hx Congestive Heart Failure: Yes (w/ 33% EF) Hx Hypercholesterolemia: Yes Hx Hypertension: Yes - PULMONARY Hx Respiratory Disorders: No - NEUROLOGICAL Hx Neurological Disorder: No - HEENT Hx HEENT Problems: No - RENAL Hx Chronic Kidney Disease: No - ENDOCRINE/METABOLIC Hx Endocrine Disorders: No - HEMATOLOGICAL/ONCOLOGICAL Hx Blood Disorders: No - INTEGUMENTARY Hx Dermatological Problems: Yes Other/Comment: multiple moles removed by dr kerr as pr pt, pt does not know if any were malignant, pt stated "I don't know she gave me madie to put on,", mid chest healed scar, red raised rash and redness all over chest abd ad lower abd upper thighs redness goes around to back, slight redness to buttocks, age spots to forehead, large eccymotic area to right groin and r lower abd dressing dry and and intact had angiogram done 11/05/17 intact, multiple age spots to b/l forehead and templees - MUSCULOSKELETAL/RHEUMATOLOGICAL Hx Musculoskeletal Disorders: No Hx Falls: No - GASTROINTESTINAL Hx Gastrointestinal Disorders: No - GENITOURINARY/GYNECOLOGICAL Hx Genitourinary Disorders: Yes Other/Comment: c/o urinary retention and is on flomax - PSYCHIATRIC Hx Psychophysiologic Disorder: No Hx Substance Use: No - SURGICAL HISTORY Hx Surgeries: Yes Hx Appendectomy: Yes Hx Coronary Artery Bypass Graft: Yes (09/20/10) Hx Coronary Stent: Yes - ANESTHESIA Hx Anesthesia: Yes Hx Anesthesia Reactions: No Hx Malignant Hyperthermia: No Has any member of the family had a problem w/ anesthesia?: No Meds Allergies/Adverse Reactions: Allergies Allergy/AdvReac Type Severity Reaction Status Date / Time No Known Allergies Allergy Verified 03/16/18 18:14 Results - Vital Signs Recent Vital Signs: Last Vital Signs Temp 97.5 F L 04/01/18 04:00 Pulse 94 H 04/01/18 07:00 Resp 14 04/01/18 07:00 BP 102/66 04/01/18 07:00 Pulse Ox 96 04/01/18 07:00 - Labs Result Diagrams: 04/01/18 06:19 04/01/18 06:19 Labs: Laboratory Results - last 24 hr 03/31/18 03/31/18 04/01/18 08:10 08:10 06:19 WBC 10.8 RBC 4.72 Hgb 12.9 Hct 40.2 MCV 85.2 MCH 27.3 MCHC 32.0 L RDW 18.8 H Plt Count 212 MPV 9.6 Neut % (Auto) 79.5 H Lymph % (Auto) 12.3 L [place] % (Auto) 6.6 Eos % (Auto) 0.2 Baso % (Auto) 1.4 Neut # (Auto) 8.5 H Lymph # (Auto) 1.3 [place] # (Auto) 0.7 Eos # (Auto) 0.0 Baso # (Auto) 0.2 Sodium 139 Potassium 5.0 Chloride 107 Carbon Dioxide 18 L Anion Gap 20 BUN 28 H Creatinine 2.7 H Est GFR ( Amer) 27 Est GFR (Non-Af Amer) 23 Random Glucose 113 H Calcium 9.0 Phosphorus 6.2 H Magnesium 2.0 Total Bilirubin 0.8 AST 35 ALT 32 Alkaline Phosphatase 81 Total Creatine Kinase 32 L CK-MB (Mass) 1.65 Troponin I 0.0380 0.0270 Total Protein 6.0 L Albumin 3.3 L Globulin 2.7 Albumin/Globulin Ratio 1.2 04/01/18 04/01/18 06:19 06:19 WBC 11.4 H RBC 4.37 L Hgb 11.9 L Hct 37.0 MCV 84.6 MCH 27.3 MCHC 32.3 L RDW 18.8 H Plt Count 186 MPV 9.5 Neut % (Auto) 79.2 H Lymph % (Auto) 10.3 L [place] % (Auto) 8.5 Eos % (Auto) 1.1 Baso % (Auto) 0.9 Neut # (Auto) 9.0 H Lymph # (Auto) 1.2 [place] # (Auto) 1.0 H Eos # (Auto) 0.1 Baso # (Auto) 0.1 Sodium 139 Potassium 4.6 Chloride 107 Carbon Dioxide 22 Anion Gap 14 BUN 36 H Creatinine 2.4 H Est GFR ( Amer) 31 Est GFR (Non-Af Amer) 26 Random Glucose 69 L Calcium 8.4 L Phosphorus 5.6 H Magnesium 2.0 Total Bilirubin 0.7 AST 38 ALT 36 Alkaline Phosphatase 66 Total Creatine Kinase CK-MB (Mass) Troponin I Total Protein 5.5 L Albumin 2.9 L Globulin 2.6 Albumin/Globulin Ratio 1.1
--- NOTE | 2018-04-01 08:07 | CP.PCM.PN ---
Subjective - Date & Time of Evaluation Date of Evaluation: 04/01/18 Time of Evaluation: 08:05 - Subjective Subjective: Patient is more comfortable now he is not in any distress at this time. He denies any chest pain or shortness of breath. Currently he is receiving Cardizem drip at low-dose. We will taper off the Cardizem drip. Added digoxin. On examination: Vital signs stable. Your rapid ventricular rate noted, chest good air entry regular heart sounds nontender abdomen pedal edema plus Wynn catheter noted Labs noted. Elevated creatinine level noted Assessment 82-year-old male with history of congestive heart failure COPD CAD and also has a history of atrial flutter and fibrillation. On anticoagulation. Now admitted with osteomyelitis right index finger. Patient developed atrial flutter fibrillation with rapid ventricular rate with the decompensation with acute renal insufficiency. Currently closely by monitored. We will discontinue the Wynn catheter. We will continue to monitor. Objective - Vital Signs/Intake and Output Vital Signs (last 24 hours): Temp Pulse Resp BP Pulse Ox 97.5 F L 94 H 14 102/66 96 04/01/18 04:00 04/01/18 07:00 04/01/18 07:00 04/01/18 07:00 04/01/18 07:00 Intake and Output: 04/01/18 04/01/18 06:59 18:59 Intake Total 447.5 2.5 Output Total 245 25 Balance 202.5 -22.5 - Medications Medications: Current Medications Apixaban (Eliquis) 2.5 mg PO BID [facility] Last Admin: 03/31/18 17:50 Dose: 2.5 mg Calcium Acetate (Phoslo) 667 mg PO TIDCC [facility] Last Admin: 04/01/18 07:37 Dose: 667 mg Clopidogrel Bisulfate (Plavix) 75 mg PO DAILY [facility] Last Admin: 03/31/18 10:00 Dose: 75 mg Digoxin (Digoxin) 0.125 mg PO DAILY@1800 [facility] Diltiazem HCl (Cardizem Cd) 180 mg PO DAILY [facility] Last Admin: 03/31/18 10:02 Dose: Not Given Famotidine (Pepcid) 20 mg PO DAILY [facility] Last Admin: 03/31/18 10:00 Dose: 20 mg Finasteride (Proscar) 5 mg PO DAILY [facility] Last Admin: 03/31/18 10:00 Dose: 5 mg Diltiazem HCl 125 mg/ Dextrose 125 mls @ 2.5 mls/hr IV .Q24H [facility]; Protocol Last Admin: 03/31/18 19:15 Dose: 2.5 mg/hr, 2.5 mls/hr Linezolid (Zyvox) 600 mg PO BID [facility]; Protocol Last Admin: 03/31/18 17:50 Dose: 600 mg Montelukast Sodium (Singulair) 10 mg PO HS [facility] Last Admin: 03/31/18 22:35 Dose: 10 mg Ondansetron HCl (Zofran Inj) 4 mg IVP Q8 PRN PRN Reason: Nausea/Vomiting Last Admin: 03/31/18 06:25 Dose: 4 mg Potassium Chloride (K-Dur 20 Meq Er Tab) 20 meq PO DAILY [facility] Last Admin: 03/31/18 10:00 Dose: 20 meq Rosuvastatin Calcium (Crestor) 5 mg PO HS [facility] Last Admin: 03/31/18 22:35 Dose: 5 mg Tamsulosin HCl (Flomax) 0.4 mg PO DAILY [facility] Last Admin: 03/31/18 10:00 Dose: 0.4 mg - Labs Labs: 04/01/18 06:19 04/01/18 06:19 PT 15.7 SECONDS (9.7-12.2) H 03/26/18 15:18 INR 1.4 03/26/18 15:18
[2018-04-01] MEDS: Potassium Chloride 20 mEq ER Tab PO SCH (09:24)
[2018-04-01] MEDS ORDERED: metroNIDAZOLE IV 500 mg/100 ml 500 MG/100 ML BAG IVPB SCH (10:15)
--- NOTE | 2018-04-01 10:38 | CP.PCM.PN ---
Subjective - Date & Time of Evaluation Date of Evaluation: 04/01/18 Time of Evaluation: 10:36 - Subjective Subjective: seen and examined charted uop 300cc bernardo removed this am pt denies any abdominal pain nausea vomiting fevers chills dizziness palpitat ions chest pain Objective - Vital Signs/Intake and Output Vital Signs (last 24 hours): Temp Pulse Resp BP Pulse Ox 97.6 F 100 H 13 104/66 96 04/01/18 08:00 04/01/18 10:00 04/01/18 10:00 04/01/18 10:00 04/01/18 10:00 Intake and Output: 04/01/18 04/01/18 06:59 18:59 Intake Total 447.5 306.2 Output Total 245 65 Balance 202.5 241.2 - Medications Medications: Current Medications Apixaban (Eliquis) 2.5 mg PO BID [facility] Last Admin: 04/01/18 09:23 Dose: 2.5 mg Calcium Acetate (Phoslo) 667 mg PO TIDCC [facility] Last Admin: 04/01/18 07:37 Dose: 667 mg Carvedilol (Coreg) 3.125 mg PO BID [facility] Last Admin: 04/01/18 09:22 Dose: 3.125 mg Clopidogrel Bisulfate (Plavix) 75 mg PO DAILY [facility] Last Admin: 04/01/18 09:24 Dose: 75 mg Digoxin (Digoxin) 0.125 mg PO DAILY@1800 [facility] Diltiazem HCl (Cardizem Cd) 180 mg PO DAILY [facility] Last Admin: 03/31/18 10:02 Dose: Not Given Diltiazem HCl (Cardizem) 30 mg PO QID [facility] Last Admin: 04/01/18 09:24 Dose: 30 mg Famotidine (Pepcid) 20 mg PO DAILY [facility] Last Admin: 04/01/18 09:24 Dose: 20 mg Finasteride (Proscar) 5 mg PO DAILY [facility] Last Admin: 04/01/18 09:23 Dose: 5 mg Metronidazole (Flagyl) 500 mg in 100 mls @ 100 mls/hr IVPB Q8H [facility]; Protocol Metronidazole (Flagyl) 500 mg in 100 mls @ 100 mls/hr IVPB Q8H [facility]; Protocol Linezolid (Zyvox) 600 mg PO BID [facility]; Protocol Last Admin: 04/01/18 09:23 Dose: 600 mg Montelukast Sodium (Singulair) 10 mg PO HS [facility] Last Admin: 03/31/18 22:35 Dose: 10 mg Potassium Chloride (K-Dur 20 Meq Er Tab) 20 meq PO DAILY [facility] Last Admin: 04/01/18 09:24 Dose: 20 meq Rosuvastatin Calcium (Crestor) 5 mg PO HS [facility] Last Admin: 03/31/18 22:35 Dose: 5 mg Tamsulosin HCl (Flomax) 0.4 mg PO DAILY [facility] Last Admin: 04/01/18 09:24 Dose: 0.4 mg - Labs Labs: 04/01/18 06:19 04/01/18 06:19 PT 15.7 SECONDS (9.7-12.2) H 03/26/18 15:18 INR 1.4 03/26/18 15:18 - Constitutional Appears: Non-toxic, No Acute Distress, Chronically Ill - Head Exam Head Exam: NORMAL INSPECTION, NORMOCEPHALIC - Eye Exam Eye Exam: Normal appearance, PERRL - ENT Exam ENT Exam: Mucous Membranes Moist, Normal Exam - Neck Exam Neck Exam: Full ROM, Normal Inspection - Respiratory Exam Respiratory Exam: Decreased Breath Sounds, NORMAL BREATHING PATTERN - Cardiovascular Exam Cardiovascular Exam: Tachycardia, REGULAR RHYTHM - GI/Abdominal Exam GI & Abdominal Exam: Distended, Soft - Extremities Exam Extremities Exam: Full ROM, Normal Inspection - Neurological Exam Neurological Exam: Alert, Awake, Oriented x3 - Psychiatric Exam Psychiatric exam: Normal Affect, Normal Mood - Skin Skin Exam: Dry, Intact Assessment and Plan (1) ATN (acute tubular necrosis) Status: Acute (2) Acute osteomyelitis of hand including fingers Status: Acute (3) Hypotensive episode Status: Acute (4) MICHAEL (acute kidney injury) Status: Acute (5) Atrial fibrillation with RVR Status: Acute (6) CAD (coronary artery disease) Status: Acute - Assessment and Plan (Free Text) Assessment: MICHAEL / ATN sec to hypotension, ACEI, Lasix A fib osteo finger hold all diuretics, ACEI/ARB gentle iv fluids monitor digoxin level ua, renal US unremarkable.
[2018-04-01] MEDS: metroNIDAZOLE IV 500 mg/100 ml 500 MG/100 ML BAG IVPB SCH ×2 (11:05→17:31)
--- NOTE | 2018-04-01 11:37 | CP.CCUPN ---
CCU Subjective - Physician Review Subjective (Free Text): 04/01/18 11:34 PGY-1 Critical Care Progress Note for Dr. Gentile's service Patient seen and examined at bedside. Patient offers no acute complaints. Patient denies fevers, chills, chest pain, sob, n/v, constipation or diarrhea. VSS stable. No acute events overnight. Critical Care Time Spent (in minutes): 35 CCU Objective - Vital Signs / Intake & Output Vital Signs (Last 4 hours): Vital Signs Temp Pulse Resp BP Pulse Ox 04/01/18 11:00 93 H 14 97/64 L 96 04/01/18 10:00 100 H 13 104/66 96 04/01/18 09:00 100 H 14 107/60 95 04/01/18 08:01 93 H 11 L 107/61 97 04/01/18 08:00 97.6 F 96 H 13 97 Intake and Output (Last 8hrs): Intake & Output 03/31/18 04/01/18 04/01/18 22:59 06:59 14:59 Intake Total 772.5 20.0 586.2 Output Total 130 180 65 Balance 642.5 -160.0 521.2 Weight 176 lb 7 oz Intake: Intake, IV Amount 532.5 20.0 106.2 Left Antecubital 500 Left Forearm 25 Left Wrist 7.5 20.0 106.2 Oral 240 480 Output: Urine 130 180 65 Urethral (Wynn) 130 180 65 Other: # Bowel Movements 1 1 - Physical Exam Head: Positive for: Atraumatic, Normocephalic Pupils: Positive for: PERRL Extroacular Muscles: Positive for: EOMI Conjunctiva: Positive for: Normal Mouth: Positive for: Moist Mucous Membranes Respiratory/Chest: Positive for: Clear to Auscultation, Good Air Exchange. Negative for: Respiratory Distress, Accessory Muscle Use, Wheezes, Rhonchi, Tachypneic Cardiovascular: Positive for: Regular Rate and Rhythm, Normal S1, S2. Negative for: Murmurs, Tachycardic Abdomen: Positive for: Normal Bowel Sounds. Negative for: Tenderness, Distention, Peritoneal Signs Upper Extremity: Positive for: Normal Inspection, Other (right 2nd digit swollen and erythematous). Negative for: Cyanosis, Edema Lower Extremity: Positive for: Normal Inspection. Negative for: Edema, CALF TENDERNESS Neurological: Positive for: GCS=15 Skin: Positive for: Dry, Normal Color. Negative for: Rashes, Diaphoretic Psychiatric: Positive for: Alert, Oriented x 3 - Medications Active Medications: Active Medications Generic Name Dose Route Start Last Admin Trade Name Freq PRN Reason Stop Dose Admin Apixaban 2.5 mg 03/28/18 10:00 04/01/18 09:23 Eliquis PO 2.5 mg BID [facility] Administration Calcium Acetate 667 mg 03/31/18 14:00 04/01/18 07:37 Phoslo PO 667 mg TIDCC [facility] Administration Carvedilol 3.125 mg 04/01/18 10:00 04/01/18 09:22 Coreg PO 3.125 mg BID [facility] Administration Clopidogrel Bisulfate 75 mg 03/27/18 10:00 04/01/18 09:24 Plavix PO 75 mg DAILY [facility] Administration Digoxin 0.125 mg 04/01/18 18:00 Digoxin PO DAILY@1800 [facility] Diltiazem HCl 180 mg 03/27/18 10:00 03/31/18 10:02 Cardizem Cd PO Not Given DAILY [facility] Diltiazem HCl 30 mg 04/01/18 10:00 04/01/18 09:24 Cardizem PO 30 mg QID [facility] Administration Famotidine 20 mg 03/27/18 10:00 04/01/18 09:24 Pepcid PO 20 mg DAILY [facility] Administration Finasteride 5 mg 03/27/18 10:00 04/01/18 09:23 Proscar PO 5 mg DAILY [facility] Administration Metronidazole 500 mg in 100 mls @ 100 mls/hr 04/01/18 10:30 04/01/18 11:05 Flagyl IVPB 100 mls/hr Q8H [facility] Administration Protocol Linezolid 600 mg 03/31/18 10:30 04/01/18 09:23 Zyvox PO 600 mg BID [facility] Administration Protocol Montelukast Sodium 10 mg 03/26/18 22:00 03/31/18 22:35 Singulair PO 10 mg HS [facility] Administration Potassium Chloride 20 meq 03/29/18 10:00 04/01/18 09:24 K-Dur 20 Meq Er Tab PO 20 meq DAILY [facility] Administration Rosuvastatin Calcium 5 mg 03/26/18 22:00 03/31/18 22:35 Crestor PO 5 mg HS [facility] Administration Tamsulosin HCl 0.4 mg 03/27/18 10:00 04/01/18 09:24 Flomax PO 0.4 mg DAILY [facility] Administration - Patient Studies Lab Studies: Microbiology Studies 03/26/18 15:18 Blood Culture - Final Blood NO GROWTH AFTER 5 DAYS Gram Stain - Final TEST NOT PERFORMED 03/26/18 15:15 Blood Culture - Final Blood NO GROWTH AFTER 5 DAYS Gram Stain - Final TEST NOT PERFORMED Lab Studies 04/01/18 04/01/18 04/01/18 Range/Units 06:19 06:19 06:19 WBC 11.4 H (4.8-10.8) K/uL RBC 4.37 L (4.40-5.90) Mil/uL Hgb 11.9 L (12.0-18.0) g/dL Hct 37.0 (35.0-51.0) % MCV 84.6 (80.0-94.0) fL MCH 27.3 (27.0-31.0) pg MCHC 32.3 L (33.0-37.0) g/dL RDW 18.8 H (11.5-14.5) % Plt Count 186 (130-400) K/uL MPV 9.5 (7.2-11.7) fL Neut % (Auto) 79.2 H (50.0-75.0) % Lymph % (Auto) 10.3 L (20.0-40.0) % Bath % (Auto) 8.5 (0.0-10.0) % Eos % (Auto) 1.1 (0.0-4.0) % Baso % (Auto) 0.9 (0.0-2.0) % Neut # (Auto) 9.0 H (1.8-7.0) K/uL Lymph # (Auto) 1.2 (1.0-4.3) K/uL Bath # (Auto) 1.0 H (0.0-0.8) K/uL Eos # (Auto) 0.1 (0.0-0.7) K/uL Baso # (Auto) 0.1 (0.0-0.2) K/uL Sodium 139 (132-148) mmol/L Potassium 4.6 (3.6-5.2) mmol/L Chloride 107 (98-107) mmol/L Carbon Dioxide 22 (22-30) mmol/L Anion Gap 14 (10-20) BUN 36 H (9-20) mg/dL Creatinine 2.4 H (0.8-1.5) mg/dL Est GFR ( Amer) 31 Est GFR (Non-Af Amer) 26 Random Glucose 69 L (75-110) mg/dL Calcium 8.4 L (8.6-10.4) mg/dl Phosphorus 5.6 H (2.5-4.5) mg/dL Magnesium 2.0 (1.6-2.3) mg/dL Total Bilirubin 0.7 (0.2-1.3) mg/dL AST 38 (17-59) U/L ALT 36 (21-72) U/L Alkaline Phosphatase 66 (38-126) U/L Total Creatine Kinase 32 L (55-170) U/L CK-MB (Mass) 1.65 (0.0-3.38) ng/mL Troponin I 0.0270 (0.00-0.120) ng/mL Total Protein 5.5 L (6.3-8.3) g/dL Albumin 2.9 L (3.5-5.0) g/dL Globulin 2.6 (2.2-3.9) gm/dL Albumin/Globulin Ratio 1.1 (1.0-2.1) Laboratory Results - last 24 hr 04/01/18 04/01/18 04/01/18 06:19 06:19 06:19 WBC 11.4 H RBC 4.37 L Hgb 11.9 L Hct 37.0 MCV 84.6 MCH 27.3 MCHC 32.3 L RDW 18.8 H Plt Count 186 MPV 9.5 Neut % (Auto) 79.2 H Lymph % (Auto) 10.3 L Bath % (Auto) 8.5 Eos % (Auto) 1.1 Baso % (Auto) 0.9 Neut # (Auto) 9.0 H Lymph # (Auto) 1.2 Bath # (Auto) 1.0 H Eos # (Auto) 0.1 Baso # (Auto) 0.1 Sodium 139 Potassium 4.6 Chloride 107 Carbon Dioxide 22 Anion Gap 14 BUN 36 H Creatinine 2.4 H Est GFR ( Amer) 31 Est GFR (Non-Af Amer) 26 Random Glucose 69 L Calcium 8.4 L Phosphorus 5.6 H Magnesium 2.0 Total Bilirubin 0.7 AST 38 ALT 36 Alkaline Phosphatase 66 Total Creatine Kinase 32 L CK-MB (Mass) 1.65 Troponin I 0.0270 Total Protein 5.5 L Albumin 2.9 L Globulin 2.6 Albumin/Globulin Ratio 1.1 Radiology Impressions: Radiology Impressions Chest X-Ray 03/31/18 13:07 IMPRESSION: Possible small right pleural effusion. No acute infiltrate. Renal Ultrasound 03/31/18 13:52 IMPRESSION: No hydronephrosis. Unremarkable renal ultrasound. Review of Systems - Review of Systems Review of Systems: 12 point ROS obtained and noted as in HPI Critical Care Progress Note - Ventilator Checklist Head of Bed 30 Degrees: Yes Daily Sedation Vacation: Yes Daily Assessment of Readiness to Wean: Yes Daily Spontaneous Breathing Trial: Yes PUD Prophalyxis: Yes DVT Prophylaxis: Yes Oral Care with Chlorhexidine Gluconate {CHG}: Yes - Prophylaxis GI Prophylaxis GI: Pepsid - Nutrition Nutrition: Nutrition Category Date Time Status Heart Healthy Diet [DIET] Diets 03/28/18 Breakfast Active Assessment/Plan - Assessment and Plan (Free Text) Assessment: Patient is a 82 yo male w/ PMH CAD s/p CABG (4 years ago), HTN, hypercholesteremia, COPD, and Afib on AC admitted for evaluation of osteomyelitis in 2nd digit. ICU consulted for low blood pressure and elevated heart rate. On EKG found to be in AFib w/ RVR. EF of 33%. Neuro: Alert and conversational CV Afib w/ RVR- Cardizem drip dc'ed; Digoxin 0.125mg po daily; Cardizem 30mg po qid CABG- Plavix 75mg, Crestor 5mg po HS CHF- Coreg 3.125mg po daily HTN-see above meds Repeat troponin trending down; patient with no chest pain Pulm: No acute issues; Nasal cannula; Hx of COPD- Montelukast 10mg po HS GI: No acute issues; Pepcid 20mg daily; Zofran Endo: No acute issues Renal: MICHAEL- Nephrology consulted- likely 2/2 to hypotension; Flomax, Finasteride, KCl 20 meq po daily ID: Zyvox for osteo; Afebrile, WBC trending upward Patient will be transferred out of ICU as patient is stable without cardizem drip. Afib has resolved. GI ppx: Pepcid DVT ppx: Eliquis 2.5mg HHD PGY-1 Amparo Atwood d/w Dr. Gentile
[2018-04-01] MEDS: Digoxin 125 mcg (0.125 mg) Tab PO SCH (17:22)
--- NOTE | 2018-04-01 18:33 | CARD ---
APPROVED REPORT Date of service: 04/01/2018 EXAM: LIMITED Two-dimensional and M-mode echocardiogram with Doppler and color Doppler. Other Information Quality : GoodRhythm : INDICATION Pre-Op LV Function:Systolic 2D DIMENSIONS IVSd1.1 (0.7-1.1cm)LVDd5.1 (3.9-5.9cm) PWd1.0 (0.7-1.1cm)LVDs4.7 (2.5-4.0cm) FS (%) 7.2 %LVEF (%)25.0 (>50%) LVEF (Otto's)21.65 % M-Mode DIMENSIONS IVSd0.90 (0.7-1.1cm)LVDd5.37 (4.0-5.6cm) PWd0.85 (0.7-1.1cm)FS (%) 16 % LVDs4.52 (2.0-3.8cm)LVEF (%)25 (>50%) Mitral Valve E/A ratio0.0 TDI E/Lateral E'0.0E/Medial E'0.0 Tricuspid Valve TR Peak [id number] Peak Gr.19mmHg LEFT VENTRICLE The left ventricle is normal size. There is normal left ventricular wall thickness. Left ventricle systolic function is severely impaired. The Ejection Fraction is 30-35%. There is hypokinesis in the basal anteroseptal wall. There is no ventricular septal defect visualized. RIGHT VENTRICLE The right ventricle is normal size. The right ventricular systolic function is normal. ATRIA The left atrium is mildly dilated. The right atrium size is normal. AORTIC VALVE No Doppler. 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 MITRAL VALVE Mitral annular calcification is moderate. No Doppler. TRICUSPID VALVE The tricuspid valve is normal in structure. No Doppler. PULMONIC VALVE The pulmonic valve is not well visualized. No Doppler. GREAT VESSELS The aortic root is normal in size. The ascending aorta is normal in size. PERICARDIAL EFFUSION There is no pericardial effusion. <Conclusion> Left ventricle systolic function is severely impaired. The Ejection Fraction is 30-35%. There is hypokinesis in the basal anteroseptal wall. 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 Limitted study.
--- NOTE | 2018-04-01 19:51 | CP.PCM.PN ---
Subjective - Date & Time of Evaluation Date of Evaluation: 04/01/18 Time of Evaluation: 19:48 - Subjective Subjective: INFECTIOUS DISEASE ICU #18 PROGRESS NOTES ROD JONES MD, FACP 04/01/2018 CHART REVIEWED PT EXAMINED CASE DISCUSSED Patient is more comfortable now, AND he is not in any distress at this time. He denies any chest pain, shortness of breath, N,V,D,C Currently he is receiving Cardizem drip at low-dose. Added digoxin. ON PO ZYVOX On examination: Vital signs stable. Your rapid ventricular rate noted, chest good air entry regular heart sounds nontender abdomen pedal edema plus Wynn catheter REMOVED AWAITING FURTHER URINATION. Labs noted. Elevated creatinine level noted Assessment 82-year-old male with history of congestive heart failure COPD CAD and also has a history of atrial flutter and fibrillation. On anticoagulation. Now admitted with osteomyelitis right index finger. Patient developed atrial flutter fibrillation with rapid ventricular rate with the decompensation with acute renal insufficiency. Currently closely by monitored. We will continue to monitor. Objective - Vital Signs/Intake and Output Vital Signs (last 24 hours): Temp Pulse Resp BP Pulse Ox 97.6 F 90 15 102/60 93 L 04/01/18 16:00 04/01/18 19:00 04/01/18 19:00 04/01/18 19:00 04/01/18 19:00 Intake and Output: 04/01/18 04/02/18 18:59 06:59 Intake Total 1166.2 Output Total 65 0 Balance 1101.2 0 - Medications Medications: Current Medications Apixaban (Eliquis) 2.5 mg PO BID [facility] Last Admin: 04/01/18 17:22 Dose: 2.5 mg Calcium Acetate (Phoslo) 667 mg PO TIDCC [facility] Last Admin: 04/01/18 17:22 Dose: 667 mg Carvedilol (Coreg) 3.125 mg PO BID [facility] Last Admin: 04/01/18 17:27 Dose: 3.125 mg Clopidogrel Bisulfate (Plavix) 75 mg PO DAILY [facility] Last Admin: 04/01/18 09:24 Dose: 75 mg Digoxin (Digoxin) 0.125 mg PO DAILY@1800 [facility] Last Admin: 04/01/18 17:22 Dose: 0.125 mg Diltiazem HCl (Cardizem Cd) 180 mg PO DAILY [facility] Last Admin: 03/31/18 10:02 Dose: Not Given Diltiazem HCl (Cardizem) 30 mg PO QID [facility] Last Admin: 04/01/18 17:22 Dose: 30 mg Famotidine (Pepcid) 20 mg PO DAILY [facility] Last Admin: 04/01/18 09:24 Dose: 20 mg Finasteride (Proscar) 5 mg PO DAILY [facility] Last Admin: 04/01/18 09:23 Dose: 5 mg Metronidazole (Flagyl) 500 mg in 100 mls @ 100 mls/hr IVPB Q8H [facility]; Protocol Last Admin: 04/01/18 17:31 Dose: 100 mls/hr Linezolid (Zyvox) 600 mg PO BID [facility]; Protocol Last Admin: 04/01/18 17:21 Dose: 600 mg Montelukast Sodium (Singulair) 10 mg PO HS [facility] Last Admin: 03/31/18 22:35 Dose: 10 mg Potassium Chloride (K-Dur 20 Meq Er Tab) 20 meq PO DAILY [facility] Last Admin: 04/01/18 09:24 Dose: 20 meq Rosuvastatin Calcium (Crestor) 5 mg PO HS [facility] Last Admin: 03/31/18 22:35 Dose: 5 mg Tamsulosin HCl (Flomax) 0.4 mg PO DAILY [facility] Last Admin: 04/01/18 09:24 Dose: 0.4 mg - Labs Labs: 04/01/18 06:19 04/01/18 06:19 PT 15.7 SECONDS (9.7-12.2) H 03/26/18 15:18 INR 1.4 03/26/18 15:18
--- NOTE | 2018-04-01 22:01 | CP.PCM.PN ---
Subjective - Date & Time of Evaluation Date of Evaluation: 04/01/18 Time of Evaluation: 09:30 - Subjective Subjective: Patient seen and evaluated Improving breathing Repeat ECHO shows EF around 20-25% Needs AICD or BiVICD A Fib CAD s/p CABG and PCI Objective - Vital Signs/Intake and Output Vital Signs (last 24 hours): Temp Pulse Resp BP Pulse Ox 97.6 F 97 H 23 108/62 92 L 04/01/18 16:00 04/01/18 21:00 04/01/18 21:00 04/01/18 21:00 04/01/18 21:00 Intake and Output: 04/01/18 04/02/18 18:59 06:59 Intake Total 1166.2 Output Total 65 0 Balance 1101.2 0 - Medications Medications: Current Medications Apixaban (Eliquis) 2.5 mg PO BID [facility] Last Admin: 04/01/18 17:22 Dose: 2.5 mg Calcium Acetate (Phoslo) 667 mg PO TIDCC [facility] Last Admin: 04/01/18 17:22 Dose: 667 mg Carvedilol (Coreg) 3.125 mg PO BID [facility] Last Admin: 04/01/18 17:27 Dose: 3.125 mg Clopidogrel Bisulfate (Plavix) 75 mg PO DAILY [facility] Last Admin: 04/01/18 09:24 Dose: 75 mg Digoxin (Digoxin) 0.125 mg PO DAILY@1800 [facility] Last Admin: 04/01/18 17:22 Dose: 0.125 mg Diltiazem HCl (Cardizem Cd) 180 mg PO DAILY [facility] Last Admin: 03/31/18 10:02 Dose: Not Given Diltiazem HCl (Cardizem) 30 mg PO QID [facility] Last Admin: 04/01/18 21:47 Dose: 30 mg Famotidine (Pepcid) 20 mg PO DAILY [facility] Last Admin: 04/01/18 09:24 Dose: 20 mg Finasteride (Proscar) 5 mg PO DAILY [facility] Last Admin: 04/01/18 09:23 Dose: 5 mg Metronidazole (Flagyl) 500 mg in 100 mls @ 100 mls/hr IVPB Q8H [facility]; Protocol Last Admin: 04/01/18 17:31 Dose: 100 mls/hr Linezolid (Zyvox) 600 mg PO BID [facility]; Protocol Last Admin: 04/01/18 17:21 Dose: 600 mg Montelukast Sodium (Singulair) 10 mg PO HS [facility] Last Admin: 04/01/18 21:47 Dose: 10 mg Potassium Chloride (K-Dur 20 Meq Er Tab) 20 meq PO DAILY [facility] Last Admin: 04/01/18 09:24 Dose: 20 meq Rosuvastatin Calcium (Crestor) 5 mg PO HS [facility] Last Admin: 04/01/18 21:47 Dose: 5 mg Tamsulosin HCl (Flomax) 0.4 mg PO DAILY [facility] Last Admin: 04/01/18 09:24 Dose: 0.4 mg - Labs Labs: 04/01/18 06:19 04/01/18 06:19 PT 15.7 SECONDS (9.7-12.2) H 03/26/18 15:18 INR 1.4 03/26/18 15:18
[2018-04-02] MEDS: metroNIDAZOLE IV 500 mg/100 ml 500 MG/100 ML BAG IVPB SCH ×3 (01:48→18:10)
[2018-04-02 08:47] LABS: BASO # 0.1 K/uL (0.0-0.2); EOS # 0.3 K/uL (0.0-0.7); EOS % 2.7 % (0.0-4.0); HEMOGLOBIN 11.9 g/dL (12.0-18.0); LYMPH # 0.7 K/uL (1.0-4.3); LYMPH % 7.5 % (20.0-40.0); MEAN CELL VOLUME 84.8 fL (80.0-94.0); MEAN CORPUSCULAR HEMOGLOBIN 27.3 pg (27.0-31.0); MEAN CORPUSCULAR HGB CONC 32.1 g/dL (33.0-37.0); MEAN PLATELET VOLUME 8.9 fL (7.2-11.7); MONO # 0.7 K/uL (0.0-0.8); MONO % 7.7 % (0.0-10.0); NEUT # 7.6 K/uL (1.8-7.0); NEUT % 81.1 % (50.0-75.0); NRBC % 0.2 % (0.0-2.0); PLATELET COUNT 180 K/uL (130-400); RBC 4.37 Mil/uL (4.40-5.90); RED CELL DISTRIBUTION WIDTH 18.6 % (11.5-14.5); WHITE BLOOD COUNT 9.3 K/uL (4.8-10.8)
[2018-04-02 08:54] LABS: ALB/GLOB RATIO 1.1 (1.0-2.1); ALBUMIN 2.8 g/dL (3.5-5.0); CALCIUM 8.4 mg/dl (8.6-10.4)
[2018-04-02 09:11] LABS: BASOPHIL 1 % (0-2); EOSINOPHIL 3 % (0-4); NEUTROPHIL 82 % (50-75); TOTAL CELLS COUNTED 100
[2018-04-02 09:12] LABS: ANISOCYTOSIS SLIGHT; BURR CELLS SLIGHT; HYPOCHROMIC SLIGHT; LYMPHOCYTE 8 % (20-40); MONOCYTE 6 % (0-10); OVALOCYTES SLIGHT; PLATELET ESTIMATE NORMAL (NORMAL); POIKILOCYTOSIS SLIGHT
[2018-04-02] MEDS: Potassium Chloride 20 mEq ER Tab PO SCH (09:37)
--- NOTE | 2018-04-02 13:46 | CP.PCM.PN ---
Subjective - Date & Time of Evaluation Date of Evaluation: 04/02/18 Time of Evaluation: 13:45 - Subjective Subjective: no chest pain no sob no palpitations no fever no chills no diarrhea no nausea decreased urine production no rash no arthralgias Objective - Vital Signs/Intake and Output Vital Signs (last 24 hours): Temp Pulse Resp BP Pulse Ox 98.7 F 114 H 20 104/68 95 04/02/18 13:02 04/02/18 13:02 04/02/18 13:02 04/02/18 13:02 04/02/18 13:02 Intake and Output: 04/02/18 04/02/18 06:59 18:59 Intake Total 440 Output Total 250 Balance 190 - Medications Medications: Current Medications Apixaban (Eliquis) 2.5 mg PO BID [facility] Last Admin: 04/02/18 09:37 Dose: 2.5 mg Calcium Acetate (Phoslo) 667 mg PO TIDCC [facility] Last Admin: 04/02/18 13:00 Dose: 667 mg Carvedilol (Coreg) 3.125 mg PO BID [facility] Last Admin: 04/02/18 09:37 Dose: 3.125 mg Clopidogrel Bisulfate (Plavix) 75 mg PO DAILY [facility] Last Admin: 04/02/18 09:37 Dose: 75 mg Digoxin (Digoxin) 0.125 mg PO DAILY@1800 [facility] Last Admin: 04/01/18 17:22 Dose: 0.125 mg Diltiazem HCl (Cardizem Cd) 180 mg PO DAILY [facility] Last Admin: 03/31/18 10:02 Dose: Not Given Diltiazem HCl (Cardizem) 30 mg PO QID [facility] Last Admin: 04/02/18 09:37 Dose: 30 mg Famotidine (Pepcid) 20 mg PO DAILY [facility] Last Admin: 04/02/18 09:37 Dose: 20 mg Finasteride (Proscar) 5 mg PO DAILY [facility] Last Admin: 04/02/18 09:37 Dose: 5 mg Metronidazole (Flagyl) 500 mg in 100 mls @ 100 mls/hr IVPB Q8H [facility]; Protocol Last Admin: 04/02/18 09:38 Dose: 100 mls/hr Linezolid (Zyvox) 600 mg PO BID [facility]; Protocol Last Admin: 04/02/18 09:36 Dose: 600 mg Montelukast Sodium (Singulair) 10 mg PO HS [facility] Last Admin: 04/01/18 21:47 Dose: 10 mg Potassium Chloride (K-Dur 20 Meq Er Tab) 20 meq PO DAILY [facility] Last Admin: 04/02/18 09:37 Dose: 20 meq Rosuvastatin Calcium (Crestor) 5 mg PO HS [facility] Last Admin: 04/01/18 21:47 Dose: 5 mg Tamsulosin HCl (Flomax) 0.4 mg PO DAILY [facility] Last Admin: 04/02/18 09:37 Dose: 0.4 mg - Labs Labs: 04/02/18 08:33 04/02/18 08:33 PT 15.7 SECONDS (9.7-12.2) H 03/26/18 15:18 INR 1.4 03/26/18 15:18 - Constitutional Appears: Chronically Ill - Head Exam Head Exam: ATRAUMATIC, NORMAL INSPECTION - Eye Exam Eye Exam: EOMI, Normal appearance - ENT Exam ENT Exam: Mucous Membranes Moist - Neck Exam Neck Exam: Full ROM. absent: Lymphadenopathy - Respiratory Exam Respiratory Exam: Decreased Breath Sounds. absent: Wheezes - Cardiovascular Exam Cardiovascular Exam: REGULAR RHYTHM. absent: Rubs - GI/Abdominal Exam GI & Abdominal Exam: Distended, Soft. absent: Tenderness - Extremities Exam Extremities Exam: absent: Pedal Edema Assessment and Plan - Assessment and Plan (Free Text) Assessment: resolving MICHAEL, post management of decompensated heart failure continue same, trend labs
--- NOTE | 2018-04-02 14:52 | CP.PCM.PN ---
Subjective - Date & Time of Evaluation Date of Evaluation: 04/02/18 Time of Evaluation: 14:50 - Subjective Subjective: Patient states his finger is fine. Denies pain. Says he doesn't want surgery. Review of Systems - Review of Systems All systems: reviewed and no additional remarkable complaints except - Musculoskeletal Musculoskeletal: As Par HPI Objective - Vital Signs/Intake and Output Vital Signs (last 24 hours): Temp Pulse Resp BP Pulse Ox 98.7 F 96 H 20 114/80 95 04/02/18 13:02 04/02/18 14:22 04/02/18 13:02 04/02/18 14:22 04/02/18 13:02 Intake and Output: 04/02/18 04/02/18 06:59 18:59 Intake Total 440 100 Output Total 250 Balance 190 100 - Medications Medications: Current Medications Apixaban (Eliquis) 2.5 mg PO BID [facility] Last Admin: 04/02/18 09:37 Dose: 2.5 mg Calcium Acetate (Phoslo) 667 mg PO TIDCC [facility] Last Admin: 04/02/18 13:00 Dose: 667 mg Carvedilol (Coreg) 3.125 mg PO BID [facility] Last Admin: 04/02/18 09:37 Dose: 3.125 mg Clopidogrel Bisulfate (Plavix) 75 mg PO DAILY [facility] Last Admin: 04/02/18 09:37 Dose: 75 mg Digoxin (Digoxin) 0.125 mg PO DAILY@1800 [facility] Last Admin: 04/01/18 17:22 Dose: 0.125 mg Diltiazem HCl (Cardizem Cd) 180 mg PO DAILY [facility] Last Admin: 03/31/18 10:02 Dose: Not Given Diltiazem HCl (Cardizem) 30 mg PO QID [facility] Last Admin: 04/02/18 14:23 Dose: 30 mg Famotidine (Pepcid) 20 mg PO DAILY [facility] Last Admin: 04/02/18 09:37 Dose: 20 mg Finasteride (Proscar) 5 mg PO DAILY [facility] Last Admin: 04/02/18 09:37 Dose: 5 mg Metronidazole (Flagyl) 500 mg in 100 mls @ 100 mls/hr IVPB Q8H [facility]; Protocol Last Admin: 04/02/18 09:38 Dose: 100 mls/hr Linezolid (Zyvox) 600 mg PO BID [facility]; Protocol Last Admin: 04/02/18 09:36 Dose: 600 mg Montelukast Sodium (Singulair) 10 mg PO HS [facility] Last Admin: 04/01/18 21:47 Dose: 10 mg Potassium Chloride (K-Dur 20 Meq Er Tab) 20 meq PO DAILY [facility] Last Admin: 04/02/18 09:37 Dose: 20 meq Rosuvastatin Calcium (Crestor) 5 mg PO HS [facility] Last Admin: 04/01/18 21:47 Dose: 5 mg Tamsulosin HCl (Flomax) 0.4 mg PO DAILY [facility] Last Admin: 04/02/18 09:37 Dose: 0.4 mg - Labs Labs: 04/02/18 08:33 04/02/18 08:33 PT 15.7 SECONDS (9.7-12.2) H 03/26/18 15:18 INR 1.4 03/26/18 15:18 - Constitutional Appears: Well, No Acute Distress - Head Exam Head Exam: ATRAUMATIC - Respiratory Exam Respiratory Exam: NORMAL BREATHING PATTERN - Cardiovascular Exam Additional comments: +cap refill - Extremities Exam Additional comments: slightly improved flexion of finger still swollen but improving - Neurological Exam Neurological Exam: Alert, Awake, Oriented x3 - Psychiatric Exam Psychiatric exam: Normal Affect, Normal Mood - Skin Skin Exam: Dry, Intact, Warm Additional comments: still mildly erythematous Assessment and Plan (1) Acute osteomyelitis of hand including fingers Assessment & Plan: septic arthritis with displacement of distal phalanx patient refuses surgery, improving clinically per patient d/w Dr. Weber, aware of above Status: Acute
[2018-04-02] MEDS: Digoxin 125 mcg (0.125 mg) Tab PO SCH (18:09)
[2018-04-02 18:11] VITALS: PULSE 90
--- NOTE | 2018-04-02 21:49 | CP.PCM.PN ---
Subjective - Date & Time of Evaluation Date of Evaluation: 04/02/18 Time of Evaluation: 18:00 - Subjective Subjective: Patient seen and evaluated Denies chest pain and dyspnea For BiVICD tomorrow Objective - Vital Signs/Intake and Output Vital Signs (last 24 hours): Temp Pulse Resp BP Pulse Ox 97.6 F 99 H 18 117/76 90 L 04/02/18 15:00 04/02/18 21:22 04/02/18 15:00 04/02/18 21:22 04/02/18 15:00 Intake and Output: 04/02/18 04/03/18 18:59 06:59 Intake Total 100 Balance 100 - Medications Medications: Current Medications Apixaban (Eliquis) 2.5 mg PO BID [facility] Last Admin: 04/02/18 18:08 Dose: 2.5 mg Calcium Acetate (Phoslo) 667 mg PO TIDCC [facility] Last Admin: 04/02/18 18:08 Dose: 667 mg Carvedilol (Coreg) 3.125 mg PO BID [facility] Last Admin: 04/02/18 18:09 Dose: 3.125 mg Clopidogrel Bisulfate (Plavix) 75 mg PO DAILY [facility] Last Admin: 04/02/18 09:37 Dose: 75 mg Digoxin (Digoxin) 0.125 mg PO DAILY@1800 [facility] Last Admin: 04/02/18 18:09 Dose: 0.125 mg Diltiazem HCl (Cardizem Cd) 180 mg PO DAILY [facility] Last Admin: 03/31/18 10:02 Dose: Not Given Diltiazem HCl (Cardizem) 30 mg PO QID [facility] Last Admin: 04/02/18 21:23 Dose: 30 mg Famotidine (Pepcid) 20 mg PO DAILY [facility] Last Admin: 04/02/18 09:37 Dose: 20 mg Finasteride (Proscar) 5 mg PO DAILY [facility] Last Admin: 04/02/18 09:37 Dose: 5 mg Metronidazole (Flagyl) 500 mg in 100 mls @ 100 mls/hr IVPB Q8H [facility]; Protocol Last Admin: 04/02/18 18:10 Dose: 100 mls/hr Linezolid (Zyvox) 600 mg PO BID [facility]; Protocol Last Admin: 04/02/18 18:09 Dose: 600 mg Montelukast Sodium (Singulair) 10 mg PO HS [facility] Last Admin: 04/02/18 21:23 Dose: 10 mg Potassium Chloride (K-Dur 20 Meq Er Tab) 20 meq PO DAILY [facility] Last Admin: 04/02/18 09:37 Dose: 20 meq Rosuvastatin Calcium (Crestor) 5 mg PO HS [facility] Last Admin: 04/02/18 21:23 Dose: 5 mg Tamsulosin HCl (Flomax) 0.4 mg PO DAILY [facility] Last Admin: 04/02/18 09:37 Dose: 0.4 mg - Labs Labs: 04/02/18 08:33 04/02/18 08:33 PT 15.7 SECONDS (9.7-12.2) H 03/26/18 15:18 INR 1.4 03/26/18 15:18
--- NOTE | 2018-04-02 22:28 | CP.PCM.PN ---
Subjective - Date & Time of Evaluation Date of Evaluation: 04/02/18 Time of Evaluation: 22:26 - Subjective Subjective: Patient is currently comfortably sleeping. He is not any distress. His heart rate is much controlled well. He denies any chest pain or shortness of breath On examination vital signs stable. Chest good air entry regular hs nontender abdomen. Assessment: 82-year-old male with a history of atrial flutter fibrillation. Congestive heart failure. COPD chronic smoker CAD status post stent now admitted with cellulitis of the right index finger, osteomyelitis. Currently, direct antibiotic. Cultures were negative. Patient is on Zyvox now. Patient is scheduled to have the biventricular pacemaker. And also AICD. Patient and patient agreed, possible transfer tomorrow. We will follow the patient. Objective - Vital Signs/Intake and Output Vital Signs (last 24 hours): Temp Pulse Resp BP Pulse Ox 97.6 F 99 H 18 117/76 90 L 04/02/18 15:00 04/02/18 21:22 04/02/18 15:00 04/02/18 21:22 04/02/18 15:00 Intake and Output: 04/02/18 04/03/18 18:59 06:59 Intake Total 100 Balance 100 - Medications Medications: Current Medications Apixaban (Eliquis) 2.5 mg PO BID [facility] Last Admin: 04/02/18 18:08 Dose: 2.5 mg Calcium Acetate (Phoslo) 667 mg PO TIDCC [facility] Last Admin: 04/02/18 18:08 Dose: 667 mg Carvedilol (Coreg) 3.125 mg PO BID [facility] Last Admin: 04/02/18 18:09 Dose: 3.125 mg Clopidogrel Bisulfate (Plavix) 75 mg PO DAILY [facility] Last Admin: 04/02/18 09:37 Dose: 75 mg Digoxin (Digoxin) 0.125 mg PO DAILY@1800 [facility] Last Admin: 04/02/18 18:09 Dose: 0.125 mg Diltiazem HCl (Cardizem Cd) 180 mg PO DAILY [facility] Last Admin: 03/31/18 10:02 Dose: Not Given Diltiazem HCl (Cardizem) 30 mg PO QID [facility] Last Admin: 04/02/18 21:23 Dose: 30 mg Famotidine (Pepcid) 20 mg PO DAILY [facility] Last Admin: 04/02/18 09:37 Dose: 20 mg Finasteride (Proscar) 5 mg PO DAILY [facility] Last Admin: 04/02/18 09:37 Dose: 5 mg Metronidazole (Flagyl) 500 mg in 100 mls @ 100 mls/hr IVPB Q8H [facility]; Protocol Last Admin: 04/02/18 18:10 Dose: 100 mls/hr Linezolid (Zyvox) 600 mg PO BID [facility]; Protocol Last Admin: 04/02/18 18:09 Dose: 600 mg Montelukast Sodium (Singulair) 10 mg PO HS [facility] Last Admin: 04/02/18 21:23 Dose: 10 mg Potassium Chloride (K-Dur 20 Meq Er Tab) 20 meq PO DAILY [facility] Last Admin: 04/02/18 09:37 Dose: 20 meq Rosuvastatin Calcium (Crestor) 5 mg PO HS [facility] Last Admin: 04/02/18 21:23 Dose: 5 mg Tamsulosin HCl (Flomax) 0.4 mg PO DAILY [facility] Last Admin: 04/02/18 09:37 Dose: 0.4 mg - Labs Labs: 04/02/18 08:33 04/02/18 08:33 PT 15.7 SECONDS (9.7-12.2) H 03/26/18 15:18 INR 1.4 03/26/18 15:18
[2018-04-03] MEDS: metroNIDAZOLE IV 500 mg/100 ml 500 MG/100 ML BAG IVPB SCH ×2 (03:40→10:22)
[2018-04-03 06:49] LABS: BASO # 0.1 K/uL (0.0-0.2); BASO % 1.4 % (0.0-2.0); EOS # 0.3 K/uL (0.0-0.7); EOS % 3.4 % (0.0-4.0); HEMOGLOBIN 12.5 g/dL (12.0-18.0); LYMPH # 0.7 K/uL (1.0-4.3); LYMPH % 7.5 % (20.0-40.0); MEAN CELL VOLUME 84.9 fL (80.0-94.0); MEAN CORPUSCULAR HEMOGLOBIN 27.2 pg (27.0-31.0); MEAN PLATELET VOLUME 8.7 fL (7.2-11.7); MONO # 0.8 K/uL (0.0-0.8); NEUT # 6.9 K/uL (1.8-7.0); NEUT % 78.7 % (50.0-75.0); PLATELET COUNT 176 K/uL (130-400); RBC 4.62 Mil/uL (4.40-5.90); RED CELL DISTRIBUTION WIDTH 19.1 % (11.5-14.5); WHITE BLOOD COUNT 8.8 K/uL (4.8-10.8)
[2018-04-03 07:04] LABS: ALB/GLOB RATIO 1.2 (1.0-2.1); ALBUMIN 3.2 g/dL (3.5-5.0); CALCIUM 9.1 mg/dl (8.6-10.4)
[2018-04-03 08:49] LABS: BASOPHIL 1 % (0-2); EOSINOPHIL 4 % (0-4); LYMPHOCYTE 8 % (20-40); MONOCYTE 9 % (0-10); NEUTROPHIL 78 % (50-75); PLATELET ESTIMATE NORMAL (NORMAL); TOTAL CELLS COUNTED 100
[2018-04-03 08:50] LABS: ANISOCYTOSIS SLIGHT; BURR CELLS SLIGHT; OVALOCYTES SLIGHT; POIKILOCYTOSIS SLIGHT
--- NOTE | 2018-04-03 08:51 | CP.PCM.PN ---
Subjective - Date & Time of Evaluation Date of Evaluation: 04/03/18 Time of Evaluation: 08:48 - Subjective Subjective: Events noted For ICD/PM today MICHAEL has resolved- renal function likely baseline now lytes acceptable HTN controlled Afib VR controlled Objective - Vital Signs/Intake and Output Vital Signs (last 24 hours): Temp Pulse Resp BP Pulse Ox 97.8 F 93 H 18 110/71 98 04/03/18 07:00 04/03/18 07:28 04/03/18 07:00 04/03/18 07:00 04/03/18 07:00 Intake and Output: 04/03/18 04/03/18 06:59 18:59 Intake Total 340 Output Total 150 Balance 190 - Medications Medications: Current Medications Apixaban (Eliquis) 2.5 mg PO BID [facility] Last Admin: 04/02/18 18:08 Dose: 2.5 mg Calcium Acetate (Phoslo) 667 mg PO TIDCC [facility] Last Admin: 04/02/18 18:08 Dose: 667 mg Carvedilol (Coreg) 3.125 mg PO BID [facility] Last Admin: 04/02/18 18:09 Dose: 3.125 mg Clopidogrel Bisulfate (Plavix) 75 mg PO DAILY [facility] Last Admin: 04/02/18 09:37 Dose: 75 mg Digoxin (Digoxin) 0.125 mg PO DAILY@1800 [facility] Last Admin: 04/02/18 18:09 Dose: 0.125 mg Diltiazem HCl (Cardizem Cd) 180 mg PO DAILY [facility] Last Admin: 03/31/18 10:02 Dose: Not Given Diltiazem HCl (Cardizem) 30 mg PO QID [facility] Last Admin: 04/02/18 21:23 Dose: 30 mg Famotidine (Pepcid) 20 mg PO DAILY [facility] Last Admin: 04/02/18 09:37 Dose: 20 mg Finasteride (Proscar) 5 mg PO DAILY [facility] Last Admin: 04/02/18 09:37 Dose: 5 mg Metronidazole (Flagyl) 500 mg in 100 mls @ 100 mls/hr IVPB Q8H [facility]; Protocol Last Admin: 04/03/18 03:40 Dose: 100 mls/hr Linezolid (Zyvox) 600 mg PO BID [facility]; Protocol Last Admin: 04/02/18 18:09 Dose: 600 mg Montelukast Sodium (Singulair) 10 mg PO HS [facility] Last Admin: 04/02/18 21:23 Dose: 10 mg Potassium Chloride (K-Dur 20 Meq Er Tab) 20 meq PO DAILY [facility] Last Admin: 04/02/18 09:37 Dose: 20 meq Rosuvastatin Calcium (Crestor) 5 mg PO HS [facility] Last Admin: 04/02/18 21:23 Dose: 5 mg Tamsulosin HCl (Flomax) 0.4 mg PO DAILY [facility] Last Admin: 04/02/18 09:37 Dose: 0.4 mg - Labs Labs: 04/03/18 06:42 04/03/18 06:42 PT 15.7 SECONDS (9.7-12.2) H 03/26/18 15:18 INR 1.4 03/26/18 15:18 - Constitutional Appears: No Acute Distress, Chronically Ill - Head Exam Head Exam: ATRAUMATIC, NORMAL INSPECTION - Eye Exam Eye Exam: EOMI, Normal appearance - Neck Exam Neck Exam: Normal Inspection. absent: Tenderness - Respiratory Exam Respiratory Exam: Clear to Ausculation Bilateral, NORMAL BREATHING PATTERN - Cardiovascular Exam Cardiovascular Exam: Irregular Rhythm, +S1 - GI/Abdominal Exam GI & Abdominal Exam: Soft. absent: Tenderness - Extremities Exam Extremities Exam: Tenderness - Neurological Exam Neurological Exam: Awake, CN II-XII Intact - Skin Skin Exam: Dry, Warm Assessment and Plan (1) Hypotensive episode Status: Acute (2) ATN (acute tubular necrosis) Status: Acute (3) Acute osteomyelitis of hand including fingers Status: Acute (4) MICHAEL (acute kidney injury) Status: Acute (5) Atrial fibrillation with RVR Status: Acute - Assessment and Plan (Free Text) Plan: Renal function stabilized Monitor JAVID heath Await cardiac procedure
[2018-04-03 09:15] VITALS: RESP 20
[2018-04-03] MEDS: Potassium Chloride 20 mEq ER Tab PO SCH (09:16)
--- NOTE | 2018-04-03 11:12 | CARD ---
APPROVED REPORT Date of service: 04/02/2018 EKG Measurement Heart [id number] <Conclusion> Atrial fibrillation Low voltage QRS Inferior infarct, age undetermined Anterolateral infarct, age undetermined Abnormal ECG
[2018-04-03 11:15] VITALS: BP 118/62; PULSE 82; TEMP 97.8; O2SAT 93
--- NOTE | 2018-04-03 19:56 | CP.PCM.PN ---
Subjective - Date & Time of Evaluation Date of Evaluation: 04/02/18 Time of Evaluation: 19:35 - Subjective Subjective: INFECTIOUS DISEASE PROGRESS NOTES ROD JONES MD, FACP CHART REVIEWED EXAM NOTED CASE DISCUSSED WITH DR CRAMER VAGUE chest pain no sob no palpitations no fever no chills no diarrhea no nausea decreased urine production no rash no arthralgias, RIGHT INDEX FINGER IS STIFF, WITHOUT PAIN AND NO DISCHARGE Objective - Vital Signs/Intake and Output Vital Signs (last 24 hours): Temp Pulse Resp BP Pulse Ox 98.7 F 114 H 20 104/68 95 04/02/18 13:02 04/02/18 13:02 04/02/18 13:02 04/02/18 13:02 04/02/18 13:02 Intake and Output: 04/02/18 04/02/18 06:59 18:59 Intake Total 440 Output Total 250 Balance 190 - Medications Medications: Current Medications Apixaban (Eliquis) 2.5 mg PO BID [facility] Last Admin: 04/02/18 09:37 Dose: 2.5 mg Calcium Acetate (Phoslo) 667 mg PO TIDCC [facility] Last Admin: 04/02/18 13:00 Dose: 667 mg Carvedilol (Coreg) 3.125 mg PO BID [facility] Last Admin: 04/02/18 09:37 Dose: 3.125 mg Clopidogrel Bisulfate (Plavix) 75 mg PO DAILY [facility] Last Admin: 04/02/18 09:37 Dose: 75 mg Digoxin (Digoxin) 0.125 mg PO DAILY@1800 [facility] Last Admin: 04/01/18 17:22 Dose: 0.125 mg Diltiazem HCl (Cardizem Cd) 180 mg PO DAILY [facility] Last Admin: 03/31/18 10:02 Dose: Not Given Diltiazem HCl (Cardizem) 30 mg PO QID [facility] Last Admin: 04/02/18 09:37 Dose: 30 mg Famotidine (Pepcid) 20 mg PO DAILY [facility] Last Admin: 04/02/18 09:37 Dose: 20 mg Finasteride (Proscar) 5 mg PO DAILY [facility] Last Admin: 04/02/18 09:37 Dose: 5 mg Metronidazole (Flagyl) 500 mg in 100 mls @ 100 mls/hr IVPB Q8H [facility]; Protocol Last Admin: 04/02/18 09:38 Dose: 100 mls/hr Linezolid (Zyvox) 600 mg PO BID [facility]; Protocol Last Admin: 04/02/18 09:36 Dose: 600 mg Montelukast Sodium (Singulair) 10 mg PO [facility] Last Admin: 04/01/18 21:47 Dose: 10 mg Potassium Chloride (K-Dur 20 Meq Er Tab) 20 meq PO DAILY [facility] Last Admin: 04/02/18 09:37 Dose: 20 meq Rosuvastatin Calcium (Crestor) 5 mg PO [facility] Last Admin: 04/01/18 21:47 Dose: 5 mg Tamsulosin HCl (Flomax) 0.4 mg PO DAILY [facility] Last Admin: 04/02/18 09:37 Dose: 0.4 mg - Labs Labs: 04/02/18 08:33 04/02/18 08:33 PT 15.7 SECONDS (9.7-12.2) H 03/26/18 15:18 INR 1.4 03/26/18 15:18 - Constitutional Appears: Chronically Ill - Head Exam Head Exam: ATRAUMATIC, NORMAL INSPECTION - Eye Exam Eye Exam: EOMI, Normal appearance - ENT Exam ENT Exam: Mucous Membranes Moist - Neck Exam Neck Exam: Full ROM. absent: Lymphadenopathy - Respiratory Exam Respiratory Exam: Decreased Breath Sounds. absent: Wheezes - Cardiovascular Exam Cardiovascular Exam: REGULAR RHYTHM. absent: Rubs - GI/Abdominal Exam GI & Abdominal Exam: Distended, Soft. absent: Tenderness - Extremities Exam Extremities Exam: absent: Pedal Edema Assessment and Plan - Assessment and Plan (Free Text) Assessment: OSTEOMYLITIS RIGHT INDEX FINGER - RESPONDING TO MEDICAL TREATMENT, NO SURGERY AT PRESENT TIME, PER PATIENT, WILL TREAT WITH PO MEDS UNDER MY CARE NEEDED. resolving MICHAEL, post management of decompensated heart failure continue same, trend labs Objective - Vital Signs/Intake and Output Vital Signs (last 24 hours): Temp Pulse Resp BP Pulse Ox 97.8 F 82 20 118/62 93 L 04/03/18 10:55 04/03/18 10:55 04/03/18 10:55 04/03/18 10:55 04/03/18 10:55 - Medications Medications: Current Medications Apixaban (Eliquis) 2.5 mg PO BID [facility] Last Admin: 04/03/18 09:33 Dose: Not Given Calcium Acetate (Phoslo) 667 mg PO TIDCC [facility] Last Admin: 04/03/18 12:23 Dose: Not Given Carvedilol (Coreg) 3.125 mg PO BID [facility] Last Admin: 04/03/18 09:16 Dose: 3.125 mg Clopidogrel Bisulfate (Plavix) 75 mg PO DAILY [facility] Last Admin: 04/03/18 09:16 Dose: 75 mg Digoxin (Digoxin) 0.125 mg PO DAILY@1800 [facility] Last Admin: 04/02/18 18:09 Dose: 0.125 mg Diltiazem HCl (Cardizem Cd) 180 mg PO DAILY [facility] Last Admin: 03/31/18 10:02 Dose: Not Given Diltiazem HCl (Cardizem) 30 mg PO QID [facility] Last Admin: 04/03/18 09:17 Dose: 30 mg Famotidine (Pepcid) 20 mg PO DAILY [facility] Last Admin: 04/03/18 09:16 Dose: 20 mg Finasteride (Proscar) 5 mg PO DAILY [facility] Last Admin: 04/03/18 09:16 Dose: 5 mg Metronidazole (Flagyl) 500 mg in 100 mls @ 100 mls/hr IVPB Q8H [facility]; Protocol Last Admin: 04/03/18 10:22 Dose: 100 mls/hr Linezolid (Zyvox) 600 mg PO BID [facility]; Protocol Last Admin: 04/03/18 09:16 Dose: 600 mg Montelukast Sodium (Singulair) 10 mg PO HS [facility] Last Admin: 04/02/18 21:23 Dose: 10 mg Potassium Chloride (K-Dur 20 Meq Er Tab) 20 meq PO DAILY [facility] Last Admin: 04/03/18 09:16 Dose: 20 meq Rosuvastatin Calcium (Crestor) 5 mg PO HS [facility] Last Admin: 04/02/18 21:23 Dose: 5 mg Tamsulosin HCl (Flomax) 0.4 mg PO DAILY [facility] Last Admin: 04/03/18 09:18 Dose: 0.4 mg - Labs Labs: 04/03/18 06:42 04/03/18 06:42 PT 15.7 SECONDS (9.7-12.2) H 03/26/18 15:18 INR 1.4 03/26/18 15:18
--- NOTE | 2018-04-03 20:04 | CP.PCM.PN ---
Subjective - Date & Time of Evaluation Date of Evaluation: 04/03/18 Time of Evaluation: 07:10 - Subjective Subjective: Patient for transfer to [place] for BiVICD today will come back tomorrow Denies chest pain and dyspnea Objective - Vital Signs/Intake and Output Vital Signs (last 24 hours): Temp Pulse Resp BP Pulse Ox 97.8 F 82 20 118/62 93 L 04/03/18 10:55 04/03/18 10:55 04/03/18 10:55 04/03/18 10:55 04/03/18 10:55 - Medications Medications: Current Medications Apixaban (Eliquis) 2.5 mg PO BID [facility] Last Admin: 04/03/18 09:33 Dose: Not Given Calcium Acetate (Phoslo) 667 mg PO TIDCC [facility] Last Admin: 04/03/18 12:23 Dose: Not Given Carvedilol (Coreg) 3.125 mg PO BID [facility] Last Admin: 04/03/18 09:16 Dose: 3.125 mg Clopidogrel Bisulfate (Plavix) 75 mg PO DAILY [facility] Last Admin: 04/03/18 09:16 Dose: 75 mg Digoxin (Digoxin) 0.125 mg PO DAILY@1800 [facility] Last Admin: 04/02/18 18:09 Dose: 0.125 mg Diltiazem HCl (Cardizem Cd) 180 mg PO DAILY [facility] Last Admin: 03/31/18 10:02 Dose: Not Given Diltiazem HCl (Cardizem) 30 mg PO QID [facility] Last Admin: 04/03/18 09:17 Dose: 30 mg Famotidine (Pepcid) 20 mg PO DAILY [facility] Last Admin: 04/03/18 09:16 Dose: 20 mg Finasteride (Proscar) 5 mg PO DAILY [facility] Last Admin: 04/03/18 09:16 Dose: 5 mg Metronidazole (Flagyl) 500 mg in 100 mls @ 100 mls/hr IVPB Q8H [facility]; Protocol Last Admin: 04/03/18 10:22 Dose: 100 mls/hr Linezolid (Zyvox) 600 mg PO BID [facility]; Protocol Last Admin: 04/03/18 09:16 Dose: 600 mg Montelukast Sodium (Singulair) 10 mg PO HS [facility] Last Admin: 04/02/18 21:23 Dose: 10 mg Potassium Chloride (K-Dur 20 Meq Er Tab) 20 meq PO DAILY [facility] Last Admin: 04/03/18 09:16 Dose: 20 meq Rosuvastatin Calcium (Crestor) 5 mg PO HS [facility] Last Admin: 04/02/18 21:23 Dose: 5 mg Tamsulosin HCl (Flomax) 0.4 mg PO DAILY [facility] Last Admin: 04/03/18 09:18 Dose: 0.4 mg - Labs Labs: 04/03/18 06:42 04/03/18 06:42 PT 15.7 SECONDS (9.7-12.2) H 03/26/18 15:18 INR 1.4 03/26/18 15:18
--- NOTE | 2018-04-05 18:17 | CP.PCM.DIS ---
Provider - Provider Date of Admission: 03/26/18 16:55 Attending physician: Latoya Orosco MD Consults: 03/26/18 19:07 Inpatient PRINCIPAL BIOINFORMATICS SPECIALIST Core Measures Referral Routine Comment: Physician Instructions: Reason For Exam: CHF 03/26/18 20:39 Infectious Disease Consult Routine Comment: Consulting Provider: Veronica Kelly Consulting Physician: Veronica Kelly Reason for Consult: OM 03/26/18 20:42 Orthopedic Consult Routine Comment: Consulting Provider: Gopal Weber Consulting Physician: Gopal Weber Reason for Consult: ?osteomyelitis right index finger acute 03/31/18 10:28 Nephrology Consult Routine Comment: Consulting Provider: Basilio Abad Consulting Physician: Basilio Abad Reason for Consult: RENAL ISSUES 03/31/18 16:38 Cardiology Consult Routine Comment: Consulting Provider: Darian Esposito Consulting Physician: Darian Esposito Reason for Consult: rapid a-fib Time Spent in preparation of Discharge (in minutes): 45 Hospital Course - Lab Results Lab Results: Micro Results 04/02/18 00:12 Naris MRSA Culture - Final MRSA NOT DETECTED 03/31/18 14:36 Naris MRSA Culture (Admit) - Final MRSA NOT DETECTED 03/26/18 15:18 Blood Blood Culture - Final NO GROWTH AFTER 5 DAYS 03/26/18 15:18 Blood Gram Stain - Final TEST NOT PERFORMED 03/26/18 15:15 Blood Blood Culture - Final NO GROWTH AFTER 5 DAYS 03/26/18 15:15 Blood Gram Stain - Final TEST NOT PERFORMED Most Recent Lab Values WBC 8.8 K/uL (4.8-10.8) 04/03/18 06:42 RBC 4.62 Mil/uL (4.40-5.90) 04/03/18 06:42 Hgb 12.5 g/dL (12.0-18.0) 04/03/18 06:42 Hct 39.2 % (35.0-51.0) 04/03/18 06:42 MCV 84.9 fL (80.0-94.0) 04/03/18 06:42 MCH 27.2 pg (27.0-31.0) 04/03/18 06:42 MCHC 32.0 g/dL (33.0-37.0) L 04/03/18 06:42 RDW 19.1 % (11.5-14.5) H 04/03/18 06:42 Plt Count 176 K/uL (130-400) 04/03/18 06:42 MPV 8.7 fL (7.2-11.7) 04/03/18 06:42 Neut % (Auto) 78.7 % (50.0-75.0) H 04/03/18 06:42 Lymph % (Auto) 7.5 % (20.0-40.0) L 04/03/18 06:42 [place] % (Auto) 9.0 % (0.0-10.0) 04/03/18 06:42 Eos % (Auto) 3.4 % (0.0-4.0) 04/03/18 06:42 Baso % (Auto) 1.4 % (0.0-2.0) 04/03/18 06:42 Neut # (Auto) 6.9 K/uL (1.8-7.0) 04/03/18 06:42 Lymph # (Auto) 0.7 K/uL (1.0-4.3) L 04/03/18 06:42 [place] # (Auto) 0.8 K/uL (0.0-0.8) 04/03/18 06:42 Eos # (Auto) 0.3 K/uL (0.0-0.7) 04/03/18 06:42 Baso # (Auto) 0.1 K/uL (0.0-0.2) 04/03/18 06:42 Neutrophils % (Manual) 78 % (50-75) H 04/03/18 06:42 Lymphocytes % (Manual) 8 % (20-40) L 04/03/18 06:42 Monocytes % (Manual) 9 % (0-10) 04/03/18 06:42 Eosinophils % (Manual) 4 % (0-4) 04/03/18 06:42 Basophils % (Manual) 1 % (0-2) 04/03/18 06:42 Platelet Estimate Normal (NORMAL) 04/03/18 06:42 Hypochromasia (manual) Slight 04/02/18 08:33 Poikilocytosis (manual Slight 04/03/18 06:42 Anisocytosis (manual) Slight 04/03/18 06:42 Macrocytosis (manual) Slight 04/02/18 08:33 Ovalocytes Slight 04/03/18 06:42 [place] Cells Slight 04/03/18 06:42 ESR 9 mm/hr (0-15) 03/28/18 07:38 PT 15.7 SECONDS (9.7-12.2) H 03/26/18 15:18 INR 1.4 03/26/18 15:18 Sodium 139 mmol/L (132-148) 04/03/18 06:42 Potassium 4.6 mmol/L (3.6-5.2) 04/03/18 06:42 Chloride 108 mmol/L (98-107) H 04/03/18 06:42 Carbon Dioxide 23 mmol/L (22-30) 04/03/18 06:42 Anion Gap 13 (10-20) 04/03/18 06:42 BUN 26 mg/dL (9-20) H 04/03/18 06:42 Creatinine 1.4 mg/dL (0.8-1.5) 04/03/18 06:42 Est GFR ( Amer) 59 04/03/18 06:42 Est GFR (Non-Af Amer) 48 04/03/18 06:42 POC Glucose (mg/dL) 115 mg/dL (65-110) H 03/31/18 07:02 Random Glucose 98 mg/dL (75-110) 04/03/18 06:42 Lactic Acid 1.8 mmol/L (0.7-2.1) 03/26/18 15:14 Calcium 9.1 mg/dl (8.6-10.4) 04/03/18 06:42 Phosphorus 5.6 mg/dL (2.5-4.5) H 04/01/18 06:19 Magnesium 2.0 mg/dL (1.6-2.3) 04/01/18 06:19 Total Bilirubin 0.8 mg/dL (0.2-1.3) 04/03/18 06:42 AST 35 U/L (17-59) 04/03/18 06:42 ALT 38 U/L (21-72) 04/03/18 06:42 Alkaline Phosphatase 87 U/L (38-126) 04/03/18 06:42 Total Creatine Kinase 32 U/L (55-170) L 04/01/18 06:19 CK-MB (Mass) 1.65 ng/mL (0.0-3.38) 04/01/18 06:19 Troponin I 0.0270 ng/mL (0.00-0.120) 04/01/18 06:19 C-Reactive Protein 9.40 mg/L (0.0-9.9) 03/28/18 07:38 C-React Prot High Sens > 15.00 mg/L (1.00-3.00) H 03/26/18 15:14 Total Protein 6.0 g/dL (6.3-8.3) L 04/03/18 06:42 Albumin 3.2 g/dL (3.5-5.0) L 04/03/18 06:42 Globulin 2.8 gm/dL (2.2-3.9) 04/03/18 06:42 Albumin/Globulin Ratio 1.2 (1.0-2.1) 04/03/18 06:42 Amylase 44 U/L (30-110) 03/30/18 16:49 Lipase 129 U/L (23-300) 03/30/18 16:49 Urine Color Yellow (YELLOW) 03/26/18 15:33 Urine Clarity Clear (Clear) 03/26/18 15:33 Urine pH 6.0 (5.0-8.0) 03/26/18 15:33 Ur Specific [place] 1.009 (1.003-1.030) 03/26/18 15:33 Urine Protein Negative mg/dL (NEGATIVE) 03/26/18 15:33 Urine Glucose (UA) Normal mg/dL (Normal) 03/26/18 15:33 Urine Ketones Negative mg/dL (NEGATIVE) 03/26/18 15:33 Urine Blood Negative (NEGATIVE) 03/26/18 15:33 Urine Nitrate Negative (NEGATIVE) 03/26/18 15:33 Urine Bilirubin Negative (NEGATIVE) 03/26/18 15:33 Urine Urobilinogen 2.0 mg/dL (0.2-1.0) 03/26/18 15:33 Ur Leukocyte Esterase Neg Marty/uL (Negative) 03/26/18 15:33 Urine WBC (Auto) < 1 /hpf (0-5) 03/26/18 15:33 Urine RBC (Auto) < 1 /hpf (0-3) 03/26/18 15:33 Ur Squamous Epith Cells < 1 /hpf (0-5) 03/26/18 15:33 Hyaline Casts 11-20 /lpf (0-2) H 03/26/18 15:33 - Hospital Course Hospital Course: CHIEF COMPLAINT: Right index finger severe pain. HISTORY OF PRESENT ILLNESS: This is an 82-year-old male with a history of CAD, status post coronary artery bypass grafting; hypertension; hypercholesterolemia; history of atrial fibrillation, on anticoagulation. Also had admitted with recently multiple times with decompensated heart failure and also rapid ventricular rate, came to the office initially with right index finger swelling and pain. A week ago, the patient went to the emergency room with sudden onset of swelling in the right index finger. The patient was not clear whether he had any injuries or not, but following some work he was doing in the backyard, he had some splinter injury in the right index finger, and he was trying to remove that, and he started having more pain, and he came into the emergency room five days ago. At that time, the patient was seen in the emergency room, and he was sent home with a topical antibiotic and also given pain medications, but two days later again he came into the emergency room with worsening pain, swelling, and redness and also having some chills. At that time, he had x-rays of the finger and was given Augmentin, and he was sent home. The patient finished taking the Augmentin, and he came into the office at that time on the day of admission, and I recommended him to go to the hospital because of the suspected underlying osteomyelitis. The patient was having severe pain, swelling, and unable to move the finger. He has no nausea or vomiting. No other systemic symptoms. No diarrhea noted. PAST MEDICAL HISTORY: Coronary artery bypass grafting, CAD, hypertension, hyperlipidemia, history of smoking, and COPD. ALLERGIES: NO KNOWN DRUG ALLERGIES. PERSONAL HISTORY: The patient used to be a heavy smoker, almost five packs per day for many years and quit recently. PAST SURGICAL HISTORY: Include coronary artery bypass grafting. FAMILY HISTORY: Significant for hypertension and heart disease. REVIEW OF SYSTEMS: As noted. The patient is currently having no chest pain. No shortness of breath. Denies any headache, but significant problem in the right index finger with the swelling, redness, and edema. PHYSICAL EXAMINATION: VITAL SIGNS: Upon admission, temperature 97.9, pulse 80, blood pressure 108/71, respiration is 18, and saturation is 97%. HEENT: PERRLA. NECK: Supple. CHEST: Bilateral good air entry. No wheezing or rales noted. HEART: Regular heart sounds. ABDOMEN: Nontender abdomen. EXTREMITIES: No pedal edema. CENTRAL NERVOUS SYSTEM: Alert, awake, and oriented x3. No functional neurological deficit. On the right hand, the patient has fusiform swelling involving the right index finger of the distal phalanx, redness, swelling, and severe significant pain noted. There is no proximal adenitis noted. LABORATORY DATA: WBC 6.2, hemoglobin 12, hematocrit 36.4, platelets 186. Chemistry is otherwise nonspecific. CAT scan of the hand showing evidence of possible acute osteomyelitic changes with erosive arthritis, and also there is an evidence of severe osteoarthritis and subluxation. ESR elevation mildly noted. CRP is highly elevated. ASSESSMENT AND RECOMMENDATIONS: An 82-year-old male with a history of multiple medical histories including coronary artery disease, coronary artery bypass grafting, chronic obstructive pulmonary disease, diabetes, hypertension, and atrial fibrillation. Admitted to the hospital now with possible acute osteomyelitis of the right index finger. The patient will need intravenous antibiotic, infectious disease evaluation and orthopedic evaluation. Continue the current treatment. We will follow the patient. Course in the hospital: Patient was admitted to the hospital He underwent extensive workup. CAT scan of the hand showing evidence of osteomyelitis of the middle phalanx of the right index finger. Infectious disease evaluation was called in Patient started on vancomycin initially then it was changed to Teflaro, then it was switched to Zyvox. Patient symptoms in the hand much better but during the stay patient developed atrial flutter fibrillation with congestive heart failure and rapid ventricular rate. Seen by government auditor. As the patient was having worsening LV ejection fraction associated with his ischemic cardiomyopathy it was decided that the patient will need biventricular ICD placement. Patient was accepted to have the surgery done at [facility]. And he was transferred to [facility] for ICD placement. Patient will be followed up by the government auditor and he will continue to receive the medication and will follow the patient. Final diagnosis of acute osteomyelitis of the right index finger stable now. Atrial flutter fibrillation associate with ischemic cardiomyopathy currently stable and will follow up the patient Discharge Exam - Head Exam Head Exam: ATRAUMATIC, NORMAL INSPECTION Discharge Plan - Follow Up Plan Condition: STABLE Disposition: OTHER INSTITUTION Instructions: Heart Failure, Adult (DC), Osteomyelitis (DC) Referrals: Veronica Kelly MD [Staff Provider] - Latoya Orosco MD [Staff Provider] - Gopal Weber MD [Staff Provider] -
== END 2018-04-03 20:47 | disposition designated cancer center or children's hospital (05) | DRG 539 ==
LOC: C.ER 14:27 → C.9E 16:55 → C.5S 17:59 → C.9I 03-31 13:32 → C.5S 04-01 22:50
PROVIDERS: ADMIT Internal Medicine; ATTEND Internal Medicine
DX: M86.141 Other acute osteomyelitis, right hand (principal); N17.0 Acute kidney failure with tubular necrosis; M00.9 Pyogenic arthritis, unspecified; I13.0 Hypertensive heart and chronic kidney disease with heart failure and stage 1 through stage 4 chronic kidney disease, or unspecified chronic kidney disease; I48.92 Unspecified atrial flutter; E78.00 Pure hypercholesterolemia, unspecified; I11.0 Hypertensive heart disease with heart failure; I25.10 Atherosclerotic heart disease of native coronary artery without angina pectoris; I48.91 Unspecified atrial fibrillation; I50.9 Heart failure, unspecified; Z87.891 Personal history of nicotine dependence; Z95.1 Presence of aortocoronary bypass graft; Z95.2 Presence of prosthetic heart valve; Z95.5 Presence of coronary angioplasty implant and graft; M79.644 Pain in right finger(s); M79.89 Other specified soft tissue disorders; I25.5 Ischemic cardiomyopathy; J44.9 Chronic obstructive pulmonary disease, unspecified; Z53.20 Procedure and treatment not carried out because of patient's decision for unspecified reasons; I95.9 Hypotension, unspecified; N18.9 Chronic kidney disease, unspecified; E78.5 Hyperlipidemia, unspecified; F17.210 Nicotine dependence, cigarettes, uncomplicated; L03.011 Cellulitis of right finger

== ENCOUNTER 2018-04-05 16:02 | Inpatient (IN) | payer MEDICARE, MEDICAID ==
--- NOTE | 2018-04-05 18:19 | CP.PCM.HP ---
History of Present Illness - History of Present Illness History of Present Illness: Patient transferred from [facility] for continuous management. HISTORY OF PRESENT ILLNESS: This is an 82-year-old male with a history of CAD, status post coronary artery bypass grafting; hypertension; hypercholesterolemia; history of atrial fibrillation, on anticoagulation. Also had admitted with recently multiple times with decompensated heart failure and also rapid ventricular rate, came to the office initially with right index finger swelling and pain. A week ago, At the time patient was hospitalized with acute ostium mellitus of the index finger. Patient took antibiotic. But he developed atrial flutter fibrillation, with the decompensated heart failure. Patient was noted to have ischemic cardiomyopathy. Because of the chronic condition and the nature of the heart condition it was decided that the patient will need ablation as well as ICD placement. Patient was transferred to [facility]. And he underwent AV humaira ablation followed by ICD placement for resynchronizing ventricular rhythm treatment with BIVICD PAST MEDICAL HISTORY: Coronary artery bypass grafting, CAD, hypertension, hyperlipidemia, history of smoking, and COPD. ALLERGIES: NO KNOWN DRUG ALLERGIES. PERSONAL HISTORY: The patient used to be a heavy smoker, almost five packs per day for many years and quit recently. PAST SURGICAL HISTORY: Include coronary artery bypass grafting.BIVICD 04/03/2018 FAMILY HISTORY: Significant for hypertension and heart disease. REVIEW OF SYSTEMS: As noted. The patient is currently having no chest pain. No shortness of breath. Denies any headache, but significant problem in the right index finger with the swelling, redness, and edema. PHYSICAL EXAMINATION: VITAL SIGNS: Upon admission, temperature 97.9, pulse 80, blood pressure 108/71, respiration is 18, and saturation is 97%. HEENT: PERRLA. NECK: Supple. CHEST: Bilateral good air entry. No wheezing or rales noted. HEART: Regular heart sounds. ABDOMEN: Nontender abdomen. EXTREMITIES: No pedal edema. CENTRAL NERVOUS SYSTEM: Alert, awake, and oriented x3. No functional neurological deficit. On the right hand, the patient has fusiform swelling involving the right index finger of the distal phalanx, redness, swelling, and severe significant pain noted. There is no proximal adenitis noted. LABORATORY DATA: pending ASSESSMENT AND RECOMMENDATIONS: An 82-year-old male with a history of multiple medical histories including coronary artery disease, coronary artery bypass grafting, chronic obstructive pulmonary disease, diabetes, hypertension, and atrial fibrillation. Patient was transferred from [facility] for further management. Patient is currently comfortable. He is using high flow oxygen at this time. Mild cough noted. His heart rate is much controlled. We will continue to monitor. Medications reviewed We will continue his medications including Flomax 0.4 mg daily Crestor 5 mg daily singular 10 mg daily Flagyl 250 mg 3 times daily losartan 50 mg daily Zyvox 600 mg twice daily DuoNeb nebulization finasteride 5 mg daily Pepcid 20 mg daily Eliquis 2.5 mg twice daily Plavix 70 mg daily Coreg 6.25 mg twice daily Will observe him for 24 hours and the possible discharge plan after that Present on Admission - Present on Admission Any Indicators Present on Admission: No History of DVT/PE: No History of Uncontrolled Diabetes: No Urinary Catheter: No Decubitus Ulcer Present: No Past Patient History - Infectious Disease Hx of Infectious Diseases: None - Past Medical History & Family History Past Medical History?: Yes - Past Social History Smoking Status: Former Smoker - CARDIAC Hx Cardiac Disorders: Yes (NH, CABG, Coronary Stent,) Hx Congestive Heart Failure: Yes (w/ 33% EF) Hx Hypercholesterolemia: Yes Hx Hypertension: Yes - PULMONARY Hx Respiratory Disorders: No - NEUROLOGICAL Hx Neurological Disorder: No - HEENT Hx HEENT Problems: No - RENAL Hx Chronic Kidney Disease: No - ENDOCRINE/METABOLIC Hx Endocrine Disorders: No - HEMATOLOGICAL/ONCOLOGICAL Hx Blood Disorders: No - INTEGUMENTARY Hx Dermatological Problems: Yes Other/Comment: multiple moles removed by dr kerr as pr pt, pt does not know if any were malignant, pt stated "I don't know she gave me madie to put on,", mid chest healed scar, red raised rash and redness all over chest abd ad lower abd upper thighs redness goes around to back, slight redness to buttocks, age spots to forehead, large eccymotic area to right groin and r lower abd dressing dry and and intact had angiogram done 11/05/17 intact, multiple age spots to b/l forehead and templees - MUSCULOSKELETAL/RHEUMATOLOGICAL Hx Musculoskeletal Disorders: No Hx Falls: No - GASTROINTESTINAL Hx Gastrointestinal Disorders: No - GENITOURINARY/GYNECOLOGICAL Hx Genitourinary Disorders: Yes Other/Comment: c/o urinary retention and is on flomax - PSYCHIATRIC Hx Psychophysiologic Disorder: No Hx Substance Use: No - SURGICAL HISTORY Hx Surgeries: Yes Hx Appendectomy: Yes Hx Coronary Artery Bypass Graft: Yes (09/20/10) Hx Coronary Stent: Yes - ANESTHESIA Hx Anesthesia: Yes Hx Anesthesia Reactions: No Hx Malignant Hyperthermia: No Meds Allergies/Adverse Reactions: Allergies Allergy/AdvReac Type Severity Reaction Status Date / Time No Known Allergies Allergy Verified 03/16/18 18:14 Results - Vital Signs Recent Vital Signs: Last Vital Signs Temp 98.4 F 04/05/18 16:20 Pulse 64 04/05/18 16:20 Resp 20 04/05/18 16:20 BP 125/73 04/05/18 16:20 Pulse Ox 95 04/05/18 16:20
--- NOTE | 2018-04-05 19:11 | CP.PCM.PN ---
Subjective - Date & Time of Evaluation Date of Evaluation: 04/05/18 Time of Evaluation: 19:10 - Subjective Subjective: A patient of now 7, and he went to the bed, and immediately nurse called me that he started having some shortness of breath. Patient is saturation is 88% with 40% high flow. The oxygen was increased with. He was having some rales in the lungs. Also patient was having some tachypnea. Immediately x-ray was ordered. Labs ordered. Lasix 40 mg IV stat ordered. Will place the patient on BiPAP as needed and will closely monitor the patient. Objective - Vital Signs/Intake and Output Vital Signs (last 24 hours): Temp Pulse Resp BP Pulse Ox 98.4 F 60 18 125/73 95 04/05/18 16:20 04/05/18 18:00 04/05/18 17:06 04/05/18 16:20 04/05/18 16:20 - Medications Medications: Current Medications Albuterol/Ipratropium (Duoneb 3 Mg/0.5 Mg (3 Ml) Ud) 3 ml INH RQ6 MAY Apixaban (Eliquis) 2.5 mg PO Q12 MAY Carvedilol (Coreg) 3.125 mg PO BID MAY Clopidogrel Bisulfate (Plavix) 75 mg PO DAILY MAY Famotidine (Pepcid) 20 mg PO DAILY MAY Finasteride (Proscar) 5 mg PO DAILY MAY Losartan Potassium (Cozaar) 50 mg PO DAILY MAY Metronidazole (Flagyl) 250 mg PO Q8H MAY; Protocol Montelukast Sodium (Singulair) 10 mg PO HS MAY Rosuvastatin Calcium (Crestor) 5 mg PO HS MAY Tamsulosin HCl (Flomax) 0.4 mg PO DAILY MAY
[2018-04-05 19:35] LABS: ARTERIAL BLOOD GAS HEMOGLOBIN 13.6 g/dL (11.7-17.4); ARTERIAL BLOOD GAS O2 SAT 98.5 % (95-98); ARTERIAL BLOOD GAS PCO2 41 mm/Hg (35-45); ARTERIAL BLOOD GAS PH 7.45 (7.35-7.45); ARTERIAL BLOOD GAS PO2 82 mm/Hg (80-100); ARTERIAL BLOOD GAS TCO2 29.8 mmol/L (22-28)
[2018-04-05 19:52] LABS: BASO # 0.1 K/uL (0.0-0.2); BASO % 0.6 % (0.0-2.0); EOS # 0.3 K/uL (0.0-0.7); EOS % 1.9 % (0.0-4.0); LYMPH # 0.5 K/uL (1.0-4.3); LYMPH % 3.5 % (20.0-40.0); MEAN CELL VOLUME 84.4 fL (80.0-94.0); MEAN CORPUSCULAR HEMOGLOBIN 27.4 pg (27.0-31.0); MEAN CORPUSCULAR HGB CONC 32.4 g/dL (33.0-37.0); MEAN PLATELET VOLUME 8.7 fL (7.2-11.7); MONO # 0.9 K/uL (0.0-0.8); MONO % 6.6 % (0.0-10.0); NEUT # 11.9 K/uL (1.8-7.0); NEUT % 87.4 % (50.0-75.0); PLATELET COUNT 137 K/uL (130-400); RBC 4.77 Mil/uL (4.40-5.90); RED CELL DISTRIBUTION WIDTH 18.9 % (11.5-14.5); WHITE BLOOD COUNT 13.7 K/uL (4.8-10.8)
[2018-04-05 20:03] LABS: ALB/GLOB RATIO 1.1 (1.0-2.1); ALBUMIN 3.3 g/dL (3.5-5.0); ALT/SGPT 28 U/L (21-72); AST/SGOT 25 U/L (17-59); BLOOD UREA NITROGEN 24 mg/dL (9-20); CALCIUM 8.9 mg/dl (8.6-10.4); GFR NON-AFRICAN AMERICAN 58
[2018-04-05] MEDS: Albuterol-Ipratrop 3 mg / 0.5 (3 ml) UD INH SCH (20:05)
[2018-04-05 20:28] LABS: BANDS 2 % (0-2); EOSINOPHIL 1 % (0-4); LYMPHOCYTE 3 % (20-40); MONOCYTE 3 % (0-10); NEUTROPHIL 91 % (50-75); PLATELET ESTIMATE NORMAL (NORMAL); TOTAL CELLS COUNTED 100
[2018-04-06] MEDS: Albuterol-Ipratrop 3 mg / 0.5 (3 ml) UD INH SCH ×4 (02:30→19:49)
[2018-04-06 06:21] LABS: BASO # 0.1 K/uL (0.0-0.2); BASO % 0.9 % (0.0-2.0); EOS # 0.2 K/uL (0.0-0.7); EOS % 1.7 % (0.0-4.0); HEMOGLOBIN 12.5 g/dL (12.0-18.0); LYMPH # 0.7 K/uL (1.0-4.3); LYMPH % 7.3 % (20.0-40.0); MEAN CELL VOLUME 83.6 fL (80.0-94.0); MEAN CORPUSCULAR HEMOGLOBIN 27.6 pg (27.0-31.0); MEAN PLATELET VOLUME 8.6 fL (7.2-11.7); MONO # 0.6 K/uL (0.0-0.8); MONO % 6.2 % (0.0-10.0); NEUT # 8.1 K/uL (1.8-7.0); NEUT % 83.9 % (50.0-75.0); PLATELET COUNT 121 K/uL (130-400); RBC 4.52 Mil/uL (4.40-5.90); RED CELL DISTRIBUTION WIDTH 18.8 % (11.5-14.5); WHITE BLOOD COUNT 9.7 K/uL (4.8-10.8)
[2018-04-06 06:35] LABS: ALBUMIN 2.9 g/dL (3.5-5.0); ALT/SGPT 29 U/L (21-72); AST/SGOT 19 U/L (17-59); BLOOD UREA NITROGEN 24 mg/dL (9-20); CALCIUM 8.5 mg/dl (8.6-10.4); GFR NON-AFRICAN AMERICAN 58
[2018-04-06 06:42] LABS: CK-MB 1.16 ng/mL (0.0-3.38)
--- NOTE | 2018-04-06 08:25 | CP.CCUPN ---
CCU Subjective - Physician Review Events Since Last Encounter (Free Text): 04/06/18 08:23 Patient this morning very comfortable. He is sleeping. He is currently on high flow FiO2. He is not in any distress no chest pain noted Patient had a significant urine output On examination: Vital signs as Heart rate is 71 bpm saturation 97% blood pressure 121/65 respirations 24 Chest bilateral good air entry minimal wheezing noted Irregular heart sounds noted Abdomen soft. 1+ edema noted in the legs [employer] alert awake oriented Labs reviewed Mild positive troponin noted Assessment/recommendation: 82-year-old male with a history of hypertension diabetes hypercholesterolemia patient also has a history of COPD coronary artery disease status post bypass Now admitted to the hospital with decompensated systolic heart failure. Patient few days ago had a BIVICD. On anticoagulation. We will continue the current treatment. Out of bed to chair. Continue the Lasix. And will follow the patient CCU Objective - Vital Signs / Intake & Output Vital Signs (Last 4 hours): Vital Signs Pulse Resp BP Pulse Ox 04/06/18 08:10 63 18 97 04/06/18 08:00 63 18 98 04/06/18 07:50 63 17 97 04/06/18 07:47 21 04/06/18 07:40 63 18 96 04/06/18 07:36 63 17 121/65 98 04/06/18 07:30 63 18 98 04/06/18 07:20 63 17 97 04/06/18 07:10 63 19 97 04/06/18 07:00 63 21 98 04/06/18 06:50 63 22 98 04/06/18 06:40 64 24 98 04/06/18 06:37 63 21 121/67 97 04/06/18 06:36 21 04/06/18 06:30 68 28 H 95 04/06/18 06:20 67 25 H 99 04/06/18 06:10 63 21 98 04/06/18 06:00 63 19 99 04/06/18 05:50 63 23 98 04/06/18 05:40 67 25 H 98 04/06/18 05:37 65 22 114/63 98 04/06/18 05:30 65 19 99 04/06/18 05:20 68 24 98 04/06/18 05:10 65 23 99 04/06/18 05:00 66 19 99 04/06/18 04:50 68 20 99 04/06/18 04:40 67 17 99 04/06/18 04:36 66 16 110/64 98 04/06/18 04:30 70 18 98 Intake and Output (Last 8hrs): Intake & Output 04/05/18 04/06/18 04/06/18 22:59 06:59 14:59 Intake Total 120 Output Total 500 Balance -380 Weight 176 lb Intake: Intake, IV Amount 0 Left Antecubital 0 Right Hand 0 Oral 120 Output: Urine 500 Urine, Voided 500 Stool 0 Emesis 0 Other: # Voids Urine, Voided 1 # Bowel Movements 1 - Medications Active Medications: Active Medications Generic Name Dose Route Start Last Admin Trade Name Freq PRN Reason Stop Dose Admin Albuterol/Ipratropium 3 ml 04/05/18 20:00 04/06/18 07:45 Duoneb 3 Mg/0.5 Mg (3 Ml) Ud INH 3 ml RQ6 MAY Administration Apixaban 2.5 mg 04/05/18 22:00 04/05/18 22:24 Eliquis PO 2.5 mg Q12 MAY Administration Carvedilol 3.125 mg 04/06/18 10:00 Coreg PO BID [facility] Clopidogrel Bisulfate 75 mg 04/06/18 10:00 Plavix PO DAILY [facility] Famotidine 20 mg 04/06/18 10:00 Pepcid PO DAILY MAY Finasteride 5 mg 04/06/18 10:00 Proscar PO DAILY [facility] Losartan Potassium 50 mg 04/06/18 10:00 Cozaar PO DAILY [facility] Metronidazole 250 mg 04/05/18 18:30 04/06/18 02:09 Flagyl PO 250 mg Q8H MAY Administration Protocol Montelukast Sodium 10 mg 04/05/18 22:00 04/05/18 22:24 Singulair PO 10 mg HS MAY Administration Rosuvastatin Calcium 5 mg 04/05/18 22:00 04/05/18 22:24 Crestor PO 5 mg HS MAY Administration Tamsulosin HCl 0.4 mg 04/06/18 10:00 Flomax PO DAILY MAY - Patient Studies Lab Studies: Lab Studies 04/06/18 04/06/18 04/05/18 Range/Units 06:10 06:10 19:46 WBC 9.7 (4.8-10.8) K/uL RBC 4.52 (4.40-5.90) Mil/uL Hgb 12.5 (12.0-18.0) g/dL Hct 37.8 (35.0-51.0) % MCV 83.6 (80.0-94.0) fL MCH 27.6 (27.0-31.0) pg MCHC 33.0 (33.0-37.0) g/dL RDW 18.8 H (11.5-14.5) % Plt Count 121 L (130-400) K/uL MPV 8.6 (7.2-11.7) fL Neut % (Auto) 83.9 H (50.0-75.0) % Lymph % (Auto) 7.3 L (20.0-40.0) % [place] % (Auto) 6.2 (0.0-10.0) % Eos % (Auto) 1.7 (0.0-4.0) % Baso % (Auto) 0.9 (0.0-2.0) % Neut # (Auto) 8.1 H (1.8-7.0) K/uL Lymph # (Auto) 0.7 L (1.0-4.3) K/uL [place] # (Auto) 0.6 (0.0-0.8) K/uL Eos # (Auto) 0.2 (0.0-0.7) K/uL Baso # (Auto) 0.1 (0.0-0.2) K/uL Neutrophils % (Manual) (50-75) % Band Neutrophils % (0-2) % Lymphocytes % (Manual) (20-40) % Monocytes % (Manual) (0-10) % Eosinophils % (Manual) (0-4) % Platelet Estimate (NORMAL) Puncture Site pCO2 (35-45) mm/Hg pO2 (80-100) mm/Hg HCO3 (21-28) mmol/L ABG pH (7.35-7.45) ABG Total CO2 (22-28) mmol/L ABG O2 Saturation (95-98) % ABG Base Excess (-2.0-3.0) mmol/L ABG Hemoglobin (11.7-17.4) g/dL ABG Carboxyhemoglobin (0.5-1.5) % POC ABG HHb (Measured) (0.0-5.0) % ABG Methemoglobin (0.0-3.0) % Champ Test A-a O2 Difference mm/Hg Respiratory Index Hgb O2 Saturation (95.0-98.0) % Liter Flow FiO2 % Sodium 142 139 (132-148) mmol/L Potassium 4.0 4.8 (3.6-5.2) mmol/L Chloride 105 105 (98-107) mmol/L Carbon Dioxide 29 26 (22-30) mmol/L Anion Gap 11 13 (10-20) BUN 24 H 24 H (9-20) mg/dL Creatinine 1.2 1.2 (0.8-1.5) mg/dL Est GFR ( Amer) > 60 > 60 Est GFR (Non-Af Amer) 58 58 Random Glucose 102 D 165 H D (75-110) mg/dL Calcium 8.5 L 8.9 (8.6-10.4) mg/dl Phosphorus 4.1 (2.5-4.5) mg/dL Magnesium 1.8 (1.6-2.3) mg/dL Total Bilirubin 1.1 1.2 (0.2-1.3) mg/dL AST 19 25 (17-59) U/L ALT 29 28 (21-72) U/L Alkaline Phosphatase 76 83 (38-126) U/L Total Creatine Kinase 23 L (55-170) U/L CK-MB (Mass) 1.16 (0.0-3.38) ng/mL Troponin I 0.3000 H* (0.00-0.120) ng/mL Total Protein 5.9 L 6.3 (6.3-8.3) g/dL Albumin 2.9 L 3.3 L (3.5-5.0) g/dL Globulin 3.0 3.0 (2.2-3.9) gm/dL Albumin/Globulin Ratio 1.0 1.1 (1.0-2.1) 04/05/18 04/05/18 Range/Units 19:46 19:30 WBC 13.7 H D (4.8-10.8) K/uL RBC 4.77 (4.40-5.90) Mil/uL Hgb 13.0 (12.0-18.0) g/dL Hct 40.2 (35.0-51.0) % MCV 84.4 (80.0-94.0) fL MCH 27.4 (27.0-31.0) pg MCHC 32.4 L (33.0-37.0) g/dL RDW 18.9 H (11.5-14.5) % Plt Count 137 (130-400) K/uL MPV 8.7 (7.2-11.7) fL Neut % (Auto) 87.4 H (50.0-75.0) % Lymph % (Auto) 3.5 L (20.0-40.0) % [place] % (Auto) 6.6 (0.0-10.0) % Eos % (Auto) 1.9 (0.0-4.0) % Baso % (Auto) 0.6 (0.0-2.0) % Neut # (Auto) 11.9 H (1.8-7.0) K/uL Lymph # (Auto) 0.5 L (1.0-4.3) K/uL [place] # (Auto) 0.9 H (0.0-0.8) K/uL Eos # (Auto) 0.3 (0.0-0.7) K/uL Baso # (Auto) 0.1 (0.0-0.2) K/uL Neutrophils % (Manual) 91 H (50-75) % Band Neutrophils % 2 (0-2) % Lymphocytes % (Manual) 3 L (20-40) % Monocytes % (Manual) 3 (0-10) % Eosinophils % (Manual) 1 (0-4) % Platelet Estimate Normal (NORMAL) Puncture Site Rba pCO2 41 (35-45) mm/Hg pO2 82 (80-100) mm/Hg HCO3 28.0 (21-28) mmol/L ABG pH 7.45 (7.35-7.45) ABG Total CO2 29.8 H (22-28) mmol/L ABG O2 Saturation 98.5 H (95-98) % ABG Base Excess 4.1 H (-2.0-3.0) mmol/L ABG Hemoglobin 13.6 (11.7-17.4) g/dL ABG Carboxyhemoglobin 2.5 H (0.5-1.5) % POC ABG HHb (Measured) 1.4 (0.0-5.0) % ABG Methemoglobin 1.7 (0.0-3.0) % Champ Test Na A-a O2 Difference 223.0 mm/Hg Respiratory Index 2.7 Hgb O2 Saturation 94.3 L (95.0-98.0) % Liter Flow 20.0 FiO2 50.0 % Sodium (132-148) mmol/L Potassium (3.6-5.2) mmol/L Chloride (98-107) mmol/L Carbon Dioxide (22-30) mmol/L Anion Gap (10-20) BUN (9-20) mg/dL Creatinine (0.8-1.5) mg/dL Est GFR ( Amer) Est GFR (Non-Af Amer) Random Glucose (75-110) mg/dL Calcium (8.6-10.4) mg/dl Phosphorus (2.5-4.5) mg/dL Magnesium (1.6-2.3) mg/dL Total Bilirubin (0.2-1.3) mg/dL AST (17-59) U/L ALT (21-72) U/L Alkaline Phosphatase (38-126) U/L Total Creatine Kinase (55-170) U/L CK-MB (Mass) (0.0-3.38) ng/mL Troponin I (0.00-0.120) ng/mL Total Protein (6.3-8.3) g/dL Albumin (3.5-5.0) g/dL Globulin (2.2-3.9) gm/dL Albumin/Globulin Ratio (1.0-2.1) Laboratory Results - last 24 hr 04/05/18 04/05/18 04/05/18 19:30 19:46 19:46 WBC 13.7 H D RBC 4.77 Hgb 13.0 Hct 40.2 MCV 84.4 MCH 27.4 MCHC 32.4 L RDW 18.9 H Plt Count 137 MPV 8.7 Neut % (Auto) 87.4 H Lymph % (Auto) 3.5 L [place] % (Auto) 6.6 Eos % (Auto) 1.9 Baso % (Auto) 0.6 Neut # (Auto) 11.9 H Lymph # (Auto) 0.5 L [place] # (Auto) 0.9 H Eos # (Auto) 0.3 Baso # (Auto) 0.1 Neutrophils % (Manual) 91 H Band Neutrophils % 2 Lymphocytes % (Manual) 3 L Monocytes % (Manual) 3 Eosinophils % (Manual) 1 Platelet Estimate Normal Puncture Site Rba pCO2 41 pO2 82 HCO3 28.0 ABG pH 7.45 ABG Total CO2 29.8 H ABG O2 Saturation 98.5 H ABG Base Excess 4.1 H ABG Hemoglobin 13.6 ABG Carboxyhemoglobin 2.5 H POC ABG HHb (Measured) 1.4 ABG Methemoglobin 1.7 Champ Test Na A-a O2 Difference 223.0 Respiratory Index 2.7 Hgb O2 Saturation 94.3 L Liter Flow 20.0 FiO2 50.0 Sodium 139 Potassium 4.8 Chloride 105 Carbon Dioxide 26 Anion Gap 13 BUN 24 H Creatinine 1.2 Est GFR ( Amer) > 60 Est GFR (Non-Af Amer) 58 Random Glucose 165 H D Calcium 8.9 Phosphorus Magnesium Total Bilirubin 1.2 AST 25 ALT 28 Alkaline Phosphatase 83 Total Creatine Kinase CK-MB (Mass) Troponin I Total Protein 6.3 Albumin 3.3 L Globulin 3.0 Albumin/Globulin Ratio 1.1 04/06/18 04/06/18 06:10 06:10 WBC 9.7 RBC 4.52 Hgb 12.5 Hct 37.8 MCV 83.6 MCH 27.6 MCHC 33.0 RDW 18.8 H Plt Count 121 L MPV 8.6 Neut % (Auto) 83.9 H Lymph % (Auto) 7.3 L [place] % (Auto) 6.2 Eos % (Auto) 1.7 Baso % (Auto) 0.9 Neut # (Auto) 8.1 H Lymph # (Auto) 0.7 L [place] # (Auto) 0.6 Eos # (Auto) 0.2 Baso # (Auto) 0.1 Neutrophils % (Manual) Band Neutrophils % Lymphocytes % (Manual) Monocytes % (Manual) Eosinophils % (Manual) Platelet Estimate Puncture Site pCO2 pO2 HCO3 ABG pH ABG Total CO2 ABG O2 Saturation ABG Base Excess ABG Hemoglobin ABG Carboxyhemoglobin POC ABG HHb (Measured) ABG Methemoglobin Champ Test A-a O2 Difference Respiratory Index Hgb O2 Saturation Liter Flow FiO2 Sodium 142 Potassium 4.0 Chloride 105 Carbon Dioxide 29 Anion Gap 11 BUN 24 H Creatinine 1.2 Est GFR ( Amer) > 60 Est GFR (Non-Af Amer) 58 Random Glucose 102 D Calcium 8.5 L Phosphorus 4.1 Magnesium 1.8 Total Bilirubin 1.1 AST 19 ALT 29 Alkaline Phosphatase 76 Total Creatine Kinase 23 L CK-MB (Mass) 1.16 Troponin I 0.3000 H* Total Protein 5.9 L Albumin 2.9 L Globulin 3.0 Albumin/Globulin Ratio 1.0 Critical Care Progress Note - Nutrition Nutrition: Nutrition Category Date Time Status Heart Healthy Diet [DIET] Diets 04/05/18 Dinner Active
[2018-04-06 09:59] LABS: ANISOCYTOSIS SLIGHT; BANDS 1 % (0-2); LYMPHOCYTE 7 % (20-40); MONOCYTE 6 % (0-10); NEUTROPHIL 86 % (50-75); PLATELET ESTIMATE SLIGHTLY DECREASED (NORMAL); TOTAL CELLS COUNTED 100
[2018-04-06 10:00] LABS: BURR CELLS SLIGHT; OVALOCYTES SLIGHT; POIKILOCYTOSIS SLIGHT; TEARDROP CELLS SLIGHT
--- NOTE | 2018-04-06 11:33 | RAD ---
Date of service: 04/05/2018 HISTORY: sob COMPARISON: 03/31/2018 FINDINGS: LUNGS: No definite infiltrate. PLEURA: Small bilateral pleural effusion new since prior examination. Cannot rule out consolidation at lung bases due to superimposed density of pleural effusion. CARDIOVASCULAR: Atherosclerotic calcification of the aortic arch noted. Normal heart size. Sternotomy wires. AICD. Mild congestive change. OSSEOUS STRUCTURES: No significant abnormalities. VISUALIZED UPPER ABDOMEN: Normal. OTHER FINDINGS: None. IMPRESSION: Bilateral small pleural effusion. No definite infiltrate. AICD. Mild congestive change. Likely congestive heart failure.
--- NOTE | 2018-04-06 23:15 | CP.PCM.CON ---
History of Present Illness - History of Present Illness History of Present Illness: INFECTIOUS DISEASE CONSULTATION ROD JONES MD,FACP 04/06/2018 CHART REVIEWED EXAM NOTED CASE DISCUSSED Patient transferred from [facility] for continuous management POST AICD IMPLANT AND COMPLICATIONS OF CHF HISTORY OF PRESENT ILLNESS: This is an 82-year-old male with a history of CAD, status post coronary artery bypass grafting; hypertension; hypercholesterolemia; history of atrial fibrillation, on anticoagulation. Also multiple ADMISSIONS with decompensated heart failure and WITH rapid ventricular RATE. RECENTLY ADMITTED WITH right index finger swelling and pain. W/U DEMONSTRATED ACUTE OSTEOMYLITIS of the RIGHT index finger. HE WAS BOTH CLINICALLY AND MEDICALLY NOT A CANDIDATE FOR ANY SIGNIFICANT ORTHOPEDIC INTERVENTION. FOR EXAMPLE, he developed atrial flutter fibrillation, with decompensated heart failure. Patient was noted to have ischemic cardiomyopathy. Because of the chronic condition and the nature of the heart condition it was decided that the patient will need ablation as well as AICD placement. Patient was transferred to [facility]. And he underwent AV humaira ablation followed by ICD placement for resynchronizing ventricular rhythm treatment with BIVICD PAST MEDICAL HISTORY: Coronary artery bypass grafting, CAD, hypertension, hyperlipidemia, history of smoking, and COPD. ALLERGIES: NO KNOWN DRUG ALLERGIES. PERSONAL HISTORY: The patient used to be a heavy smoker, almost five packs per day for many years and quit recently. PAST SURGICAL HISTORY: Include coronary artery bypass grafting.BIVICD 04/03/2018 FAMILY HISTORY: Significant for hypertension and heart disease. REVIEW OF SYSTEMS: As noted. The patient is currently having no chest pain. No shortness of breath. Denies any headache, but significant problem in the right index finger with the swelling, redness, and edema. PHYSICAL EXAMINATION: VITAL SIGNS: Upon admission, temperature 97.9, pulse 80, blood pressure 108/71, respiration is 18, and saturation is 97%. HEENT: PERRLA. NECK: Supple. CHEST: Bilateral good air entry. No wheezing or rales noted. HEART: Regular heart sounds. ABDOMEN: Nontender abdomen. EXTREMITIES: No pedal edema, SWELLING AND LACK OF MOVEMENT OF THE FIRST JOINT OF HIS INDEX FINGER, WITH FUSIFORM SWELLING. CENTRAL NERVOUS SYSTEM: Alert, awake, and oriented x3. No functional neurological deficit. LABORATORY DATA: pending ASSESSMENT AND RECOMMENDATIONS: An 82-year-old male with a history of multiple medical histories including ACUTE OSTEOMYLITIS OF HIS INDEX FINGER RIGHT HAND-HIS DOMINANT HAND! coronary artery disease, coronary artery bypass grafting, chronic obstructive pulmonary disease, diabetes, hypertension, and atrial fibrillation, JUST TO MENTION A FEW. He is using high flow oxygen at this time. Mild cough noted. His heart rate is much controlled. We will continue to monitor. Medications reviewed We will continue his medications including-AN FROM THE INFECTIOUS DISEASE POINT OF VIEW- START ZYVOX 600MG PO BID, CLEARED BY PHARMACY PROTOCOL. WHEN READY FOR DISCHARGE SWITCH TO VIBRAMYCIN 100MG PO BID FOR A TOTAL OF 6 WEEKS FROM HIS FROM FIRST DAY OF IV ANTIBIOTICS. Flomax 0.4 mg daily Crestor 5 mg daily singular 10 mg daily Flagyl 250 mg 3 times daily losartan 50 mg daily DuoNeb nebulization finasteride 5 mg daily Pepcid 20 mg daily Eliquis 2.5 mg twice daily Plavix 70 mg daily Coreg 6.25 mg twice daily Present on Admission - Present on Admission Any Indicators Present on Admission: No History of DVT/PE: No History of Uncontrolled Diabetes: No Urinary Catheter: No Decubitus Ulcer Present: No Past Patient History - Infectious Disease Hx of Infectious Diseases: None - Past Medical History & Family History Past Medical History?: Yes - Past Social History Smoking Status: Former Smoker - CARDIAC Hx Cardiac Disorders: Yes ([place], CABG, Coronary Stent,) Hx Congestive Heart Failure: Yes (w/ 33% EF) Hx Hypercholesterolemia: Yes Hx Hypertension: Yes - PULMONARY Hx Respiratory Disorders: No - NEUROLOGICAL Hx Neurological Disorder: No - HEENT Hx HEENT Problems: No - RENAL Hx Chronic Kidney Disease: No - ENDOCRINE/METABOLIC Hx Endocrine Disorders: No - HEMATOLOGICAL/ONCOLOGICAL Hx Blood Disorders: No - INTEGUMENTARY Hx Dermatological Problems: Yes Other/Comment: multiple moles removed by dr kerr as pr pt, pt does not know if any were malignant, pt stated "I don't know she gave me madie to put on,", mid chest healed scar, red raised rash and redness all over chest abd ad lower abd upper thighs redness goes around to back, slight redness to buttocks, age spots to forehead, large eccymotic area to right groin and r lower abd dressing dry and and intact had angiogram done 11/05/17 intact, multiple age spots to b/l forehead and templees - MUSCULOSKELETAL/RHEUMATOLOGICAL Hx Musculoskeletal Disorders: No Hx Falls: No - GASTROINTESTINAL Hx Gastrointestinal Disorders: No - GENITOURINARY/GYNECOLOGICAL Hx Genitourinary Disorders: Yes Other/Comment: c/o urinary retention and is on flomax - PSYCHIATRIC Hx Psychophysiologic Disorder: No Hx Substance Use: No - SURGICAL HISTORY Hx Surgeries: Yes Hx Appendectomy: Yes Hx Coronary Artery Bypass Graft: Yes (09/20/10) Hx Coronary Stent: Yes - ANESTHESIA Hx Anesthesia: Yes Hx Anesthesia Reactions: No Hx Malignant Hyperthermia: No Meds Allergies/Adverse Reactions: Allergies Allergy/AdvReac Type Severity Reaction Status Date / Time No Known Allergies Allergy Verified 03/16/18 18:14 Results - Vital Signs Recent Vital Signs: Last Vital Signs Temp 98.4 F 04/05/18 16:20 Pulse 64 04/05/18 16:20 Resp 20 04/05/18 16:20 BP 125/73 04/05/18 16:20 Pulse Ox 95 04/05/18 16:20 Past Patient History - Infectious Disease Hx of Infectious Diseases: None - Past Medical History & Family History Past Medical History?: Yes - Past Social History Smoking Status: Former Smoker - CARDIAC Hx Cardiac Disorders: Yes ([place], CABG, Coronary Stent,) Hx Congestive Heart Failure: Yes (w/ 33% EF) Hx Hypercholesterolemia: Yes Hx Hypertension: Yes - PULMONARY Hx Respiratory Disorders: No - NEUROLOGICAL Hx Neurological Disorder: No - HEENT Hx HEENT Problems: No - RENAL Hx Chronic Kidney Disease: No - ENDOCRINE/METABOLIC Hx Endocrine Disorders: No - HEMATOLOGICAL/ONCOLOGICAL Hx Blood Disorders: No - INTEGUMENTARY Hx Dermatological Problems: Yes Other/Comment: multiple moles removed by dr kerr as pr pt, pt does not know if any were malignant, pt stated "I don't know she gave me madie to put on,", mid chest healed scar, red raised rash and redness all over chest abd ad lower abd upper thighs redness goes around to back, slight redness to buttocks, age spots to forehead, large eccymotic area to right groin and r lower abd dressing dry and and intact had angiogram done 11/05/17 intact, multiple age spots to b/l forehead and templees - MUSCULOSKELETAL/RHEUMATOLOGICAL Hx Musculoskeletal Disorders: No Hx Falls: No - GASTROINTESTINAL Hx Gastrointestinal Disorders: No - GENITOURINARY/GYNECOLOGICAL Hx Genitourinary Disorders: Yes Other/Comment: c/o urinary retention and is on flomax - PSYCHIATRIC Hx Psychophysiologic Disorder: No Hx Substance Use: No - SURGICAL HISTORY Hx Surgeries: Yes Hx Appendectomy: Yes Hx Coronary Artery Bypass Graft: Yes (09/20/10) Hx Coronary Stent: Yes - ANESTHESIA Hx Anesthesia: Yes Hx Anesthesia Reactions: No Hx Malignant Hyperthermia: No Meds Allergies/Adverse Reactions: Allergies Allergy/AdvReac Type Severity Reaction Status Date / Time No Known Allergies Allergy Verified 03/16/18 18:14 - Medications Medications: Current Medications Albuterol/Ipratropium (Duoneb 3 Mg/0.5 Mg (3 Ml) Ud) 3 ml INH RQ6 [facility] Last Admin: 04/06/18 19:49 Dose: 3 ml Apixaban (Eliquis) 2.5 mg PO Q12 [facility] Last Admin: 04/06/18 21:15 Dose: 2.5 mg Carvedilol (Coreg) 3.125 mg PO BID [facility] Last Admin: 04/06/18 17:47 Dose: 3.125 mg Clopidogrel Bisulfate (Plavix) 75 mg PO DAILY [facility] Last Admin: 04/06/18 10:03 Dose: 75 mg Famotidine (Pepcid) 20 mg PO DAILY [facility] Last Admin: 04/06/18 10:04 Dose: 20 mg Finasteride (Proscar) 5 mg PO DAILY [facility] Last Admin: 04/06/18 11:14 Dose: 5 mg Furosemide (Lasix) 40 mg PO DAILY [facility] Last Admin: 04/06/18 10:03 Dose: 40 mg Linezolid (Zyvox) 600 mg PO BID [facility]; Protocol Last Admin: 04/06/18 17:47 Dose: 600 mg Losartan Potassium (Cozaar) 50 mg PO DAILY [facility] Last Admin: 04/06/18 10:03 Dose: 50 mg Metronidazole (Flagyl) 250 mg PO Q8H [facility]; Protocol Last Admin: 04/06/18 17:47 Dose: 250 mg Montelukast Sodium (Singulair) 10 mg PO HS [facility] Last Admin: 04/06/18 21:15 Dose: 10 mg Rosuvastatin Calcium (Crestor) 5 mg PO HS [facility] Last Admin: 04/06/18 21:15 Dose: 5 mg Tamsulosin HCl (Flomax) 0.4 mg PO DAILY [facility] Last Admin: 04/06/18 10:05 Dose: 0.4 mg Results - Vital Signs Recent Vital Signs: Last Vital Signs Temp 98.2 F 04/06/18 11:30 Pulse 63 04/06/18 21:00 Resp 22 04/06/18 21:40 BP 112/53 L 04/06/18 20:55 Pulse Ox 95 04/06/18 21:00 - Labs Result Diagrams: 04/06/18 06:10 04/06/18 06:10 Labs: Laboratory Results - last 24 hr 04/06/18 04/06/18 06:10 06:10 WBC 9.7 RBC 4.52 Hgb 12.5 Hct 37.8 MCV 83.6 MCH 27.6 MCHC 33.0 RDW 18.8 H Plt Count 121 L MPV 8.6 Neut % (Auto) 83.9 H Lymph % (Auto) 7.3 L [place] % (Auto) 6.2 Eos % (Auto) 1.7 Baso % (Auto) 0.9 Neut # (Auto) 8.1 H Lymph # (Auto) 0.7 L [place] # (Auto) 0.6 Eos # (Auto) 0.2 Baso # (Auto) 0.1 Neutrophils % (Manual) 86 H Band Neutrophils % 1 Lymphocytes % (Manual) 7 L Monocytes % (Manual) 6 Platelet Estimate Slightly decreased L Poikilocytosis (manual Slight Anisocytosis (manual) Slight Tear Drop Cells Slight Ovalocytes Slight Frantz Cells Slight Sodium 142 Potassium 4.0 Chloride 105 Carbon Dioxide 29 Anion Gap 11 BUN 24 H Creatinine 1.2 Est GFR ( Amer) > 60 Est GFR (Non-Af Amer) 58 Random Glucose 102 D Calcium 8.5 L Phosphorus 4.1 Magnesium 1.8 Total Bilirubin 1.1 AST 19 ALT 29 Alkaline Phosphatase 76 Total Creatine Kinase 23 L CK-MB (Mass) 1.16 Troponin I 0.3000 H* Total Protein 5.9 L Albumin 2.9 L Globulin 3.0 Albumin/Globulin Ratio 1.0
[2018-04-07] MEDS: Albuterol-Ipratrop 3 mg / 0.5 (3 ml) UD INH SCH ×3 (01:49→13:37)
[2018-04-07 05:43] LABS: BASO # 0.1 K/uL (0.0-0.2); BASO % 0.6 % (0.0-2.0); EOS # 0.1 K/uL (0.0-0.7); HEMOGLOBIN 12.1 g/dL (12.0-18.0); LYMPH # 0.6 K/uL (1.0-4.3); LYMPH % 5.3 % (20.0-40.0); MEAN CORPUSCULAR HGB CONC 32.1 g/dL (33.0-37.0); MEAN PLATELET VOLUME 8.5 fL (7.2-11.7); MONO # 0.9 K/uL (0.0-0.8); MONO % 7.8 % (0.0-10.0); NEUT # 9.5 K/uL (1.8-7.0); NEUT % 85.3 % (50.0-75.0); PLATELET COUNT 95 K/uL (130-400); RBC 4.49 Mil/uL (4.40-5.90); WHITE BLOOD COUNT 11.1 K/uL (4.8-10.8)
[2018-04-07 06:08] LABS: ALBUMIN 2.8 g/dL (3.5-5.0); ALT/SGPT 29 U/L (21-72); AST/SGOT 21 U/L (17-59); BLOOD UREA NITROGEN 22 mg/dL (9-20); CALCIUM 8.5 mg/dl (8.6-10.4); GFR NON-AFRICAN AMERICAN > 60
[2018-04-07 08:54] LABS: EOSINOPHIL 1 % (0-4); LYMPHOCYTE 3 % (20-40); MONOCYTE 7 % (0-10); NEUTROPHIL 89 % (50-75); TOTAL CELLS COUNTED 100
[2018-04-07 08:55] LABS: PLATELET ESTIMATE DECREASED (NORMAL)
[2018-04-07 08:56] LABS: ANISOCYTOSIS SLIGHT
[2018-04-07 08:57] LABS: BURR CELLS SLIGHT; POIKILOCYTOSIS SLIGHT
--- NOTE | 2018-04-07 10:52 | CP.PCM.PN ---
Subjective - Date & Time of Evaluation Date of Evaluation: 04/07/18 Time of Evaluation: 10:50 - Subjective Subjective: Patient was seen and examined at bedside. Patient was sitting comfortably in a chair in no acute distress. Patient denies any chest pain, palpitations, SOB, dizziness. Patient denies any acute or new complaints. Physical examination - Constitutional Appears: No Acute Distress - Head Exam Head Exam: ATRAUMATIC - Eye Exam Eye Exam: EOMI - Respiratory Exam Respiratory Exam: NORMAL BREATHING PATTERN - Cardiovascular Exam Cardiovascular Exam: Irregular Rhythm, +S1, +S2 - GI/Abdominal Exam GI & Abdominal Exam: Soft, Normal Bowel Sounds. absent: Rigid, Tenderness - Extremities Exam Extremities Exam: Pedal Edema Additional comments: +2 pitting edema - Neurological Exam Neurological Exam: Alert, Awake Assessment and Plan (1) S/P Atrial fibrillation with RVR Assessment & Plan: Patient is a 82 year old male with history of CABG x 4 4years ago, Afib, HTN, HLD, aortic stenosis s/p aortic bioprosthetic valve replacement, who was admitted with CHF exacerbation, who was then found to be in atrial fibrillation RVR on admission. Cardizem drip was initiated and patient is now stable on PO Coreg - [id number] score: 4 -Eliquis 2.5mg PO BID -Coreg 3.125mg PO BID Status: Acute (2) History of coronary artery disease Assessment & Plan: Plavix 75mg PO daily Coreg 3.125mg PO BID Status: Acute (3) Congestive heart failure Assessment & Plan: Systolic CHF s/P BiVICD Medications: * Lasix 20mg PO daily * Cozaar 50mg PO daily Status: Acute (4) Prophylactic measure Assessment & Plan: GI: Protonix 40mg PO daily DVT: Eliquis 2.5mg PO BID Patient stable for D/C home on Home O2 Objective - Vital Signs/Intake and Output Vital Signs (last 24 hours): Temp Pulse Resp BP Pulse Ox 98.6 F 65 24 121/60 98 04/07/18 08:00 04/07/18 09:00 04/07/18 09:00 04/07/18 09:23 04/07/18 09:00 Intake and Output: 04/07/18 04/07/18 06:59 18:59 Intake Total 230 200 Output Total 120 Balance 110 200 - Medications Medications: Current Medications Albuterol/Ipratropium (Duoneb 3 Mg/0.5 Mg (3 Ml) Ud) 3 ml INH RQ6 REPLACED BY [facility] Last Admin: 04/07/18 01:49 Dose: 3 ml Apixaban (Eliquis) 2.5 mg PO Q12 REPLACED BY [facility] Last Admin: 04/07/18 09:22 Dose: 2.5 mg Carvedilol (Coreg) 3.125 mg PO BID REPLACED BY [facility] Last Admin: 04/07/18 09:23 Dose: 3.125 mg Clopidogrel Bisulfate (Plavix) 75 mg PO DAILY REPLACED BY [facility] Last Admin: 04/07/18 09:23 Dose: 75 mg Famotidine (Pepcid) 20 mg PO DAILY REPLACED BY [facility] Last Admin: 04/07/18 09:22 Dose: 20 mg Finasteride (Proscar) 5 mg PO DAILY REPLACED BY [facility] Last Admin: 04/07/18 09:22 Dose: 5 mg Furosemide (Lasix) 40 mg PO DAILY REPLACED BY [facility] Last Admin: 04/07/18 09:23 Dose: 40 mg Linezolid (Zyvox) 600 mg PO BID REPLACED BY [facility]; Protocol Last Admin: 04/07/18 09:22 Dose: 600 mg Losartan Potassium (Cozaar) 50 mg PO DAILY REPLACED BY [facility] Last Admin: 04/07/18 09:22 Dose: 50 mg Metronidazole (Flagyl) 250 mg PO Q8H REPLACED BY [facility]; Protocol Last Admin: 04/07/18 09:31 Dose: 250 mg Montelukast Sodium (Singulair) 10 mg PO HS REPLACED BY [facility] Last Admin: 04/06/18 21:15 Dose: 10 mg Rosuvastatin Calcium (Crestor) 5 mg PO HS REPLACED BY [facility] Last Admin: 04/06/18 21:15 Dose: 5 mg Tamsulosin HCl (Flomax) 0.4 mg PO DAILY REPLACED BY [facility] Last Admin: 04/07/18 09:22 Dose: 0.4 mg - Labs Labs: 04/07/18 05:35 04/07/18 05:35
--- NOTE | 2018-04-07 12:44 | CP.CCUPN ---
CCU Subjective - Physician Review Subjective (Free Text): 04/07/18 12:31 PGY-1 Medicine Progress Note for Dr. Orosco's service Patient seen and examined at bedside. Patient offers no acute complaints. Patient denies fevers, chills, chest pain, sob, n/v, constipation or diarrhea, and dysuria. Critical Care Time Spent (in minutes): 35 CCU Objective - Vital Signs / Intake & Output Vital Signs (Last 4 hours): Vital Signs Pulse Resp BP Pulse Ox 04/07/18 10:00 67 13 97 04/07/18 09:55 65 30 H 121/58 L 98 04/07/18 09:23 121/60 04/07/18 09:00 65 24 98 04/07/18 08:56 63 28 H 121/60 98 Intake and Output (Last 8hrs): Intake & Output 04/06/18 04/07/18 04/07/18 22:59 06:59 14:59 Intake Total 460 0 250 Output Total 121 Balance 339 0 250 Weight 208 lb Intake: Intake, IV Amount 0 Left Antecubital 0 Right Hand 0 Oral 460 0 250 Output: Urine 120 Condom 120 Stool 1 Other: # Bowel Movements 1 1 0 - Physical Exam Head: Positive for: Atraumatic, Normocephalic Pupils: Positive for: PERRL Extroacular Muscles: Positive for: EOMI Conjunctiva: Positive for: Normal Mouth: Positive for: Moist Mucous Membranes Neck: Positive for: Normal Range of Motion. Negative for: Meningeal Signs, JVD Respiratory/Chest: Positive for: Clear to Auscultation, Good Air Exchange. Negative for: Respiratory Distress, Accessory Muscle Use Cardiovascular: Positive for: Regular Rate and Rhythm, Normal S1, S2. Negative for: Murmurs, Irregular Rhythm Abdomen: Positive for: Normal Bowel Sounds. Negative for: Tenderness, Distention Upper Extremity: Positive for: Normal Inspection. Negative for: Cyanosis, Edema Lower Extremity: Positive for: Normal Inspection. Negative for: Edema Neurological: Positive for: GCS=15, CN II-XII Intact, Speech Normal Psychiatric: Positive for: Alert, Oriented x 3 - Medications Active Medications: Active Medications Generic Name Dose Route Start Last Admin Trade Name Freq PRN Reason Stop Dose Admin Albuterol/Ipratropium 3 ml 04/05/18 20:00 12/24/18 08:00 Duoneb 3 Mg/0.5 Mg (3 Ml) Ud INH 3 ml RQ6 NICOLE Administration Apixaban 2.5 mg 04/05/18 22:00 04/07/18 09:22 Eliquis PO 2.5 mg Q12 NICOLE Administration Carvedilol 3.125 mg 04/06/18 10:00 04/07/18 09:23 Coreg PO 3.125 mg BID NICOLE Administration Clopidogrel Bisulfate 75 mg 04/06/18 10:00 04/07/18 09:23 Plavix PO 75 mg DAILY NICOLE Administration Famotidine 20 mg 04/06/18 10:00 04/07/18 09:22 Pepcid PO 20 mg DAILY NICOLE Administration Finasteride 5 mg 04/06/18 10:00 04/07/18 09:22 Proscar PO 5 mg DAILY NICOLE Administration Furosemide 40 mg 04/06/18 10:00 04/07/18 09:23 Lasix PO 40 mg DAILY NICOLE Administration Linezolid 600 mg 04/06/18 11:15 04/07/18 09:22 Zyvox PO 600 mg BID NICOLE Administration Protocol Losartan Potassium 50 mg 04/06/18 10:00 04/07/18 09:22 Cozaar PO 50 mg DAILY NICOLE Administration Metronidazole 250 mg 04/05/18 18:30 04/07/18 09:31 Flagyl PO 250 mg Q8H NICOLE Administration Protocol Montelukast Sodium 10 mg 04/05/18 22:00 04/06/18 21:15 Singulair PO 10 mg HS NICOLE Administration Rosuvastatin Calcium 5 mg 04/05/18 22:00 04/06/18 21:15 Crestor PO 5 mg HS NICOLE Administration Tamsulosin HCl 0.4 mg 04/06/18 10:00 04/07/18 09:22 Flomax PO 0.4 mg DAILY NICOLE Administration - Patient Studies Lab Studies: Microbiology Studies 04/05/18 21:02 MRSA Culture (Admit) - Final Naris MRSA NOT DETECTED Lab Studies 04/07/18 04/07/18 Range/Units 05:35 05:35 WBC 11.1 H (4.8-10.8) K/uL RBC 4.49 (4.40-5.90) Mil/uL Hgb 12.1 (12.0-18.0) g/dL Hct 37.7 (35.0-51.0) % MCV 84.0 (80.0-94.0) fL MCH 27.0 (27.0-31.0) pg MCHC 32.1 L (33.0-37.0) g/dL RDW 19.0 H (11.5-14.5) % Plt Count 95 L D (130-400) K/uL MPV 8.5 (7.2-11.7) fL Neut % (Auto) 85.3 H (50.0-75.0) % Lymph % (Auto) 5.3 L (20.0-40.0) % [place] % (Auto) 7.8 (0.0-10.0) % Eos % (Auto) 1.0 (0.0-4.0) % Baso % (Auto) 0.6 (0.0-2.0) % Neut # (Auto) 9.5 H (1.8-7.0) K/uL Lymph # (Auto) 0.6 L (1.0-4.3) K/uL [place] # (Auto) 0.9 H (0.0-0.8) K/uL Eos # (Auto) 0.1 (0.0-0.7) K/uL Baso # (Auto) 0.1 (0.0-0.2) K/uL Neutrophils % (Manual) 89 H (50-75) % Lymphocytes % (Manual) 3 L (20-40) % Monocytes % (Manual) 7 (0-10) % Eosinophils % (Manual) 1 (0-4) % Platelet Estimate Decreased L (NORMAL) Poikilocytosis (manual Slight Anisocytosis (manual) Slight Frantz Cells Slight Sodium 139 (132-148) mmol/L Potassium 3.7 (3.6-5.2) mmol/L Chloride 103 (98-107) mmol/L Carbon Dioxide 30 (22-30) mmol/L Anion Gap 11 (10-20) BUN 22 H (9-20) mg/dL Creatinine 1.1 (0.8-1.5) mg/dL Est GFR ( Amer) > 60 Est GFR (Non-Af Amer) > 60 Random Glucose 92 (75-110) mg/dL Calcium 8.5 L (8.6-10.4) mg/dl Phosphorus 3.6 (2.5-4.5) mg/dL Magnesium 1.8 (1.6-2.3) mg/dL Total Bilirubin 1.2 (0.2-1.3) mg/dL AST 21 (17-59) U/L ALT 29 (21-72) U/L Alkaline Phosphatase 71 (38-126) U/L Total Protein 5.5 L (6.3-8.3) g/dL Albumin 2.8 L (3.5-5.0) g/dL Globulin 2.7 (2.2-3.9) gm/dL Albumin/Globulin Ratio 1.0 (1.0-2.1) Laboratory Results - last 24 hr 04/07/18 04/07/18 05:35 05:35 WBC 11.1 H RBC 4.49 Hgb 12.1 Hct 37.7 MCV 84.0 MCH 27.0 MCHC 32.1 L RDW 19.0 H Plt Count 95 L D MPV 8.5 Neut % (Auto) 85.3 H Lymph % (Auto) 5.3 L [place] % (Auto) 7.8 Eos % (Auto) 1.0 Baso % (Auto) 0.6 Neut # (Auto) 9.5 H Lymph # (Auto) 0.6 L [place] # (Auto) 0.9 H Eos # (Auto) 0.1 Baso # (Auto) 0.1 Neutrophils % (Manual) 89 H Lymphocytes % (Manual) 3 L Monocytes % (Manual) 7 Eosinophils % (Manual) 1 Platelet Estimate Decreased L Poikilocytosis (manual Slight Anisocytosis (manual) Slight [place] Cells Slight Sodium 139 Potassium 3.7 Chloride 103 Carbon Dioxide 30 Anion Gap 11 BUN 22 H Creatinine 1.1 Est GFR ( Amer) > 60 Est GFR (Non-Af Amer) > 60 Random Glucose 92 Calcium 8.5 L Phosphorus 3.6 Magnesium 1.8 Total Bilirubin 1.2 AST 21 ALT 29 Alkaline Phosphatase 71 Total Protein 5.5 L Albumin 2.8 L Globulin 2.7 Albumin/Globulin Ratio 1.0 Results Reviewed to Date: Yes Review of Systems - Review of Systems Review of Systems: 12 point ROS obtained and noted in HPI Critical Care Progress Note - Nutrition Nutrition: Nutrition Category Date Time Status Heart Healthy Diet [DIET] Diets 04/05/18 Dinner Active Assessment/Plan - Assessment and Plan (Free Text) Assessment: Patient is a 82 yo male w/ PMH CAD s/p CABG (4 years ago), HTN, hypercholesteremia, COPD, and Afib on AC admitted for evaluation of osteomyelitis in 2nd digit. Recently transferred to [place] for BV ICD pl acement due to decompensated HF 2/2 afib w/ RVR. Neuro: AAOx3 Pulm: No acute issues, Hx of COPD- Duonebs nicole, Singulair CV: Hx of CABG- Cozaar, Lasix, Coreg, Eliquis, Plavix, Crestor GI: No acute issues; Pepcid Renal: Finasteride, Flomax ID: [id number] and Flagyl; Afebrile and mild leukocytosis DVT ppx: Eliquis GI ppx: Pepcid Heart Healthy Diet Disposition: Pending PT eval as patient requires a lot of assistance for transfer to bathroom; Can be discharged with oral abx if PT clears patient Amparo Newman PGY-1 Medical Management d/w Dr. Orosco
[2018-04-07 14:50] VITALS: O2SAT 100
[2018-04-07 15:14] VITALS: BP 110/58
--- NOTE | 2018-04-07 15:49 | CP.PCM.DIS ---
Provider - Provider Date of Admission: 04/05/18 16:02 Attending physician: Latoya Orosco MD Consults: 04/05/18 21:30 Cardiology Consult Routine Comment: Consulting Provider: Darian Esposito Consulting Physician: Darian Esposito Reason for Consult: Hypertension 04/06/18 08:25 Infectious Disease Consult Routine Comment: Consulting Provider: Veronica Kelly Consulting Physician: Veronica Kelly Reason for Consult: OM Time Spent in preparation of Discharge (in minutes): 45 Hospital Course - Lab Results Lab Results: Micro Results 04/05/18 21:02 Naris MRSA Culture (Admit) - Final MRSA NOT DETECTED Most Recent Lab Values WBC 11.1 K/uL (4.8-10.8) H 04/07/18 05:35 RBC 4.49 Mil/uL (4.40-5.90) 04/07/18 05:35 Hgb 12.1 g/dL (12.0-18.0) 04/07/18 05:35 Hct 37.7 % (35.0-51.0) 04/07/18 05:35 MCV 84.0 fL (80.0-94.0) 04/07/18 05:35 MCH 27.0 pg (27.0-31.0) 04/07/18 05:35 MCHC 32.1 g/dL (33.0-37.0) L 04/07/18 05:35 RDW 19.0 % (11.5-14.5) H 04/07/18 05:35 Plt Count 95 K/uL (130-400) L D 04/07/18 05:35 MPV 8.5 fL (7.2-11.7) 04/07/18 05:35 Neut % (Auto) 85.3 % (50.0-75.0) H 04/07/18 05:35 Lymph % (Auto) 5.3 % (20.0-40.0) L 04/07/18 05:35 [place] % (Auto) 7.8 % (0.0-10.0) 04/07/18 05:35 Eos % (Auto) 1.0 % (0.0-4.0) 04/07/18 05:35 Baso % (Auto) 0.6 % (0.0-2.0) 04/07/18 05:35 Neut # (Auto) 9.5 K/uL (1.8-7.0) H 04/07/18 05:35 Lymph # (Auto) 0.6 K/uL (1.0-4.3) L 04/07/18 05:35 [place] # (Auto) 0.9 K/uL (0.0-0.8) H 04/07/18 05:35 Eos # (Auto) 0.1 K/uL (0.0-0.7) 04/07/18 05:35 Baso # (Auto) 0.1 K/uL (0.0-0.2) 04/07/18 05:35 Neutrophils % (Manual) 89 % (50-75) H 04/07/18 05:35 Band Neutrophils % 1 % (0-2) 04/06/18 06:10 Lymphocytes % (Manual) 3 % (20-40) L 04/07/18 05:35 Monocytes % (Manual) 7 % (0-10) 04/07/18 05:35 Eosinophils % (Manual) 1 % (0-4) 04/07/18 05:35 Platelet Estimate Decreased (NORMAL) L 04/07/18 05:35 Poikilocytosis (manual Slight 04/07/18 05:35 Anisocytosis (manual) Slight 04/07/18 05:35 Tear Drop Cells Slight 04/06/18 06:10 Ovalocytes Slight 04/06/18 06:10 [place] Cells Slight 04/07/18 05:35 Puncture Site Rba 04/05/18 19:30 pCO2 41 mm/Hg (35-45) 04/05/18 19:30 pO2 82 mm/Hg (80-100) 04/05/18 19:30 HCO3 28.0 mmol/L (21-28) 04/05/18 19:30 ABG pH 7.45 (7.35-7.45) 04/05/18 19:30 ABG Total CO2 29.8 mmol/L (22-28) H 04/05/18 19:30 ABG O2 Saturation 98.5 % (95-98) H 04/05/18 19:30 ABG Base Excess 4.1 mmol/L (-2.0-3.0) H 04/05/18 19:30 ABG Hemoglobin 13.6 g/dL (11.7-17.4) 04/05/18 19:30 ABG Carboxyhemoglobin 2.5 % (0.5-1.5) H 04/05/18 19:30 POC ABG HHb (Measured) 1.4 % (0.0-5.0) 04/05/18 19:30 ABG Methemoglobin 1.7 % (0.0-3.0) 04/05/18 19:30 Champ Test Na 04/05/18 19:30 A-a O2 Difference 223.0 mm/Hg 04/05/18 19:30 Respiratory Index 2.7 04/05/18 19:30 Hgb O2 Saturation 94.3 % (95.0-98.0) L 04/05/18 19:30 Liter Flow 20.0 04/05/18 19:30 FiO2 50.0 % 04/05/18 19:30 Sodium 139 mmol/L (132-148) 04/07/18 05:35 Potassium 3.7 mmol/L (3.6-5.2) 04/07/18 05:35 Chloride 103 mmol/L (98-107) 04/07/18 05:35 Carbon Dioxide 30 mmol/L (22-30) 04/07/18 05:35 Anion Gap 11 (10-20) 04/07/18 05:35 BUN 22 mg/dL (9-20) H 04/07/18 05:35 Creatinine 1.1 mg/dL (0.8-1.5) 04/07/18 05:35 Est GFR ( Amer) > 60 04/07/18 05:35 Est GFR (Non-Af Amer) > 60 04/07/18 05:35 Random Glucose 92 mg/dL (75-110) 04/07/18 05:35 Calcium 8.5 mg/dl (8.6-10.4) L 04/07/18 05:35 Phosphorus 3.6 mg/dL (2.5-4.5) 04/07/18 05:35 Magnesium 1.8 mg/dL (1.6-2.3) 04/07/18 05:35 Total Bilirubin 1.2 mg/dL (0.2-1.3) 04/07/18 05:35 AST 21 U/L (17-59) 04/07/18 05:35 ALT 29 U/L (21-72) 04/07/18 05:35 Alkaline Phosphatase 71 U/L (38-126) 04/07/18 05:35 Total Creatine Kinase 23 U/L (55-170) L 04/06/18 06:10 CK-MB (Mass) 1.16 ng/mL (0.0-3.38) 04/06/18 06:10 Troponin I 0.3000 ng/mL (0.00-0.120) H* 04/06/18 06:10 Total Protein 5.5 g/dL (6.3-8.3) L 04/07/18 05:35 Albumin 2.8 g/dL (3.5-5.0) L 04/07/18 05:35 Globulin 2.7 gm/dL (2.2-3.9) 04/07/18 05:35 Albumin/Globulin Ratio 1.0 (1.0-2.1) 04/07/18 05:35 - Hospital Course Hospital Course: Upon Admission This is an 82-year-old male with a history of CAD, status post coronary artery bypass grafting; hypertension; hypercholesterolemia; history of atrial fibrillation, on anticoagulation. Also had admitted with recently multiple times with decompensated heart failure and also rapid ventricular rate, came to the office initially with right index finger swelling and pain. A week ago, At the time patient was hospitalized with acute ostium mellitus of the index finger. Patient took antibiotic. But he developed atrial flutter fibrillation, with the decompensated heart failure. Patient was noted to have ischemic cardiomyopathy. Because of the chronic condition and the nature of the heart condition it was decided that the patient will need ablation as well as ICD placement. Patient was transferred to [facility]. And he underwent AV humaira ablation followed by ICD placement for resynchronizing ventricular rhythm treatment with BIVICD Hospital Course Patient is a 82 yo admitted for decompensated heart failure. Patient was transferred to [facility] recently for BIVICD placement. Physical therapy saw patient and recommended ambulating with a walker. Patient states he has oxygen and walker at home. Discharge Plan 1. Patient is stable for discharge to home as per Dr. Orosco and Dr. Esposito. 2. Patient should follow up with pmd, Dr. Orosco, within 3-7 days of discharge from hospital. Patient should followup with Dr. Esposito within 2 weeks of discharge form hospital 3. Patient will resume home finasteride 5mg po daily and tamsulosin 0.4mg po daily. Patient will continue Crestor 5mg daily. Patient will continue home albuterol and Singulair. Patient should use home oxygen. 4. Patient was prescribed the following medications: Eliquis 2.5mg twice a day Coreg 3.125mg twice a day Plavix 75mg once a day Losartan 50mg once a day Lasix 20mg once a day Doxycycline 100mg twice a day for next 31 days 5. Patient is educated to return to hospital if symptoms worsen or recur. Discharge Exam - Head Exam Head Exam: ATRAUMATIC, NORMAL INSPECTION, NORMOCEPHALIC - Eye Exam Eye Exam: EOMI, Normal appearance. absent: Nystagmus, Scleral icterus - ENT Exam ENT Exam: Mucous Membranes Moist - Respiratory Exam Respiratory Exam: NORMAL BREATHING PATTERN. absent: Accessory Muscle Use, Chest Wall Tenderness, Wheezes, Respiratory Distress - Cardiovascular Exam Cardiovascular Exam: REGULAR RHYTHM, +S1, +S2 - GI/Abdominal Exam GI & Abdominal Exam: Normal Bowel Sounds, Soft. absent: Diminished Bowel Sounds, Distended, Firm, Guarding, Tenderness - Extremities Exam Extremities exam: normal inspection - Neurological Exam Neurological exam: Alert, Oriented x3 - Psychiatric Exam Psychiatric exam: Normal Affect, Normal Mood - Skin Skin Exam: Intact, Normal Color Discharge Plan - Discharge Medications Prescriptions: Apixaban [Eliquis] 2.5 mg PO BID #60 tablet Apixaban [Eliquis] 2.5 mg PO Q12 #60 tab Carvedilol [Coreg] 3.125 mg PO BID #60 tab Carvedilol [Coreg] 3.125 mg PO BID #60 tab Clopidogrel [Plavix] 75 mg PO DAILY #30 tab Clopidogrel [Plavix] 75 mg PO DAILY #30 tab Doxycycline Hyclate [Doryx] 100 mg PO BID #61 cap Doxycycline Hyclate 100 mg PO BID #62 capsule Furosemide [Lasix] 20 mg PO DAILY #30 tablet Furosemide [Lasix] 20 mg PO DAILY #30 tab Losartan [Cozaar] 50 mg PO DAILY #30 tab Losartan [Cozaar] 50 mg PO DAILY #30 tab - Follow Up Plan Condition: GOOD Disposition: HOME/ ROUTINE Instructions: Heart Healthy Diet, Heart Failure, Adult (DC), High Blood Pressure (DC), Shortness of Breath (Dyspnea) (DC), Coronary Heart Disease (DC), Automatic Cardioverter Defibrillator Implantation (DC) Additional Instructions: 1. Patient is stable for discharge to home as per Dr. Orosco and Dr. Esposito. 2. Patient should follow up with pmd, Dr. Orosco, within 3-7 days of discharge from hospital. Patient should followup with Dr. Esposito within 2 weeks of discharge form hospital 3. Patient will resume home finasteride 5mg po daily and tamsulosin 0.4mg po daily. Patient will continue Crestor 5mg daily. Patient will continue home albuterol and Singulair. 4. Patient was prescribed the following medications: Eliquis 2.5mg twice a day Coreg 3.125mg twice a day Plavix 75mg once a day Losartan 50mg once a day Lasix 20mg once a day Doxycycline 100mg twice a day for next 31 days 5. Patient is educated to return to hospital if symptoms worsen or recur. Referrals: Darian Esposito MD [Staff Provider] - Latoya Orosco MD [Staff Provider] -
[2018-04-07 16:21] VITALS: PULSE 63; RESP 17; TEMP 97.3
== END 2018-04-07 16:38 | disposition home or self-care (01) | DRG 292 ==
LOC: C.5S 16:02 → C.9I 20:29
PROVIDERS: ADMIT Internal Medicine; ATTEND Internal Medicine
DX: I11.0 Hypertensive heart disease with heart failure (principal); I48.92 Unspecified atrial flutter; M86.9 Osteomyelitis, unspecified; I50.23 Acute on chronic systolic (congestive) heart failure; I25.5 Ischemic cardiomyopathy; I25.10 Atherosclerotic heart disease of native coronary artery without angina pectoris; I48.91 Unspecified atrial fibrillation; D72.829 Elevated white blood cell count, unspecified; I35.0 Nonrheumatic aortic (valve) stenosis; J44.9 Chronic obstructive pulmonary disease, unspecified; E78.5 Hyperlipidemia, unspecified; E78.00 Pure hypercholesterolemia, unspecified; Z95.810 Presence of automatic (implantable) cardiac defibrillator; Z95.1 Presence of aortocoronary bypass graft; Z95.2 Presence of prosthetic heart valve; Z95.5 Presence of coronary angioplasty implant and graft; Z87.891 Personal history of nicotine dependence; Z90.49 Acquired absence of other specified parts of digestive tract; Z79.01 Long term (current) use of anticoagulants; Z79.899 Other long term (current) drug therapy